=== PATIENT | male | born 1945 ===

== ENCOUNTER 2018-11-20 16:37 | Inpatient (IN) | payer MEDICAID ==
--- NOTE | 2018-11-20 17:58 | RAD ---
HISTORY: SOB COMPARISON: None available. TECHNIQUE: Chest, one view. FINDINGS: LUNGS: No focal consolidation. Please note that chest x-ray has limited sensitivity for the detection of pulmonary masses. PLEURA: No significant pleural effusion identified. No definite pneumothorax . CARDIOVASCULAR: Heart size appears within normal limits. Ectatic aorta. OSSEOUS STRUCTURES: No acute osseous abnormality identified. VISUALIZED UPPER ABDOMEN: Probable eventration of the left hemidiaphragm. OTHER FINDINGS: None. IMPRESSION: No focal consolidation.
--- NOTE | 2018-11-20 18:13 | C.PDOC ---
History Of Present Illness 72 y/o male comes in to ED complaining of a pill that got stuck in his throat yesterday. Patient states that he was drinking and taking a tablet when it suddenly got stuck in his throat. States that since then, hes been having hype rsalivation and throat pain. When asked to speak, patient is unable to speak clearly. As per family, patient has been having difficulty speaking and swallowing for the past 4 months. Otherwise patient denies chest pain, SOB, headache, or dizziness. Time Seen by Provider: 11/20/18 17:06 Chief Complaint (Nursing): ENT Problem History Per: Patient History/Exam Limitations: None Onset/Duration Of Symptoms: Days Current Symptoms Are (Timing): Still Present Past Medical History Reviewed: Historical Data, Nursing Documentation, Vital Signs Vital Signs: Last Vital Signs Temp 96.7 F L 11/20/18 16:40 Pulse 85 11/20/18 16:40 Resp 16 11/20/18 16:40 BP 136/71 11/20/18 16:40 Pulse Ox 100 11/20/18 16:40 - Medical History PMH: Hyperlipidemia (NOT ON MEDS X1 YEAR) Family History: States: No Known Family Hx - Social History Hx Alcohol Use: No Hx Substance Use: No - Immunization History Hx Tetanus Toxoid Vaccination: No Hx Influenza Vaccination: No Hx Pneumococcal Vaccination: No Review Of Systems ENT: Positive for: Throat Pain, Other (hypersalivation) Cardiovascular: Negative for: Chest Pain Respiratory: Negative for: Shortness of Breath Neurological: Positive for: Change in Speech. Negative for: Headache, Dizziness Physical Exam - Physical Exam Appears: Non-toxic, No Acute Distress Skin: Warm, Dry Head: Atraumatic, Normacephalic Eye(s): bilateral: Normal Inspection, PERRL, EOMI Oral Mucosa: Moist Tongue: Other (tongue deviates towards the right side when asked to stick tongue out) Neck: Supple Chest: Symmetrical Cardiovascular: Rhythm Regular, No Murmur Respiratory: Normal Breath Sounds, No Rales, No Rhonchi, No Wheezing Extremity: Other (Weak on right upper extremity; strong lower extremity 5/5, sensation intact) Extremity: Bilateral: Normal Color And Temperature, Normal ROM Neurological/Psych: Oriented x3, Normal Motor, Normal Sensation Gait: Steady ED Course And Treatment - Laboratory Results Result Diagrams: 11/20/18 18:08 11/20/18 18:08 O2 Sat by Pulse Oximetry: 100 (RA) Pulse Ox Interpretation: Normal - Other Rad CXR X-Ray: Read By Radiologist Interpretation: FINDINGS: LUNGS: No focal consolidation. Please note that chest x-ray has limited sensitivity for the detection of pulmonary masses. PLEURA: No significant pleural effusion identified. No definite pneumothorax . CARDIOVASCULAR: Heart size appears within normal limits. Ectatic aorta. OSSEOUS STRUCTURES: No acute osseous abnormality identified. VISUALIZED UPPER ABDOMEN: Probable eventration of the left hemidiaphragm. OTHER FINDINGS: None. IMPRESSION: No focal consolidation. - CT Scan/US CT Head Other Rad Studies (CT/US): Read By Radiologist, Radiology Report Reviewed CT/US Interpretation: FINDINGS: HEMORRHAGE: No intracranial hemorrhage. BRAIN: No mass effect or edema. The weaver-white matter differentiation appears intact. Please note that MRI with diffusion imaging is more sensitive in the detection of acute ischemic event. VENTRICLES: No hydrocephalus. CALVARIUM: Unremarkable. PARANASAL SINUSES: Mucosal polyp/retention cyst within the left maxillary sinus and right frontal ethmoid air cells. Paranasal sinuses appear otherwise grossly clear. MASTOID AIR CELLS: Unremarkable as visualized. No in flammatory changes. OTHER FINDINGS: None. IMPRESSION: No acute intracranial pathology identified. Findings as above. CT Neck Other Rad Studies (CT/US): Read By Radiologist, Radiology Report Reviewed CT/US Interpretation: FINDINGS: PHARYNX: Unremarkable appearance of the nasopharynx, oropharyx, and hypopharynx. No pharyngeal mucosal based mass lesions. LARYNX: Normal appearance of the larynx. Unremarkable epiglottis. RETROPHARYNGEAL SPACE: The retropharyngeal soft tissues appear within normal limits. SALIVARY GLANDS: Unremarkable appearance of the parotid, submandibular, and sublingual glands. LYMPH NODES: No significant ly mphadenopathy. THYROID: Unremarkable appearance of the thyroid. No thyroid nodule seen. BONES: No aggressive appearing osseous lesion. No acute osseous abnormality. There is an approximate 3.6 x 2.5 x 2.4 cm polypoid mass within the left maxillary sinus. There is no bone erosion or bone destruction. No air-fluid level identified. IMPRESSION: Trachea appears in the midline. Larynx and its contents appear within normal limits. There is no suspicious mass within the neck. There is a 3.6 x 2.5 x 2.4 cm polypoid mass within the left maxillary sinus for which close clinical correlation is advised. Medical Decision Making Medical Decision Making: Impression: Foreign body in throat, Dysphagia r/o CVA. Plan: --Bloodwork --EKG --CXR --CT Head --CT soft tissue neck [employer] was used at bedside (Sim, #[id number]). EKG: NSR Left axis st-t wave changes lead II, III, avF age unknown Disposition - Disposition Disposition: HOME/ ROUTINE Disposition Time: 19:35 Condition: FAIR Forms: [employer] (Tristanian) - Clinical Impression Clinical Impression: Dysphagia - Scribe Statement The provider has reviewed the documentation as recorded by the Kermitibjessika Li Provider Attestation: All medical record entries made by the Kermitibjessika were at my direction and personally dictated by me. I have reviewed the chart and agree that the record accurately reflects my personal performance of the history, physical exam, medical decision making, and the department course for this patient. I have also personally directed, reviewed, and agree with the discharge instructions and disposition.
[2018-11-20 18:14] LABS: HEMOGLOBIN 15.4 g/dL (12.0-18.0); LYMPH # 0.4 K/uL (1.0-4.3); LYMPH % 3.5 % (20.0-40.0); MEAN CELL VOLUME 94.3 fL (80.0-94.0); MEAN CORPUSCULAR HEMOGLOBIN 31.2 pg (27.0-31.0); MEAN CORPUSCULAR HGB CONC 33.1 g/dL (33.0-37.0); MEAN PLATELET VOLUME 9.4 fL (7.2-11.7); MONO # 0.3 K/uL (0.0-0.8); MONO % 2.3 % (0.0-10.0); NEUT # 11.1 K/uL (1.8-7.0); NEUT % 94.2 % (50.0-75.0); PLATELET COUNT 272 K/uL (130-400); RBC 4.93 Mil/uL (4.40-5.90); RED CELL DISTRIBUTION WIDTH 15.1 % (11.5-14.5); WHITE BLOOD COUNT 11.8 K/uL (4.8-10.8)
[2018-11-20 18:26] LABS: PROTHROMBIN TIME 10.6 SECONDS (9.7-12.2)
[2018-11-20 18:28] LABS: ALB/GLOB RATIO 1.4 (1.0-2.1); ALBUMIN 4.3 g/dL (3.5-5.0); ALT/SGPT 76 U/L (21-72); AST/SGOT 24 U/L (17-59); BLOOD UREA NITROGEN 38 mg/dL (9-20); CALCIUM 9.1 mg/dl (8.6-10.4); GFR NON-AFRICAN AMERICAN > 60
--- NOTE | 2018-11-20 18:34 | CT ---
Date of service: 11/20/2018 PROCEDURE: CT HEAD WITHOUT CONTRAST. HISTORY: R/O Bleed COMPARISON: None available TECHNIQUE: Axial computed tomography images were obtained through the head/brain without intravenous contrast. Radiation dose: Total exam DLP = 985.73 mGy-cm. This CT exam was performed using one or more of the following dose reduction techniques: Automated exposure control, adjustment of the mA and/or kV according to patient size, and/or use of iterative reconstruction technique. FINDINGS: HEMORRHAGE: No intracranial hemorrhage. BRAIN: No mass effect or edema. The weaver-white matter differentiation appears intact. Please note that MRI with diffusion imaging is more sensitive in the detection of acute ischemic event. VENTRICLES: No hydrocephalus. CALVARIUM: Unremarkable. PARANASAL SINUSES: Mucosal polyp/retention cyst within the left maxillary sinus and right frontal ethmoid air cells. Paranasal sinuses appear otherwise grossly clear. MASTOID AIR CELLS: Unremarkable as visualized. No inflammatory changes. OTHER FINDINGS: None. IMPRESSION: No acute intracranial pathology identified. Findings as above.
[2018-11-20 18:40] LABS: CK-MB 4.22 ng/mL (0.0-3.38)
[2018-11-20 20:11] LABS: LYMPHOCYTE 5 % (20-40); MONOCYTE 4 % (0-10); NEUTROPHIL 91 % (50-75); PLATELET ESTIMATE NORMAL (NORMAL); TOTAL CELLS COUNTED 100
[2018-11-20 21:25] LABS: URINE BACTERIA RARE (<OCC); URINE BILIRUBIN NEGATIVE (NEGATIVE); URINE BLOOD NEGATIVE (NEGATIVE); URINE CLARITY Clear (Clear); URINE COLOR Yellow (YELLOW); URINE GLUCOSE (UA) NORMAL (Normal); URINE LEUKOCYTE ESTERASE NEG Leu/uL (Negative); URINE PROTEIN NEGATIVE (NEGATIVE); URINE UROBILINOGEN NORMAL mg/dL (0.2-1.0)
[2018-11-20 22:35] VITALS: RESP 20
[2018-11-21] MEDS: Sodium Chloride 0.9% 1,000 ML IV SCH ×3 (00:15→22:25)
--- NOTE | 2018-11-21 00:46 | CP.PCM.HP ---
<Bee Tai - Last Filed: 11/21/18 07:18> History of Present Illness - History of Present Illness History of Present Illness: CC "slurred speech, difficulty swallowing" HPI: Patient is a 72 year old male with no past medical history who presents for 3 month history of progressively worsening difficulty swallowing and slurred speech. Family at bedside including his , sister and daughter state that it was not obvious at first, but later has become more obvious to them. Family states that he initially had difficulty swallowing solid foods, however has progressively worsened to the point where he has difficulty with both solids and liquids. typically feeds him spoonful of pureed food, she states that patient starts to choke with thin liquids. Patient has lost about 50 lbs in the past 3 months despite eating soft food three times daily. He denies pain in his throat, however admits to some discomfort in his throat. Family also states that his speech has become more and more slurred to the point that they have difficulty understanding him. They have also noticed that over the past 3 months, the strength in his arms has decreased, right is weaker than left. He continues to be able to walk without difficulty. He has not had any bowel or bladder incontinence, saddle anesthesia. states that he is continent and is able to use the bathroom on his own. Family denies any falls. Denies fevers, chills, chest pain, shortness of breath, cough, headache, dizziness, nausea, vomiting, diarrhea, dysuria, numbness, tingling, syncopal episodes. Patient has been able to follow commands, understands family without any issues. Patient was recently given a OTC pain pill on , however patient then began to choke. Family did the Heimlich manuever on him and the pill came out. They state that they didn't seek medical attention because they didn't have insurance. Patient and his family moved to the [facility] from [place] about 1 year ago. PMH: none PSH: none Social hx: denies alcohol, tobacco or drug use. Allergies: PCN - rash Family hx: non contributory HCP: Dolores Garcia , Present on Admission - Present on Admission Any Indicators Present on Admission: No Review of Systems - Constitutional Constitutional: Weakness. absent: Chills, Fever, Headache - EENT Eyes: absent: Change in Vision Nose/Mouth/Throat: absent: Nasal Congestion, Sore Throat - Cardiovascular Cardiovascular: absent: Chest Pain, Dyspnea - Respiratory Respiratory: absent: Cough, Dyspnea - Gastrointestinal Gastrointestinal: absent: Abdominal Pain, Nausea, Vomiting - Genitourinary Genitourinary: absent: Difficulty Urinating, Dysuria - Musculoskeletal Musculoskeletal: Muscle Weakness. absent: Back Pain, Stiffness, Tingling - Neurological Neurological: Abnormal Speech, Focal Weakness. absent: Confusion - Psychiatric Psychiatric: absent: Anxiety, Depression Past Patient History - Past Medical History & Family History Past Medical History?: Yes - Past Social History Smoking Status: Never Smoked - CARDIAC Hx Hypercholesterolemia: Yes - MUSCULOSKELETAL/RHEUMATOLOGICAL Hx Falls: No - PSYCHIATRIC Hx Substance Use: No Meds Allergies/Adverse Reactions: Allergies Allergy/AdvReac Type Severity Reaction Status Date / Time Penicillins Allergy Verified 11/20/18 16:45 Physical Exam - Constitutional Appears: Well, Non-toxic, No Acute Distress - Head Exam Head Exam: ATRAUMATIC, NORMOCEPHALIC - Eye Exam Eye Exam: EOMI, PERRL. absent: Conjunctival injection, Nystagmus, Periorbital swelling, Scleral icterus - ENT Exam ENT Exam: Mucous Membranes Dry, Normal Oropharynx (no uvular deviation noted) - Neck Exam Neck exam: Negative for: Full Rom, Tenderness - Respiratory Exam Respiratory Exam: Clear to Auscultation Bilateral, NORMAL BREATHING PATTERN. absent: Rales, Rhonchi, Wheezes, Respiratory Distress, Stridor - Cardiovascular Exam Cardiovascular Exam: REGULAR RHYTHM, +S1, +S2. absent: Gallop, Rubs, Systolic Murmur - GI/Abdominal Exam GI & Abdominal Exam: Normal Bowel Sounds, Soft. absent: Distended, Firm, Guarding, Hernia, Rigid, Tenderness - Extremities Exam Extremities exam: Positive for: normal capillary refill, pedal pulses present. Negative for: calf tenderness, pedal edema - Back Exam Back exam: absent: CVA tenderness (L), CVA tenderness (R), rash noted - Neurological Exam Neurological exam: Oriented x3 (Knows name, place, month and can tell you however difficulty undestanding pt d/t slurred speech) Additional comments: Can follow commands without confusion Slurred speech - dysarthria Able to follow H in space without difficulty Mild right facial droop noted with weakness of tongue muscles on right, patient cannot move tongue to left. Uvula appears midline Upper extremities: Can hold both arms up bilaterally, however decreased step finisher strength of right compared to left. Sensation intact and equal bilaterally of upper extremities. Able to complete finger to nose without difficulty, Lower extremities: Good strength of lower extremities. Sensation intact. Able to complete heel to feliciano test without difficulty. Able to stand without falling. normal gait. - Psychiatric Exam Psychiatric exam: Normal Affect, Normal Mood - Skin Skin Exam: Dry, Intact, Warm Additional comments: Poor skin turgor diffusely Results - Vital Signs Recent Vital Signs: Last Vital Signs Temp 97.7 F 11/20/18 23:30 Pulse 62 11/20/18 23:30 Resp 20 11/20/18 23:30 BP 119/70 11/20/18 23:30 Pulse Ox 99 11/20/18 23:30 - Labs Result Diagrams: 11/21/18 06:04 11/21/18 06:04 Labs: Laboratory Results - last 24 hr 11/20/18 11/20/18 11/20/18 18:08 18:08 18:15 WBC 11.8 H RBC 4.93 Hgb 15.4 Hct 46.4 MCV 94.3 H MCH 31.2 H MCHC 33.1 RDW 15.1 H Plt Count 272 MPV 9.4 Neut % (Auto) 94.2 H Lymph % (Auto) 3.5 L [place] % (Auto) 2.3 Eos % (Auto) 0.0 Baso % (Auto) 0.0 Neut # (Auto) 11.1 H Lymph # (Auto) 0.4 L [place] # (Auto) 0.3 Eos # (Auto) 0.0 Baso # (Auto) 0.0 Neutrophils % (Manual) 91 H Lymphocytes % (Manual) 5 L Monocytes % (Manual) 4 Platelet Estimate Normal PT 10.6 INR 1.0 APTT 28 Sodium 136 Potassium 5.7 H Chloride 94 L Carbon Dioxide 34 H Anion Gap 14 BUN 38 H Creatinine 0.9 Est GFR ( Amer) > 60 Est GFR (Non-Af Amer) > 60 Random Glucose 126 H Calcium 9.1 Total Bilirubin 0.6 AST 24 ALT 76 H Alkaline Phosphatase 44 CK-MB (Mass) 4.22 H Troponin I 0.0180 Total Protein 7.2 Albumin 4.3 Globulin 3.0 Albumin/Globulin Ratio 1.4 Urine Color Urine Clarity Urine pH Ur Specific [place] Urine Protein Urine Glucose (UA) Urine Ketones Urine Blood Urine Nitrate Urine Bilirubin Urine Urobilinogen Ur Leukocyte Esterase Urine WBC (Auto) Urine RBC (Auto) Urine Bacteria 11/20/18 21:13 WBC RBC Hgb Hct MCV MCH MCHC RDW Plt Count MPV Neut % (Auto) Lymph % (Auto) [place] % (Auto) Eos % (Auto) Baso % (Auto) Neut # (Auto) Lymph # (Auto) [place] # (Auto) Eos # (Auto) Baso # (Auto) Neutrophils % (Manual) Lymphocytes % (Manual) Monocytes % (Manual) Platelet Estimate PT INR APTT Sodium Potassium Chloride Carbon Dioxide Anion Gap BUN Creatinine Est GFR ( Amer) Est GFR (Non-Af Amer) Random Glucose Calcium Total Bilirubin AST ALT Alkaline Phosphatase CK-MB (Mass) Troponin I Total Protein Albumin Globulin Albumin/Globulin Ratio Urine Color Yellow Urine Clarity Clear Urine pH 5.0 Ur Specific [place] 1.026 Urine Protein Negative Urine Glucose (UA) Normal Urine Ketones Negative Urine Blood Negative Urine Nitrate Negative Urine Bilirubin Negative Urine Urobilinogen Normal Ur Leukocyte Esterase Neg Urine WBC (Auto) 1 Urine RBC (Auto) 1 Urine Bacteria Rare Assessment & Plan - Assessment and Plan (Free Text) Assessment: 72 year old male who presents for 3 month history of progressively worsening slurred speech, difficulty swallowing, upper extremity weakness. Plan: Slurred speech CT head negative f/u ECHO f/u carotid doppler ASA 300mg HI Crestor 20mg PO HS if pass swallow eval f/u MRI brain without contrast f/u MRA brain without contrast Difficulty swallowing NPO until swallow eval CXR negative Soft tissue neck CT: trachea appears midline. Larynx and its contents WNL. No suspicious neck mass. 3.6 by 2.5 by 2.4 cm polypoid mass in left sinus NS IV fluids at 100cc/hr IV Upper extremity weakness Neurology Dr. Villafuerte consulted, help appreciated CT head negative CT soft tissue neck: trachea appears midline. Larynx and its contents WNL. No suspicious neck mass. 3.6 by 2.5 by 2.4 cm polypoid mass in left sinus f/u ECHO f/u carotid doppler Weight loss, likely secondary to poor PO intake Dehydration 50 lbs weight loss over last 3 months Continue NS @ 100cc/hr IV Monitor electrolytes and replete as necessary. MCV 94, Hb 15 however possibly hemoconcentrated due to dehydration f/u folate, B12 K elevated at 5.7, received Kayexalate in ED Cl low, bicarb elevated, suggestive of dehydration. Continue to monitor electrolyte to see if improved with hydration. PPX: Heparin 5000 units SC Pepcid PT/OT/speech Case discussed with Dr. Max Tai, PGY1 <Rodolfo Santana P - Last Filed: 11/21/18 07:30> Results - Vital Signs Recent Vital Signs: Last Vital Signs Temp 97.2 F L 11/21/18 04:28 Pulse 62 11/21/18 04:28 Resp 20 11/21/18 04:28 BP 124/70 11/21/18 04:28 Pulse Ox 98 11/21/18 04:28 - Labs Result Diagrams: 11/21/18 06:04 11/21/18 06:04 Labs: Laboratory Results - last 24 hr 11/20/18 11/20/18 11/20/18 18:08 18:08 18:15 WBC 11.8 H RBC 4.93 Hgb 15.4 Hct 46.4 MCV 94.3 H MCH 31.2 H MCHC 33.1 RDW 15.1 H Plt Count 272 MPV 9.4 Neut % (Auto) 94.2 H Lymph % (Auto) 3.5 L [place] % (Auto) 2.3 Eos % (Auto) 0.0 Baso % (Auto) 0.0 Neut # (Auto) 11.1 H Lymph # (Auto) 0.4 L [place] # (Auto) 0.3 Eos # (Auto) 0.0 Baso # (Auto) 0.0 Neutrophils % (Manual) 91 H Lymphocytes % (Manual) 5 L Monocytes % (Manual) 4 Platelet Estimate Normal PT 10.6 INR 1.0 APTT 28 Sodium 136 Potassium 5.7 H Chloride 94 L Carbon Dioxide 34 H Anion Gap 14 BUN 38 H Creatinine 0.9 Est GFR ( Amer) > 60 Est GFR (Non-Af Amer) > 60 POC Glucose (mg/dL) Random Glucose 126 H Calcium 9.1 Phosphorus Magnesium Total Bilirubin 0.6 AST 24 ALT 76 H Alkaline Phosphatase 44 CK-MB (Mass) 4.22 H Troponin I 0.0180 Total Protein 7.2 Albumin 4.3 Globulin 3.0 Albumin/Globulin Ratio 1.4 Urine Color Urine Clarity Urine pH Ur Specific [place] Urine Protein Urine Glucose (UA) Urine Ketones Urine Blood Urine Nitrate Urine Bilirubin Urine Urobilinogen Ur Leukocyte Esterase Urine WBC (Auto) Urine RBC (Auto) Urine Bacteria 11/20/18 11/21/18 11/21/18 21:13 06:04 06:04 WBC 10.2 RBC 4.48 Hgb 14.1 Hct 41.9 MCV 93.7 MCH 31.6 H MCHC 33.7 RDW 14.9 H Plt Count 220 MPV 9.1 Neut % (Auto) 72.8 Lymph % (Auto) 20.8 [place] % (Auto) 5.9 Eos % (Auto) 0.4 Baso % (Auto) 0.1 Neut # (Auto) 7.4 H Lymph # (Auto) 2.1 [place] # (Auto) 0.6 Eos # (Auto) 0.0 Baso # (Auto) 0.0 Neutrophils % (Manual) Lymphocytes % (Manual) Monocytes % (Manual) Platelet Estimate PT INR APTT Sodium 135 Potassium 4.8 Chloride 97 L Carbon Dioxide 36 H Anion Gap 7 L BUN 28 H Creatinine 0.8 Est GFR ( Amer) > 60 Est GFR (Non-Af Amer) > 60 POC Glucose (mg/dL) Random Glucose 90 D Calcium 8.6 Phosphorus 2.9 Magnesium 2.3 Total Bilirubin 0.9 AST 31 ALT 63 Alkaline Phosphatase 37 L CK-MB (Mass) Troponin I Total Protein 5.8 L Albumin 3.2 L D Globulin 2.7 Albumin/Globulin Ratio 1.2 Urine Color Yellow Urine Clarity Clear Urine pH 5.0 Ur Specific [place] 1.026 Urine Protein Negative Urine Glucose (UA) Normal Urine Ketones Negative Urine Blood Negative Urine Nitrate Negative Urine Bilirubin Negative Urine Urobilinogen Normal Ur Leukocyte Esterase Neg Urine WBC (Auto) 1 Urine RBC (Auto) 1 Urine Bacteria Rare 11/21/18 06:28 WBC RBC Hgb Hct MCV MCH MCHC RDW Plt Count MPV Neut % (Auto) Lymph % (Auto) [place] % (Auto) Eos % (Auto) Baso % (Auto) Neut # (Auto) Lymph # (Auto) [place] # (Auto) Eos # (Auto) Baso # (Auto) Neutrophils % (Manual) Lymphocytes % (Manual) Monocytes % (Manual) Platelet Estimate PT INR APTT Sodium Potassium Chloride Carbon Dioxide Anion Gap BUN Creatinine Est GFR ( Amer) Est GFR (Non-Af Amer) POC Glucose (mg/dL) 93 Random Glucose Calcium Phosphorus Magnesium Total Bilirubin AST ALT Alkaline Phosphatase CK-MB (Mass) Troponin I Total Protein Albumin Globulin Albumin/Globulin Ratio Urine Color Urine Clarity Urine pH Ur Specific [place] Urine Protein Urine Glucose (UA) Urine Ketones Urine Blood Urine Nitrate Urine Bilirubin Urine Urobilinogen Ur Leukocyte Esterase Urine WBC (Auto) Urine RBC (Auto) Urine Bacteria Attending/Attestation - Attestation I have personally seen and examined this patient.: Yes I have fully participated in the care of the patient.: Yes I have reviewed all pertinent clinical information: Yes Notes (Text): 11/21/18 07:28 Slurred speech, swallowing difficulty, secondary weight loss and dehydration, negative CT, suspect brain stem lesion most likely from CVA, ordered MRI/MRA of brain. IVF, speech/swallow eval, gi/dvt prophylaxis, ASA, statin, neurology consult. See orders for detail.
[2018-11-21 06:12] LABS: BASO % 0.1 % (0.0-2.0); EOS % 0.4 % (0.0-4.0); HEMOGLOBIN 14.1 g/dL (12.0-18.0); LYMPH # 2.1 K/uL (1.0-4.3); LYMPH % 20.8 % (20.0-40.0); MEAN CELL VOLUME 93.7 fL (80.0-94.0); MEAN CORPUSCULAR HEMOGLOBIN 31.6 pg (27.0-31.0); MEAN CORPUSCULAR HGB CONC 33.7 g/dL (33.0-37.0); MEAN PLATELET VOLUME 9.1 fL (7.2-11.7); MONO # 0.6 K/uL (0.0-0.8); MONO % 5.9 % (0.0-10.0); NEUT # 7.4 K/uL (1.8-7.0); NEUT % 72.8 % (50.0-75.0); RBC 4.48 Mil/uL (4.40-5.90); RED CELL DISTRIBUTION WIDTH 14.9 % (11.5-14.5); WHITE BLOOD COUNT 10.2 K/uL (4.8-10.8)
[2018-11-21 06:45] LABS: ALB/GLOB RATIO 1.2 (1.0-2.1); ALBUMIN 3.2 g/dL (3.5-5.0); ALT/SGPT 63 U/L (21-72); AST/SGOT 31 U/L (17-59); BLOOD UREA NITROGEN 28 mg/dL (9-20); CALCIUM 8.6 mg/dl (8.6-10.4); GFR NON-AFRICAN AMERICAN > 60
[2018-11-21] MEDS ORDERED: Pneumococcal 23-Valent Vaccine IM ONE ×2 (10:00→11:30)
--- NOTE | 2018-11-21 10:56 | CP.PCM.PN ---
Subjective - Date & Time of Evaluation Date of Evaluation: 11/21/18 Time of Evaluation: 09:15 - Subjective Subjective: PGY-1 Medicine Progress Note for Dr. Paul Bridges Patient was seen and examined today at bedside in no acute distress. Nurse reports no overnight events. Patient is pleasant and is able to nod and shake his head without difficulty. His slurred speech makes it somewhat difficult to obtain full history. He has no new complaints, but would like to know what the results of the exams have been. Denies chest pain, headache, shortness of breath , n/v/c/d. He's still extremely hungry as still on NPO diet pending swallow eval. Objective - Vital Signs/Intake and Output Vital Signs (last 24 hours): Temp Pulse Resp BP Pulse Ox 97.7 F 62 20 113/69 100 11/21/18 07:00 11/21/18 07:00 11/21/18 07:00 11/21/18 07:00 11/21/18 07:00 Intake and Output: 11/21/18 11/21/18 06:59 18:59 Output Total 800 Balance -800 - Medications Medications: Current Medications Aspirin (Aspirin Supp) 300 mg MA DAILY [facility] Heparin Sodium (Porcine) (Heparin) 5,000 units SC Q8 [facility] Last Admin: 11/21/18 06:20 Dose: 5,000 units Sodium Chloride (Sodium Chloride 0.9%) 1,000 mls @ 100 mls/hr IV .Q10H [facility] Last Admin: 11/21/18 00:15 Dose: 100 mls/hr Rosuvastatin Calcium (Crestor) 20 mg PO HS [facility] - Labs Labs: 11/21/18 06:04 11/21/18 06:04 PT 10.6 SECONDS (9.7-12.2) 11/20/18 18:15 INR 1.0 11/20/18 18:15 APTT 28 SECONDS (21-34) 11/20/18 18:15 - Constitutional Appears: No Acute Distress, Cachectic - Head Exam Head Exam: ATRAUMATIC, NORMOCEPHALIC - Eye Exam Eye Exam: EOMI, Normal appearance, PERRL - ENT Exam ENT Exam: Mucous Membranes Dry Additional comments: slight R tongue deviation - Respiratory Exam Respiratory Exam: Clear to Ausculation Bilateral, NORMAL BREATHING PATTERN. absent: Rales, Rhonchi, Wheezes - Cardiovascular Exam Cardiovascular Exam: REGULAR RHYTHM, +S1, +S2. absent: Gallop, Rubs, Murmur - GI/Abdominal Exam GI & Abdominal Exam: Soft, Normal Bowel Sounds. absent: Distended, Firm, Guarding, Tenderness - Back Exam Back Exam: absent: CVA tenderness (L), CVA tenderness (R) - Neurological Exam Neurological Exam: Alert, Awake, Normal Gait, Oriented x3 Neuro motor strength exam: Left Upper Extremity: 4, Right Upper Extremity: 2/1 (decreased principal technologist strength), Left Lower Extremity: 5, Right Lower Extremity: 5 Additional comments: follows commands readily slurred speech no pronator drift finger to nose intact sensation intact - Psychiatric Exam Psychiatric exam: Normal Affect, Normal Mood - Skin Skin Exam: Dry, Normal Color, Warm Additional comments: poor skin turgor Assessment and Plan - Assessment and Plan (Free Text) Assessment: 72yo M who presents for 3 month history of progressively worsening slurred speech, difficulty swallowing, upper extremity weakness. Plan: Slurred speech - CT Head without contrast (11/20): neg - Carotid Doppler (11/21): neg - ECHO (11/21): pending read - MRI brain without contrast (11/21): pending read - MRA brain without contrast (11/21): pending read - f/u CTA Neck - ASA 300mg MA daily - Crestor 20mg po HS if pass swallow eval Dysphagia - CXR (11/20): neg - CT Neck Soft Tissue (11/20): no radio-opaque foreign body identified. L maxillary retention cyst/polyp. - IVF: NS@100 - f/u modified barium video swallow Upper extremity weakness - CT Head without contrast (11/20): neg - CT Neck Soft Tissue (11/20): neg - Carotid Doppler (11/21): neg - ECHO (11/21): pending read - Neuro consulted: Dr. Villafuerte - help appreciated Weight loss, likely secondary to poor PO intake Dehydration - 50lbs weight loss over last 3 months - albumin stable, Hgb hemoconcentrated from dehydration - folate 16.1, Vit B12 472 - trend electrolytes and replete prn - Hgb A1c 6.0 - K elevated at 5.7, received Kayexalate in ED - IVF: NS@100 - f/u modified barium video swallow PPx - DVT: Heparin 5000 units SC - GI: - Diet: Pureed dysphagia diet with thin liquids. Assist for muscle wasting and swallow observation. - PT/OT/speech d/w Dr. Paul Llanos PGY-1
[2018-11-21 11:18] LABS: FOLATE 16.1 ng/mL
[2018-11-21 12:02] LABS: HDL CHOLESTEROL 61 mg/dL (30-70)
[2018-11-21 12:12] LABS: LDL CHOLESTEROL 99 mg/dL (0-129)
--- NOTE | 2018-11-21 13:22 | CT ---
Date of service: 11/20/2018 PROCEDURE: CT NECK WITHOUT CONTRAST HISTORY: FB throat COMPARISON: None available. TECHNIQUE: CT of the neck without intravenous contrast. Coronal and sagittal reformats generated. Radiation dose: Total exam DLP = 295.67 mGy-cm. This CT exam was performed using one or more of the following dose reduction techniques: Automated exposure control, adjustment of the mA and/or kV according to patient size, and/or use of iterative reconstruction technique. FINDINGS: NASOPHARYNX: Unremarkable. SUPRAHYOID NECK: Unremarkable oropharynx, oral cavity, parapharyngeal space and retropharyngeal space. INFRAHYOID NECK: Unremarkable larynx, hypopharynx, and supraglottic space. Vocal cords intact. MASS: None. GLANDS: Parotid and submandibular glands unremarkable. Normal size thyroid gland, without nodule. LYMPH NODES: Normal. No lymphadenopathy. CERVICAL SPINE: No fracture or focal lesion. OTHER FINDINGS: Retention cyst/polyp in left maxillary antrum. IMPRESSION: No radiopaque foreign body identified. Unremarkable examination aside from left maxillary retention cyst/polyp. The preliminary findings for this examination were reported by [facility] at 6:11 p.m. on 11/20/2018. There is concurrence of this report with the preliminary findings.
--- NOTE | 2018-11-21 14:39 | VASCLAB ---
Date of service: 11/21/2018 PROCEDURE: Carotid Duplex Exam. HISTORY: slurred speech COMPARISON: None available. TECHNIQUE: Grayscale and duplex Doppler evaluation of the cervical carotid and vertebral arteries were performed. The common carotid, carotid bifurcations and cervical Internal Carotid Artery (ICA) and proximal External Carotid Artery (ECA) were evaluated. The vertebral arteries were evaluated for gross patency and flow direction. Report prepared by Mina Howard, BS, RVT FINDINGS: RIGHT CAROTID ARTERIES: 1. Common Carotid Artery: No significant focal plaque formation of the right common carotid artery. Maximum Peak Systolic velocity: 99 cm/sec: End-diastolic velocity 24 cm/sec. 2. Carotid Bifurcation: plaque formation. Maximum Peak Systolic velocity: 49 cm/sec: End-diastolic velocity 14 cm/sec. 3. Internal Carotid Artery: Plaque description: 3.1. Proximal Segment: Peak systolic velocity 82 cm/sec: End-diastolic velocity 20 cm/sec - % stenosis 0-15% 3.2. Middle Segment: Peak systolic velocity 57 cm/sec: End-diastolic velocity 26 cm/sec - % stenosis 0-15% 3.3. Distal Segment: Peak systolic velocity 57 cm/sec: End-diastolic velocity 20 cm/sec - % stenosis 0-15% 4. External Carotid Artery: No significant focal plaque formation. Peak systolic velocity 78 cm/sec 5. ICA/CCA Ratio: 0.8 LEFT CAROTID ARTERIES: 1. Common Carotid Artery: No significant focal plaque formation of the left common carotid artery. Maximum Peak Systolic velocity: 73 cm/sec: End-diastolic velocity 20 cm/sec. 2. Carotid Bifurcation: plaque formation. Maximum Peak Systolic velocity: 69 cm/sec: End-diastolic velocity 18 cm/sec. 3. Internal Carotid Artery: Plaque description: 3.1. Proximal Segment: Peak systolic velocity 78 cm/sec: End-diastolic velocity 28 cm/sec - % stenosis 0-15% 3.2. Middle Segment: Peak systolic velocity 91 cm/sec: End-diastolic velocity 36 cm/sec - % stenosis 0-15% 3.3. Distal Segment: Peak systolic velocity 100 cm/sec: End-diastolic velocity 37 cm/sec - % stenosis 0-15% 4. External Carotid Artery: No significant focal plaque formation. Peak systolic velocity 69 cm/sec 5. ICA/CCA Ratio: 1.4 VERTEBRAL ARTERIES: 1. Right Vertebral Artery: The right vertebral artery flow direction is antegrade. 2. Left Vertebral Artery: The left vertebral artery flow direction is antegrade. OTHER FINDINGS: 1. Right Brachial Blood pressure: 110 mmHg. 2. Left Brachial Blood pressure: 112 mmHg. 3. No atherosclerotic calcification present IMPRESSION: RIGHT: Duplex scan does not suggest hemodynamically significant stenosis of the right extracranial carotid arteries. LEFT: Duplex scan does not suggest hemodynamically significant stenosis of the left extracranial carotid arteries.
[2018-11-21] MEDS ORDERED: Iodixanol 320 MG/ML 100 ML BOTTLE IV ONE (18:08)
--- NOTE | 2018-11-21 22:23 | CARD ---
APPROVED REPORT Date of service: 11/20/2018 EKG Measurement Heart [id number] <Conclusion> Normal sinus rhythm Inferior infarct, age undetermined Abnormal ECG
--- NOTE | 2018-11-21 23:48 | CARD ---
APPROVED REPORT Date of service: 11/21/2018 EXAM: Two-dimensional and M-mode echocardiogram with Doppler and color Doppler. INDICATION CVA/TIA 2D DIMENSIONS IVSd1.2 (0.7-1.1cm)Aortic Root (2D)3.4 (2.0-3.7cm) LVDd4.1 (3.9-5.9cm)PWd0.9 (0.7-1.1cm) LA Etspho62 (18-58mL)LVDs2.1 (2.5-4.0cm) FS (%) 48.7 %LVEF (%)75.0 (>50%) LVEF ([facility])63.56 %IVC0.00 cm M-Mode DIMENSIONS RVDd1.18 (2.1-3.2cm)Left Atrium (MM)3.01 (2.5-4.0cm) IVSd0.97 (0.7-1.1cm)Aortic Root3.43 (2.2-3.7cm) LVDd4.98 (4.0-5.6cm)Aortic Cusp Exc.2.21 (1.5-2.0cm) PWd0.85 (0.7-1.1cm)FS (%) 48 % LVDs2.61 (2.0-3.8cm)LVEF (%)60 (>50%) Mitral Valve MV E Ywelqoha37.9cm/sMV A Wfspvnoq71.1cm/sE/A ratio1.1 TDI Lateral E' Peak V5.64cm/sMedial E' Peak V6.55cm/sE/Lateral E'10.8 E/Medial E'9.3 Tricuspid Valve TR Peak [id number]/sTR Peak [id number] LEFT VENTRICLE The left ventricle is normal size. There is normal left ventricular wall thickness. Left ventricle systolic function is normal. The Ejection Fraction is 60-65%. There is normal LV segmental wall motion. The left ventricular diastolic function is normal. No left ventricle thrombus noted on this study. RIGHT VENTRICLE The right ventricle is normal size. The right ventricular systolic function is normal. ATRIA The left atrium size is normal. The right atrium size is normal. AORTIC VALVE The aortic valve is mildly thickened. The aortic valve is trileaflet. No aortic regurgitation is present. There is no aortic valvular stenosis. There is no aortic valvular vegetation. MITRAL VALVE Mitral annular calcification is mild. There is no evidence of mitral valve prolapse. There is no mitral valve stenosis. Mitral regurgitation is mild. TRICUSPID VALVE The tricuspid valve is normal in structure. There is mild tricuspid regurgitation. Right ventricular systolic pressure is estimated at less than 30 mmHg. There is no pulmonary hypertension. There is no tricuspid valve prolapse or vegetation. There is no tricuspid valve stenosis. PULMONIC VALVE The pulmonic valve is not well visualized. There is mild pulmonic valvular regurgitation. There is no pulmonic valvular stenosis. GREAT VESSELS The aortic root is normal in size. The IVC is normal in size and collapses >50% with inspiration. PERICARDIAL EFFUSION There is no pericardial effusion. There is no pleural effusion. <Conclusion> The left ventricle is normal size. Left ventricle systolic function is normal. The Ejection Fraction is 60-65%. The right ventricle is normal size. The right ventricular systolic function is normal. The left atrium size is normal. The right atrium size is normal. The left atrium size is normal. Mitral regurgitation is mild. There is mild pulmonic valvular regurgitation. There is mild tricuspid regurgitation.
[2018-11-22] MEDS: Sodium Chloride 0.9% 1,000 ML IV SCH (06:14)
[2018-11-22 07:02] LABS: EOS # 0.1 K/uL (0.0-0.7); EOS % 1.2 % (0.0-4.0); HEMOGLOBIN 14.9 g/dL (12.0-18.0); LYMPH # 2.9 K/uL (1.0-4.3); LYMPH % 40.7 % (20.0-40.0); MEAN CELL VOLUME 93.9 fL (80.0-94.0); MEAN CORPUSCULAR HEMOGLOBIN 31.3 pg (27.0-31.0); MEAN CORPUSCULAR HGB CONC 33.3 g/dL (33.0-37.0); MEAN PLATELET VOLUME 9.1 fL (7.2-11.7); MONO # 0.4 K/uL (0.0-0.8); MONO % 5.2 % (0.0-10.0); NEUT # 3.8 K/uL (1.8-7.0); NEUT % 52.9 % (50.0-75.0); RBC 4.77 Mil/uL (4.40-5.90); RED CELL DISTRIBUTION WIDTH 14.9 % (11.5-14.5); WHITE BLOOD COUNT 7.2 K/uL (4.8-10.8)
[2018-11-22 07:35] LABS: ALB/GLOB RATIO 1.2 (1.0-2.1); ALBUMIN 3.3 g/dL (3.5-5.0); ALT/SGPT 61 U/L (21-72); AST/SGOT 33 U/L (17-59); BLOOD UREA NITROGEN 17 mg/dL (9-20); GFR NON-AFRICAN AMERICAN > 60
[2018-11-22 08:29] VITALS: BP 118/73; PULSE 67; TEMP 98; O2SAT 99
--- NOTE | 2018-11-22 08:55 | CP.PCM.CON ---
<Roxie Torres - Last Filed: 11/22/18 13:13> History of Present Illness - History of Present Illness History of Present Illness: Neurology consult note Patient is a 72 year old male with no PMHx who was brought in by family for 3 month history of progressively worsening dysphagia and slurred speech. Initially pt presents with dysphagia to solids, and most recently liquids as well; pt is fed pureed foods by family. Family reports pt has lost approx 50 lbs over this 3 month span. Family reports worsening slurred speech that is incomprehensible to them now, however patient is able to follow commands without difficulty. Family reports decreased upper extremity weakness, with right worse that left. No change to lower extremity weakness or balance, gait and ambulation unchanged from prior. Family denies incontinence. No reports of inciting trauma or event. Denies fevers, chills, chest pain, shortness of breath, cough, headache, dizziness, nausea, vomiting, diarrhea, dysuria, numbness, tingling, syncopal episodes. Review of Systems - Constitutional Constitutional: Weight Loss, Weakness - EENT Eyes: absent: Change in Vision Nose/Mouth/Throat: Dysphagia - Cardiovascular Cardiovascular: absent: Chest Pain, Pedal Edema - Respiratory Respiratory: absent: Dyspnea - Gastrointestinal Gastrointestinal: absent: Abdominal Pain, Vomiting - Musculoskeletal Musculoskeletal: Muscle Weakness - Neurological Neurological: Abnormal Speech, Focal Weakness Past Patient History - Past Medical History & Family History Past Medical History?: Yes - Past Social History Smoking Status: Never Smoked - CARDIAC Hx Hypercholesterolemia: Yes - MUSCULOSKELETAL/RHEUMATOLOGICAL Hx Falls: No - PSYCHIATRIC Hx Substance Use: No Meds Allergies/Adverse Reactions: Allergies Allergy/AdvReac Type Severity Reaction Status Date / Time Penicillins Allergy Verified 11/20/18 16:45 - Medications Medications: Current Medications Aspirin (Aspirin Supp) 300 mg [place] DAILY [facility] Last Admin: 11/21/18 11:09 Dose: 300 mg Heparin Sodium (Porcine) (Heparin) 5,000 units SC Q8 [facility] Last Admin: 11/22/18 06:15 Dose: 5,000 units Sodium Chloride (Sodium Chloride 0.9%) 1,000 mls @ 100 mls/hr IV .Q10H [facility] Last Admin: 11/22/18 06:14 Dose: 100 mls/hr Rosuvastatin Calcium (Crestor) 20 mg PO HS [facility] Last Admin: 11/21/18 22:20 Dose: 20 mg Physical Exam - Constitutional Appears: Cachectic - Head Exam Head Exam: ATRAUMATIC, NORMOCEPHALIC - Eye Exam Eye Exam: EOMI, Normal appearance Pupil Exam: PERRL - ENT Exam ENT Exam: Mucous Membranes Dry Additional comments: Right tongue deviation - Neck Exam Additional comments: wasting noted, prominent clavicles - Respiratory Exam Respiratory Exam: Clear to Auscultation Bilateral, NORMAL BREATHING PATTERN. absent: Respiratory Distress - Cardiovascular Exam Cardiovascular Exam: REGULAR RHYTHM. absent: Tachycardia - GI/Abdominal Exam GI & Abdominal Exam: Soft. absent: Distended - Extremities Exam Extremities exam: Positive for: normal inspection. Negative for: calf tenderness, pedal edema - Neurological Exam Neurological exam: Alert, Oriented x3 - Expanded Neurological Exam Expanded Speech: Slurred Speech Cranial nerves: EOM's Intact: Normal, Nystagmus: Normal, Tongue Deviation: Abnormal Right (deviates right) Cerebellar Function: Finger to Nose: Normal, Romberg: Normal Upper motor neuron: Pronator Drift: Normal Neuro motor strength exam: Left Upper Extremity: 5, Right Upper Extremity: 4, Left Lower Extremity: 5, Right Lower Extremity: 5 - Psychiatric Exam Psychiatric exam: Normal Affect, Normal Mood Results - Vital Signs Recent Vital Signs: Last Vital Signs Temp 98.0 F 11/22/18 08:27 Pulse 67 11/22/18 08:27 Resp 20 11/22/18 08:27 BP 118/73 11/22/18 08:27 Pulse Ox 99 11/22/18 08:27 - Labs Result Diagrams: 11/22/18 06:56 11/22/18 06:56 Labs: Laboratory Results - last 24 hr 11/21/18 11/21/18 11/21/18 06:04 09:28 11:22 WBC RBC Hgb Hct MCV MCH MCHC RDW Plt Count MPV Neut % (Auto) Lymph % (Auto) [place] % (Auto) Eos % (Auto) Baso % (Auto) Neut # (Auto) Lymph # (Auto) [place] # (Auto) Eos # (Auto) Baso # (Auto) Sodium 135 Potassium 4.8 Chloride 97 L Carbon Dioxide 36 H Anion Gap 7 L BUN 28 H Creatinine 0.8 Est GFR ( Amer) > 60 Est GFR (Non-Af Amer) > 60 POC Glucose (mg/dL) 110 Random Glucose 90 D Hemoglobin A1c 6.0 Calcium 8.6 Phosphorus 2.9 Magnesium 2.3 Total Bilirubin 0.9 AST 31 ALT 63 Alkaline Phosphatase 37 L Total Protein 5.8 L Albumin 3.2 L D Globulin 2.7 Albumin/Globulin Ratio 1.2 Triglycerides 106 Cholesterol 166 LDL Cholesterol Direct 99 HDL Cholesterol 61 Vitamin B12 472 Folate 16.1 11/21/18 11/21/18 11/21/18 16:55 20:54 20:56 WBC RBC Hgb Hct MCV MCH MCHC RDW Plt Count MPV Neut % (Auto) Lymph % (Auto) [place] % (Auto) Eos % (Auto) Baso % (Auto) Neut # (Auto) Lymph # (Auto) [place] # (Auto) Eos # (Auto) Baso # (Auto) Sodium Potassium Chloride Carbon Dioxide Anion Gap BUN Creatinine Est GFR ( Amer) Est GFR (Non-Af Amer) POC Glucose (mg/dL) 108 65 65 Random Glucose Hemoglobin A1c Calcium Phosphorus Magnesium Total Bilirubin AST ALT Alkaline Phosphatase Total Protein Albumin Globulin Albumin/Globulin Ratio Triglycerides Cholesterol LDL Cholesterol Direct HDL Cholesterol Vitamin B12 Folate 11/21/18 11/22/18 11/22/18 21:31 06:11 06:56 WBC 7.2 RBC 4.77 Hgb 14.9 Hct 44.8 MCV 93.9 MCH 31.3 H MCHC 33.3 RDW 14.9 H Plt Count 224 MPV 9.1 Neut % (Auto) 52.9 Lymph % (Auto) 40.7 H [place] % (Auto) 5.2 Eos % (Auto) 1.2 Baso % (Auto) 0.0 Neut # (Auto) 3.8 Lymph # (Auto) 2.9 [place] # (Auto) 0.4 Eos # (Auto) 0.1 Baso # (Auto) 0.0 Sodium Potassium Chloride Carbon Dioxide Anion Gap BUN Creatinine Est GFR ( Amer) Est GFR (Non-Af Amer) POC Glucose (mg/dL) 187 H 99 Random Glucose Hemoglobin A1c Calcium Phosphorus Magnesium Total Bilirubin AST ALT Alkaline Phosphatase Total Protein Albumin Globulin Albumin/Globulin Ratio Triglycerides Cholesterol LDL Cholesterol Direct HDL Cholesterol Vitamin B12 Folate 11/22/18 06:56 WBC RBC Hgb Hct MCV MCH MCHC RDW Plt Count MPV Neut % (Auto) Lymph % (Auto) [place] % (Auto) Eos % (Auto) Baso % (Auto) Neut # (Auto) Lymph # (Auto) [place] # (Auto) Eos # (Auto) Baso # (Auto) Sodium 133 Potassium 4.2 Chloride 96 L Carbon Dioxide 33 H Anion Gap 8 L BUN 17 Creatinine 0.7 L Est GFR ( Amer) > 60 Est GFR (Non-Af Amer) > 60 POC Glucose (mg/dL) Random Glucose 88 Hemoglobin A1c Calcium 8.0 L Phosphorus 3.2 Magnesium 2.0 Total Bilirubin 1.1 AST 33 ALT 61 Alkaline Phosphatase 41 Total Protein 6.0 L Albumin 3.3 L Globulin 2.7 Albumin/Globulin Ratio 1.2 Triglycerides Cholesterol LDL Cholesterol Direct HDL Cholesterol Vitamin B12 Folate Assessment & Plan - Assessment and Plan (Free Text) Assessment: 72 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 All imaging negative thus far for evidence of stroke. He may have underlying cancer. We will discharge him and recommend outpatient emg and pt, as well as heme onc followup. Discussed with Dr. Gaitan -Roxie Torres, PGY-1 I examined the patient independently and agree with the assessment and plan, and helped in the formulation. Dr gaitan Neurology <Dixie Gaitan - Last Filed: 11/22/18 20:50> Results - Vital Signs Recent Vital Signs: Last Vital Signs Temp 98.0 F 11/22/18 08:27 Pulse 67 11/22/18 08:27 Resp 20 11/22/18 08:27 BP 118/73 11/22/18 08:27 Pulse Ox 99 11/22/18 08:27 - Labs Result Diagrams: 11/22/18 06:56 11/22/18 06:56 Labs: Laboratory Results - last 24 hr 11/21/18 11/21/18 11/21/18 20:54 20:56 21:31 WBC RBC Hgb Hct MCV MCH MCHC RDW Plt Count MPV Neut % (Auto) Lymph % (Auto) [place] % (Auto) Eos % (Auto) Baso % (Auto) Neut # (Auto) Lymph # (Auto) [place] # (Auto) Eos # (Auto) Baso # (Auto) Sodium Potassium Chloride Carbon Dioxide Anion Gap BUN Creatinine Est GFR ( Amer) Est GFR (Non-Af Amer) POC Glucose (mg/dL) 65 65 187 H Random Glucose Calcium Phosphorus Magnesium Total Bilirubin AST ALT Alkaline Phosphatase Total Protein Albumin Globulin Albumin/Globulin Ratio 11/22/18 11/22/18 11/22/18 06:11 06:56 06:56 WBC 7.2 RBC 4.77 Hgb 14.9 Hct 44.8 MCV 93.9 MCH 31.3 H MCHC 33.3 RDW 14.9 H Plt Count 224 MPV 9.1 Neut % (Auto) 52.9 Lymph % (Auto) 40.7 H [place] % (Auto) 5.2 Eos % (Auto) 1.2 Baso % (Auto) 0.0 Neut # (Auto) 3.8 Lymph # (Auto) 2.9 [place] # (Auto) 0.4 Eos # (Auto) 0.1 Baso # (Auto) 0.0 Sodium 133 Potassium 4.2 Chloride 96 L Carbon Dioxide 33 H Anion Gap 8 L BUN 17 Creatinine 0.7 L Est GFR ( Amer) > 60 Est GFR (Non-Af Amer) > 60 POC Glucose (mg/dL) 99 Random Glucose 88 Calcium 8.0 L Phosphorus 3.2 Magnesium 2.0 Total Bilirubin 1.1 AST 33 ALT 61 Alkaline Phosphatase 41 Total Protein 6.0 L Albumin 3.3 L Globulin 2.7 Albumin/Globulin Ratio 1.2 11/22/18 11:48 WBC RBC Hgb Hct MCV MCH MCHC RDW Plt Count MPV Neut % (Auto) Lymph % (Auto) [place] % (Auto) Eos % (Auto) Baso % (Auto) Neut # (Auto) Lymph # (Auto) [place] # (Auto) Eos # (Auto) Baso # (Auto) Sodium Potassium Chloride Carbon Dioxide Anion Gap BUN Creatinine Est GFR ( Amer) Est GFR (Non-Af Amer) POC Glucose (mg/dL) 99 Random Glucose Calcium Phosphorus Magnesium Total Bilirubin AST ALT Alkaline Phosphatase Total Protein Albumin Globulin Albumin/Globulin Ratio
--- NOTE | 2018-11-22 11:23 | MRI ---
Date of service: 11/21/2018 PROCEDURE: MRI BRAIN WITHOUT CONTRAST HISTORY: difficulty speaking COMPARISON: Noncontrast head CT from 11/20/2018. TECHNIQUE: Multiplanar, multisequence MR images of the brain were obtained without intravenous contrast enhancement. FINDINGS: HEMORRHAGE: None DWI: No evidence of an acute or early subacute infarction. BRAIN PARENCHYMA: There are mild chronic microangiopathic changes. There is no mass, mass effect or abnormal extra-axial fluid collection. There is no territorial infarction. The midline sagittal structures are normal. VENTRICLES: There is mild age-related global parenchymal volume loss and proportionate enlargement of the ventricles and cortical sulci. Cranium Unremarkable. ORBITS: Grossly unremarkable. PARANASAL SINUSES/MASTOIDS: There is a large retention cyst/polyp with eccentric round inspissated secretions in the left maxillary sinus. There is a retention cyst/polyp in right inferior frontal sinus. There is mild mucosal thickening in the ethmoid air cells. VASCULAR SYSTEM: There are normal signal voids in the larger intracranial arteries. OTHER FINDINGS: None. IMPRESSION: No acute intracranial abnormality. Mild chronic microangiopathic changes and mild age-related global parenchymal volume loss.
--- NOTE | 2018-11-22 11:31 | MRI ---
Date of service: 11/21/2018 PROCEDURE: Magnetic Resonance Angiography Brain HISTORY: slurred speech COMPARISON: None. TECHNIQUE: 3D time of flight MR angiography of the intracranial arteries was performed. Rotating maximum intensity projection images were generated. FINDINGS: INTERNAL CAROTID ARTERIES: Normal flow related signal. The skull base, petrous, cavernous and supraclinoid segments are bilaterally widely patient. ANTERIOR CEREBRAL ARTERIES: Normal flow related signal. A1 and A2 segments are widely patent. Smaller distal branches unremarkable, as visualized. MIDDLE CEREBRAL ARTERIES: Normal flow related signal. M1 and M2 segments are widely patent. Perisylvian branches grossly symmetric. POSTERIOR CIRCULATION: Basilar Artery: Normal flow related signal. Normal in caliber and widely patent. Distal Vertebral Arteries: Normal flow related signal. Widely patent. The right vertebral artery is hypoplastic, an anatomic variant. Posterior Cerebral Arteries: Normal flow related signal. Widely patent. There is origin of the right posterior cerebral artery, an anatomic variant. Posterior Inferior Cerebellar Arteries: Normal flow related signal. Widely patent. ANEURYSM/ VASCULAR MALFORMATIONS: None. OTHER FINDINGS: None. IMPRESSION: No evidence of occlusion or definite significant stenosis.
--- NOTE | 2018-11-22 12:46 | CT ---
Date of service: 11/21/2018 PROCEDURE: CTA HEAD AND NECK WITH CONTRAST HISTORY: Dysphagia. R/O Aneurysm COMPARISON: None available. TECHNIQUE: Initial noncontrast head CT was performed. Subsequently, CT angiogram of the head and neck were performed after the intravenous administration of 80 mL of Omnipaque 350. Contiguous 1.5mm thick images were obtained in the axial plane of the neck. 2-D coronal and sagittal MPR images were obtained. Imaging postprocessing was performed with 3-D images also obtained. A delayed contrast head CT was also obtained. This CT exam was performed using one or more of the following dose reduction techniques: Automated exposure control, adjustment of the mA and/or kV according to patient size, and/or use of iterative reconstruction technique. Contrast dose: 100 mL Omnipaque 300 Radiation dose: Total exam DLP = 548.93 mGy-cm. FINDINGS: HEAD: Right: The intracranial internal carotid artery, and anterior and middle cerebral arteries are widely patent. Left: The intracranial internal carotid artery, and anterior and middle cerebral arteries are widely patent. Posterior circulation: The visualized intracranial vertebral arteries, basilar artery and posterior cerebral arteries are widely patent. There is no endoluminal filling defect to suggest thrombus. There is no intracranial saccular aneurysm. NECK: There is a three vessel aortic arch. There is no stenosis at the origins of the great vessels at the level of the aortic arch. There are eccentric atherosclerotic plaque calcifications and soft plaques in the proximal right internal carotid artery. There are mild atherosclerotic calcifications in the left carotid bulb. Right Carotid: On the right, the common carotid, internal carotid and external carotid arteries are widely patent. There is no hemodynamically significant stenosis in the internal carotid artery by NASCET criteria. Left Carotid: On the left, the common carotid, internal carotid and external carotid arteries are widely patent. There is no hemodynamically significant stenosis in the internal carotid artery by NASCET criteria. The vertebral arteries are widely patent. The right vertebral artery is hypoplastic, an anatomic variant. IMPRESSION: 1. No evidence of endoluminal thrombus,occlusion or definite significant stenosis in the intracranial arteries. 2. No evidence of hemodynamically significant stenosis in the internal carotid arteries. 3. Patent bilateral vertebral arteries. A preliminary report was provided by [facility].
--- NOTE | 2018-11-22 13:07 | CP.PCM.DIS ---
Provider - Provider Date of Admission: 11/20/18 19:20 Attending physician: Andrei Bridges MD Consults: 11/21/18 02:41 Physician Consult Routine Comment: Consulting Provider: Dixie Villafuerte Consulting Physician: Dixie Villafuerte Reason for Consult: slurred speech Time Spent in preparation of Discharge (in minutes): 45 Diagnosis - Discharge Diagnosis (1) Dysphagia Status: Acute Hospital Course - Lab Results Lab Results: Most Recent Lab Values WBC 7.2 K/uL (4.8-10.8) 11/22/18 06:56 RBC 4.77 Mil/uL (4.40-5.90) 11/22/18 06:56 Hgb 14.9 g/dL (12.0-18.0) 11/22/18 06:56 Hct 44.8 % (35.0-51.0) 11/22/18 06:56 MCV 93.9 fL (80.0-94.0) 11/22/18 06:56 MCH 31.3 pg (27.0-31.0) H 11/22/18 06:56 MCHC 33.3 g/dL (33.0-37.0) 11/22/18 06:56 RDW 14.9 % (11.5-14.5) H 11/22/18 06:56 Plt Count 224 K/uL (130-400) 11/22/18 06:56 MPV 9.1 fL (7.2-11.7) 11/22/18 06:56 Neut % (Auto) 52.9 % (50.0-75.0) 11/22/18 06:56 Lymph % (Auto) 40.7 % (20.0-40.0) H 11/22/18 06:56 [place] % (Auto) 5.2 % (0.0-10.0) 11/22/18 06:56 Eos % (Auto) 1.2 % (0.0-4.0) 11/22/18 06:56 Baso % (Auto) 0.0 % (0.0-2.0) 11/22/18 06:56 Neut # (Auto) 3.8 K/uL (1.8-7.0) 11/22/18 06:56 Lymph # (Auto) 2.9 K/uL (1.0-4.3) 11/22/18 06:56 [place] # (Auto) 0.4 K/uL (0.0-0.8) 11/22/18 06:56 Eos # (Auto) 0.1 K/uL (0.0-0.7) 11/22/18 06:56 Baso # (Auto) 0.0 K/uL (0.0-0.2) 11/22/18 06:56 Neutrophils % (Manual) 91 % (50-75) H 11/20/18 18:08 Lymphocytes % (Manual) 5 % (20-40) L 11/20/18 18:08 Monocytes % (Manual) 4 % (0-10) 11/20/18 18:08 Platelet Estimate Normal (NORMAL) 11/20/18 18:08 PT 10.6 SECONDS (9.7-12.2) 11/20/18 18:15 INR 1.0 11/20/18 18:15 APTT 28 SECONDS (21-34) 11/20/18 18:15 Sodium 133 mmol/L (132-148) 11/22/18 06:56 Potassium 4.2 mmol/L (3.6-5.2) 11/22/18 06:56 Chloride 96 mmol/L (98-107) L 11/22/18 06:56 Carbon Dioxide 33 mmol/L (22-30) H 11/22/18 06:56 Anion Gap 8 (10-20) L 11/22/18 06:56 BUN 17 mg/dL (9-20) 11/22/18 06:56 Creatinine 0.7 mg/dL (0.8-1.5) L 11/22/18 06:56 Est GFR ( Amer) > 60 11/22/18 06:56 Est GFR (Non-Af Amer) > 60 11/22/18 06:56 POC Glucose (mg/dL) 99 mg/dL (65-110) 11/22/18 11:48 Random Glucose 88 mg/dL (75-110) 11/22/18 06:56 Hemoglobin A1c 6.0 % (4.2-6.5) 11/21/18 09:28 Calcium 8.0 mg/dl (8.6-10.4) L 11/22/18 06:56 Phosphorus 3.2 mg/dL (2.5-4.5) 11/22/18 06:56 Magnesium 2.0 mg/dL (1.6-2.3) 11/22/18 06:56 Total Bilirubin 1.1 mg/dL (0.2-1.3) 11/22/18 06:56 AST 33 U/L (17-59) 11/22/18 06:56 ALT 61 U/L (21-72) 11/22/18 06:56 Alkaline Phosphatase 41 U/L (38-126) 11/22/18 06:56 CK-MB (Mass) 4.22 ng/mL (0.0-3.38) H 11/20/18 18:08 Troponin I 0.0180 ng/mL (0.00-0.120) 11/20/18 18:08 Total Protein 6.0 g/dL (6.3-8.3) L 11/22/18 06:56 Albumin 3.3 g/dL (3.5-5.0) L 11/22/18 06:56 Globulin 2.7 gm/dL (2.2-3.9) 11/22/18 06:56 Albumin/Globulin Ratio 1.2 (1.0-2.1) 11/22/18 06:56 Triglycerides 106 mg/dL (0-149) 11/21/18 06:04 Cholesterol 166 mg/dL (0-199) 11/21/18 06:04 LDL Cholesterol Direct 99 mg/dL (0-129) 11/21/18 06:04 HDL Cholesterol 61 mg/dL (30-70) 11/21/18 06:04 Vitamin B12 472 pg/mL (239-931) 11/21/18 06:04 Folate 16.1 ng/mL 11/21/18 06:04 Urine Color Yellow (YELLOW) 11/20/18 21:13 Urine Clarity Clear (Clear) 11/20/18 21:13 Urine pH 5.0 (5.0-8.0) 11/20/18 21:13 Ur Specific [place] 1.026 (1.003-1.030) 11/20/18 21:13 Urine Protein Negative mg/dL (NEGATIVE) 11/20/18 21:13 Urine Glucose (UA) Normal mg/dL (Normal) 11/20/18 21:13 Urine Ketones Negative mg/dL (NEGATIVE) 11/20/18 21:13 Urine Blood Negative (NEGATIVE) 11/20/18 21:13 Urine Nitrate Negative (NEGATIVE) 11/20/18 21:13 Urine Bilirubin Negative (NEGATIVE) 11/20/18 21:13 Urine Urobilinogen Normal mg/dL (0.2-1.0) 11/20/18 21:13 Ur Leukocyte Esterase Neg Kellie/uL (Negative) 11/20/18 21:13 Urine WBC (Auto) 1 /hpf (0-5) 11/20/18 21:13 Urine RBC (Auto) 1 /hpf (0-3) 11/20/18 21:13 Urine Bacteria Rare (<OCC) 11/20/18 21:13 - Hospital Course Hospital Course: Patient is a 72 year old male with no past medical history who presents for 3 month history of progressively worsening difficulty swallowing and slurred speech. Family at bedside including his , sister and daughter state that it was not obvious at first, but later has become more obvious to them. Family states that he initially had difficulty swallowing solid foods, however has progressively worsened to the point where he has difficulty with both solids and liquids. typically feeds him spoonful of pureed food, she states that patient starts to choke with thin liquids. Patient has lost about 50 lbs in the past 3 months despite eating soft food three times daily. He denies pain in his throat, however admits to some discomfort in his throat. Family also states that his speech has become more and more slurred to the point that they have difficulty understanding him. They have also noticed that over the past 3 months, the strength in his arms has decreased, right is weaker than left. He continues to be able to walk without difficulty. He has not had any bowel or bladder incontinence, saddle anesthesia. states that he is continent and is able to use the bathroom on his own. Family denies any falls. Denies fevers, chills, chest pain, shortness of breath, cough, headache, dizziness, nausea, vomiting, diarrhea, dysuria, numbness, tingling, syncopal episodes. Patient has been able to follow commands, understands family without any issues. Patient was recently given a OTC pain pill on , however patient then began to choke. Family did the Heimlich manuever on him and the pill came out. They state that they didn't seek medical attention because they didn't have insurance. Patient and his family moved to the [facility] from [place] about 1 year ago. CXR showed no focal consolidation. Head CT showed no acute intracranial pathology. Soft Tissue Neck CT showed L maxillary retention cyst/polyp but no radioopaque foreign body. Brain MRI showed no acute intracranial abnormality. Head MRA showed no evidence of occlusion or definite significant stenosis. Carotid Dopplers were negative. ECHO showed LVEF 60-65%. Head CTA showed no evidence of hemodynamically significant stenosis in the intracranial or internal carotid arteries with patent vertebral arteries bilaterally. There is no evidence of stroke or other stenotic etiology. Neuro agrees with the discharge and follow up with [facility]. Primary Diagnosis: Dysphagia Patient is clear for discharge per Dr. Paul Bridges. You are to apply for [facility] at [facility] at [address], [address], [place], [place]. Call for an appointment at [phone]. You can also go to the [facility] at [address], [address], [place], [place]. Call [phone] for an appointment there. You don't have any new medications. Keep being careful with your swallowing and continue to eat. You have been provided with a copy of your imaging reports and a CD with your images. Please follow up with your PMD through [facility] for a neurology referral to rule out ALS. If symptoms return or worsen, please come back to the ED. This was discussed with the patient and family with algaaciq Guinean speaker investment accounting clerk who understood and agreed with the plan. This is a summary of the hospital course. Please refer to the EMR for more detail. - Date & Time of H&P Date of H&P: 11/22/18 Time of H&P: 11:00 Discharge Exam - Head Exam Head Exam: ATRAUMATIC, NORMOCEPHALIC - Eye Exam Eye Exam: EOMI, Normal appearance - ENT Exam ENT Exam: Mucous Membranes Dry, Mucous Membranes Moist - Respiratory Exam Respiratory Exam: Clear to PA & Lateral, NORMAL BREATHING PATTERN. absent: Rales, Rhonchi, Wheezes - Cardiovascular Exam Cardiovascular Exam: REGULAR RHYTHM, +S1, +S2. absent: Gallop, Rubs, Systolic Murmur - GI/Abdominal Exam GI & Abdominal Exam: Normal Bowel Sounds, Soft. absent: Distended, Firm, Guarding, Tenderness - Back Exam Back exam: absent: CVA tenderness (L), CVA tenderness (R) - Neurological Exam Neurological exam: Alert, Normal Gait, Oriented x3, Reflexes Normal Additional comments: follows commands readily slurred speech no pronator drift finger to nose intact sensation intact - Psychiatric Exam Psychiatric exam: Normal Affect, Normal Mood - Skin Skin Exam: Dry, Normal Color, Warm Additional comments: poor skin turgor Discharge Plan - Follow Up Plan Condition: FAIR Disposition: HOME/ ROUTINE Additional Instructions: Patient is clear for discharge per Dr. Paul Bridges. You are to apply for [facility] at [facility] at [address], [address], [place], [place]. Call for an appointment at [phone]. You can also go to the [facility] at [address], [address], [place], [place]. Call [phone] for an appointment there. You don't have any new medications. Keep being careful with your swallowing and continue to eat. You have been provided with a copy of your imaging reports and a CD with your images. Please follow up with your PMD through [facility] for a neurology referral to rule out ALS. If symptoms return or worsen, please come back to the ED. This was discussed with the patient and family with algaaciq Guinean speaker investment accounting clerk who understood and agreed with the plan.
== END 2018-11-22 14:00 | disposition home or self-care (01) | DRG 254 ==
LOC: C.ER 16:37 → C.9E 19:20 → C.6T 21:27
PROVIDERS: ADMIT Family Medicine; ATTEND Family Medicine
DX: R13.10 Dysphagia, unspecified (principal); R09.89 Other specified symptoms and signs involving the circulatory and respiratory systems; R64 Cachexia; K11.7 Disturbances of salivary secretion; R07.0 Pain in throat; R47.1 Dysarthria and anarthria; E78.5 Hyperlipidemia, unspecified; E78.00 Pure hypercholesterolemia, unspecified

== ENCOUNTER 2019-02-08 09:24 | Inpatient (IN) | payer MEDICAID, OTHER ==
[2019-02-08] MEDS ORDERED: Sodium Chloride 0.9% 1,000 ML IV STA (10:03)
--- NOTE | 2019-02-08 10:49 | RAD ---
Chest x-ray single frontal view HISTORY: Shortness of breath. Comparison: 11/20/2018 FINDINGS: Hyperinflation suggestive for COPD and or emphysematous changes. Heart size within normal limits. Degenerative changes in the spine. Impression: Hyperinflation suggestive for COPD and or emphysematous changes. Heart size within normal limits.
[2019-02-08 11:25] LABS: BASO % 0.1 % (0.0-2.0); HEMOGLOBIN 13.6 g/dL (12.0-18.0); LYMPH # 0.6 K/uL (1.0-4.3); LYMPH % 4.3 % (20.0-40.0); MEAN CELL VOLUME 97.4 fL (80.0-94.0); MEAN CORPUSCULAR HEMOGLOBIN 32.1 pg (27.0-31.0); MEAN CORPUSCULAR HGB CONC 32.9 g/dL (33.0-37.0); MEAN PLATELET VOLUME 10.7 fL (7.2-11.7); MONO # 0.8 K/uL (0.0-0.8); MONO % 5.5 % (0.0-10.0); NEUT # 13.4 K/uL (1.8-7.0); NEUT % 90.1 % (50.0-75.0); PLATELET COUNT 209 K/uL (130-400); RBC 4.24 Mil/uL (4.40-5.90); RED CELL DISTRIBUTION WIDTH 14.6 % (11.5-14.5); WHITE BLOOD COUNT 14.9 K/uL (4.8-10.8)
[2019-02-08 11:35] LABS: INR 1.2; PROTHROMBIN TIME 13.2 SECONDS (9.7-12.2)
[2019-02-08 11:42] LABS: ALB/GLOB RATIO 1.2 (1.0-2.1); ALBUMIN 4.4 g/dL (3.5-5.0); AST/SGOT 37 U/L (17-59); BLOOD UREA NITROGEN 43 mg/dL (9-20); CALCIUM 10.7 mg/dl (8.6-10.4); GFR NON-AFRICAN AMERICAN > 60
[2019-02-08 11:49] LABS: ALT/SGPT < 6 U/L (21-72); CK-MB 6.08 ng/mL (0.0-3.38)
--- NOTE | 2019-02-08 12:32 | C.PDOC ---
History Of Present Illness 73 y/o male was seen in October with dysphasia and was admitted, and had multiple MRIs and scans done that were negative. As per family, he has multiple sclerosis and from the beginning of this week, it got worse and patient was re fusing to eat and couldnt talk. Patient was brought to a [facility] 4 days ago where he was given fluids and had tests done, and discharged home. Daughter states they have tickets to [place] in 2 days and wants to take him home. She brings him here today for evaluation. Time Seen by Provider: 02/08/19 09:46 Chief Complaint (Nursing): Cough, Cold, Congestion History Per: Family History/Exam Limitations: clinical condition Onset/Duration Of Symptoms: Days Current Symptoms Are (Timing): Still Present Past Medical History Reviewed: Historical Data, Nursing Documentation, Vital Signs Vital Signs: Last Vital Signs Temp 97.9 F 02/08/19 09:31 Pulse 92 H 02/08/19 11:11 Resp 22 02/08/19 11:11 BP 144/62 02/08/19 11:11 Pulse Ox 100 02/08/19 11:11 - Medical History PMH: Hypercholesterolemia, Hyperlipidemia (NOT ON MEDS X1 YEAR) Family History: States: No Known Family Hx - Social History Hx Alcohol Use: No Hx Substance Use: No - Immunization History Hx Tetanus Toxoid Vaccination: No Hx Influenza Vaccination: No Hx Pneumococcal Vaccination: Yes Review Of Systems Except As Marked, All Systems Reviewed And Found Negative. Constitutional: Positive for: Weakness, Other (No appetite). Negative for: Fever, Chills Cardiovascular: Negative for: Chest Pain Respiratory: Positive for: Cough. Negative for: Shortness of Breath Gastrointestinal: Negative for: Vomiting, Diarrhea Physical Exam - Physical Exam Appears: Other (Terminally ill, cachectic, not talking) Skin: Warm, Dry Head: Atraumatic, Normacephalic Eye(s): bilateral: Normal Inspection Oral Mucosa: Moist Neck: Supple Cardiovascular: Rhythm Regular, No Murmur Respiratory: No Rales, No Rhonchi, No Wheezing, Other (Tachypneic) Gastrointestinal/Abdominal: Soft, No Tenderness Extremity: Bilateral: Atraumatic ED Course And Treatment - Laboratory Results Result Diagrams: 02/08/19 11:03 02/08/19 11:03 Lab Results: PT 13.2 SECONDS (9.7-12.2) H 02/08/19 11:03 INR 1.2 02/08/19 11:03 APTT 36 SECONDS (21-34) H 02/08/19 11:03 Troponin I 0.0310 ng/mL (0.00-0.120) 02/08/19 11:03 Total Bilirubin 0.6 mg/dL (0.2-1.3) 02/08/19 11:03 AST 37 U/L (17-59) 02/08/19 11:03 ALT < 6 U/L (21-72) L D 02/08/19 11:03 Alkaline Phosphatase 91 U/L (38-126) 02/08/19 11:03 Total Protein 7.9 g/dL (6.3-8.3) 02/08/19 11:03 Albumin 4.4 g/dL (3.5-5.0) 02/08/19 11:03 Globulin 3.5 gm/dL (2.2-3.9) 02/08/19 11:03 Albumin/Globulin Ratio 1.2 (1.0-2.1) 02/08/19 11:03 O2 Sat by Pulse Oximetry: 100 (RA) Pulse Ox Interpretation: Normal - Other Rad CXR X-Ray: Read By Radiologist Interpretation: FINDINGS: Hyperinflation suggestive for COPD and or emphysematous changes. Heart size within normal limits. Degenerative changes in the spine. Impression: Hyperinflation suggestive for COPD and or emphysematous changes. Heart size within normal limits. Progress Note: Labs, UA, and chest x-ray ordered. Patient was given IV fluids. Case was d/w Hospitalist who accepted patient [place]. Disposition - Disposition Disposition Time: 14:46 Condition: SERIOUS - Clinical Impression Clinical Impression: Dysphagia, Failure to thrive - PA / REPTILE KEEPER / Resident Statement MD/DO has reviewed & agrees with the documentation as recorded. - Scribe Statement The provider has reviewed the documentation as recorded by the Scribe Arleen Li All medical record entries made by the Scribe were at my direction and personally dictated by me. I have reviewed the chart and agree that the record accurately reflects my personal performance of the history, physical exam, medical decision making, and the department course for this patient. I have also personally directed, reviewed, and agree with the discharge instructions and disposition. Decision To Admit - Pt Status Changed To: Hospital Disposition Of: Observation - . Bed Request Type: Regular Admitting Physician: Allegra Rivas Patient Diagnosis: Dysphagia, Failure to thrive
[2019-02-08 12:38] LABS: ANISOCYTOSIS SLIGHT; BANDS 5 % (0-2); LYMPHOCYTE 5 % (20-40); MONOCYTE 6 % (0-10); NEUTROPHIL 84 % (50-75); PLATELET ESTIMATE NORMAL (NORMAL); TOTAL CELLS COUNTED 100
[2019-02-08 12:39] LABS: LARGE PLATELETS PRESENT; POLYCHROMIC SLIGHT; TOXIC GRANULATION PRESENT
[2019-02-08 13:35] LABS: URINE BACTERIA RARE (<OCC); URINE BILIRUBIN NEGATIVE (NEGATIVE); URINE BLOOD 2+ (NEGATIVE); URINE CLARITY Hazy (Clear); URINE COLOR Yellow (YELLOW); URINE GLUCOSE (UA) NORMAL (Normal); URINE LEUKOCYTE ESTERASE NEG Leu/uL (Negative); URINE PROTEIN 2+ mg/dL (NEGATIVE); URINE UROBILINOGEN NORMAL mg/dL (0.2-1.0)
--- NOTE | 2019-02-08 14:54 | CP.PCM.HP ---
<Naheed Pike - Last Filed: 02/08/19 19:44> History of Present Illness - History of Present Illness History of Present Illness: Medicine Note for Hospitalist Service This is a 73 year old Male with recently diagnosed multiple sclerosis who presents to the ED with dysphagia for 6 days. Patient was admitted on our service for similar symptoms in October 2018. 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 He was discharged and instructed to follow up in [facility]. As per patient's daughter, he was worked up, seen by Neurology, Gastroenterology had an EGD performed which showed gastritis. Patient was instructed to stay on a puree diet with supplementation, no further medications were provided. For the past 6 months patient was somewhat verbal, able to perform all ADLs, and ambulated without assistance. All this changed about 1 week ago. Last Sunday he started to develop a nonproductive cough and chest congestion. Each time he ate he would vomit the food. Daughter noted that the patient felt weaker and weaker, and ultimately has not been able to swallow solids or liquids (thick or thin). Daughter denied any sick contacts, recent travel, any fever. He was brought in today due to continued inability to swallow, profound weakness, and now noticed respiratory distress. Originally patient was going to fly back to [place] this Sunday permanently and seek treatment out there, however due to his current state, it was advised that he stay admitted and made more stable. PMHx: As noted above PSHx: Denied Meds: Denied All: PCN - rash SHx: Denied tobacco, alcohol, or illicit drug use FHx: Unremarkable Present on Admission - Present on Admission Any Indicators Present on Admission: No Past Patient History - Past Medical History & Family History Past Medical History?: Yes - Past Social History Smoking Status: Never Smoked - CARDIAC Hx Hypercholesterolemia: Yes - ENDOCRINE/METABOLIC Hx Endocrine Disorders: Yes Other/Comment: low glucose - MUSCULOSKELETAL/RHEUMATOLOGICAL Hx Falls: No - GASTROINTESTINAL Hx Gastrointestinal Disorders: Yes Hx Fatty Liver Disease: Yes (live cirrhosis) - PSYCHIATRIC Hx Substance Use: No - SURGICAL HISTORY Hx Surgeries: No Meds Allergies/Adverse Reactions: Allergies Allergy/AdvReac Type Severity Reaction Status Date / Time Penicillins Allergy Verified 02/08/19 09:37 Physical Exam - Constitutional Appears: No Acute Distress, In Acute Distress, Cachectic, Chronically Ill - Head Exam Head Exam: ATRAUMATIC, NORMAL INSPECTION, NORMOCEPHALIC - Eye Exam Eye Exam: EOMI, Normal appearance, PERRL Pupil Exam: NORMAL ACCOMODATION, PERRL. absent: Miosis, Mydriatic - ENT Exam ENT Exam: Mucous Membranes Dry Additional comments: poor dentition - Respiratory Exam Respiratory Exam: Accessory Muscle Use, Rhonchi, Respiratory Distress (tachypneic ). absent: Rales, Wheezes, Stridor - Cardiovascular Exam Cardiovascular Exam: Tachycardia, +S1, +S2. absent: Diastolic murmur, Systolic Murmur - GI/Abdominal Exam GI & Abdominal Exam: Normal Bowel Sounds, Soft. absent: Distended, Tenderness - Extremities Exam Extremities exam: Positive for: normal inspection, pedal pulses present. Negat дмитрий for: pedal edema, tenderness - Neurological Exam Neurological exam: Alert, CN II-XII Intact, Oriented x3 - Psychiatric Exam Psychiatric exam: Anxious - Skin Skin Exam: Dry, Intact, Normal Color, Warm Results - Vital Signs Recent Vital Signs: Last Vital Signs Temp 97.9 F 02/08/19 09:31 Pulse 95 H 02/08/19 13:15 Resp 22 02/08/19 11:11 BP 141/63 02/08/19 13:15 Pulse Ox 100 02/08/19 14:46 - Labs Result Diagrams: 02/08/19 11:03 02/08/19 11:03 Labs: Laboratory Results - last 24 hr 02/08/19 02/08/19 02/08/19 11:03 11:03 11:03 WBC 14.9 H D RBC 4.24 L Hgb 13.6 Hct 41.3 MCV 97.4 H D MCH 32.1 H MCHC 32.9 L RDW 14.6 H Plt Count 209 MPV 10.7 Neut % (Auto) 90.1 H Lymph % (Auto) 4.3 L [place] % (Auto) 5.5 Eos % (Auto) 0.0 Baso % (Auto) 0.1 Neut # (Auto) 13.4 H Lymph # (Auto) 0.6 L [place] # (Auto) 0.8 Eos # (Auto) 0.0 Baso # (Auto) 0.0 Neutrophils % (Manual) 84 H Band Neutrophils % 5 H Lymphocytes % (Manual) 5 L Monocytes % (Manual) 6 Toxic Granulation Present Platelet Estimate Normal Large Platelets Present Polychromasia Slight Anisocytosis (manual) Slight Macrocytosis (manual) Slight PT 13.2 H INR 1.2 APTT 36 H Sodium 144 Potassium 3.8 Chloride 99 Carbon Dioxide 34 H Anion Gap 14 BUN 43 H Creatinine 0.8 Est GFR ( Amer) > 60 Est GFR (Non-Af Amer) > 60 Random Glucose 145 H D Calcium 10.7 H Total Bilirubin 0.6 AST 37 ALT < 6 L D Alkaline Phosphatase 91 Total Creatine Kinase 201 H CK-MB (Mass) 6.08 H Troponin I 0.0310 Total Protein 7.9 Albumin 4.4 Globulin 3.5 Albumin/Globulin Ratio 1.2 Urine Color Urine Clarity Urine pH Ur Specific [place] Urine Protein Urine Glucose (UA) Urine Ketones Urine Blood Urine Nitrate Urine Bilirubin Urine Urobilinogen Ur Leukocyte Esterase Urine WBC (Auto) Urine RBC (Auto) Urine Bacteria Hyaline Casts 02/08/19 13:26 WBC RBC Hgb Hct MCV MCH MCHC RDW Plt Count MPV Neut % (Auto) Lymph % (Auto) [place] % (Auto) Eos % (Auto) Baso % (Auto) Neut # (Auto) Lymph # (Auto) [place] # (Auto) Eos # (Auto) Baso # (Auto) Neutrophils % (Manual) Band Neutrophils % Lymphocytes % (Manual) Monocytes % (Manual) Toxic Granulation Platelet Estimate Large Platelets Polychromasia Anisocytosis (manual) Macrocytosis (manual) PT INR APTT Sodium Potassium Chloride Carbon Dioxide Anion Gap BUN Creatinine Est GFR ( Amer) Est GFR (Non-Af Amer) Random Glucose Calcium Total Bilirubin AST ALT Alkaline Phosphatase Total Creatine Kinase CK-MB (Mass) Troponin I Total Protein Albumin Globulin Albumin/Globulin Ratio Urine Color Yellow Urine Clarity Hazy Urine pH 6.0 Ur Specific [place] 1.028 Urine Protein 2+ H Urine Glucose (UA) Normal Urine Ketones 1+ H Urine Blood 2+ H Urine Nitrate Negative Urine Bilirubin Negative Urine Urobilinogen Normal Ur Leukocyte Esterase Neg Urine WBC (Auto) 4 Urine RBC (Auto) 7 H Urine Bacteria Rare Hyaline Casts 3-5 H Assessment & Plan - Assessment and Plan (Free Text) Plan: Dysphagia GI consulted - Dr. 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 Patient was recommended to follow up with [facility] in [place] where he was diagnosed with MS. - Daughter will bring medical records. Failure to Thrive - Since 10/2018, family notes patient has lost about 50lbs. Initially her was 160, he was started on a pureed diet with supplements and was able to maintain weight around 130s. - Patient developed cough x 1 week and has not been able to eat COPD - Duonebs PRN Prophylactic Measures - GI PPX: Protonix daily - DVT PPX: SCDs, Lovenox - Code Status: Spoke to , patient's daughter and patient - he is FULL CODE. Spoke with daughter and , they want to make the patient stable, so that he is able to fly to [place] and spend his remaining time there with family. DW Dr. Rivas, Naheed Pike DO, PGY2 <Allegra Rivas - Last Filed: 02/09/19 07:26> Results - Vital Signs Recent Vital Signs: Last Vital Signs Temp 93.2 F L 02/09/19 06:00 Pulse 74 02/09/19 06:40 Resp 20 02/09/19 06:40 BP 125/82 02/09/19 06:38 Pulse Ox 100 02/09/19 06:40 - Labs Result Diagrams: 02/09/19 05:45 02/09/19 05:45 Labs: Laboratory Results - last 24 hr 02/08/19 02/08/19 02/08/19 11:03 11:03 11:03 WBC 14.9 H D RBC 4.24 L Hgb 13.6 Hct 41.3 MCV 97.4 H D MCH 32.1 H MCHC 32.9 L RDW 14.6 H Plt Count 209 MPV 10.7 Neut % (Auto) 90.1 H Lymph % (Auto) 4.3 L [place] % (Auto) 5.5 Eos % (Auto) 0.0 Baso % (Auto) 0.1 Neut # (Auto) 13.4 H Lymph # (Auto) 0.6 L [place] # (Auto) 0.8 Eos # (Auto) 0.0 Baso # (Auto) 0.0 Neutrophils % (Manual) 84 H Band Neutrophils % 5 H Lymphocytes % (Manual) 5 L Monocytes % (Manual) 6 Toxic Granulation Present Platelet Estimate Normal Large Platelets Present Polychromasia Slight Anisocytosis (manual) Slight Macrocytosis (manual) Slight PT 13.2 H INR 1.2 APTT 36 H Puncture Site pCO2 pO2 HCO3 ABG pH ABG Total CO2 ABG O2 Saturation ABG Base Excess ABG Hemoglobin ABG Carboxyhemoglobin POC ABG HHb (Measured) ABG Methemoglobin Joseph Test ABG Potassium A-a O2 Difference Respiratory Index Hgb O2 Saturation Glucose Lactate Vent Mode Mechanical Rate FiO2 Tidal Volume PEEP Crit Value Called To Crit Value Called By Crit Value Read Back Blood Gas Notified Time Sodium 144 Potassium 3.8 Chloride 99 Carbon Dioxide 34 H Anion Gap 14 BUN 43 H Creatinine 0.8 Est GFR ( Amer) > 60 Est GFR (Non-Af Amer) > 60 POC Glucose (mg/dL) Random Glucose 145 H D Calcium 10.7 H Phosphorus Magnesium Total Bilirubin 0.6 AST 37 ALT < 6 L D Alkaline Phosphatase 91 Total Creatine Kinase 201 H CK-MB (Mass) 6.08 H Troponin I 0.0310 Total Protein 7.9 Albumin 4.4 Globulin 3.5 Albumin/Globulin Ratio 1.2 Arterial Blood Potassium Urine Color Urine Clarity Urine pH Ur Specific [place] Urine Protein Urine Glucose (UA) Urine Ketones Urine Blood Urine Nitrate Urine Bilirubin Urine Urobilinogen Ur Leukocyte Esterase Urine WBC (Auto) Urine RBC (Auto) Ur Squamous Epith Cells Urine Bacteria Hyaline Casts Urine Sperm (Auto) Influenza Typ A,B (EIA) 02/08/19 02/08/19 02/08/19 13:26 21:23 22:12 WBC RBC Hgb Hct MCV MCH MCHC RDW Plt Count MPV Neut % (Auto) Lymph % (Auto) [place] % (Auto) Eos % (Auto) Baso % (Auto) Neut # (Auto) Lymph # (Auto) [place] # (Auto) Eos # (Auto) Baso # (Auto) Neutrophils % (Manual) Band Neutrophils % Lymphocytes % (Manual) Monocytes % (Manual) Toxic Granulation Platelet Estimate Large Platelets Polychromasia Anisocytosis (manual) Macrocytosis (manual) PT INR APTT Puncture Site Rba pCO2 52 H pO2 410 H HCO3 21.2 ABG pH 7.25 L ABG Total CO2 24.4 ABG O2 Saturation 100.0 H ABG Base Excess -4.9 L ABG Hemoglobin ABG Carboxyhemoglobin POC ABG HHb (Measured) ABG Methemoglobin Joseph Test Na ABG Potassium 4.1 A-a O2 Difference 238.0 Respiratory Index 0.6 Hgb O2 Saturation Glucose 212 H Lactate 9.5 H* Vent Mode Prvc Mechanical Rate 12 FiO2 100.0 Tidal Volume 500 PEEP 5 Crit Value Called To Dr rodriguez Crit Value Called By Yana rt Crit Value Read Back Y Blood Gas Notified Time 2217 Sodium 148.0 Potassium Chloride 111.0 H Carbon Dioxide Anion Gap BUN Creatinine Est GFR ( Amer) Est GFR (Non-Af Amer) POC Glucose (mg/dL) 211 H Random Glucose Calcium Phosphorus Magnesium Total Bilirubin AST ALT Alkaline Phosphatase Total Creatine Kinase CK-MB (Mass) Troponin I Total Protein Albumin Globulin Albumin/Globulin Ratio Arterial Blood Potassium 4.1 Urine Color Yellow Urine Clarity Hazy Urine pH 6.0 Ur Specific [place] 1.028 Urine Protein 2+ H Urine Glucose (UA) Normal Urine Ketones 1+ H Urine Blood 2+ H Urine Nitrate Negative Urine Bilirubin Negative Urine Urobilinogen Normal Ur Leukocyte Esterase Neg Urine WBC (Auto) 4 Urine RBC (Auto) 7 H Ur Squamous Epith Cells Urine Bacteria Rare Hyaline Casts 3-5 H Urine Sperm (Auto) Influenza Typ A,B (EIA) 02/08/19 02/08/19 02/08/19 22:45 22:45 22:45 WBC 10.7 RBC 3.49 L Hgb 11.0 L D Hct 34.4 L MCV 98.6 H MCH 31.5 H MCHC 32.0 L RDW 14.7 H Plt Count 187 MPV 10.8 Neut % (Auto) 90.3 H Lymph % (Auto) 6.0 L [place] % (Auto) 3.2 Eos % (Auto) 0.1 Baso % (Auto) 0.4 Neut # (Auto) 9.7 H Lymph # (Auto) 0.6 L [place] # (Auto) 0.3 Eos # (Auto) 0.0 Baso # (Auto) 0.0 Neutrophils % (Manual) 78 H Band Neutrophils % 9 H Lymphocytes % (Manual) 8 L Monocytes % (Manual) 5 Toxic Granulation Platelet Estimate Normal Large Platelets Polychromasia Anisocytosis (manual) Macrocytosis (manual) PT INR APTT Puncture Site pCO2 pO2 HCO3 ABG pH ABG Total CO2 ABG O2 Saturation ABG Base Excess ABG Hemoglobin ABG Carboxyhemoglobin POC ABG HHb (Measured) ABG Methemoglobin Joseph Test ABG Potassium A-a O2 Difference Respiratory Index Hgb O2 Saturation Glucose Lactate Vent Mode Mechanical Rate FiO2 Tidal Volume PEEP Crit Value Called To Crit Value Called By Crit Value Read Back Blood Gas Notified Time Sodium 145 146 Potassium 4.5 4.5 Chloride 106 107 Carbon Dioxide 26 27 Anion Gap 17 17 BUN 36 H 36 H Creatinine 0.8 0.8 Est GFR ( Amer) > 60 > 60 Est GFR (Non-Af Amer) > 60 > 60 POC Glucose (mg/dL) Random Glucose 206 H D 205 H Calcium 8.9 9.0 Phosphorus 8.5 H Magnesium 2.4 H Total Bilirubin 0.4 0.4 AST 933 H D 941 H ALT 687 H D 691 H Alkaline Phosphatase 59 70 Total Creatine Kinase 158 CK-MB (Mass) 5.38 H Troponin I 0.0610 Total Protein 5.7 L 5.7 L Albumin 3.1 L D 3.1 L Globulin 2.6 2.6 Albumin/Globulin Ratio 1.2 1.2 Arterial Blood Potassium Urine Color Urine Clarity Urine pH Ur Specific [place] Urine Protein Urine Glucose (UA) Urine Ketones Urine Blood Urine Nitrate Urine Bilirubin Urine Urobilinogen Ur Leukocyte Esterase Urine WBC (Auto) Urine RBC (Auto) Ur Squamous Epith Cells Urine Bacteria Hyaline Casts Urine Sperm (Auto) Influenza Typ A,B (EIA) 02/08/19 02/09/19 02/09/19 22:45 00:51 04:51 WBC RBC Hgb Hct MCV MCH MCHC RDW Plt Count MPV Neut % (Auto) Lymph % (Auto) [place] % (Auto) Eos % (Auto) Baso % (Auto) Neut # (Auto) Lymph # (Auto) [place] # (Auto) Eos # (Auto) Baso # (Auto) Neutrophils % (Manual) Band Neutrophils % Lymphocytes % (Manual) Monocytes % (Manual) Toxic Granulation Platelet Estimate Large Platelets Polychromasia Anisocytosis (manual) Macrocytosis (manual) PT INR APTT 34 Puncture Site pCO2 pO2 HCO3 ABG pH ABG Total CO2 ABG O2 Saturation ABG Base Excess ABG Hemoglobin ABG Carboxyhemoglobin POC ABG HHb (Measured) ABG Methemoglobin Joseph Test ABG Potassium A-a O2 Difference Respiratory Index Hgb O2 Saturation Glucose Lactate Vent Mode Mechanical Rate FiO2 Tidal Volume PEEP Crit Value Called To Crit Value Called By Crit Value Read Back Blood Gas Notified Time Sodium Potassium Chloride Carbon Dioxide Anion Gap BUN Creatinine Est GFR ( Amer) Est GFR (Non-Af Amer) POC Glucose (mg/dL) 197 H Random Glucose Calcium Phosphorus Magnesium Total Bilirubin AST ALT Alkaline Phosphatase Total Creatine Kinase CK-MB (Mass) Troponin I Total Protein Albumin Globulin Albumin/Globulin Ratio Arterial Blood Potassium Urine Color Urine Clarity Urine pH Ur Specific [place] Urine Protein Urine Glucose (UA) Urine Ketones Urine Blood Urine Nitrate Urine Bilirubin Urine Urobilinogen Ur Leukocyte Esterase Urine WBC (Auto) Urine RBC (Auto) Ur Squamous Epith Cells Urine Bacteria Hyaline Casts Urine Sperm (Auto) Influenza Typ A,B (EIA) Negative for flu a/b 02/09/19 02/09/19 02/09/19 05:31 05:45 05:45 WBC 14.4 H RBC 4.16 L Hgb 12.9 Hct 40.2 MCV 96.7 H MCH 31.0 MCHC 32.1 L RDW 14.5 Plt Count 207 MPV 10.9 Neut % (Auto) 89.4 H Lymph % (Auto) 5.0 L [place] % (Auto) 5.5 Eos % (Auto) 0.0 Baso % (Auto) 0.1 Neut # (Auto) 12.8 H Lymph # (Auto) 0.7 L [place] # (Auto) 0.8 Eos # (Auto) 0.0 Baso # (Auto) 0.0 Neutrophils % (Manual) Band Neutrophils % Lymphocytes % (Manual) Monocytes % (Manual) Toxic Granulation Platelet Estimate Large Platelets Polychromasia Anisocytosis (manual) Macrocytosis (manual) PT INR APTT Puncture Site L rad pCO2 35 pO2 262 H HCO3 29.9 H ABG pH 7.53 H ABG Total CO2 30.3 H ABG O2 Saturation 99.8 H ABG Base Excess 6.4 H ABG Hemoglobin 13.0 ABG Carboxyhemoglobin 1.3 POC ABG HHb (Measured) 0.2 ABG Methemoglobin 0.8 Joseph Test Pos ABG Potassium A-a O2 Difference 51.0 Respiratory Index 0.2 Hgb O2 Saturation 97.7 Glucose Lactate Vent Mode Prvc Mechanical Rate 20 FiO2 50.0 Tidal Volume 500 PEEP 5 Crit Value Called To Crit Value Called By Crit Value Read Back Blood Gas Notified Time Sodium 149 H Potassium 3.1 L Chloride 108 H Carbon Dioxide 33 H Anion Gap 12 BUN 39 H Creatinine 0.9 Est GFR ( Amer) > 60 Est GFR (Non-Af Amer) > 60 POC Glucose (mg/dL) Random Glucose 229 H Calcium 9.6 Phosphorus 0.6 L* Magnesium 2.3 Total Bilirubin 0.6 AST 1458 H ALT 1205 H Alkaline Phosphatase 112 Total Creatine Kinase CK-MB (Mass) Troponin I Total Protein 6.8 Albumin 3.7 Globulin 3.1 Albumin/Globulin Ratio 1.2 Arterial Blood Potassium Urine Color Urine Clarity Urine pH Ur Specific [place] Urine Protein Urine Glucose (UA) Urine Ketones Urine Blood Urine Nitrate Urine Bilirubin Urine Urobilinogen Ur Leukocyte Esterase Urine WBC (Auto) Urine RBC (Auto) Ur Squamous Epith Cells Urine Bacteria Hyaline Casts Urine Sperm (Auto) Influenza Typ A,B (EIA) 02/09/19 02/09/19 02/09/19 05:45 05:47 06:19 WBC RBC Hgb Hct MCV MCH MCHC RDW Plt Count MPV Neut % (Auto) Lymph % (Auto) [place] % (Auto) Eos % (Auto) Baso % (Auto) Neut # (Auto) Lymph # (Auto) [place] # (Auto) Eos # (Auto) Baso # (Auto) Neutrophils % (Manual) Band Neutrophils % Lymphocytes % (Manual) Monocytes % (Manual) Toxic Granulation Platelet Estimate Large Platelets Polychromasia Anisocytosis (manual) Macrocytosis (manual) PT 13.2 H INR 1.2 APTT 30 Puncture Site pCO2 pO2 HCO3 ABG pH ABG Total CO2 ABG O2 Saturation ABG Base Excess ABG Hemoglobin ABG Carboxyhemoglobin POC ABG HHb (Measured) ABG Methemoglobin Joseph Test ABG Potassium A-a O2 Difference Respiratory Index Hgb O2 Saturation Glucose Lactate Vent Mode Mechanical Rate FiO2 Tidal Volume PEEP Crit Value Called To Crit Value Called By Crit Value Read Back Blood Gas Notified Time Sodium Potassium Chloride Carbon Dioxide Anion Gap BUN Creatinine Est GFR ( Amer) Est GFR (Non-Af Amer) POC Glucose (mg/dL) 209 H Random Glucose Calcium Phosphorus Magnesium Total Bilirubin AST ALT Alkaline Phosphatase Total Creatine Kinase CK-MB (Mass) Troponin I Total Protein Albumin Globulin Albumin/Globulin Ratio Arterial Blood Potassium Urine Color Straw Urine Clarity Hazy Urine pH 8.0 Ur Specific [place] 1.008 Urine Protein 1+ H Urine Glucose (UA) 1+ H Urine Ketones Trace Urine Blood 1+ H Urine Nitrate Negative Urine Bilirubin Negative Urine Urobilinogen Normal Ur Leukocyte Esterase Neg Urine WBC (Auto) Urine RBC (Auto) 17 H Ur Squamous Epith Cells < 1 Urine Bacteria Few H Hyaline Casts Urine Sperm (Auto) Few H Influenza Typ A,B (EIA) Attending/Attestation - Attestation I have personally seen and examined this patient.: Yes I have fully participated in the care of the patient.: Yes I have reviewed all pertinent clinical information: Yes Notes (Text): 1.Dysphagia 2.MS 3.Failure to thrive 4.Hypoxia and sob 5.COPD Advance directives discussed with family at bedside. Full code
[2019-02-08] MEDS ORDERED: Sodium Chloride 0.9% 1,000 ML IV SCH ×2 (15:00→22:45)
[2019-02-08] MEDS ORDERED: MULTIVITAMIN IV SCH (17:15)
[2019-02-08] MEDS ORDERED: DEXTROSE IV SCH (17:15)
[2019-02-08] MEDS ORDERED: NS IV SCH (17:15)
--- NOTE | 2019-02-08 21:58 | PCM.RRT ---
AMMONIUM NITRATE CRYSTALLIZER Nurses Assessment - Situation Date: 02/08/19 Time AMMONIUM NITRATE CRYSTALLIZER was called: 21:20 AMMONIUM NITRATE CRYSTALLIZER Responder Arrival Time:: 21:20 AMMONIUM NITRATE CRYSTALLIZER Location:: Med/Oncology Room Number: 351-B AMMONIUM NITRATE CRYSTALLIZER Reason for Call: Not Responding to Urgent Treatment (CODE BLUE) AMMONIUM NITRATE CRYSTALLIZER Called By: RN - IV IV Inserted during AMMONIUM NITRATE CRYSTALLIZER?: No - Respiratory AMMONIUM NITRATE CRYSTALLIZER Delivery Method: Intubated Was the Patient Intubated?: Yes - Medication Medications Administered During AMMONIUM NITRATE CRYSTALLIZER: epi x2 - Diagnostic Test Ordered EKG: Yes Chest X-Ray: Yes - Stat Labs Ordered AMMONIUM NITRATE CRYSTALLIZER Stat Labs Ordered: CBC, BMP, TROPONIN, ABG CPR started during AMMONIUM NITRATE CRYSTALLIZER?: Yes - Vital Signs Vital Signs: unobtainable - [place] Coma Scale Coma Scale Eye Opening: No response Coma Scale Motor: None Coma Scale Verbal: No response Coma Scale Total: 3 - Vital Signs at end of AMMONIUM NITRATE CRYSTALLIZER Vital Signs at end of AMMONIUM NITRATE CRYSTALLIZER: HR 130-140 BP 50s/20s other vitals unobtainable - Recommendations 5) AMMONIUM NITRATE CRYSTALLIZER Level of Care Recommendations: Transfer to ICU Notifications: Attending Physician, Family or Designated Caregiver I.Reason for AMMONIUM NITRATE CRYSTALLIZER - A) Acute Change in Patient: (Select all that apply): Acute change in mental status - Neurological Status Other (Please specify): non responsive - Respiratory Oxygen Delivery Method: Intubated - Extremities Exam Additional comments: Exam on arrival: In acute distress, unresponsive, cachectic, chronically ill Respiratory failure Cardiac sounds absent No palpable pulse Plan - Assessment of Findings&Treatment Plan Code blue called on 73 year old male w/ recently diagnosed MS CPR initiated Shock x1 2 epi intubated stat labs, cbc/cmp/joie/abg stat ekg/cxr ROSC transfer to ICU for further management, pt requiring pressors Daughter contacted and notified of course of events Discussed w/ Dr. Naranjo -Roxie Torres, PGY-1
[2019-02-08] MEDS ORDERED: Sodium Chloride 0.9% 1,000 ML IV ONE (22:08)
[2019-02-08 22:19] LABS: ARTERIAL BLOOD GAS HCO3 21.2 mmol/L (21-28); ARTERIAL BLOOD GAS PCO2 52 mm/Hg (35-45); ARTERIAL BLOOD GAS PH 7.25 (7.35-7.45); ARTERIAL BLOOD GAS PO2 410 mm/Hg (80-100); ARTERIAL BLOOD GAS TCO2 24.4 mmol/L (22-28)
--- NOTE | 2019-02-08 22:27 | CP.PCM.CON ---
History of Present Illness - History of Present Illness History of Present Illness: CCM 73 yo male with hx HLD /Gastritis /?COPD /MS and dysphagia admitted today with decreased PO intake and not talking for ~ 1 week. Pt d/c'd from ?hospital. + cough hx, no phlegm. No fever /n /v /d /sick contacts /recent travel. Pt found unresponsive and pulseless after being seen 5 min prior. Code blue called. Initial rhythm asystole. Pt received CPR /ACLS / Epi x 2 then shock x 1. Intubated. ROSC ~ 12 min. Pt receiving fluid for shock post arrest. Initially rapid A-fib then converted to sinus. Levo started in ICU. ROS- as noted All- PCN Social- no tob/ etoh/ drugs Meds- reviewed FH- Unknown PE T- P-107 R-20 BP-120/74 Pt intubated, unresponsive, cachectic Pupils mid and non-reactive Neck- no jvdlungs- bilat bs heart-rr aBd-bs+, soft, nontender Ext- no edema Neuro- no movement to pain Labs, EKG ,[id number] A&P s/p Cardiac Arrest Encephalopathy Shock-Improving + CPK MB Dehydration NO MS FTT Malnutrition HLD Dysphagia Hx Gastritis ?COPD Admit to ICU cont IV fluids titrate pressors OPtimize vent support check Influenza maintain optimal lytes f/u labs /CE/ABG /Lactate check cultures CT Brain Therapeutic Hypothermia DVT & GI prophylaxis Neuro checks Past Patient History - Past Medical History & Family History Past Medical History?: Yes - Past Social History Smoking Status: Never Smoked - CARDIAC Hx Hypercholesterolemia: Yes - ENDOCRINE/METABOLIC Hx Endocrine Disorders: Yes Other/Comment: low glucose - MUSCULOSKELETAL/RHEUMATOLOGICAL Hx Falls: No - GASTROINTESTINAL Hx Gastrointestinal Disorders: Yes Hx Fatty Liver Disease: Yes (live cirrhosis) - PSYCHIATRIC Hx Substance Use: No - SURGICAL HISTORY Hx Surgeries: No Meds Allergies/Adverse Reactions: Allergies Allergy/AdvReac Type Severity Reaction Status Date / Time Penicillins Allergy Verified 02/08/19 09:37 - Medications Medications: Current Medications Albuterol/Ipratropium (Duoneb 3 Mg/0.5 Mg (3 Ml) Ud) 3 ml INH RQ4 [facility] Enoxaparin Sodium (Lovenox) 40 mg SC DAILY [facility] Multivitamins/Vitamin C 10 ml/ (Dextrose/Sodium Chloride) 1,010 mls @ 100 mls/hr IV .Q10H6M COUNT INCLUDES THE [facility] Last Admin: 02/08/19 18:27 Dose: 100 mls/hr Norepinephrine Bitartrate 4 mg (/ Sodium Chloride) 254 mls @ 15.24 mls/hr IV .[id number] PRN; Protocol PRN Reason: TITRATE PER MD ORDER Sodium Chloride (Sodium Chloride 0.9%) 1,000 mls @ 1,000 mls/hr IV .Q1H ONE Stop: 02/08/19 23:07 Pantoprazole Sodium (Protonix Inj) 40 mg IVP DAILY COUNT INCLUDES THE [facility] Results - Vital Signs Recent Vital Signs: Last Vital Signs Temp 97.8 F 02/08/19 18:26 Pulse 99 H 02/08/19 18:26 Resp 20 02/08/19 18:26 BP 151/66 H 02/08/19 18:26 Pulse Ox 98 02/08/19 18:26 - Labs Result Diagrams: 02/09/19 05:45 02/09/19 05:45 Labs: Laboratory Results - last 24 hr 02/08/19 02/08/19 02/08/19 11:03 11:03 11:03 WBC 14.9 H D RBC 4.24 L Hgb 13.6 Hct 41.3 MCV 97.4 H D MCH 32.1 H MCHC 32.9 L RDW 14.6 H Plt Count 209 MPV 10.7 Neut % (Auto) 90.1 H Lymph % (Auto) 4.3 L [place] % (Auto) 5.5 Eos % (Auto) 0.0 Baso % (Auto) 0.1 Neut # (Auto) 13.4 H Lymph # (Auto) 0.6 L [place] # (Auto) 0.8 Eos # (Auto) 0.0 Baso # (Auto) 0.0 Neutrophils % (Manual) 84 H Band Neutrophils % 5 H Lymphocytes % (Manual) 5 L Monocytes % (Manual) 6 Toxic Granulation Present Platelet Estimate Normal Large Platelets Present Polychromasia Slight Anisocytosis (manual) Slight Macrocytosis (manual) Slight PT 13.2 H INR 1.2 APTT 36 H Sodium 144 Potassium 3.8 Chloride 99 Carbon Dioxide 34 H Anion Gap 14 BUN 43 H Creatinine 0.8 Est GFR ( Amer) > 60 Est GFR (Non-Af Amer) > 60 POC Glucose (mg/dL) Random Glucose 145 H D Calcium 10.7 H Total Bilirubin 0.6 AST 37 ALT < 6 L D Alkaline Phosphatase 91 Total Creatine Kinase 201 H CK-MB (Mass) 6.08 H Troponin I 0.0310 Total Protein 7.9 Albumin 4.4 Globulin 3.5 Albumin/Globulin Ratio 1.2 Urine Color Urine Clarity Urine pH Ur Specific [place] Urine Protein Urine Glucose (UA) Urine Ketones Urine Blood Urine Nitrate Urine Bilirubin Urine Urobilinogen Ur Leukocyte Esterase Urine WBC (Auto) Urine RBC (Auto) Urine Bacteria Hyaline Casts 02/08/19 02/08/19 13:26 21:23 WBC RBC Hgb Hct MCV MCH MCHC RDW Plt Count MPV Neut % (Auto) Lymph % (Auto) [place] % (Auto) Eos % (Auto) Baso % (Auto) Neut # (Auto) Lymph # (Auto) [place] # (Auto) Eos # (Auto) Baso # (Auto) Neutrophils % (Manual) Band Neutrophils % Lymphocytes % (Manual) Monocytes % (Manual) Toxic Granulation Platelet Estimate Large Platelets Polychromasia Anisocytosis (manual) Macrocytosis (manual) PT INR APTT Sodium Potassium Chloride Carbon Dioxide Anion Gap BUN Creatinine Est GFR ( Amer) Est GFR (Non-Af Amer) POC Glucose (mg/dL) 211 H Random Glucose Calcium Total Bilirubin AST ALT Alkaline Phosphatase Total Creatine Kinase CK-MB (Mass) Troponin I Total Protein Albumin Globulin Albumin/Globulin Ratio Urine Color Yellow Urine Clarity Hazy Urine pH 6.0 Ur Specific [place] 1.028 Urine Protein 2+ H Urine Glucose (UA) Normal Urine Ketones 1+ H Urine Blood 2+ H Urine Nitrate Negative Urine Bilirubin Negative Urine Urobilinogen Normal Ur Leukocyte Esterase Neg Urine WBC (Auto) 4 Urine RBC (Auto) 7 H Urine Bacteria Rare Hyaline Casts 3-5 H
[2019-02-08 22:50] LABS: BASO % 0.4 % (0.0-2.0); EOS % 0.1 % (0.0-4.0); LYMPH # 0.6 K/uL (1.0-4.3); MEAN CELL VOLUME 98.6 fL (80.0-94.0); MEAN CORPUSCULAR HEMOGLOBIN 31.5 pg (27.0-31.0); MEAN PLATELET VOLUME 10.8 fL (7.2-11.7); MONO # 0.3 K/uL (0.0-0.8); MONO % 3.2 % (0.0-10.0); NEUT # 9.7 K/uL (1.8-7.0); NEUT % 90.3 % (50.0-75.0); NRBC % 0.3 % (0.0-2.0); PLATELET COUNT 187 K/uL (130-400); RBC 3.49 Mil/uL (4.40-5.90); RED CELL DISTRIBUTION WIDTH 14.7 % (11.5-14.5); WHITE BLOOD COUNT 10.7 K/uL (4.8-10.8)
[2019-02-08 23:05] LABS: ALB/GLOB RATIO 1.2 (1.0-2.1); ALBUMIN 3.1 g/dL (3.5-5.0); ALT/SGPT 687 U/L (21-72); BLOOD UREA NITROGEN 36 mg/dL (9-20); CALCIUM 8.9 mg/dl (8.6-10.4); GFR NON-AFRICAN AMERICAN > 60
[2019-02-08 23:07] LABS: ALB/GLOB RATIO 1.2 (1.0-2.1); ALBUMIN 3.1 g/dL (3.5-5.0); ALT/SGPT 691 U/L (21-72); BLOOD UREA NITROGEN 36 mg/dL (9-20); GFR NON-AFRICAN AMERICAN > 60
[2019-02-08 23:15] LABS: AST/SGOT 933 U/L (17-59); AST/SGOT 941 U/L (17-59); CK-MB 5.38 ng/mL (0.0-3.38)
[2019-02-09] MEDS: Albuterol-Ipratrop 3 mg / 0.5 (3 ml) UD INH SCH ×5 (00:48→20:23)
[2019-02-09 01:41] LABS: BANDS 9 % (0-2); LYMPHOCYTE 8 % (20-40); MONOCYTE 5 % (0-10); NEUTROPHIL 78 % (50-75); TOTAL CELLS COUNTED 100
[2019-02-09 01:42] LABS: PLATELET ESTIMATE NORMAL (NORMAL)
[2019-02-09 05:35] LABS: ABG ALLEN TEST POS; ARTERIAL BLOOD GAS HCO3 29.9 mmol/L (21-28); ARTERIAL BLOOD GAS O2 SAT 99.8 % (95-98); ARTERIAL BLOOD GAS PCO2 35 mm/Hg (35-45); ARTERIAL BLOOD GAS PH 7.53 (7.35-7.45); ARTERIAL BLOOD GAS PO2 262 mm/Hg (80-100); ARTERIAL BLOOD GAS TCO2 30.3 mmol/L (22-28)
[2019-02-09 05:50] LABS: BASO % 0.1 % (0.0-2.0); HEMOGLOBIN 12.9 g/dL (12.0-18.0); LYMPH # 0.7 K/uL (1.0-4.3); MEAN CELL VOLUME 96.7 fL (80.0-94.0); MEAN CORPUSCULAR HGB CONC 32.1 g/dL (33.0-37.0); MEAN PLATELET VOLUME 10.9 fL (7.2-11.7); MONO # 0.8 K/uL (0.0-0.8); MONO % 5.5 % (0.0-10.0); NEUT # 12.8 K/uL (1.8-7.0); NEUT % 89.4 % (50.0-75.0); PLATELET COUNT 207 K/uL (130-400); RBC 4.16 Mil/uL (4.40-5.90); RED CELL DISTRIBUTION WIDTH 14.5 % (11.5-14.5); WHITE BLOOD COUNT 14.4 K/uL (4.8-10.8)
[2019-02-09 06:00] LABS: INR 1.2; PROTHROMBIN TIME 13.2 SECONDS (9.7-12.2)
[2019-02-09 06:04] LABS: SPERM URINE FEW /hpf; SQUAMOUS EPITHIAL < 1 /hpf (0-5); URINE BACTERIA FEW (<OCC); URINE BILIRUBIN NEGATIVE (NEGATIVE); URINE BLOOD 1+ (NEGATIVE); URINE CLARITY Hazy (Clear); URINE COLOR STRAW (YELLOW); URINE GLUCOSE (UA) 1+ mg/dL (Normal); URINE LEUKOCYTE ESTERASE NEG Leu/uL (Negative); URINE PROTEIN 1+ mg/dL (NEGATIVE); URINE UROBILINOGEN NORMAL mg/dL (0.2-1.0)
[2019-02-09 06:18] LABS: ALB/GLOB RATIO 1.2 (1.0-2.1); ALBUMIN 3.7 g/dL (3.5-5.0); BLOOD UREA NITROGEN 39 mg/dL (9-20); CALCIUM 9.6 mg/dl (8.6-10.4); GFR NON-AFRICAN AMERICAN > 60
[2019-02-09 06:27] LABS: ALT/SGPT 1205 U/L (21-72); AST/SGOT 1458 U/L (17-59)
--- NOTE | 2019-02-09 07:01 | RAD ---
Chest x-ray single frontal view History: Intubation. Comparison: None available. Findings: Endotracheal tube extending into the midthoracic trachea. Mild venous congestion. Bilateral hilar prominence. Upper lobe granulomatous changes. Tortuous aorta. Top normal heart size. Impression: Endotracheal tube extending into the midthoracic trachea. Mild venous congestion. Bilateral hilar prominence. Upper lobe granulomatous changes. Tortuous aorta. Top normal heart size.
--- NOTE | 2019-02-09 07:23 | PCM.ANES ---
Anesthesia Emergent Intubation - Diagnosis Working Diagnosis:: code blue, cardiac arrest (02/08/19) - Consult Reason for Consult:: intubation - Pre-Intubation Vital Signs Oxygen Delivery Method: Ambu-Bag Level Of Consciousness: Comatose/Unresponsive - Method of Intubation Intubation Method: Oral ETT ETT Size: 8 Lipline@: 22 Easy: Yes Atramatic: Yes - Intubation Devices Layla Blade Size Used: 3 - Placement Confirmation Breath Sounds Present & Equal Bilaterally: Yes Positive EtCO2: Yes Recommendations: Ventilator, Chest X Ray, ABG
--- NOTE | 2019-02-09 07:48 | RAD ---
Chest x-ray single frontal view History: Intubated. Comparison: 02/08/2019 Findings: NG tube extending into the stomach. Endotracheal tube extending into the midthoracic trachea. Biapical pleural thickening with upper lobe granulomatous changes. Diffuse increased interstitial lung markings. Patchy increased markings at the lung bases. Heart size within normal limits. Degenerative changes in the spine and shoulders. Impression: NG tube extending into the stomach. Endotracheal tube extending into the midthoracic trachea. Biapical pleural thickening with upper lobe granulomatous changes. Diffuse increased interstitial lung markings. Patchy increased markings at the lung bases. Heart size within normal limits.
--- NOTE | 2019-02-09 07:49 | CT ---
Date of service: 02/09/2019 PROCEDURE: CT HEAD WITHOUT CONTRAST. HISTORY: pre code freeze COMPARISON: None available. TECHNIQUE: Axial computed tomography images were obtained through the head/brain without intravenous contrast. Radiation dose: Total exam DLP = 1138.42 mGy-cm. This CT exam was performed using one or more of the following dose reduction techniques: Automated exposure control, adjustment of the mA and/or kV according to patient size, and/or use of iterative reconstruction technique. FINDINGS: HEMORRHAGE: No intracranial hemorrhage. BRAIN: No mass effect or edema. Scattered focal lucencies in the subcortical and periventricular white matter suggestive for chronic microvascular ischemic change. . VENTRICLES: Unremarkable. No hydrocephalus. CALVARIUM: Unremarkable. PARANASAL SINUSES: Unremarkable as visualized. No significant inflammatory changes. MASTOID AIR CELLS: Unremarkable as visualized. No inflammatory changes. OTHER FINDINGS: Mucosal retention cyst and or polyp in the left maxillary sinus. Mild mucosal thickening of the bilateral maxillary sinuses. IMPRESSION: No acute intracranial abnormality. Chronic microvascular ischemic changes. Sinus mucosal disease. A preliminary report was generated at 1:41 a.m. on 02/09/[address] Jose Guerra from [employer].
[2019-02-09 08:50] LABS: ANISOCYTOSIS SLIGHT; BANDS 8 % (0-2); LARGE PLATELETS PRESENT; LYMPHOCYTE 3 % (20-40); MONOCYTE 8 % (0-10); NEUTROPHIL 80 % (50-75); PLATELET ESTIMATE NORMAL (NORMAL); POLYCHROMIC SLIGHT; REACTIVE LYMPHOCYTES 1 % (0-0); TOTAL CELLS COUNTED 100
[2019-02-09 08:51] LABS: GIANT PLATELETS PRESENT
[2019-02-09] MEDS ORDERED: Enoxaparin 40 mg Syringe SC SCH (10:00)
[2019-02-09 10:17] LABS: ALB/GLOB RATIO 1.2 (1.0-2.1); ALBUMIN 3.9 g/dL (3.5-5.0); ALT/SGPT 1294 U/L (21-72); AST/SGOT 1490 U/L (17-59); BLOOD UREA NITROGEN 37 mg/dL (9-20); CALCIUM 9.6 mg/dl (8.6-10.4); GFR NON-AFRICAN AMERICAN > 60
[2019-02-09] MEDS ORDERED: Potassium Phosphate 15 MMOLE in Dextrose 5% In Water 250 ML IVPB ONE ×2 (10:18→18:00)
--- NOTE | 2019-02-09 10:59 | CP.PCM.PN ---
Subjective - Date & Time of Evaluation Date of Evaluation: 02/09/19 Time of Evaluation: 10:59 - Subjective Subjective: Patient was seen this morning in the ICU. s/p code blue,Initial rhythm asystole. Pt received CPR, Epi x 2 then shock x 1. Intubated. ROSC ~ 12 min. Initially rapid A-fib then converted to sinus. Levo started in ICU.Off pressors.On vent support,On therapeutic hypothermic protocol BP 146/71,sat 100%,RR 24 Objective - Vital Signs/Intake and Output Vital Signs (last 24 hours): Temp Pulse Resp BP Pulse Ox 88.5 F L 69 20 186/132 H 100 02/09/19 09:51 02/09/19 10:10 02/09/19 10:10 02/09/19 10:08 02/09/19 10:08 Intake and Output: 02/09/19 02/09/19 06:59 18:59 Intake Total 3198 400 Output Total 1150 600 Balance 2048 -200 - Medications Medications: Current Medications Albuterol/Ipratropium (Duoneb 3 Mg/0.5 Mg (3 Ml) Ud) 3 ml INH RQ4 [facility] Last Admin: 02/09/19 00:48 Dose: 3 ml Buspirone HCl (Buspar) 30 mg NG Q8 [facility]ILL Stop: 02/09/19 22:01 Last Admin: 02/09/19 07:00 Dose: 30 mg Enoxaparin Sodium (Lovenox) 40 mg SC DAILY [facility] Last Admin: 02/09/19 09:42 Dose: 40 mg Multivitamins/Vitamin C 10 ml/ (Dextrose/Sodium Chloride) 1,010 mls @ 100 mls/hr IV .Q10H6M [facility] Last Admin: 02/08/19 18:27 Dose: 100 mls/hr Potassium Phosphate 15 mmole/ (Dextrose) 255 mls @ 42.5 mls/hr IVPB ONCE ONE Stop: 02/09/19 16:17 Aztreonam 2 gm/ Sodium (Chloride) 100 mls @ 100 mls/hr IVPB Q8H JILL; Protocol Metronidazole (Flagyl) 500 mg in 100 mls @ 100 mls/hr IVPB Q8H [facility]; Protocol Vancomycin HCl 1,000 mg/ (Sodium Chloride) 250 mls @ 166.6 mls/hr IVPB Q12H [facility]; Protocol Pantoprazole Sodium (Protonix Inj) 40 mg IVP DAILY [facility] Last Admin: 02/09/19 09:43 Dose: 40 mg Potassium Chloride (Potassium Chloride Oral Soln) 40 meq PO Q6H [facility] Stop: 02/10/19 04:31 - Labs Labs: 02/09/19 05:45 02/09/19 08:50 PT 13.2 SECONDS (9.7-12.2) H 02/09/19 05:45 INR 1.2 02/09/19 05:45 APTT 30 SECONDS (21-34) 02/09/19 05:45 - Constitutional Appears: Cachectic, Chronically Ill - Head Exam Head Exam: absent: NORMAL INSPECTION (intubated) - Eye Exam Eye Exam: absent: PERRL (small and not react to light) - ENT Exam ENT Exam: absent: Mucous Membranes Moist - Neck Exam Neck Exam: absent: Full ROM (intubated) - Respiratory Exam Respiratory Exam: absent: Rales, Wheezes - Cardiovascular Exam Cardiovascular Exam: REGULAR RHYTHM - GI/Abdominal Exam GI & Abdominal Exam: Soft, Normal Bowel Sounds - Extremities Exam Extremities Exam: absent: Full ROM (intubated) - Neurological Exam Neurological Exam: absent: Awake (intubated on hypothermic protocol) - Psychiatric Exam Psychiatric exam: absent: Normal Mood - Skin Skin Exam: Dry, Intact, Normal Color, Warm Assessment and Plan - Assessment and Plan (Free Text) Assessment: This is a 73 year old Male with recently diagnosed multiple sclerosis who presents to the ED with dysphagia for 6 days. Patient was admitted on our service for similar symptoms in October 2018. 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 He was discharged and instructed to follow up in [facility]. As per patient's daughter, he was worked up, seen by Neuro logy, Gastro enterology had an EGD performed which showed gastritis.As per and his daughter he has difficulty in talking last 6 months.His dysphagia got worse since Sunday. Plan: 1. s/p Cardiopulmonary arrest,Intubated on vent support,On Therapeutic Hy pothermic Initial rhythm asystole. Pt received CPR, Epi x 2 then shock x 1. Intubated. ROSC ~ 12 min. Initially rapid A-fib then converted to sinus. 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 They are requesting to resuscitate if goes into arrest. Family was asked to bring records from [facility] which was give to them on discharge CT head done -no hemorrhage,chronic microvscular ischemic changes 2.Dysphagia and Failure to Thrive GI consulted - Dr. Knight Prior EGD 11/2018 - finding of gastritis as per daughter (records will be brought in) palliative care consulted 3. Multiple Sclerosis ? Seen by Neurology on previous admission, working diagnosis was ALS. Patient was recommended to follow up with [facility] in [place] where he was diagnosed with MS. - Daughter will bring medical records. 4. Possible aspiration,r/o infection/lacticacidosis started on AZtreonam,flagyl and vanco follow cultures 5.Electrolye imbalance supplement K and phos repaet levels 6.COPD - Duonebs PRN 7.Transaminitis due to shock liver follow labs 8.Prophylasis GI on protonix dvt on heparin Feeding not started due to hypothermic stage Prognosis-poor advance directives discussed with family -full code
--- NOTE | 2019-02-09 11:09 | PCM.PROC ---
Procedures Attestation:: I certify that I have explained the specified Operation(s) or Procedure(s), risks, benefits and reasonable alternatives to the Patient and/or other person responsible. The opportunity was given to ask questions and all questions answered - Arterial Line Right Radial Aseptic technique was employed throughout the procedure: Full sterile barriers (mask, hair cover, sterile gown, sterile gloves), Full body sterile drape, Chloraprep Antiseptic: 30 second prep for IJ or SC sites Time Out Performed: Yes Pt. placed on Pulse Ox Monitor: Yes Central Line Prep: Chlorhexidine-Alcohol Combination Local Anesthesia Used: Lidocaine 1% Amount of Anesthesia Used (mls): 5 Ultrasound Used for Placement: No Gauge (Size): 20 gauge Technique Used: Direct Puncture Technique Secured by: Suture Post procedure dressing: Gauze, Clear vapor permeable, Chlorhexidine disc (Biopatch) Patient Tolerated Procedure: well Immediate Complications: none
[2019-02-09] MEDS ORDERED: Dextrose 5%/Lactated Ringer's 1,000 ML IV SCH (11:15)
[2019-02-09] MEDS: Potassium Chloride 20 mEq/15 ml LIQ UD PO SCH ×3 (11:17→21:30)
[2019-02-09] MEDS: Propofol 10 mg/ml 1,000 MG/100 ML VIAL IV PRN (11:17)
[2019-02-09] MEDS: Aztreonam 2 GM in Sodium Chloride 0.9% 100 ML IVPB SCH ×2 (12:09→18:43)
[2019-02-09] MEDS: metroNIDAZOLE IV 500 mg/100 ml 500 MG/100 ML BAG IVPB SCH ×2 (13:03→21:00)
[2019-02-09 13:09] LABS: BARBITURATES, UR NEGATIVE (NEGATIVE); BENZODIAZEPINES, UR NEGATIVE (NEGATIVE); OPIATES, UR NEGATIVE (NEGATIVE); PHENCYCLIDINE, UR NEGATIVE (NEGATIVE)
--- NOTE | 2019-02-09 13:17 | CP.PCM.CON ---
<Rebel Leo - Last Filed: 02/09/19 13:30> History of Present Illness - History of Present Illness History of Present Illness: GI fellow PGY 4, consult note Patient is a 73-year-old male with complex medical history, likely chronic neurologic degeneration, who presented with dysphagia, generalized weakness. Patient has a long medical history and has been in different hospitals, recently [facility] He is reported to have an EGD at that time which was grossly negative. Per family, he has been having problems with dysphagia and difficulty talking that has been gradually worsening for several months. He was told recently he had multiple sclerosis but there is concern that maybe this is ALS. He is from the [place] and family was hoping he could go back this w [place]. After admission, unfortunately patient was found unresponsive and asystolic. CODE BLUE and ACLS was completed and ROSC appreciated. He is now intubated in the ICU. Off pressors. It was thought that maybe patient aspirated. Past medical historyas above Surgical historyas above Family historyunrelated Social historydependent on family, malnourished Unable to complete review of systems due to patient current status Past Patient History - Past Medical History & Family History Past Medical History?: Yes - Past Social History Smoking Status: Never Smoked - CARDIAC Hx Hypercholesterolemia: Yes - NEUROLOGICAL Hx Multiple Sclerosis: Yes - ENDOCRINE/METABOLIC Hx Endocrine Disorders: Yes Other/Comment: low glucose - MUSCULOSKELETAL/RHEUMATOLOGICAL Hx Falls: No - GASTROINTESTINAL Hx Gastrointestinal Disorders: Yes Hx Fatty Liver Disease: Yes (live cirrhosis) - PSYCHIATRIC Hx Substance Use: No - SURGICAL HISTORY Hx Surgeries: No Meds Allergies/Adverse Reactions: Allergies Allergy/AdvReac Type Severity Reaction Status Date / Time Penicillins Allergy Verified 02/08/19 09:37 - Medications Medications: Current Medications Albuterol/Ipratropium (Duoneb 3 Mg/0.5 Mg (3 Ml) Ud) 3 ml INH RQ4 [facility] Last Admin: 02/09/19 13:06 Dose: Not Given Buspirone HCl (Buspar) 30 mg NG Q8 [facility] Stop: 02/09/19 22:01 Last Admin: 02/09/19 07:00 Dose: 30 mg Heparin Sodium (Porcine) (Heparin) 5,000 units SC Q12 [facility] Potassium Phosphate 15 mmole/ (Dextrose) 255 mls @ 42.5 mls/hr IVPB ONCE ONE Stop: 02/09/19 16:17 Last Admin: 02/09/19 11:16 Dose: 42.5 mls/hr Aztreonam 2 gm/ Sodium (Chloride) 100 mls @ 100 mls/hr IVPB Q8H [facility]; Protocol Last Admin: 02/09/19 12:09 Dose: 100 mls/hr Metronidazole (Flagyl) 500 mg in 100 mls @ 100 mls/hr IVPB Q8H [facility]; Protocol Last Admin: 02/09/19 13:03 Dose: 100 mls/hr Vancomycin HCl 1,000 mg/ (Sodium Chloride) 250 mls @ 166.6 mls/hr IVPB Q12H [facility]; Protocol Last Admin: 02/09/19 13:03 Dose: 166.6 mls/hr Dextrose/Lactated Ringer's (Dextrose 5%/Lactated Ringer's) 1,000 mls @ 75 mls/hr IV .[id number] [facility] Potassium Phosphate 15 mmole/ (Dextrose) 255 mls @ 42.5 mls/hr IVPB ONCE ONE Stop: 02/09/19 23:59 Propofol (Diprivan) 1,000 mg in 100 mls @ 1.606 mls/hr IV .Q24H PRN; Protocol PRN Reason: TITRATE PER MD ORDER Last Admin: 02/09/19 11:17 Dose: 5 mcg/kg/min, 1.606 mls/hr Pantoprazole Sodium (Protonix Inj) 40 mg IVP DAILY [facility] Last Admin: 02/09/19 09:43 Dose: 40 mg Potassium Chloride (Potassium Chloride Oral Soln) 40 meq PO Q6H [facility] Stop: 02/10/19 04:31 Last Admin: 02/09/19 11:17 Dose: 40 meq Physical Exam - Constitutional Appears: Non-toxic, No Acute Distress Additional comments: Loss of muscle, loss of subcutaneous fat - Head Exam Head Exam: ATRAUMATIC, NORMAL INSPECTION - Eye Exam Eye Exam: EOMI, Normal appearance - ENT Exam ENT Exam: Mucous Membranes Moist, Normal Exam - Respiratory Exam Respiratory Exam: Clear to Auscultation Bilateral, NORMAL BREATHING PATTERN - Cardiovascular Exam Cardiovascular Exam: REGULAR RHYTHM, +S1, +S2 - GI/Abdominal Exam GI & Abdominal Exam: Normal Bowel Sounds, Soft. absent: Organomegaly, Tenderness - Extremities Exam Extremities exam: Positive for: normal inspection. Negative for: pedal edema - Neurological Exam Neurological exam: Altered Results - Vital Signs Recent Vital Signs: Last Vital Signs Temp 94.1 F L 02/09/19 12:00 Pulse 71 02/09/19 12:10 Resp 20 02/09/19 12:10 BP 138/72 02/09/19 12:09 Pulse Ox 100 02/09/19 12:10 - Labs Result Diagrams: 02/09/19 05:45 02/09/19 08:50 Labs: Laboratory Results - last 24 hr 02/08/19 02/08/19 02/08/19 13:26 21:23 22:12 WBC RBC Hgb Hct MCV MCH MCHC RDW Plt Count MPV Neut % (Auto) Lymph % (Auto) [place] % (Auto) Eos % (Auto) Baso % (Auto) Neut # (Auto) Lymph # (Auto) [place] # (Auto) Eos # (Auto) Baso # (Auto) Neutrophils % (Manual) Band Neutrophils % Lymphocytes % (Manual) Reactive Lymphs % Monocytes % (Manual) Platelet Estimate Large Platelets Giant Platelets Polychromasia Anisocytosis (manual) PT INR APTT Puncture Site Rba pCO2 52 H pO2 410 H HCO3 21.2 ABG pH 7.25 L ABG Total CO2 24.4 ABG O2 Saturation 100.0 H ABG Base Excess -4.9 L ABG Hemoglobin ABG Carboxyhemoglobin POC ABG HHb (Measured) ABG Methemoglobin Joseph Test Na ABG Potassium 4.1 A-a O2 Difference 238.0 Respiratory Index 0.6 Hgb O2 Saturation Sodium 148.0 Chloride 111.0 H Glucose 212 H Lactate 9.5 H* Vent Mode Prvc Mechanical Rate 12 FiO2 100.0 Tidal Volume 500 PEEP 5 Crit Value Called To Dr rodriguez Crit Value Called By Yana rt Crit Value Read Back Y Blood Gas Notified Time 2217 Potassium Carbon Dioxide Anion Gap BUN Creatinine Est GFR ( Amer) Est GFR (Non-Af Amer) POC Glucose (mg/dL) 211 H Random Glucose Lactic Acid Calcium Phosphorus Magnesium Total Bilirubin AST ALT Alkaline Phosphatase Total Creatine Kinase CK-MB (Mass) Troponin I Total Protein Albumin Globulin Albumin/Globulin Ratio Arterial Blood Potassium 4.1 Urine Color Yellow Urine Clarity Hazy Urine pH 6.0 Ur Specific [place] 1.028 Urine Protein 2+ H Urine Glucose (UA) Normal Urine Ketones 1+ H Urine Blood 2+ H Urine Nitrate Negative Urine Bilirubin Negative Urine Urobilinogen Normal Ur Leukocyte Esterase Neg Urine WBC (Auto) 4 Urine RBC (Auto) 7 H Ur Squamous Epith Cells Urine Bacteria Rare Hyaline Casts 3-5 H Urine Sperm (Auto) Urine Opiates Screen Urine Methadone Screen Ur Barbiturates Screen Ur Phencyclidine Scrn Ur Amphetamines Screen U Benzodiazepines Scrn U Oth Cocaine Metabols U Cannabinoids Screen Influenza Typ A,B (EIA) 02/08/19 02/08/19 02/08/19 22:45 22:45 22:45 WBC 10.7 RBC 3.49 L Hgb 11.0 L D Hct 34.4 L MCV 98.6 H MCH 31.5 H MCHC 32.0 L RDW 14.7 H Plt Count 187 MPV 10.8 Neut % (Auto) 90.3 H Lymph % (Auto) 6.0 L [place] % (Auto) 3.2 Eos % (Auto) 0.1 Baso % (Auto) 0.4 Neut # (Auto) 9.7 H Lymph # (Auto) 0.6 L [place] # (Auto) 0.3 Eos # (Auto) 0.0 Baso # (Auto) 0.0 Neutrophils % (Manual) 78 H Band Neutrophils % 9 H Lymphocytes % (Manual) 8 L Reactive Lymphs % Monocytes % (Manual) 5 Platelet Estimate Normal Large Platelets Giant Platelets Polychromasia Anisocytosis (manual) PT INR APTT Puncture Site pCO2 pO2 HCO3 ABG pH ABG Total CO2 ABG O2 Saturation ABG Base Excess ABG Hemoglobin ABG Carboxyhemoglobin POC ABG HHb (Measured) ABG Methemoglobin Joseph Test ABG Potassium A-a O2 Difference Respiratory Index Hgb O2 Saturation Sodium 145 146 Chloride 106 107 Glucose Lactate Vent Mode Mechanical Rate FiO2 Tidal Volume PEEP Crit Value Called To Crit Value Called By Crit Value Read Back Blood Gas Notified Time Potassium 4.5 4.5 Carbon Dioxide 26 27 Anion Gap 17 17 BUN 36 H 36 H Creatinine 0.8 0.8 Est GFR ( Amer) > 60 > 60 Est GFR (Non-Af Amer) > 60 > 60 POC Glucose (mg/dL) Random Glucose 206 H D 205 H Lactic Acid Calcium 8.9 9.0 Phosphorus 8.5 H Magnesium 2.4 H Total Bilirubin 0.4 0.4 AST 933 H D 941 H ALT 687 H D 691 H Alkaline Phosphatase 59 70 Total Creatine Kinase 158 CK-MB (Mass) 5.38 H Troponin I 0.0610 Total Protein 5.7 L 5.7 L Albumin 3.1 L D 3.1 L Globulin 2.6 2.6 Albumin/Globulin Ratio 1.2 1.2 Arterial Blood Potassium Urine Color Urine Clarity Urine pH Ur Specific [place] Urine Protein Urine Glucose (UA) Urine Ketones Urine Blood Urine Nitrate Urine Bilirubin Urine Urobilinogen Ur Leukocyte Esterase Urine WBC (Auto) Urine RBC (Auto) Ur Squamous Epith Cells Urine Bacteria Hyaline Casts Urine Sperm (Auto) Urine Opiates Screen Urine Methadone Screen Ur Barbiturates Screen Ur Phencyclidine Scrn Ur Amphetamines Screen U Benzodiazepines Scrn U Oth Cocaine Metabols U Cannabinoids Screen Influenza Typ A,B (EIA) 02/08/19 02/09/19 02/09/19 22:45 00:51 04:51 WBC RBC Hgb Hct MCV MCH MCHC RDW Plt Count MPV Neut % (Auto) Lymph % (Auto) [place] % (Auto) Eos % (Auto) Baso % (Auto) Neut # (Auto) Lymph # (Auto) [place] # (Auto) Eos # (Auto) Baso # (Auto) Neutrophils % (Manual) Band Neutrophils % Lymphocytes % (Manual) Reactive Lymphs % Monocytes % (Manual) Platelet Estimate Large Platelets Giant Platelets Polychromasia Anisocytosis (manual) PT INR APTT 34 Puncture Site pCO2 pO2 HCO3 ABG pH ABG Total CO2 ABG O2 Saturation ABG Base Excess ABG Hemoglobin ABG Carboxyhemoglobin POC ABG HHb (Measured) ABG Methemoglobin Joseph Test ABG Potassium A-a O2 Difference Respiratory Index Hgb O2 Saturation Sodium Chloride Glucose Lactate Vent Mode Mechanical Rate FiO2 Tidal Volume PEEP Crit Value Called To Crit Value Called By Crit Value Read Back Blood Gas Notified Time Potassium Carbon Dioxide Anion Gap BUN Creatinine Est GFR ( Amer) Est GFR (Non-Af Amer) POC Glucose (mg/dL) 197 H Random Glucose Lactic Acid Calcium Phosphorus Magnesium Total Bilirubin AST ALT Alkaline Phosphatase Total Creatine Kinase CK-MB (Mass) Troponin I Total Protein Albumin Globulin Albumin/Globulin Ratio Arterial Blood Potassium Urine Color Urine Clarity Urine pH Ur Specific [place] Urine Protein Urine Glucose (UA) Urine Ketones Urine Blood Urine Nitrate Urine Bilirubin Urine Urobilinogen Ur Leukocyte Esterase Urine WBC (Auto) Urine RBC (Auto) Ur Squamous Epith Cells Urine Bacteria Hyaline Casts Urine Sperm (Auto) Urine Opiates Screen Urine Methadone Screen Ur Barbiturates Screen Ur Phencyclidine Scrn Ur Amphetamines Screen U Benzodiazepines Scrn U Oth Cocaine Metabols U Cannabinoids Screen Influenza Typ A,B (EIA) Negative for flu a/b 02/09/19 02/09/19 02/09/19 05:31 05:45 05:45 WBC 14.4 H RBC 4.16 L Hgb 12.9 Hct 40.2 MCV 96.7 H MCH 31.0 MCHC 32.1 L RDW 14.5 Plt Count 207 MPV 10.9 Neut % (Auto) 89.4 H Lymph % (Auto) 5.0 L [place] % (Auto) 5.5 Eos % (Auto) 0.0 Baso % (Auto) 0.1 Neut # (Auto) 12.8 H Lymph # (Auto) 0.7 L [place] # (Auto) 0.8 Eos # (Auto) 0.0 Baso # (Auto) 0.0 Neutrophils % (Manual) 80 H Band Neutrophils % 8 H Lymphocytes % (Manual) 3 L Reactive Lymphs % 1 H Monocytes % (Manual) 8 Platelet Estimate Normal Large Platelets Present Giant Platelets Present Polychromasia Slight Anisocytosis (manual) Slight PT INR APTT Puncture Site L rad pCO2 35 pO2 262 H HCO3 29.9 H ABG pH 7.53 H ABG Total CO2 30.3 H ABG O2 Saturation 99.8 H ABG Base Excess 6.4 H ABG Hemoglobin 13.0 ABG Carboxyhemoglobin 1.3 POC ABG HHb (Measured) 0.2 ABG Methemoglobin 0.8 Joseph Test Pos ABG Potassium A-a O2 Difference 51.0 Respiratory Index 0.2 Hgb O2 Saturation 97.7 Sodium 149 H Chloride 108 H Glucose Lactate Vent Mode Prvc Mechanical Rate 20 FiO2 50.0 Tidal Volume 500 PEEP 5 Crit Value Called To Crit Value Called By Crit Value Read Back Blood Gas Notified Time Potassium 3.1 L Carbon Dioxide 33 H Anion Gap 12 BUN 39 H Creatinine 0.9 Est GFR ( Amer) > 60 Est GFR (Non-Af Amer) > 60 POC Glucose (mg/dL) Random Glucose 229 H Lactic Acid Calcium 9.6 Phosphorus 0.6 L* Magnesium 2.3 Total Bilirubin 0.6 AST 1458 H ALT 1205 H Alkaline Phosphatase 112 Total Creatine Kinase CK-MB (Mass) Troponin I Total Protein 6.8 Albumin 3.7 Globulin 3.1 Albumin/Globulin Ratio 1.2 Arterial Blood Potassium Urine Color Urine Clarity Urine pH Ur Specific [place] Urine Protein Urine Glucose (UA) Urine Ketones Urine Blood Urine Nitrate Urine Bilirubin Urine Urobilinogen Ur Leukocyte Esterase Urine WBC (Auto) Urine RBC (Auto) Ur Squamous Epith Cells Urine Bacteria Hyaline Casts Urine Sperm (Auto) Urine Opiates Screen Urine Methadone Screen Ur Barbiturates Screen Ur Phencyclidine Scrn Ur Amphetamines Screen U Benzodiazepines Scrn U Oth Cocaine Metabols U Cannabinoids Screen Influenza Typ A,B (EIA) 02/09/19 02/09/19 02/09/19 05:45 05:47 06:19 WBC RBC Hgb Hct MCV MCH MCHC RDW Plt Count MPV Neut % (Auto) Lymph % (Auto) [place] % (Auto) Eos % (Auto) Baso % (Auto) Neut # (Auto) Lymph # (Auto) [place] # (Auto) Eos # (Auto) Baso # (Auto) Neutrophils % (Manual) Band Neutrophils % Lymphocytes % (Manual) Reactive Lymphs % Monocytes % (Manual) Platelet Estimate Large Platelets Giant Platelets Polychromasia Anisocytosis (manual) PT 13.2 H INR 1.2 APTT 30 Puncture Site pCO2 pO2 HCO3 ABG pH ABG Total CO2 ABG O2 Saturation ABG Base Excess ABG Hemoglobin ABG Carboxyhemoglobin POC ABG HHb (Measured) ABG Methemoglobin Joseph Test ABG Potassium A-a O2 Difference Respiratory Index Hgb O2 Saturation Sodium Chloride Glucose Lactate Vent Mode Mechanical Rate FiO2 Tidal Volume PEEP Crit Value Called To Crit Value Called By Crit Value Read Back Blood Gas Notified Time Potassium Carbon Dioxide Anion Gap BUN Creatinine Est GFR ( Amer) Est GFR (Non-Af Amer) POC Glucose (mg/dL) 209 H Random Glucose Lactic Acid Calcium Phosphorus Magnesium Total Bilirubin AST ALT Alkaline Phosphatase Total Creatine Kinase CK-MB (Mass) Troponin I Total Protein Albumin Globulin Albumin/Globulin Ratio Arterial Blood Potassium Urine Color Straw Urine Clarity Hazy Urine pH 8.0 Ur Specific [place] 1.008 Urine Protein 1+ H Urine Glucose (UA) 1+ H Urine Ketones Trace Urine Blood 1+ H Urine Nitrate Negative Urine Bilirubin Negative Urine Urobilinogen Normal Ur Leukocyte Esterase Neg Urine WBC (Auto) Urine RBC (Auto) 17 H Ur Squamous Epith Cells < 1 Urine Bacteria Few H Hyaline Casts Urine Sperm (Auto) Few H Urine Opiates Screen Urine Methadone Screen Ur Barbiturates Screen Ur Phencyclidine Scrn Ur Amphetamines Screen U Benzodiazepines Scrn U Oth Cocaine Metabols U Cannabinoids Screen Influenza Typ A,B (EIA) 02/09/19 02/09/19 02/09/19 06:59 08:28 08:50 WBC RBC Hgb Hct MCV MCH MCHC RDW Plt Count MPV Neut % (Auto) Lymph % (Auto) [place] % (Auto) Eos % (Auto) Baso % (Auto) Neut # (Auto) Lymph # (Auto) [place] # (Auto) Eos # (Auto) Baso # (Auto) Neutrophils % (Manual) Band Neutrophils % Lymphocytes % (Manual) Reactive Lymphs % Monocytes % (Manual) Platelet Estimate Large Platelets Giant Platelets Polychromasia Anisocytosis (manual) PT INR APTT Puncture Site pCO2 pO2 HCO3 ABG pH ABG Total CO2 ABG O2 Saturation ABG Base Excess ABG Hemoglobin ABG Carboxyhemoglobin POC ABG HHb (Measured) ABG Methemoglobin Joseph Test ABG Potassium A-a O2 Difference Respiratory Index Hgb O2 Saturation Sodium 146 Chloride 103 Glucose Lactate Vent Mode Mechanical Rate FiO2 Tidal Volume PEEP Crit Value Called To Crit Value Called By Crit Value Read Back Blood Gas Notified Time Potassium 2.8 L Carbon Dioxide 35 H Anion Gap 10 BUN 37 H Creatinine 0.8 Est GFR ( Amer) > 60 Est GFR (Non-Af Amer) > 60 POC Glucose (mg/dL) 241 H 160 H Random Glucose 182 H D Lactic Acid Calcium 9.6 Phosphorus 0.9 L* Magnesium 2.2 Total Bilirubin 0.6 AST 1490 H ALT 1294 H Alkaline Phosphatase 115 Total Creatine Kinase CK-MB (Mass) Troponin I Total Protein 7.1 Albumin 3.9 Globulin 3.2 Albumin/Globulin Ratio 1.2 Arterial Blood Potassium Urine Color Urine Clarity Urine pH Ur Specific [place] Urine Protein Urine Glucose (UA) Urine Ketones Urine Blood Urine Nitrate Urine Bilirubin Urine Urobilinogen Ur Leukocyte Esterase Urine WBC (Auto) Urine RBC (Auto) Ur Squamous Epith Cells Urine Bacteria Hyaline Casts Urine Sperm (Auto) Urine Opiates Screen Urine Methadone Screen Ur Barbiturates Screen Ur Phencyclidine Scrn Ur Amphetamines Screen U Benzodiazepines Scrn U Oth Cocaine Metabols U Cannabinoids Screen Influenza Typ A,B (EIA) 02/09/19 02/09/19 02/09/19 10:31 12:09 12:09 WBC RBC Hgb Hct MCV MCH MCHC RDW Plt Count MPV Neut % (Auto) Lymph % (Auto) [place] % (Auto) Eos % (Auto) Baso % (Auto) Neut # (Auto) Lymph # (Auto) [place] # (Auto) Eos # (Auto) Baso # (Auto) Neutrophils % (Manual) Band Neutrophils % Lymphocytes % (Manual) Reactive Lymphs % Monocytes % (Manual) Platelet Estimate Large Platelets Giant Platelets Polychromasia Anisocytosis (manual) PT INR APTT Puncture Site pCO2 pO2 HCO3 ABG pH ABG Total CO2 ABG O2 Saturation ABG Base Excess ABG Hemoglobin ABG Carboxyhemoglobin POC ABG HHb (Measured) ABG Methemoglobin Joseph Test ABG Potassium A-a O2 Difference Respiratory Index Hgb O2 Saturation Sodium Chloride Glucose Lactate Vent Mode Mechanical Rate FiO2 Tidal Volume PEEP Crit Value Called To Crit Value Called By Crit Value Read Back Blood Gas Notified Time Potassium Carbon Dioxide Anion Gap BUN Creatinine Est GFR ( Amer) Est GFR (Non-Af Amer) POC Glucose (mg/dL) Random Glucose Lactic Acid 2.8 H Calcium Phosphorus Magnesium Total Bilirubin AST ALT Alkaline Phosphatase Total Creatine Kinase CK-MB (Mass) Troponin I 0.0410 Total Protein Albumin Globulin Albumin/Globulin Ratio Arterial Blood Potassium Urine Color Urine Clarity Urine pH Ur Specific [place] Urine Protein Urine Glucose (UA) Urine Ketones Urine Blood Urine Nitrate Urine Bilirubin Urine Urobilinogen Ur Leukocyte Esterase Urine WBC (Auto) Urine RBC (Auto) Ur Squamous Epith Cells Urine Bacteria Hyaline Casts Urine Sperm (Auto) Urine Opiates Screen Negative Urine Methadone Screen Negative Ur Barbiturates Screen Negative Ur Phencyclidine Scrn Negative Ur Amphetamines Screen Negative U Benzodiazepines Scrn Negative U Oth Cocaine Metabols Negative U Cannabinoids Screen Negative Influenza Typ A,B (EIA) Assessment & Plan - Assessment and Plan (Free Text) Assessment: #dysphagia, progressive likely neurogenic #ischemic hepatitis # hypophosphatemia #Severely malnourished # progressive neurologic condition, unspecified #acute hypoxic respiratory failure plan: Recommend supportive care Patient and family will need help with plan of care Continue to monitor liver tests Replace phosphorus Recommend PPI no obvious contraindications to tube feeding at this time (hypotension, GI bleed, bowel obstruction), ok to start NG tube feeds from GI perspective, but defer to ICU team. no plans for endoscopic evaluation at this time Case discussed with Dr. Sanders, see attestation. - Date & Time Date: 02/09/19 Time: 13:20 <Navjot Sanders - Last Filed: 02/10/19 19:15> Meds - Medications Medications: Current Medications Acetaminophen (Tylenol 650mg/20.3ml Solution Ud) 975 mg PO Q4H PRN PRN Reason: Give for temp > 98.6 Last Admin: 02/10/19 14:28 Dose: 975 mg Albuterol/Ipratropium (Duoneb 3 Mg/0.5 Mg (3 Ml) Ud) 3 ml INH RQ4 [facility] Last Admin: 02/10/19 13:40 Dose: Not Given Heparin Sodium (Porcine) (Heparin) 5,000 units SC Q12 [facility] Last Admin: 02/10/19 09:55 Dose: 5,000 units Aztreonam 2 gm/ Sodium (Chloride) 100 mls @ 100 mls/hr IVPB Q8H [facility]; Protocol Last Admin: 02/10/19 18:11 Dose: 100 mls/hr Metronidazole (Flagyl) 500 mg in 100 mls @ 100 mls/hr IVPB Q8H [facility]; Protocol Last Admin: 02/10/19 11:38 Dose: 100 mls/hr Vancomycin HCl 1,000 mg/ (Sodium Chloride) 250 mls @ 166.6 mls/hr IVPB Q12H [facility]; Protocol Last Admin: 02/10/19 10:01 Dose: 166.6 mls/hr Propofol (Diprivan) 1,000 mg in 100 mls @ 1.606 mls/hr IV .Q24H PRN; Protocol PRN Reason: TITRATE PER MD ORDER Last Titration: 02/10/19 09:45 Dose: 0 mcg/kg/min, 0 mls/hr Lactated Ringer's (Lactated Ringer's) 1,000 mls @ 50 mls/hr IV .Q20H [facility] Last Admin: 02/10/19 18:12 Dose: Not Given Dextrose (Dextrose 5% In Water 1000 Ml) 1,000 mls @ 25 mls/hr IV .Q24H [facility] Last Admin: 02/09/19 14:35 Dose: 25 mls/hr Pantoprazole Sodium (Protonix Inj) 40 mg IVP DAILY [facility] Last Admin: 02/10/19 09:54 Dose: 40 mg Results - Vital Signs Recent Vital Signs: Last Vital Signs Temp 100 F H 02/10/19 18:00 Pulse 120 H 02/10/19 19:00 Resp 18 02/10/19 19:00 BP 145/73 02/10/19 18:51 Pulse Ox 100 02/10/19 19:00 - Labs Result Diagrams: 02/10/19 04:43 02/10/19 04:43 Labs: Laboratory Results - last 24 hr 02/09/19 02/09/19 02/09/19 12:23 19:06 20:27 WBC RBC Hgb Hct MCV MCH MCHC RDW Plt Count MPV Neut % (Auto) Lymph % (Auto) [place] % (Auto) Eos % (Auto) Baso % (Auto) Neut # (Auto) Lymph # (Auto) [place] # (Auto) Eos # (Auto) Baso # (Auto) Neutrophils % (Manual) Band Neutrophils % Lymphocytes % (Manual) Monocytes % (Manual) Myelocytes % Nucleated RBC % Platelet Estimate Puncture Site pCO2 pO2 HCO3 ABG pH ABG Total CO2 ABG O2 Saturation ABG Base Excess Joseph Test ABG Potassium A-a O2 Difference Respiratory Index Glucose Lactate Vent Mode Mechanical Rate FiO2 Tidal Volume PEEP Sodium Potassium Chloride Carbon Dioxide Anion Gap BUN Creatinine Est GFR ( Amer) Est GFR (Non-Af Amer) POC Glucose (mg/dL) 173 H Random Glucose Lactic Acid 1.6 Calcium Phosphorus Magnesium Total Bilirubin AST ALT Alkaline Phosphatase Total Creatine Kinase Troponin I Total Protein Albumin Globulin Albumin/Globulin Ratio TSH 3rd Generation Arterial Blood Potassium Ur Opiates (GC/MS) Negative Ur Methadone, Qual Negative Urine Propoxyphene Negative Methaqualone Negative Ur Barbiturates, Qual Negative Ur Phencyclidine (PCP) Negative Ur Amphetamines Screen Negative U Benzodiazepines Qual Negative Urine Cocaine Negative U Marijuana (THC) Screen Negative Drugs of Abuse Note See note 02/10/19 02/10/19 02/10/19 00:08 04:16 04:43 WBC 14.7 H RBC 3.71 L Hgb 11.5 L Hct 35.2 MCV 94.9 H MCH 30.9 MCHC 32.5 L RDW 14.2 Plt Count 191 MPV 10.2 Neut % (Auto) 90.6 H Lymph % (Auto) 3.7 L [place] % (Auto) 5.3 Eos % (Auto) 0.1 Baso % (Auto) 0.3 Neut # (Auto) 13.3 H Lymph # (Auto) 0.5 L [place] # (Auto) 0.8 Eos # (Auto) 0.0 Baso # (Auto) 0.0 Neutrophils % (Manual) 81 H Band Neutrophils % 5 H Lymphocytes % (Manual) 3 L Monocytes % (Manual) 10 Myelocytes % 1 H Nucleated RBC % 1 H Platelet Estimate Normal Puncture Site pCO2 pO2 HCO3 ABG pH ABG Total CO2 ABG O2 Saturation ABG Base Excess Joseph Test ABG Potassium A-a O2 Difference Respiratory Index Glucose Lactate Vent Mode Mechanical Rate FiO2 Tidal Volume PEEP Sodium Potassium Chloride Carbon Dioxide Anion Gap BUN Creatinine Est GFR ( Amer) Est GFR (Non-Af Amer) POC Glucose (mg/dL) 126 H 90 Random Glucose Lactic Acid Calcium Phosphorus Magnesium Total Bilirubin AST ALT Alkaline Phosphatase Total Creatine Kinase Troponin I Total Protein Albumin Globulin Albumin/Globulin Ratio TSH 3rd Generation Arterial Blood Potassium Ur Opiates (GC/MS) Ur Methadone, Qual Urine Propoxyphene Methaqualone Ur Barbiturates, Qual Ur Phencyclidine (PCP) Ur Amphetamines Screen U Benzodiazepines Qual Urine Cocaine U Marijuana (THC) Screen Drugs of Abuse Note 02/10/19 02/10/19 02/10/19 04:43 04:43 04:43 WBC RBC Hgb Hct MCV MCH MCHC RDW Plt Count MPV Neut % (Auto) Lymph % (Auto) [place] % (Auto) Eos % (Auto) Baso % (Auto) Neut # (Auto) Lymph # (Auto) [place] # (Auto) Eos # (Auto) Baso # (Auto) Neutrophils % (Manual) Band Neutrophils % Lymphocytes % (Manual) Monocytes % (Manual) Myelocytes % Nucleated RBC % Platelet Estimate Puncture Site pCO2 pO2 HCO3 ABG pH ABG Total CO2 ABG O2 Saturation ABG Base Excess Joseph Test ABG Potassium A-a O2 Difference Respiratory Index Glucose Lactate Vent Mode Mechanical Rate FiO2 Tidal Volume PEEP Sodium 145 Potassium 3.9 Chloride 113 H Carbon Dioxide 27 Anion Gap 9 L BUN 37 H Creatinine 0.9 Est GFR ( Amer) > 60 Est GFR (Non-Af Amer) > 60 POC Glucose (mg/dL) Random Glucose 110 D Lactic Acid Calcium 8.9 Phosphorus 3.1 Magnesium 1.9 Total Bilirubin 0.4 AST 660 H D ALT 781 H D Alkaline Phosphatase 82 Total Creatine Kinase 878 H Troponin I 0.0310 Total Protein 5.6 L Albumin 2.8 L D Globulin 2.7 Albumin/Globulin Ratio 1.0 TSH 3rd Generation 3.46 Arterial Blood Potassium Ur Opiates (GC/MS) Ur Methadone, Qual Urine Propoxyphene Methaqualone Ur Barbiturates, Qual Ur Phencyclidine (PCP) Ur Amphetamines Screen U Benzodiazepines Qual Urine Cocaine U Marijuana (THC) Screen Drugs of Abuse Note 02/10/19 02/10/19 02/10/19 05:24 07:32 11:28 WBC RBC Hgb Hct MCV MCH MCHC RDW Plt Count MPV Neut % (Auto) Lymph % (Auto) [place] % (Auto) Eos % (Auto) Baso % (Auto) Neut # (Auto) Lymph # (Auto) [place] # (Auto) Eos # (Auto) Baso # (Auto) Neutrophils % (Manual) Band Neutrophils % Lymphocytes % (Manual) Monocytes % (Manual) Myelocytes % Nucleated RBC % Platelet Estimate Puncture Site [place] pCO2 32 L pO2 281 H HCO3 27.3 ABG pH 7.51 H ABG Total CO2 26.5 ABG O2 Saturation 99.7 H ABG Base Excess 3.0 Joseph Test Na ABG Potassium 3.7 A-a O2 Difference -71.0 Respiratory Index -0.3 Glucose 106 Lactate 1.7 Vent Mode Prvc Mechanical Rate 18 FiO2 35.0 Tidal Volume 500 PEEP 5 Sodium 146.0 Potassium Chloride 117.0 H Carbon Dioxide Anion Gap BUN Creatinine Est GFR ( Amer) Est GFR (Non-Af Amer) POC Glucose (mg/dL) 117 H 138 H Random Glucose Lactic Acid Calcium Phosphorus Magnesium Total Bilirubin AST ALT Alkaline Phosphatase Total Creatine Kinase Troponin I Total Protein Albumin Globulin Albumin/Globulin Ratio TSH 3rd Generation Arterial Blood Potassium 3.7 Ur Opiates (GC/MS) Ur Methadone, Qual Urine Propoxyphene Methaqualone Ur Barbiturates, Qual Ur Phencyclidine (PCP) Ur Amphetamines Screen U Benzodiazepines Qual Urine Cocaine U Marijuana (THC) Screen Drugs of Abuse Note 02/10/19 16:35 WBC RBC Hgb Hct MCV MCH MCHC RDW Plt Count MPV Neut % (Auto) Lymph % (Auto) [place] % (Auto) Eos % (Auto) Baso % (Auto) Neut # (Auto) Lymph # (Auto) [place] # (Auto) Eos # (Auto) Baso # (Auto) Neutrophils % (Manual) Band Neutrophils % Lymphocytes % (Manual) Monocytes % (Manual) Myelocytes % Nucleated RBC % Platelet Estimate Puncture Site pCO2 pO2 HCO3 ABG pH ABG Total CO2 ABG O2 Saturation ABG Base Excess Joseph Test ABG Potassium A-a O2 Difference Respiratory Index Glucose Lactate Vent Mode Mechanical Rate FiO2 Tidal Volume PEEP Sodium Potassium Chloride Carbon Dioxide Anion Gap BUN Creatinine Est GFR ( Amer) Est GFR (Non-Af Amer) POC Glucose (mg/dL) 180 H Random Glucose Lactic Acid Calcium Phosphorus Magnesium Total Bilirubin AST ALT Alkaline Phosphatase Total Creatine Kinase Troponin I Total Protein Albumin Globulin Albumin/Globulin Ratio TSH 3rd Generation Arterial Blood Potassium Ur Opiates (GC/MS) Ur Methadone, Qual Urine Propoxyphene Methaqualone Ur Barbiturates, Qual Ur Phencyclidine (PCP) Ur Amphetamines Screen U Benzodiazepines Qual Urine Cocaine U Marijuana (THC) Screen Drugs of Abuse Note Attending/Attestation - Attestation I have personally seen and examined this patient.: Yes I have fully participated in the care of the patient.: Yes I have reviewed all pertinent clinical information: Yes Notes (Text): 02/10/19 19:15 Late entry The pt was seen and examined on Sunday. Chart was reviewed. Findings assessment and recommendations were discussed with Dr. Leo and documented above.
--- NOTE | 2019-02-09 14:27 | CP.CCUPN ---
CCU Subjective - Physician Review Subjective (Free Text): Patient admitted to ICU s/p cardiac arrest. Decision made to hypothermia protocol. Events overnight reviewed 02/09/19 14:20 Critical Care Time Spent (in minutes): 45 CCU Objective - Vital Signs / Intake & Output Vital Signs (Last 4 hours): Vital Signs Temp Pulse Resp BP Pulse Ox 02/09/19 14:10 91 H 18 78/40 L 100 02/09/19 14:00 88.9 F L 71 18 105/56 L 97 02/09/19 13:50 77 19 98 02/09/19 13:40 70 18 02/09/19 13:30 69 18 02/09/19 13:20 86 18 02/09/19 13:10 99 H 18 02/09/19 13:08 106 H 18 111/63 02/09/19 13:00 90.0 F L 110 H 18 112/71 82 L 02/09/19 12:50 70 19 86 L 02/09/19 12:40 70 16 02/09/19 12:39 61 14 134/94 H 02/09/19 12:30 67 18 02/09/19 12:20 67 20 97 02/09/19 12:10 71 20 100 02/09/19 12:09 84 15 138/72 02/09/19 12:00 94.1 F L 70 28 H 146/83 100 02/09/19 11:50 72 31 H 100 02/09/19 11:40 73 21 100 02/09/19 11:38 75 22 102/62 100 02/09/19 11:30 72 27 H 100 02/09/19 11:20 74 24 100 02/09/19 11:10 74 25 H 100 02/09/19 11:08 73 26 H 144/69 100 02/09/19 11:00 93.2 F L 71 24 166/81 H 100 02/09/19 10:53 71 26 H 127/99 H 100 02/09/19 10:50 78 24 100 02/09/19 10:40 71 26 H 100 02/09/19 10:38 73 24 146/71 100 02/09/19 10:33 71 21 121/82 100 02/09/19 10:30 69 20 100 02/09/19 10:27 68 21 140/77 100 02/09/19 10:23 74 22 79/59 L Intake and Output (Last 8hrs): Intake & Output 02/08/19 02/09/19 02/09/19 22:59 06:59 14:59 Intake Total 1099 2099 766.4 Output Total 0 1150 730 Balance 1099 949 36.4 Weight 118 lb Intake: Intake, IV Amount 1099 2099 766.4 LFA 2 85.0 Left Antecubital 100 800 506.4 Left Forearm 999 1299 175 Oral 0 0 0 Output: Urine 0 1150 730 Urethral (Riley) 1150 730 Urine, Voided 0 0 Stool 0 0 0 - Physical Exam Head: Positive for: Atraumatic, Normocephalic Respiratory/Chest: Positive for: Clear to Auscultation, Good Air Exchange. Negative for: Respiratory Distress, Accessory Muscle Use, Wheezes, Retracting, Rhonchi, Tachypneic Cardiovascular: Positive for: Normal S1, S2, Rub Abdomen: Positive for: Normal Bowel Sounds. Negative for: Tenderness, Distention, Peritoneal Signs Upper Extremity: Positive for: Normal Inspection Lower Extremity: Positive for: Normal Inspection Skin: Positive for: Warm Psychiatric: Negative for: Alert, Oriented x 3, Normal Insight - Medications Active Medications: Active Medications Generic Name Dose Route Start Last Admin Trade Name Freq PRN Reason Stop Dose Admin Albuterol/Ipratropium 3 ml 02/08/19 18:00 02/09/19 13:06 Duoneb 3 Mg/0.5 Mg (3 Ml) Ud INH Not Given RQ4 JILL Buspirone HCl 30 mg 02/09/19 06:30 02/09/19 07:00 Buspar NG 02/09/19 22:01 30 mg Q8 JILL Administration Heparin Sodium (Porcine) 5,000 units 02/09/19 22:00 Heparin SC Q12 JILL Potassium Phosphate 15 mmole/ 255 mls @ 42.5 mls/hr 02/09/19 10:18 02/09/19 11:16 Dextrose IVPB 02/09/19 16:17 42.5 mls/hr ONCE ONE Administration Aztreonam 2 gm/ Sodium 100 mls @ 100 mls/hr 02/09/19 11:00 02/09/19 12:09 Chloride IVPB 100 mls/hr Q8H JILL Administration Protocol Metronidazole 500 mg in 100 mls @ 100 mls/hr 02/09/19 12:00 02/09/19 13:03 Flagyl IVPB 100 mls/hr Q8H JILL Administration Protocol Vancomycin HCl 1,000 mg/ 250 mls @ 166.6 mls/hr 02/09/19 11:00 02/09/19 13:03 Sodium Chloride IVPB 166.6 mls/hr Q12H JILL Administration Protocol Potassium Phosphate 15 mmole/ 255 mls @ 42.5 mls/hr 02/09/19 18:00 Dextrose IVPB 02/09/19 23:59 ONCE ONE Propofol 1,000 mg in 100 mls @ 1.606 mls/hr 02/09/19 11:06 02/09/19 11:17 Diprivan IV 5 mcg/kg/min .Q24H PRN 1.606 mls/hr TITRATE PER MD ORDER Administration Protocol 5 MCG/KG/MIN Lactated Ringer's 1,000 mls @ 50 mls/hr 02/09/19 14:15 Lactated Ringer's IV .Q20H JILL Dextrose 1,000 mls @ 25 mls/hr 02/09/19 14:15 Dextrose 5% In Water 1000 Ml IV .Q24H JILL Pantoprazole Sodium 40 mg 02/09/19 10:00 02/09/19 09:43 Protonix Inj IVP 40 mg DAILY JILL Administration Potassium Chloride 40 meq 02/09/19 10:30 02/09/19 11:17 Potassium Chloride Oral Soln PO 02/10/19 04:31 40 meq Q6H JILL Administration - Patient Studies Lab Studies: Lab Studies 02/09/19 02/09/19 02/09/19 Range/Units 12:09 12:09 10:31 WBC (4.8-10.8) K/uL RBC (4.40-5.90) Mil/uL Hgb (12.0-18.0) g/dL Hct (35.0-51.0) % MCV (80.0-94.0) fL MCH (27.0-31.0) pg MCHC (33.0-37.0) g/dL RDW (11.5-14.5) % Plt Count (130-400) K/uL MPV (7.2-11.7) fL Neut % (Auto) (50.0-75.0) % Lymph % (Auto) (20.0-40.0) % [place] % (Auto) (0.0-10.0) % Eos % (Auto) (0.0-4.0) % Baso % (Auto) (0.0-2.0) % Neut # (Auto) (1.8-7.0) K/uL Lymph # (Auto) (1.0-4.3) K/uL [place] # (Auto) (0.0-0.8) K/uL Eos # (Auto) (0.0-0.7) K/uL Baso # (Auto) (0.0-0.2) K/uL Neutrophils % (Manual) (50-75) % Band Neutrophils % (0-2) % Lymphocytes % (Manual) (20-40) % Reactive Lymphs % (0-0) % Monocytes % (Manual) (0-10) % Platelet Estimate (NORMAL) Large Platelets Giant Platelets Polychromasia Anisocytosis (manual) PT (9.7-12.2) SECONDS INR APTT (21-34) SECONDS Puncture Site pCO2 (35-45) mm/Hg pO2 (80-100) mm/Hg HCO3 (21-28) mmol/L ABG pH (7.35-7.45) ABG Total CO2 (22-28) mmol/L ABG O2 Saturation (95-98) % ABG Base Excess (-2.0-3.0) mmol/L ABG Hemoglobin (11.7-17.4) g/dL ABG Carboxyhemoglobin (0.5-1.5) % POC ABG HHb (Measured) (0.0-5.0) % ABG Methemoglobin (0.0-3.0) % Joseph Test ABG Potassium (3.6-5.2) mmol/L A-a O2 Difference mm/Hg Respiratory Index Hgb O2 Saturation (95.0-98.0) % Sodium (132-148) mmol/l Chloride (98-107) mmol/L Glucose (75-110) mg/dl Lactate (0.7-2.1) mmol/L Vent Mode Mechanical Rate FiO2 % Tidal Volume PEEP Crit Value Called To Crit Value Called By Crit Value Read Back Blood Gas Notified Time Potassium (3.6-5.2) mmol/L Carbon Dioxide (22-30) mmol/L Anion Gap (10-20) BUN (9-20) mg/dL Creatinine (0.8-1.5) mg/dL Est GFR ( Amer) Est GFR (Non-Af Amer) POC Glucose (mg/dL) (65-110) mg/dL Random Glucose (75-110) mg/dL Lactic Acid 2.8 H (0.7-2.1) mmol/L Calcium (8.6-10.4) mg/dl Phosphorus (2.5-4.5) mg/dL Magnesium (1.6-2.3) mg/dL Total Bilirubin (0.2-1.3) mg/dL AST (17-59) U/L ALT (21-72) U/L Alkaline Phosphatase (38-126) U/L Total Creatine Kinase (55-170) U/L CK-MB (Mass) (0.0-3.38) ng/mL Troponin I 0.0410 (0.00-0.120) ng/mL Total Protein (6.3-8.3) g/dL Albumin (3.5-5.0) g/dL Globulin (2.2-3.9) gm/dL Albumin/Globulin Ratio (1.0-2.1) Arterial Blood Potassium (3.6-5.2) mmol/L Urine Color (YELLOW) Urine Clarity (Clear) Urine pH (5.0-8.0) Ur Specific [place] (1.003-1.030) Urine Protein (NEGATIVE) mg/dL Urine Glucose (UA) (Normal) mg/dL Urine Ketones (NEGATIVE) mg/dL Urine Blood (NEGATIVE) Urine Nitrate (NEGATIVE) Urine Bilirubin (NEGATIVE) Urine Urobilinogen (0.2-1.0) mg/dL Ur Leukocyte Esterase (Negative) Kellie/uL Urine RBC (Auto) (0-3) /hpf Ur Squamous Epith Cells (0-5) /hpf Urine Bacteria (<OCC) Urine Sperm (Auto) (NONE) /hpf Urine Opiates Screen Negative (NEGATIVE) Urine Methadone Screen Negative (NEGATIVE) Ur Barbiturates Screen Negative (NEGATIVE) Ur Phencyclidine Scrn Negative (NEGATIVE) Ur Amphetamines Screen Negative (NEGATIVE) U Benzodiazepines Scrn Negative (NEGATIVE) U Oth Cocaine Metabols Negative (NEGATIVE) U Cannabinoids Screen Negative (NEGATIVE) Influenza Typ A,B (EIA) (NEGATIVE) 02/09/19 02/09/19 02/09/19 Range/Units 08:50 08:28 06:59 WBC (4.8-10.8) K/uL RBC (4.40-5.90) Mil/uL Hgb (12.0-18.0) g/dL Hct (35.0-51.0) % MCV (80.0-94.0) fL MCH (27.0-31.0) pg MCHC (33.0-37.0) g/dL RDW (11.5-14.5) % Plt Count (130-400) K/uL MPV (7.2-11.7) fL Neut % (Auto) (50.0-75.0) % Lymph % (Auto) (20.0-40.0) % [place] % (Auto) (0.0-10.0) % Eos % (Auto) (0.0-4.0) % Baso % (Auto) (0.0-2.0) % Neut # (Auto) (1.8-7.0) K/uL Lymph # (Auto) (1.0-4.3) K/uL [place] # (Auto) (0.0-0.8) K/uL Eos # (Auto) (0.0-0.7) K/uL Baso # (Auto) (0.0-0.2) K/uL Neutrophils % (Manual) (50-75) % Band Neutrophils % (0-2) % Lymphocytes % (Manual) (20-40) % Reactive Lymphs % (0-0) % Monocytes % (Manual) (0-10) % Platelet Estimate (NORMAL) Large Platelets Giant Platelets Polychromasia Anisocytosis (manual) PT (9.7-12.2) SECONDS INR APTT (21-34) SECONDS Puncture Site pCO2 (35-45) mm/Hg pO2 (80-100) mm/Hg HCO3 (21-28) mmol/L ABG pH (7.35-7.45) ABG Total CO2 (22-28) mmol/L ABG O2 Saturation (95-98) % ABG Base Excess (-2.0-3.0) mmol/L ABG Hemoglobin (11.7-17.4) g/dL ABG Carboxyhemoglobin (0.5-1.5) % POC ABG HHb (Measured) (0.0-5.0) % ABG Methemoglobin (0.0-3.0) % Joseph Test ABG Potassium (3.6-5.2) mmol/L A-a O2 Difference mm/Hg Respiratory Index Hgb O2 Saturation (95.0-98.0) % Sodium 146 (132-148) mmol/l Chloride 103 (98-107) mmol/L Glucose (75-110) mg/dl Lactate (0.7-2.1) mmol/L Vent Mode Mechanical Rate FiO2 % Tidal Volume PEEP Crit Value Called To Crit Value Called By Crit Value Read Back Blood Gas Notified Time Potassium 2.8 L (3.6-5.2) mmol/L Carbon Dioxide 35 H (22-30) mmol/L Anion Gap 10 (10-20) BUN 37 H (9-20) mg/dL Creatinine 0.8 (0.8-1.5) mg/dL Est GFR ( Amer) > 60 Est GFR (Non-Af Amer) > 60 POC Glucose (mg/dL) 160 H 241 H (65-110) mg/dL Random Glucose 182 H D (75-110) mg/dL Lactic Acid (0.7-2.1) mmol/L Calcium 9.6 (8.6-10.4) mg/dl Phosphorus 0.9 L* (2.5-4.5) mg/dL Magnesium 2.2 (1.6-2.3) mg/dL Total Bilirubin 0.6 (0.2-1.3) mg/dL AST 1490 H (17-59) U/L ALT 1294 H (21-72) U/L Alkaline Phosphatase 115 (38-126) U/L Total Creatine Kinase (55-170) U/L CK-MB (Mass) (0.0-3.38) ng/mL Troponin I (0.00-0.120) ng/mL Total Protein 7.1 (6.3-8.3) g/dL Albumin 3.9 (3.5-5.0) g/dL Globulin 3.2 (2.2-3.9) gm/dL Albumin/Globulin Ratio 1.2 (1.0-2.1) Arterial Blood Potassium (3.6-5.2) mmol/L Urine Color (YELLOW) Urine Clarity (Clear) Urine pH (5.0-8.0) Ur Specific [place] (1.003-1.030) Urine Protein (NEGATIVE) mg/dL Urine Glucose (UA) (Normal) mg/dL Urine Ketones (NEGATIVE) mg/dL Urine Blood (NEGATIVE) Urine Nitrate (NEGATIVE) Urine Bilirubin (NEGATIVE) Urine Urobilinogen (0.2-1.0) mg/dL Ur Leukocyte Esterase (Negative) Kellie/uL Urine RBC (Auto) (0-3) /hpf Ur Squamous Epith Cells (0-5) /hpf Urine Bacteria (<OCC) Urine Sperm (Auto) (NONE) /hpf Urine Opiates Screen (NEGATIVE) Urine Methadone Screen (NEGATIVE) Ur Barbiturates Screen (NEGATIVE) Ur Phencyclidine Scrn (NEGATIVE) Ur Amphetamines Screen (NEGATIVE) U Benzodiazepines Scrn (NEGATIVE) U Oth Cocaine Metabols (NEGATIVE) U Cannabinoids Screen (NEGATIVE) Influenza Typ A,B (EIA) (NEGATIVE) 02/09/19 02/09/19 02/09/19 Range/Units 06:19 05:47 05:45 WBC (4.8-10.8) K/uL RBC (4.40-5.90) Mil/uL Hgb (12.0-18.0) g/dL Hct (35.0-51.0) % MCV (80.0-94.0) fL MCH (27.0-31.0) pg MCHC (33.0-37.0) g/dL RDW (11.5-14.5) % Plt Count (130-400) K/uL MPV (7.2-11.7) fL Neut % (Auto) (50.0-75.0) % Lymph % (Auto) (20.0-40.0) % [place] % (Auto) (0.0-10.0) % Eos % (Auto) (0.0-4.0) % Baso % (Auto) (0.0-2.0) % Neut # (Auto) (1.8-7.0) K/uL Lymph # (Auto) (1.0-4.3) K/uL [place] # (Auto) (0.0-0.8) K/uL Eos # (Auto) (0.0-0.7) K/uL Baso # (Auto) (0.0-0.2) K/uL Neutrophils % (Manual) (50-75) % Band Neutrophils % (0-2) % Lymphocytes % (Manual) (20-40) % Reactive Lymphs % (0-0) % Monocytes % (Manual) (0-10) % Platelet Estimate (NORMAL) Large Platelets Giant Platelets Polychromasia Anisocytosis (manual) PT 13.2 H (9.7-12.2) SECONDS INR 1.2 APTT 30 (21-34) SECONDS Puncture Site pCO2 (35-45) mm/Hg pO2 (80-100) mm/Hg HCO3 (21-28) mmol/L ABG pH (7.35-7.45) ABG Total CO2 (22-28) mmol/L ABG O2 Saturation (95-98) % ABG Base Excess (-2.0-3.0) mmol/L ABG Hemoglobin (11.7-17.4) g/dL ABG Carboxyhemoglobin (0.5-1.5) % POC ABG HHb (Measured) (0.0-5.0) % ABG Methemoglobin (0.0-3.0) % Joseph Test ABG Potassium (3.6-5.2) mmol/L A-a O2 Difference mm/Hg Respiratory Index Hgb O2 Saturation (95.0-98.0) % Sodium (132-148) mmol/l Chloride (98-107) mmol/L Glucose (75-110) mg/dl Lactate (0.7-2.1) mmol/L Vent Mode Mechanical Rate FiO2 % Tidal Volume PEEP Crit Value Called To Crit Value Called By Crit Value Read Back Blood Gas Notified Time Potassium (3.6-5.2) mmol/L Carbon Dioxide (22-30) mmol/L Anion Gap (10-20) BUN (9-20) mg/dL Creatinine (0.8-1.5) mg/dL Est GFR ( Amer) Est GFR (Non-Af Amer) POC Glucose (mg/dL) 209 H (65-110) mg/dL Random Glucose (75-110) mg/dL Lactic Acid (0.7-2.1) mmol/L Calcium (8.6-10.4) mg/dl Phosphorus (2.5-4.5) mg/dL Magnesium (1.6-2.3) mg/dL Total Bilirubin (0.2-1.3) mg/dL AST (17-59) U/L ALT (21-72) U/L Alkaline Phosphatase (38-126) U/L Total Creatine Kinase (55-170) U/L CK-MB (Mass) (0.0-3.38) ng/mL Troponin I (0.00-0.120) ng/mL Total Protein (6.3-8.3) g/dL Albumin (3.5-5.0) g/dL Globulin (2.2-3.9) gm/dL Albumin/Globulin Ratio (1.0-2.1) Arterial Blood Potassium (3.6-5.2) mmol/L Urine Color Straw (YELLOW) Urine Clarity Hazy (Clear) Urine pH 8.0 (5.0-8.0) Ur Specific [place] 1.008 (1.003-1.030) Urine Protein 1+ H (NEGATIVE) mg/dL Urine Glucose (UA) 1+ H (Normal) mg/dL Urine Ketones Trace (NEGATIVE) mg/dL Urine Blood 1+ H (NEGATIVE) Urine Nitrate Negative (NEGATIVE) Urine Bilirubin Negative (NEGATIVE) Urine Urobilinogen Normal (0.2-1.0) mg/dL Ur Leukocyte Esterase Neg (Negative) Kellie/uL Urine RBC (Auto) 17 H (0-3) /hpf Ur Squamous Epith Cells < 1 (0-5) /hpf Urine Bacteria Few H (<OCC) Urine Sperm (Auto) Few H (NONE) /hpf Urine Opiates Screen (NEGATIVE) Urine Methadone Screen (NEGATIVE) Ur Barbiturates Screen (NEGATIVE) Ur Phencyclidine Scrn (NEGATIVE) Ur Amphetamines Screen (NEGATIVE) U Benzodiazepines Scrn (NEGATIVE) U Oth Cocaine Metabols (NEGATIVE) U Cannabinoids Screen (NEGATIVE) Influenza Typ A,B (EIA) (NEGATIVE) 02/09/19 02/09/19 02/09/19 Range/Units 05:45 05:45 05:31 WBC 14.4 H (4.8-10.8) K/uL RBC 4.16 L (4.40-5.90) Mil/uL Hgb 12.9 (12.0-18.0) g/dL Hct 40.2 (35.0-51.0) % MCV 96.7 H (80.0-94.0) fL MCH 31.0 (27.0-31.0) pg MCHC 32.1 L (33.0-37.0) g/dL RDW 14.5 (11.5-14.5) % Plt Count 207 (130-400) K/uL MPV 10.9 (7.2-11.7) fL Neut % (Auto) 89.4 H (50.0-75.0) % Lymph % (Auto) 5.0 L (20.0-40.0) % [place] % (Auto) 5.5 (0.0-10.0) % Eos % (Auto) 0.0 (0.0-4.0) % Baso % (Auto) 0.1 (0.0-2.0) % Neut # (Auto) 12.8 H (1.8-7.0) K/uL Lymph # (Auto) 0.7 L (1.0-4.3) K/uL [place] # (Auto) 0.8 (0.0-0.8) K/uL Eos # (Auto) 0.0 (0.0-0.7) K/uL Baso # (Auto) 0.0 (0.0-0.2) K/uL Neutrophils % (Manual) 80 H (50-75) % Band Neutrophils % 8 H (0-2) % Lymphocytes % (Manual) 3 L (20-40) % Reactive Lymphs % 1 H (0-0) % Monocytes % (Manual) 8 (0-10) % Platelet Estimate Normal (NORMAL) Large Platelets Present Giant Platelets Present Polychromasia Slight Anisocytosis (manual) Slight PT (9.7-12.2) SECONDS INR APTT (21-34) SECONDS Puncture Site L rad pCO2 35 (35-45) mm/Hg pO2 262 H (80-100) mm/Hg HCO3 29.9 H (21-28) mmol/L ABG pH 7.53 H (7.35-7.45) ABG Total CO2 30.3 H (22-28) mmol/L ABG O2 Saturation 99.8 H (95-98) % ABG Base Excess 6.4 H (-2.0-3.0) mmol/L ABG Hemoglobin 13.0 (11.7-17.4) g/dL ABG Carboxyhemoglobin 1.3 (0.5-1.5) % POC ABG HHb (Measured) 0.2 (0.0-5.0) % ABG Methemoglobin 0.8 (0.0-3.0) % Joseph Test Pos ABG Potassium (3.6-5.2) mmol/L A-a O2 Difference 51.0 mm/Hg Respiratory Index 0.2 Hgb O2 Saturation 97.7 (95.0-98.0) % Sodium 149 H (132-148) mmol/l Chloride 108 H (98-107) mmol/L Glucose (75-110) mg/dl Lactate (0.7-2.1) mmol/L Vent Mode Prvc Mechanical Rate 20 FiO2 50.0 % Tidal Volume 500 PEEP 5 Crit Value Called To Crit Value Called By Crit Value Read Back Blood Gas Notified Time Potassium 3.1 L (3.6-5.2) mmol/L Carbon Dioxide 33 H (22-30) mmol/L Anion Gap 12 (10-20) BUN 39 H (9-20) mg/dL Creatinine 0.9 (0.8-1.5) mg/dL Est GFR ( Amer) > 60 Est GFR (Non-Af Amer) > 60 POC Glucose (mg/dL) (65-110) mg/dL Random Glucose 229 H (75-110) mg/dL Lactic Acid (0.7-2.1) mmol/L Calcium 9.6 (8.6-10.4) mg/dl Phosphorus 0.6 L* (2.5-4.5) mg/dL Magnesium 2.3 (1.6-2.3) mg/dL Total Bilirubin 0.6 (0.2-1.3) mg/dL AST 1458 H (17-59) U/L ALT 1205 H (21-72) U/L Alkaline Phosphatase 112 (38-126) U/L Total Creatine Kinase (55-170) U/L CK-MB (Mass) (0.0-3.38) ng/mL Troponin I (0.00-0.120) ng/mL Total Protein 6.8 (6.3-8.3) g/dL Albumin 3.7 (3.5-5.0) g/dL Globulin 3.1 (2.2-3.9) gm/dL Albumin/Globulin Ratio 1.2 (1.0-2.1) Arterial Blood Potassium (3.6-5.2) mmol/L Urine Color (YELLOW) Urine Clarity (Clear) Urine pH (5.0-8.0) Ur Specific [place] (1.003-1.030) Urine Protein (NEGATIVE) mg/dL Urine Glucose (UA) (Normal) mg/dL Urine Ketones (NEGATIVE) mg/dL Urine Blood (NEGATIVE) Urine Nitrate (NEGATIVE) Urine Bilirubin (NEGATIVE) Urine Urobilinogen (0.2-1.0) mg/dL Ur Leukocyte Esterase (Negative) Kellie/uL Urine RBC (Auto) (0-3) /hpf Ur Squamous Epith Cells (0-5) /hpf Urine Bacteria (<OCC) Urine Sperm (Auto) (NONE) /hpf Urine Opiates Screen (NEGATIVE) Urine Methadone Screen (NEGATIVE) Ur Barbiturates Screen (NEGATIVE) Ur Phencyclidine Scrn (NEGATIVE) Ur Amphetamines Screen (NEGATIVE) U Benzodiazepines Scrn (NEGATIVE) U Oth Cocaine Metabols (NEGATIVE) U Cannabinoids Screen (NEGATIVE) Influenza Typ A,B (EIA) (NEGATIVE) 02/09/19 02/09/19 02/08/19 Range/Units 04:51 00:51 22:45 WBC (4.8-10.8) K/uL RBC (4.40-5.90) Mil/uL Hgb (12.0-18.0) g/dL Hct (35.0-51.0) % MCV (80.0-94.0) fL MCH (27.0-31.0) pg MCHC (33.0-37.0) g/dL RDW (11.5-14.5) % Plt Count (130-400) K/uL MPV (7.2-11.7) fL Neut % (Auto) (50.0-75.0) % Lymph % (Auto) (20.0-40.0) % [place] % (Auto) (0.0-10.0) % Eos % (Auto) (0.0-4.0) % Baso % (Auto) (0.0-2.0) % Neut # (Auto) (1.8-7.0) K/uL Lymph # (Auto) (1.0-4.3) K/uL [place] # (Auto) (0.0-0.8) K/uL Eos # (Auto) (0.0-0.7) K/uL Baso # (Auto) (0.0-0.2) K/uL Neutrophils % (Manual) (50-75) % Band Neutrophils % (0-2) % Lymphocytes % (Manual) (20-40) % Reactive Lymphs % (0-0) % Monocytes % (Manual) (0-10) % Platelet Estimate (NORMAL) Large Platelets Giant Platelets Polychromasia Anisocytosis (manual) PT (9.7-12.2) SECONDS INR APTT 34 (21-34) SECONDS Puncture Site pCO2 (35-45) mm/Hg pO2 (80-100) mm/Hg HCO3 (21-28) mmol/L ABG pH (7.35-7.45) ABG Total CO2 (22-28) mmol/L ABG O2 Saturation (95-98) % ABG Base Excess (-2.0-3.0) mmol/L ABG Hemoglobin (11.7-17.4) g/dL ABG Carboxyhemoglobin (0.5-1.5) % POC ABG HHb (Measured) (0.0-5.0) % ABG Methemoglobin (0.0-3.0) % Joseph Test ABG Potassium (3.6-5.2) mmol/L A-a O2 Difference mm/Hg Respiratory Index Hgb O2 Saturation (95.0-98.0) % Sodium (132-148) mmol/l Chloride (98-107) mmol/L Glucose (75-110) mg/dl Lactate (0.7-2.1) mmol/L Vent Mode Mechanical Rate FiO2 % Tidal Volume PEEP Crit Value Called To Crit Value Called By Crit Value Read Back Blood Gas Notified Time Potassium (3.6-5.2) mmol/L Carbon Dioxide (22-30) mmol/L Anion Gap (10-20) BUN (9-20) mg/dL Creatinine (0.8-1.5) mg/dL Est GFR ( Amer) Est GFR (Non-Af Amer) POC Glucose (mg/dL) 197 H (65-110) mg/dL Random Glucose (75-110) mg/dL Lactic Acid (0.7-2.1) mmol/L Calcium (8.6-10.4) mg/dl Phosphorus (2.5-4.5) mg/dL Magnesium (1.6-2.3) mg/dL Total Bilirubin (0.2-1.3) mg/dL AST (17-59) U/L ALT (21-72) U/L Alkaline Phosphatase (38-126) U/L Total Creatine Kinase (55-170) U/L CK-MB (Mass) (0.0-3.38) ng/mL Troponin I (0.00-0.120) ng/mL Total Protein (6.3-8.3) g/dL Albumin (3.5-5.0) g/dL Globulin (2.2-3.9) gm/dL Albumin/Globulin Ratio (1.0-2.1) Arterial Blood Potassium (3.6-5.2) mmol/L Urine Color (YELLOW) Urine Clarity (Clear) Urine pH (5.0-8.0) Ur Specific [place] (1.003-1.030) Urine Protein (NEGATIVE) mg/dL Urine Glucose (UA) (Normal) mg/dL Urine Ketones (NEGATIVE) mg/dL Urine Blood (NEGATIVE) Urine Nitrate (NEGATIVE) Urine Bilirubin (NEGATIVE) Urine Urobilinogen (0.2-1.0) mg/dL Ur Leukocyte Esterase (Negative) Kellie/uL Urine RBC (Auto) (0-3) /hpf Ur Squamous Epith Cells (0-5) /hpf Urine Bacteria (<OCC) Urine Sperm (Auto) (NONE) /hpf Urine Opiates Screen (NEGATIVE) Urine Methadone Screen (NEGATIVE) Ur Barbiturates Screen (NEGATIVE) Ur Phencyclidine Scrn (NEGATIVE) Ur Amphetamines Screen (NEGATIVE) U Benzodiazepines Scrn (NEGATIVE) U Oth Cocaine Metabols (NEGATIVE) U Cannabinoids Screen (NEGATIVE) Influenza Typ A,B (EIA) Negative for flu a/b (NEGATIVE) 03/16/19 03/16/19 03/16/19 Range/Units 22:45 22:45 22:45 WBC 10.7 (4.8-10.8) K/uL RBC 3.49 L (4.40-5.90) Mil/uL Hgb 11.0 L D (12.0-18.0) g/dL Hct 34.4 L (35.0-51.0) % MCV 98.6 H (80.0-94.0) fL MCH 31.5 H (27.0-31.0) pg MCHC 32.0 L (33.0-37.0) g/dL RDW 14.7 H (11.5-14.5) % Plt Count 187 (130-400) K/uL MPV 10.8 (7.2-11.7) fL Neut % (Auto) 90.3 H (50.0-75.0) % Lymph % (Auto) 6.0 L (20.0-40.0) % [place] % (Auto) 3.2 (0.0-10.0) % Eos % (Auto) 0.1 (0.0-4.0) % Baso % (Auto) 0.4 (0.0-2.0) % Neut # (Auto) 9.7 H (1.8-7.0) K/uL Lymph # (Auto) 0.6 L (1.0-4.3) K/uL [place] # (Auto) 0.3 (0.0-0.8) K/uL Eos # (Auto) 0.0 (0.0-0.7) K/uL Baso # (Auto) 0.0 (0.0-0.2) K/uL Neutrophils % (Manual) 78 H (50-75) % Band Neutrophils % 9 H (0-2) % Lymphocytes % (Manual) 8 L (20-40) % Reactive Lymphs % (0-0) % Monocytes % (Manual) 5 (0-10) % Platelet Estimate Normal (NORMAL) Large Platelets Giant Platelets Polychromasia Anisocytosis (manual) PT (9.7-12.2) SECONDS INR APTT (21-34) SECONDS Puncture Site pCO2 (35-45) mm/Hg pO2 (80-100) mm/Hg HCO3 (21-28) mmol/L ABG pH (7.35-7.45) ABG Total CO2 (22-28) mmol/L ABG O2 Saturation (95-98) % ABG Base Excess (-2.0-3.0) mmol/L ABG Hemoglobin (11.7-17.4) g/dL ABG Carboxyhemoglobin (0.5-1.5) % POC ABG HHb (Measured) (0.0-5.0) % ABG Methemoglobin (0.0-3.0) % Joseph Test ABG Potassium (3.6-5.2) mmol/L A-a O2 Difference mm/Hg Respiratory Index Hgb O2 Saturation (95.0-98.0) % Sodium 146 145 (132-148) mmol/l Chloride 107 106 (98-107) mmol/L Glucose (75-110) mg/dl Lactate (0.7-2.1) mmol/L Vent Mode Mechanical Rate FiO2 % Tidal Volume PEEP Crit Value Called To Crit Value Called By Crit Value Read Back Blood Gas Notified Time Potassium 4.5 4.5 (3.6-5.2) mmol/L Carbon Dioxide 27 26 (22-30) mmol/L Anion Gap 17 17 (10-20) BUN 36 H 36 H (9-20) mg/dL Creatinine 0.8 0.8 (0.8-1.5) mg/dL Est GFR ( Amer) > 60 > 60 Est GFR (Non-Af Amer) > 60 > 60 POC Glucose (mg/dL) (65-110) mg/dL Random Glucose 205 H 206 H D (75-110) mg/dL Lactic Acid (0.7-2.1) mmol/L Calcium 9.0 8.9 (8.6-10.4) mg/dl Phosphorus 8.5 H (2.5-4.5) mg/dL Magnesium 2.4 H (1.6-2.3) mg/dL Total Bilirubin 0.4 0.4 (0.2-1.3) mg/dL AST 941 H 933 H D (17-59) U/L ALT 691 H 687 H D (21-72) U/L Alkaline Phosphatase 70 59 (38-126) U/L Total Creatine Kinase 158 (55-170) U/L CK-MB (Mass) 5.38 H (0.0-3.38) ng/mL Troponin I 0.0610 (0.00-0.120) ng/mL Total Protein 5.7 L 5.7 L (6.3-8.3) g/dL Albumin 3.1 L 3.1 L D (3.5-5.0) g/dL Globulin 2.6 2.6 (2.2-3.9) gm/dL Albumin/Globulin Ratio 1.2 1.2 (1.0-2.1) Arterial Blood Potassium (3.6-5.2) mmol/L Urine Color (YELLOW) Urine Clarity (Clear) Urine pH (5.0-8.0) Ur Specific [place] (1.003-1.030) Urine Protein (NEGATIVE) mg/dL Urine Glucose (UA) (Normal) mg/dL Urine Ketones (NEGATIVE) mg/dL Urine Blood (NEGATIVE) Urine Nitrate (NEGATIVE) Urine Bilirubin (NEGATIVE) Urine Urobilinogen (0.2-1.0) mg/dL Ur Leukocyte Esterase (Negative) Kellie/uL Urine RBC (Auto) (0-3) /hpf Ur Squamous Epith Cells (0-5) /hpf Urine Bacteria (<OCC) Urine Sperm (Auto) (NONE) /hpf Urine Opiates Screen (NEGATIVE) Urine Methadone Screen (NEGATIVE) Ur Barbiturates Screen (NEGATIVE) Ur Phencyclidine Scrn (NEGATIVE) Ur Amphetamines Screen (NEGATIVE) U Benzodiazepines Scrn (NEGATIVE) U Oth Cocaine Metabols (NEGATIVE) U Cannabinoids Screen (NEGATIVE) Influenza Typ A,B (EIA) (NEGATIVE) 02/08/19 02/08/19 Range/Units 22:12 21:23 WBC (4.8-10.8) K/uL RBC (4.40-5.90) Mil/uL Hgb (12.0-18.0) g/dL Hct (35.0-51.0) % MCV (80.0-94.0) fL MCH (27.0-31.0) pg MCHC (33.0-37.0) g/dL RDW (11.5-14.5) % Plt Count (130-400) K/uL MPV (7.2-11.7) fL Neut % (Auto) (50.0-75.0) % Lymph % (Auto) (20.0-40.0) % [place] % (Auto) (0.0-10.0) % Eos % (Auto) (0.0-4.0) % Baso % (Auto) (0.0-2.0) % Neut # (Auto) (1.8-7.0) K/uL Lymph # (Auto) (1.0-4.3) K/uL [place] # (Auto) (0.0-0.8) K/uL Eos # (Auto) (0.0-0.7) K/uL Baso # (Auto) (0.0-0.2) K/uL Neutrophils % (Manual) (50-75) % Band Neutrophils % (0-2) % Lymphocytes % (Manual) (20-40) % Reactive Lymphs % (0-0) % Monocytes % (Manual) (0-10) % Platelet Estimate (NORMAL) Large Platelets Giant Platelets Polychromasia Anisocytosis (manual) PT (9.7-12.2) SECONDS INR APTT (21-34) SECONDS Puncture Site Rba pCO2 52 H (35-45) mm/Hg pO2 410 H (80-100) mm/Hg HCO3 21.2 (21-28) mmol/L ABG pH 7.25 L (7.35-7.45) ABG Total CO2 24.4 (22-28) mmol/L ABG O2 Saturation 100.0 H (95-98) % ABG Base Excess -4.9 L (-2.0-3.0) mmol/L ABG Hemoglobin (11.7-17.4) g/dL ABG Carboxyhemoglobin (0.5-1.5) % POC ABG HHb (Measured) (0.0-5.0) % ABG Methemoglobin (0.0-3.0) % Joseph Test Na ABG Potassium 4.1 (3.6-5.2) mmol/L A-a O2 Difference 238.0 mm/Hg Respiratory Index 0.6 Hgb O2 Saturation (95.0-98.0) % Sodium 148.0 (132-148) mmol/l Chloride 111.0 H (98-107) mmol/L Glucose 212 H (75-110) mg/dl Lactate 9.5 H* (0.7-2.1) mmol/L Vent Mode Prvc Mechanical Rate 12 FiO2 100.0 % Tidal Volume 500 PEEP 5 Crit Value Called To Dr rodriguez Crit Value Called By Yana rt Crit Value Read Back Y Blood Gas Notified Time 2217 Potassium (3.6-5.2) mmol/L Carbon Dioxide (22-30) mmol/L Anion Gap (10-20) BUN (9-20) mg/dL Creatinine (0.8-1.5) mg/dL Est GFR ( Amer) Est GFR (Non-Af Amer) POC Glucose (mg/dL) 211 H (65-110) mg/dL Random Glucose (75-110) mg/dL Lactic Acid (0.7-2.1) mmol/L Calcium (8.6-10.4) mg/dl Phosphorus (2.5-4.5) mg/dL Magnesium (1.6-2.3) mg/dL Total Bilirubin (0.2-1.3) mg/dL AST (17-59) U/L ALT (21-72) U/L Alkaline Phosphatase (38-126) U/L Total Creatine Kinase (55-170) U/L CK-MB (Mass) (0.0-3.38) ng/mL Troponin I (0.00-0.120) ng/mL Total Protein (6.3-8.3) g/dL Albumin (3.5-5.0) g/dL Globulin (2.2-3.9) gm/dL Albumin/Globulin Ratio (1.0-2.1) Arterial Blood Potassium 4.1 (3.6-5.2) mmol/L Urine Color (YELLOW) Urine Clarity (Clear) Urine pH (5.0-8.0) Ur Specific [place] (1.003-1.030) Urine Protein (NEGATIVE) mg/dL Urine Glucose (UA) (Normal) mg/dL Urine Ketones (NEGATIVE) mg/dL Urine Blood (NEGATIVE) Urine Nitrate (NEGATIVE) Urine Bilirubin (NEGATIVE) Urine Urobilinogen (0.2-1.0) mg/dL Ur Leukocyte Esterase (Negative) Kellie/uL Urine RBC (Auto) (0-3) /hpf Ur Squamous Epith Cells (0-5) /hpf Urine Bacteria (<OCC) Urine Sperm (Auto) (NONE) /hpf Urine Opiates Screen (NEGATIVE) Urine Methadone Screen (NEGATIVE) Ur Barbiturates Screen (NEGATIVE) Ur Phencyclidine Scrn (NEGATIVE) Ur Amphetamines Screen (NEGATIVE) U Benzodiazepines Scrn (NEGATIVE) U Oth Cocaine Metabols (NEGATIVE) U Cannabinoids Screen (NEGATIVE) Influenza Typ A,B (EIA) (NEGATIVE) Laboratory Results - last 24 hr 02/08/19 02/08/19 02/08/19 21:23 22:12 22:45 WBC RBC Hgb Hct MCV MCH MCHC RDW Plt Count MPV Neut % (Auto) Lymph % (Auto) [place] % (Auto) Eos % (Auto) Baso % (Auto) Neut # (Auto) Lymph # (Auto) [place] # (Auto) Eos # (Auto) Baso # (Auto) Neutrophils % (Manual) Band Neutrophils % Lymphocytes % (Manual) Reactive Lymphs % Monocytes % (Manual) Platelet Estimate Large Platelets Giant Platelets Polychromasia Anisocytosis (manual) PT INR APTT Puncture Site Rba pCO2 52 H pO2 410 H HCO3 21.2 ABG pH 7.25 L ABG Total CO2 24.4 ABG O2 Saturation 100.0 H ABG Base Excess -4.9 L ABG Hemoglobin ABG Carboxyhemoglobin POC ABG HHb (Measured) ABG Methemoglobin Joseph Test Na ABG Potassium 4.1 A-a O2 Difference 238.0 Respiratory Index 0.6 Hgb O2 Saturation Sodium 148.0 145 Chloride 111.0 H 106 Glucose 212 H Lactate 9.5 H* Vent Mode Prvc Mechanical Rate 12 FiO2 100.0 Tidal Volume 500 PEEP 5 Crit Value Called To Dr rodriguez Crit Value Called By Yana rt Crit Value Read Back Y Blood Gas Notified Time 221 Potassium 4.5 Carbon Dioxide 26 Anion Gap 17 BUN 36 H Creatinine 0.8 Est GFR ( Amer) > 60 Est GFR (Non-Af Amer) > 60 POC Glucose (mg/dL) 211 H Random Glucose 206 H D Lactic Acid Calcium 8.9 Phosphorus Magnesium Total Bilirubin 0.4 AST 933 H D ALT 687 H D Alkaline Phosphatase 59 Total Creatine Kinase 158 CK-MB (Mass) 5.38 H Troponin I 0.0610 Total Protein 5.7 L Albumin 3.1 L D Globulin 2.6 Albumin/Globulin Ratio 1.2 Arterial Blood Potassium 4.1 Urine Color Urine Clarity Urine pH Ur Specific [place] Urine Protein Urine Glucose (UA) Urine Ketones Urine Blood Urine Nitrate Urine Bilirubin Urine Urobilinogen Ur Leukocyte Esterase Urine RBC (Auto) Ur Squamous Epith Cells Urine Bacteria Urine Sperm (Auto) Urine Opiates Screen Urine Methadone Screen Ur Barbiturates Screen Ur Phencyclidine Scrn Ur Amphetamines Screen U Benzodiazepines Scrn U Oth Cocaine Metabols U Cannabinoids Screen Influenza Typ A,B (EIA) 02/08/19 02/08/19 02/08/19 22:45 22:45 22:45 WBC 10.7 RBC 3.49 L Hgb 11.0 L D Hct 34.4 L MCV 98.6 H MCH 31.5 H MCHC 32.0 L RDW 14.7 H Plt Count 187 MPV 10.8 Neut % (Auto) 90.3 H Lymph % (Auto) 6.0 L [place] % (Auto) 3.2 Eos % (Auto) 0.1 Baso % (Auto) 0.4 Neut # (Auto) 9.7 H Lymph # (Auto) 0.6 L [place] # (Auto) 0.3 Eos # (Auto) 0.0 Baso # (Auto) 0.0 Neutrophils % (Manual) 78 H Band Neutrophils % 9 H Lymphocytes % (Manual) 8 L Reactive Lymphs % Monocytes % (Manual) 5 Platelet Estimate Normal Large Platelets Giant Platelets Polychromasia Anisocytosis (manual) PT INR APTT 34 Puncture Site pCO2 pO2 HCO3 ABG pH ABG Total CO2 ABG O2 Saturation ABG Base Excess ABG Hemoglobin ABG Carboxyhemoglobin POC ABG HHb (Measured) ABG Methemoglobin Joseph Test ABG Potassium A-a O2 Difference Respiratory Index Hgb O2 Saturation Sodium 146 Chloride 107 Glucose Lactate Vent Mode Mechanical Rate FiO2 Tidal Volume PEEP Crit Value Called To Crit Value Called By Crit Value Read Back Blood Gas Notified Time Potassium 4.5 Carbon Dioxide 27 Anion Gap 17 BUN 36 H Creatinine 0.8 Est GFR ( Amer) > 60 Est GFR (Non-Af Amer) > 60 POC Glucose (mg/dL) Random Glucose 205 H Lactic Acid Calcium 9.0 Phosphorus 8.5 H Magnesium 2.4 H Total Bilirubin 0.4 AST 941 H ALT 691 H Alkaline Phosphatase 70 Total Creatine Kinase CK-MB (Mass) Troponin I Total Protein 5.7 L Albumin 3.1 L Globulin 2.6 Albumin/Globulin Ratio 1.2 Arterial Blood Potassium Urine Color Urine Clarity Urine pH Ur Specific [place] Urine Protein Urine Glucose (UA) Urine Ketones Urine Blood Urine Nitrate Urine Bilirubin Urine Urobilinogen Ur Leukocyte Esterase Urine RBC (Auto) Ur Squamous Epith Cells Urine Bacteria Urine Sperm (Auto) Urine Opiates Screen Urine Methadone Screen Ur Barbiturates Screen Ur Phencyclidine Scrn Ur Amphetamines Screen U Benzodiazepines Scrn U Oth Cocaine Metabols U Cannabinoids Screen Influenza Typ A,B (EIA) 02/09/19 02/09/19 02/09/19 00:51 04:51 05:31 WBC RBC Hgb Hct MCV MCH MCHC RDW Plt Count MPV Neut % (Auto) Lymph % (Auto) [place] % (Auto) Eos % (Auto) Baso % (Auto) Neut # (Auto) Lymph # (Auto) [place] # (Auto) Eos # (Auto) Baso # (Auto) Neutrophils % (Manual) Band Neutrophils % Lymphocytes % (Manual) Reactive Lymphs % Monocytes % (Manual) Platelet Estimate Large Platelets Giant Platelets Polychromasia Anisocytosis (manual) PT INR APTT Puncture Site L rad pCO2 35 pO2 262 H HCO3 29.9 H ABG pH 7.53 H ABG Total CO2 30.3 H ABG O2 Saturation 99.8 H ABG Base Excess 6.4 H ABG Hemoglobin 13.0 ABG Carboxyhemoglobin 1.3 POC ABG HHb (Measured) 0.2 ABG Methemoglobin 0.8 Joseph Test Pos ABG Potassium A-a O2 Difference 51.0 Respiratory Index 0.2 Hgb O2 Saturation 97.7 Sodium Chloride Glucose Lactate Vent Mode Prvc Mechanical Rate 20 FiO2 50.0 Tidal Volume 500 PEEP 5 Crit Value Called To Crit Value Called By Crit Value Read Back Blood Gas Notified Time Potassium Carbon Dioxide Anion Gap BUN Creatinine Est GFR ( Amer) Est GFR (Non-Af Amer) POC Glucose (mg/dL) 197 H Random Glucose Lactic Acid Calcium Phosphorus Magnesium Total Bilirubin AST ALT Alkaline Phosphatase Total Creatine Kinase CK-MB (Mass) Troponin I Total Protein Albumin Globulin Albumin/Globulin Ratio Arterial Blood Potassium Urine Color Urine Clarity Urine pH Ur Specific [place] Urine Protein Urine Glucose (UA) Urine Ketones Urine Blood Urine Nitrate Urine Bilirubin Urine Urobilinogen Ur Leukocyte Esterase Urine RBC (Auto) Ur Squamous Epith Cells Urine Bacteria Urine Sperm (Auto) Urine Opiates Screen Urine Methadone Screen Ur Barbiturates Screen Ur Phencyclidine Scrn Ur Amphetamines Screen U Benzodiazepines Scrn U Oth Cocaine Metabols U Cannabinoids Screen Influenza Typ A,B (EIA) Negative for flu a/b 02/09/19 02/09/19 02/09/19 05:45 05:45 05:45 WBC 14.4 H RBC 4.16 L Hgb 12.9 Hct 40.2 MCV 96.7 H MCH 31.0 MCHC 32.1 L RDW 14.5 Plt Count 207 MPV 10.9 Neut % (Auto) 89.4 H Lymph % (Auto) 5.0 L [place] % (Auto) 5.5 Eos % (Auto) 0.0 Baso % (Auto) 0.1 Neut # (Auto) 12.8 H Lymph # (Auto) 0.7 L [place] # (Auto) 0.8 Eos # (Auto) 0.0 Baso # (Auto) 0.0 Neutrophils % (Manual) 80 H Band Neutrophils % 8 H Lymphocytes % (Manual) 3 L Reactive Lymphs % 1 H Monocytes % (Manual) 8 Platelet Estimate Normal Large Platelets Present Giant Platelets Present Polychromasia Slight Anisocytosis (manual) Slight PT 13.2 H INR 1.2 APTT 30 Puncture Site pCO2 pO2 HCO3 ABG pH ABG Total CO2 ABG O2 Saturation ABG Base Excess ABG Hemoglobin ABG Carboxyhemoglobin POC ABG HHb (Measured) ABG Methemoglobin Joseph Test ABG Potassium A-a O2 Difference Respiratory Index Hgb O2 Saturation Sodium 149 H Chloride 108 H Glucose Lactate Vent Mode Mechanical Rate FiO2 Tidal Volume PEEP Crit Value Called To Crit Value Called By Crit Value Read Back Blood Gas Notified Time Potassium 3.1 L Carbon Dioxide 33 H Anion Gap 12 BUN 39 H Creatinine 0.9 Est GFR ( Amer) > 60 Est GFR (Non-Af Amer) > 60 POC Glucose (mg/dL) Random Glucose 229 H Lactic Acid Calcium 9.6 Phosphorus 0.6 L* Magnesium 2.3 Total Bilirubin 0.6 AST 1458 H ALT 1205 H Alkaline Phosphatase 112 Total Creatine Kinase CK-MB (Mass) Troponin I Total Protein 6.8 Albumin 3.7 Globulin 3.1 Albumin/Globulin Ratio 1.2 Arterial Blood Potassium Urine Color Urine Clarity Urine pH Ur Specific [place] Urine Protein Urine Glucose (UA) Urine Ketones Urine Blood Urine Nitrate Urine Bilirubin Urine Urobilinogen Ur Leukocyte Esterase Urine RBC (Auto) Ur Squamous Epith Cells Urine Bacteria Urine Sperm (Auto) Urine Opiates Screen Urine Methadone Screen Ur Barbiturates Screen Ur Phencyclidine Scrn Ur Amphetamines Screen U Benzodiazepines Scrn U Oth Cocaine Metabols U Cannabinoids Screen Influenza Typ A,B (EIA) 02/09/19 02/09/19 02/09/19 05:47 06:19 06:59 WBC RBC Hgb Hct MCV MCH MCHC RDW Plt Count MPV Neut % (Auto) Lymph % (Auto) [place] % (Auto) Eos % (Auto) Baso % (Auto) Neut # (Auto) Lymph # (Auto) [place] # (Auto) Eos # (Auto) Baso # (Auto) Neutrophils % (Manual) Band Neutrophils % Lymphocytes % (Manual) Reactive Lymphs % Monocytes % (Manual) Platelet Estimate Large Platelets Giant Platelets Polychromasia Anisocytosis (manual) PT INR APTT Puncture Site pCO2 pO2 HCO3 ABG pH ABG Total CO2 ABG O2 Saturation ABG Base Excess ABG Hemoglobin ABG Carboxyhemoglobin POC ABG HHb (Measured) ABG Methemoglobin Joseph Test ABG Potassium A-a O2 Difference Respiratory Index Hgb O2 Saturation Sodium Chloride Glucose Lactate Vent Mode Mechanical Rate FiO2 Tidal Volume PEEP Crit Value Called To Crit Value Called By Crit Value Read Back Blood Gas Notified Time Potassium Carbon Dioxide Anion Gap BUN Creatinine Est GFR ( Amer) Est GFR (Non-Af Amer) POC Glucose (mg/dL) 209 H 241 H Random Glucose Lactic Acid Calcium Phosphorus Magnesium Total Bilirubin AST ALT Alkaline Phosphatase Total Creatine Kinase CK-MB (Mass) Troponin I Total Protein Albumin Globulin Albumin/Globulin Ratio Arterial Blood Potassium Urine Color Straw Urine Clarity Hazy Urine pH 8.0 Ur Specific [place] 1.008 Urine Protein 1+ H Urine Glucose (UA) 1+ H Urine Ketones Trace Urine Blood 1+ H Urine Nitrate Negative Urine Bilirubin Negative Urine Urobilinogen Normal Ur Leukocyte Esterase Neg Urine RBC (Auto) 17 H Ur Squamous Epith Cells < 1 Urine Bacteria Few H Urine Sperm (Auto) Few H Urine Opiates Screen Urine Methadone Screen Ur Barbiturates Screen Ur Phencyclidine Scrn Ur Amphetamines Screen U Benzodiazepines Scrn U Oth Cocaine Metabols U Cannabinoids Screen Influenza Typ A,B (EIA) 02/09/19 02/09/19 02/09/19 08:28 08:50 10:31 WBC RBC Hgb Hct MCV MCH MCHC RDW Plt Count MPV Neut % (Auto) Lymph % (Auto) [place] % (Auto) Eos % (Auto) Baso % (Auto) Neut # (Auto) Lymph # (Auto) [place] # (Auto) Eos # (Auto) Baso # (Auto) Neutrophils % (Manual) Band Neutrophils % Lymphocytes % (Manual) Reactive Lymphs % Monocytes % (Manual) Platelet Estimate Large Platelets Giant Platelets Polychromasia Anisocytosis (manual) PT INR APTT Puncture Site pCO2 pO2 HCO3 ABG pH ABG Total CO2 ABG O2 Saturation ABG Base Excess ABG Hemoglobin ABG Carboxyhemoglobin POC ABG HHb (Measured) ABG Methemoglobin Joseph Test ABG Potassium A-a O2 Difference Respiratory Index Hgb O2 Saturation Sodium 146 Chloride 103 Glucose Lactate Vent Mode Mechanical Rate FiO2 Tidal Volume PEEP Crit Value Called To Crit Value Called By Crit Value Read Back Blood Gas Notified Time Potassium 2.8 L Carbon Dioxide 35 H Anion Gap 10 BUN 37 H Creatinine 0.8 Est GFR ( Amer) > 60 Est GFR (Non-Af Amer) > 60 POC Glucose (mg/dL) 160 H Random Glucose 182 H D Lactic Acid Calcium 9.6 Phosphorus 0.9 L* Magnesium 2.2 Total Bilirubin 0.6 AST 1490 H ALT 1294 H Alkaline Phosphatase 115 Total Creatine Kinase CK-MB (Mass) Troponin I 0.0410 Total Protein 7.1 Albumin 3.9 Globulin 3.2 Albumin/Globulin Ratio 1.2 Arterial Blood Potassium Urine Color Urine Clarity Urine pH Ur Specific [place] Urine Protein Urine Glucose (UA) Urine Ketones Urine Blood Urine Nitrate Urine Bilirubin Urine Urobilinogen Ur Leukocyte Esterase Urine RBC (Auto) Ur Squamous Epith Cells Urine Bacteria Urine Sperm (Auto) Urine Opiates Screen Urine Methadone Screen Ur Barbiturates Screen Ur Phencyclidine Scrn Ur Amphetamines Screen U Benzodiazepines Scrn U Oth Cocaine Metabols U Cannabinoids Screen Influenza Typ A,B (EIA) 02/09/19 02/09/19 12:09 12:09 WBC RBC Hgb Hct MCV MCH MCHC RDW Plt Count MPV Neut % (Auto) Lymph % (Auto) [place] % (Auto) Eos % (Auto) Baso % (Auto) Neut # (Auto) Lymph # (Auto) [place] # (Auto) Eos # (Auto) Baso # (Auto) Neutrophils % (Manual) Band Neutrophils % Lymphocytes % (Manual) Reactive Lymphs % Monocytes % (Manual) Platelet Estimate Large Platelets Giant Platelets Polychromasia Anisocytosis (manual) PT INR APTT Puncture Site pCO2 pO2 HCO3 ABG pH ABG Total CO2 ABG O2 Saturation ABG Base Excess ABG Hemoglobin ABG Carboxyhemoglobin POC ABG HHb (Measured) ABG Methemoglobin Joseph Test ABG Potassium A-a O2 Difference Respiratory Index Hgb O2 Saturation Sodium Chloride Glucose Lactate Vent Mode Mechanical Rate FiO2 Tidal Volume PEEP Crit Value Called To Crit Value Called By Crit Value Read Back Blood Gas Notified Time Potassium Carbon Dioxide Anion Gap BUN Creatinine Est GFR ( Amer) Est GFR (Non-Af Amer) POC Glucose (mg/dL) Random Glucose Lactic Acid 2.8 H Calcium Phosphorus Magnesium Total Bilirubin AST ALT Alkaline Phosphatase Total Creatine Kinase CK-MB (Mass) Troponin I Total Protein Albumin Globulin Albumin/Globulin Ratio Arterial Blood Potassium Urine Color Urine Clarity Urine pH Ur Specific [place] Urine Protein Urine Glucose (UA) Urine Ketones Urine Blood Urine Nitrate Urine Bilirubin Urine Urobilinogen Ur Leukocyte Esterase Urine RBC (Auto) Ur Squamous Epith Cells Urine Bacteria Urine Sperm (Auto) Urine Opiates Screen Negative Urine Methadone Screen Negative Ur Barbiturates Screen Negative Ur Phencyclidine Scrn Negative Ur Amphetamines Screen Negative U Benzodiazepines Scrn Negative U Oth Cocaine Metabols Negative U Cannabinoids Screen Negative Influenza Typ A,B (EIA) Radiology Impressions: Radiology Impressions Chest X-Ray 02/08/19 22:05 Impression: Endotracheal tube extending into the midthoracic trachea. Mild venous congestion. Bilateral hilar prominence. Upper lobe granulomatous changes. Tortuous aorta. Top normal heart size. Head CT 02/08/19 22:55 IMPRESSION: No acute intracranial abnormality. Chronic microvascular ischemic changes. Sinus mucosal disease. A preliminary report was generated at 1:41 a.m. on 02/09/[address] Jose Guerra from [facility]. Chest X-Ray 02/09/19 04:44 Impression: NG tube extending into the stomach. Endotracheal tube extending into the midthoracic trachea. Biapical pleural thickening with upper lobe granulomatous changes. Diffuse increased interstitial lung markings. Patchy increased markings at the lung bases. Heart size within normal limits. EKG/Cardiology Studies: Cardiology / EKG Studies 02/08/19 14:55 ELECTROCARDIOGRAM Routine Comment: Mode Of Transportation: Reason For Exam: dysphagia 02/08/19 21:32 ELECTROCARDIOGRAM Stat Comment: Mode Of Transportation: Reason For Exam: code blue 02/08/19 22:03 EKG [ELECTROCARDIOGRAM] Stat Comment: Mode Of Transportation: PORTABLE Reason For Exam: s/p arrest 02/09/19 10:46 EKG [ELECTROCARDIOGRAM] Stat Comment: Mode Of Transportation: Reason For Exam: eval post code 02/10/19 22:45 ELECTROCARDIOGRAM DAILY Comment: Mode Of Transportation: PORTABLE Reason For Exam: s/p arrest 02/11/19 22:45 ELECTROCARDIOGRAM DAILY Comment: Mode Of Transportation: PORTABLE Reason For Exam: s/p arrest Fingerstick Blood Sugar Results: 180 Review of Systems - Review of Systems Systems not reviewed;Unavailable: Intubated Critical Care Progress Note - Nutrition Nutrition: Nutrition Category Date Time Status NPO Diet [DIET] Diets 02/09/19 Breakfast Active Assessment/Plan - Assessment and Plan (Free Text) Assessment: ?Cardiac arrest: first trop neg, EKG coarse at basline, continue hypothermia protocol -Hypophosphatemia: contineu IV kphos replacement -contineu hypothermia protocol -dvt ppx heparin -PUD ppx -hold tube feeds during hypothermia protocol (poor absorption) -?aspiration: [place] culture, serial lactic and continue empirical abx (PCN allergy) -BGM q4hrs, ISS lispro -prognosis guarded as baseline 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 Family requested to bring in copies of previous medical ihstory (rencet admission to [facility] with ?multiple sclerosis cc tie 40 minutes all questions answeres continue to resusitate -start tube feeds tomorrow d/w family and nursing GOC: full code - Date & Time Date: 02/09/19 Time: 10:00
[2019-02-09] MEDS: Lactated Ringer's 1,000 ML IV SCH (14:34)
[2019-02-09] MEDS ORDERED: Magnesium Sulfate 1 gm in D5W 1 GM/100 ML BAG IVPB ONE (18:15)
[2019-02-10] MEDS: Albuterol-Ipratrop 3 mg / 0.5 (3 ml) UD INH SCH ×7 (00:10→19:38)
[2019-02-10] MEDS: Aztreonam 2 GM in Sodium Chloride 0.9% 100 ML IVPB SCH ×3 (02:00→18:11)
[2019-02-10] MEDS: metroNIDAZOLE IV 500 mg/100 ml 500 MG/100 ML BAG IVPB SCH ×3 (04:15→20:00)
[2019-02-10 04:46] LABS: BASO % 0.3 % (0.0-2.0); EOS % 0.1 % (0.0-4.0); HEMOGLOBIN 11.5 g/dL (12.0-18.0); LYMPH # 0.5 K/uL (1.0-4.3); LYMPH % 3.7 % (20.0-40.0); MEAN CELL VOLUME 94.9 fL (80.0-94.0); MEAN CORPUSCULAR HEMOGLOBIN 30.9 pg (27.0-31.0); MEAN CORPUSCULAR HGB CONC 32.5 g/dL (33.0-37.0); MEAN PLATELET VOLUME 10.2 fL (7.2-11.7); MONO # 0.8 K/uL (0.0-0.8); MONO % 5.3 % (0.0-10.0); NEUT # 13.3 K/uL (1.8-7.0); NEUT % 90.6 % (50.0-75.0); NRBC % 0.1 % (0.0-2.0); PLATELET COUNT 191 K/uL (130-400); RBC 3.71 Mil/uL (4.40-5.90); RED CELL DISTRIBUTION WIDTH 14.2 % (11.5-14.5); WHITE BLOOD COUNT 14.7 K/uL (4.8-10.8)
[2019-02-10 05:04] LABS: ALBUMIN 2.8 g/dL (3.5-5.0); ALT/SGPT 781 U/L (21-72); AST/SGOT 660 U/L (17-59); BLOOD UREA NITROGEN 37 mg/dL (9-20); CALCIUM 8.9 mg/dl (8.6-10.4); GFR NON-AFRICAN AMERICAN > 60
[2019-02-10 05:13] LABS: TROPONIN I 0.031 ng/mL (0.00-0.120)
[2019-02-10] MEDS: Potassium Chloride 20 mEq/15 ml LIQ UD PO SCH (05:30)
[2019-02-10 05:52] LABS: ARTERIAL BLOOD GAS HCO3 27.3 mmol/L (21-28); ARTERIAL BLOOD GAS O2 SAT 99.7 % (95-98); ARTERIAL BLOOD GAS PCO2 32 mm/Hg (35-45); ARTERIAL BLOOD GAS PH 7.51 (7.35-7.45); ARTERIAL BLOOD GAS PO2 281 mm/Hg (80-100); ARTERIAL BLOOD GAS TCO2 26.5 mmol/L (22-28)
[2019-02-10] MEDS: Propofol 10 mg/ml 1,000 MG/100 ML VIAL IV PRN (06:00)
[2019-02-10 06:07] LABS: BANDS 5 % (0-2); LYMPHOCYTE 3 % (20-40); MONOCYTE 10 % (0-10); MYELOCYTE 1 % (0-0); NEUTROPHIL 81 % (50-75); NUCLEATED RED BLOOD CELL 1 % (0-0); PLATELET ESTIMATE NORMAL (NORMAL); TOTAL CELLS COUNTED 100
--- NOTE | 2019-02-10 07:44 | CP.CCUPN ---
CCU Subjective - Physician Review Subjective (Free Text): 02/10/19 08:41 ICU Progress Note for Dr. Laguerre Pt seen and examined at bedside this am. Currently on PRVC intubated, sedated on Propofol, and hypothermic protocol. Unable to obtain ROS or HPI due to pt's current mental status. Otherwise no acute events reported overnight by staff. CCU Objective - Vital Signs / Intake & Output Vital Signs (Last 4 hours): Vital Signs Temp Temp Pulse Pulse Resp Resp BP 02/10/19 07:00 95.2 F L 81 19 109/70 02/10/19 06:59 81 19 02/10/19 06:30 95.4 F L 87 87 18 18 117/65 02/10/19 06:00 95.2 F L 89 89 18 18 02/10/19 05:59 107/63 02/10/19 05:31 86 17 100/53 L 02/10/19 05:30 95 F L 86 18 02/10/19 05:05 81 18 91/61 L 02/10/19 05:00 95 F L 81 18 02/10/19 04:30 95.5 F L 92 H 92 H 18 18 93/46 L 02/10/19 04:01 86 18 115/73 02/10/19 04:00 95.5 F L 95.5 F L 86 18 BP BP Pulse Ox 02/10/19 07:00 109/70 128/69 02/10/19 06:59 100 02/10/19 06:30 117/65 100 02/10/19 06:00 107/63 114/62 100 02/10/19 05:59 02/10/19 05:31 100 02/10/19 05:30 100/53 L 02/10/19 05:05 100 02/10/19 05:00 91/61 L 112/56 L 02/10/19 04:30 93/46 L 100 02/10/19 04:01 100 02/10/19 04:00 115/73 170/80 H Intake and Output (Last 8hrs): Intake & Output 02/09/19 02/10/19 02/10/19 22:59 06:59 14:59 Intake Total 1265.6 957.5 79.8 Output Total 245 320 30 Balance 1020.6 637.5 49.8 Weight 121 lb 8 oz Intake: IV 100.0 Intake, IV Amount 1165.6 857.5 79.8 LAC 2 200 LFA 2 212.5 Left Antecubital 25.6 40.0 4.8 Left Antecubital Y-site 127.5 42.5 Left Forearm 250 Right Forearm 275 575 50 Right Forearm Y-site 75 200 25 Other 100 Output: Urine 245 320 30 Urethral (Riley) 245 320 30 - Physical Exam Head: Positive for: Atraumatic, Normocephalic Mouth: Positive for: Moist Mucous Membranes Respiratory/Chest: Positive for: Clear to Auscultation, Good Air Exchange. Negative for: Respiratory Distress, Accessory Muscle Use, Wheezes, Retracting, Rhonchi, Tachypneic Cardiovascular: Positive for: Normal S1, S2, Rub Abdomen: Positive for: Normal Bowel Sounds. Negative for: Tenderness, Distention, Peritoneal Signs Upper Extremity: Positive for: Normal Inspection Lower Extremity: Positive for: Normal Inspection Neurological: Positive for: Other (Pt intubated and sedated) Skin: Positive for: Warm Psychiatric: Negative for: Alert, Oriented x 3, Normal Insight - Medications Active Medications: Active Medications Generic Name Dose Route Start Last Admin Trade Name Freq PRN Reason Stop Dose Admin Albuterol/Ipratropium 3 ml 02/08/19 18:00 02/10/19 03:23 Duoneb 3 Mg/0.5 Mg (3 Ml) Ud INH 3 ml RQ4 JILL Administration Heparin Sodium (Porcine) 5,000 units 02/09/19 22:00 02/09/19 21:15 Heparin SC 5,000 units Q12 JILL Administration Aztreonam 2 gm/ Sodium 100 mls @ 100 mls/hr 02/09/19 11:00 02/10/19 02:00 Chloride IVPB 100 mls/hr Q8H JILL Administration Protocol Metronidazole 500 mg in 100 mls @ 100 mls/hr 02/09/19 12:00 02/10/19 04:15 Flagyl IVPB 100 mls/hr Q8H JILL Administration Protocol Vancomycin HCl 1,000 mg/ 250 mls @ 166.6 mls/hr 02/09/19 11:00 02/09/19 22:15 Sodium Chloride IVPB 166.6 mls/hr Q12H JILL Administration Protocol Propofol 1,000 mg in 100 mls @ 1.606 mls/hr 02/09/19 11:06 02/10/19 06:00 Diprivan IV 15 mcg/kg/min .Q24H PRN 4.817 mls/hr TITRATE PER MD ORDER Administration Protocol 5 MCG/KG/MIN Lactated Ringer's 1,000 mls @ 50 mls/hr 02/09/19 14:15 02/09/19 14:34 Lactated Ringer's IV 50 mls/hr .Q20H JILL Administration Dextrose 1,000 mls @ 25 mls/hr 02/09/19 14:15 02/09/19 14:35 Dextrose 5% In Water 1000 Ml IV 25 mls/hr .Q24H JILL Administration Pantoprazole Sodium 40 mg 02/09/19 10:00 02/09/19 09:43 Protonix Inj IVP 40 mg DAILY JILL Administration - Patient Studies Lab Studies: Microbiology Studies 02/08/19 00:56 Blood Culture - Preliminary Blood-Venous NO GROWTH AFTER 24 HOURS 02/08/19 22:36 Blood Culture - Preliminary Blood-Venous NO GROWTH AFTER 24 HOURS 02/08/19 17:29 Blood Culture - Preliminary Blood NO GROWTH AFTER 24 HOURS 02/08/19 17:29 Blood Culture - Preliminary Blood NO GROWTH AFTER 24 HOURS 02/09/19 13:48 Gram Stain - Final Sputum Lab Studies 02/10/19 02/10/19 02/10/19 Range/Units 05:24 04:43 04:43 WBC (4.8-10.8) K/uL RBC (4.40-5.90) Mil/uL Hgb (12.0-18.0) g/dL Hct (35.0-51.0) % MCV (80.0-94.0) fL MCH (27.0-31.0) pg MCHC (33.0-37.0) g/dL RDW (11.5-14.5) % Plt Count (130-400) K/uL MPV (7.2-11.7) fL Neut % (Auto) (50.0-75.0) % Lymph % (Auto) (20.0-40.0) % [place] % (Auto) (0.0-10.0) % Eos % (Auto) (0.0-4.0) % Baso % (Auto) (0.0-2.0) % Neut # (Auto) (1.8-7.0) K/uL Lymph # (Auto) (1.0-4.3) K/uL [place] # (Auto) (0.0-0.8) K/uL Eos # (Auto) (0.0-0.7) K/uL Baso # (Auto) (0.0-0.2) K/uL Neutrophils % (Manual) (50-75) % Band Neutrophils % (0-2) % Lymphocytes % (Manual) (20-40) % Reactive Lymphs % (0-0) % Monocytes % (Manual) (0-10) % Myelocytes % (0-0) % Nucleated RBC % (0-0) % Platelet Estimate (NORMAL) Large Platelets Giant Platelets Polychromasia Anisocytosis (manual) Puncture Site [place] pCO2 32 L (35-45) mm/Hg pO2 281 H (80-100) mm/Hg HCO3 27.3 (21-28) mmol/L ABG pH 7.51 H (7.35-7.45) ABG Total CO2 26.5 (22-28) mmol/L ABG O2 Saturation 99.7 H (95-98) % ABG Base Excess 3.0 (-2.0-3.0) mmol/L Joseph Test Na ABG Potassium 3.7 (3.6-5.2) mmol/L A-a O2 Difference -71.0 mm/Hg Respiratory Index -0.3 Glucose 106 (75-110) mg/dl Lactate 1.7 (0.7-2.1) mmol/L Vent Mode Prvc Mechanical Rate 18 FiO2 35.0 % Tidal Volume 500 PEEP 5 Sodium 146.0 (132-148) mmol/L Potassium (3.6-5.2) mmol/L Chloride 117.0 H (98-107) mmol/L Carbon Dioxide (22-30) mmol/L Anion Gap (10-20) BUN (9-20) mg/dL Creatinine (0.8-1.5) mg/dL Est GFR ( Amer) Est GFR (Non-Af Amer) POC Glucose (mg/dL) (65-110) mg/dL Random Glucose (75-110) mg/dL Lactic Acid (0.7-2.1) mmol/L Calcium (8.6-10.4) mg/dl Phosphorus (2.5-4.5) mg/dL Magnesium (1.6-2.3) mg/dL Total Bilirubin (0.2-1.3) mg/dL AST (17-59) U/L ALT (21-72) U/L Alkaline Phosphatase (38-126) U/L Total Creatine Kinase 878 H (55-170) U/L Troponin I 0.0310 (0.00-0.120) ng/mL Total Protein (6.3-8.3) g/dL Albumin (3.5-5.0) g/dL Globulin (2.2-3.9) gm/dL Albumin/Globulin Ratio (1.0-2.1) TSH 3rd Generation 3.46 (0.46-4.68) mIU/L Arterial Blood Potassium 3.7 (3.6-5.2) mmol/L Urine Opiates Screen (NEGATIVE) Urine Methadone Screen (NEGATIVE) Ur Barbiturates Screen (NEGATIVE) Ur Phencyclidine Scrn (NEGATIVE) Ur Amphetamines Screen (NEGATIVE) U Benzodiazepines Scrn (NEGATIVE) U Oth Cocaine Metabols (NEGATIVE) U Cannabinoids Screen (NEGATIVE) 02/10/19 02/10/19 02/10/19 Range/Units 04:43 04:43 04:16 WBC 14.7 H (4.8-10.8) K/uL RBC 3.71 L (4.40-5.90) Mil/uL Hgb 11.5 L (12.0-18.0) g/dL Hct 35.2 (35.0-51.0) % MCV 94.9 H (80.0-94.0) fL MCH 30.9 (27.0-31.0) pg MCHC 32.5 L (33.0-37.0) g/dL RDW 14.2 (11.5-14.5) % Plt Count 191 (130-400) K/uL MPV 10.2 (7.2-11.7) fL Neut % (Auto) 90.6 H (50.0-75.0) % Lymph % (Auto) 3.7 L (20.0-40.0) % [place] % (Auto) 5.3 (0.0-10.0) % Eos % (Auto) 0.1 (0.0-4.0) % Baso % (Auto) 0.3 (0.0-2.0) % Neut # (Auto) 13.3 H (1.8-7.0) K/uL Lymph # (Auto) 0.5 L (1.0-4.3) K/uL [place] # (Auto) 0.8 (0.0-0.8) K/uL Eos # (Auto) 0.0 (0.0-0.7) K/uL Baso # (Auto) 0.0 (0.0-0.2) K/uL Neutrophils % (Manual) 81 H (50-75) % Band Neutrophils % 5 H (0-2) % Lymphocytes % (Manual) 3 L (20-40) % Reactive Lymphs % (0-0) % Monocytes % (Manual) 10 (0-10) % Myelocytes % 1 H (0-0) % Nucleated RBC % 1 H (0-0) % Platelet Estimate Normal (NORMAL) Large Platelets Giant Platelets Polychromasia Anisocytosis (manual) Puncture Site pCO2 (35-45) mm/Hg pO2 (80-100) mm/Hg HCO3 (21-28) mmol/L ABG pH (7.35-7.45) ABG Total CO2 (22-28) mmol/L ABG O2 Saturation (95-98) % ABG Base Excess (-2.0-3.0) mmol/L Joseph Test ABG Potassium (3.6-5.2) mmol/L A-a O2 Difference mm/Hg Respiratory Index Glucose (75-110) mg/dl Lactate (0.7-2.1) mmol/L Vent Mode Mechanical Rate FiO2 % Tidal Volume PEEP Sodium 145 (132-148) mmol/L Potassium 3.9 (3.6-5.2) mmol/L Chloride 113 H (98-107) mmol/L Carbon Dioxide 27 (22-30) mmol/L Anion Gap 9 L (10-20) BUN 37 H (9-20) mg/dL Creatinine 0.9 (0.8-1.5) mg/dL Est GFR ( Amer) > 60 Est GFR (Non-Af Amer) > 60 POC Glucose (mg/dL) 90 (65-110) mg/dL Random Glucose 110 D (75-110) mg/dL Lactic Acid (0.7-2.1) mmol/L Calcium 8.9 (8.6-10.4) mg/dl Phosphorus 3.1 (2.5-4.5) mg/dL Magnesium 1.9 (1.6-2.3) mg/dL Total Bilirubin 0.4 (0.2-1.3) mg/dL AST 660 H D (17-59) U/L ALT 781 H D (21-72) U/L Alkaline Phosphatase 82 (38-126) U/L Total Creatine Kinase (55-170) U/L Troponin I (0.00-0.120) ng/mL Total Protein 5.6 L (6.3-8.3) g/dL Albumin 2.8 L D (3.5-5.0) g/dL Globulin 2.7 (2.2-3.9) gm/dL Albumin/Globulin Ratio 1.0 (1.0-2.1) TSH 3rd Generation (0.46-4.68) mIU/L Arterial Blood Potassium (3.6-5.2) mmol/L Urine Opiates Screen (NEGATIVE) Urine Methadone Screen (NEGATIVE) Ur Barbiturates Screen (NEGATIVE) Ur Phencyclidine Scrn (NEGATIVE) Ur Amphetamines Screen (NEGATIVE) U Benzodiazepines Scrn (NEGATIVE) U Oth Cocaine Metabols (NEGATIVE) U Cannabinoids Screen (NEGATIVE) 02/10/19 02/09/19 02/09/19 Range/Units 00:08 20:27 19:06 WBC (4.8-10.8) K/uL RBC (4.40-5.90) Mil/uL Hgb (12.0-18.0) g/dL Hct (35.0-51.0) % MCV (80.0-94.0) fL MCH (27.0-31.0) pg MCHC (33.0-37.0) g/dL RDW (11.5-14.5) % Plt Count (130-400) K/uL MPV (7.2-11.7) fL Neut % (Auto) (50.0-75.0) % Lymph % (Auto) (20.0-40.0) % [place] % (Auto) (0.0-10.0) % Eos % (Auto) (0.0-4.0) % Baso % (Auto) (0.0-2.0) % Neut # (Auto) (1.8-7.0) K/uL Lymph # (Auto) (1.0-4.3) K/uL [place] # (Auto) (0.0-0.8) K/uL Eos # (Auto) (0.0-0.7) K/uL Baso # (Auto) (0.0-0.2) K/uL Neutrophils % (Manual) (50-75) % Band Neutrophils % (0-2) % Lymphocytes % (Manual) (20-40) % Reactive Lymphs % (0-0) % Monocytes % (Manual) (0-10) % Myelocytes % (0-0) % Nucleated RBC % (0-0) % Platelet Estimate (NORMAL) Large Platelets Giant Platelets Polychromasia Anisocytosis (manual) Puncture Site pCO2 (35-45) mm/Hg pO2 (80-100) mm/Hg HCO3 (21-28) mmol/L ABG pH (7.35-7.45) ABG Total CO2 (22-28) mmol/L ABG O2 Saturation (95-98) % ABG Base Excess (-2.0-3.0) mmol/L Joseph Test ABG Potassium (3.6-5.2) mmol/L A-a O2 Difference mm/Hg Respiratory Index Glucose (75-110) mg/dl Lactate (0.7-2.1) mmol/L Vent Mode Mechanical Rate FiO2 % Tidal Volume PEEP Sodium (132-148) mmol/L Potassium (3.6-5.2) mmol/L Chloride (98-107) mmol/L Carbon Dioxide (22-30) mmol/L Anion Gap (10-20) BUN (9-20) mg/dL Creatinine (0.8-1.5) mg/dL Est GFR ( Amer) Est GFR (Non-Af Amer) POC Glucose (mg/dL) 126 H 173 H (65-110) mg/dL Random Glucose (75-110) mg/dL Lactic Acid 1.6 (0.7-2.1) mmol/L Calcium (8.6-10.4) mg/dl Phosphorus (2.5-4.5) mg/dL Magnesium (1.6-2.3) mg/dL Total Bilirubin (0.2-1.3) mg/dL AST (17-59) U/L ALT (21-72) U/L Alkaline Phosphatase (38-126) U/L Total Creatine Kinase (55-170) U/L Troponin I (0.00-0.120) ng/mL Total Protein (6.3-8.3) g/dL Albumin (3.5-5.0) g/dL Globulin (2.2-3.9) gm/dL Albumin/Globulin Ratio (1.0-2.1) TSH 3rd Generation (0.46-4.68) mIU/L Arterial Blood Potassium (3.6-5.2) mmol/L Urine Opiates Screen (NEGATIVE) Urine Methadone Screen (NEGATIVE) Ur Barbiturates Screen (NEGATIVE) Ur Phencyclidine Scrn (NEGATIVE) Ur Amphetamines Screen (NEGATIVE) U Benzodiazepines Scrn (NEGATIVE) U Oth Cocaine Metabols (NEGATIVE) U Cannabinoids Screen (NEGATIVE) 02/09/19 02/09/19 02/09/19 Range/Units 17:35 15:51 12:53 WBC (4.8-10.8) K/uL RBC (4.40-5.90) Mil/uL Hgb (12.0-18.0) g/dL Hct (35.0-51.0) % MCV (80.0-94.0) fL MCH (27.0-31.0) pg MCHC (33.0-37.0) g/dL RDW (11.5-14.5) % Plt Count (130-400) K/uL MPV (7.2-11.7) fL Neut % (Auto) (50.0-75.0) % Lymph % (Auto) (20.0-40.0) % [place] % (Auto) (0.0-10.0) % Eos % (Auto) (0.0-4.0) % Baso % (Auto) (0.0-2.0) % Neut # (Auto) (1.8-7.0) K/uL Lymph # (Auto) (1.0-4.3) K/uL [place] # (Auto) (0.0-0.8) K/uL Eos # (Auto) (0.0-0.7) K/uL Baso # (Auto) (0.0-0.2) K/uL Neutrophils % (Manual) (50-75) % Band Neutrophils % (0-2) % Lymphocytes % (Manual) (20-40) % Reactive Lymphs % (0-0) % Monocytes % (Manual) (0-10) % Myelocytes % (0-0) % Nucleated RBC % (0-0) % Platelet Estimate (NORMAL) Large Platelets Giant Platelets Polychromasia Anisocytosis (manual) Puncture Site pCO2 (35-45) mm/Hg pO2 (80-100) mm/Hg HCO3 (21-28) mmol/L ABG pH (7.35-7.45) ABG Total CO2 (22-28) mmol/L ABG O2 Saturation (95-98) % ABG Base Excess (-2.0-3.0) mmol/L Joseph Test ABG Potassium (3.6-5.2) mmol/L A-a O2 Difference mm/Hg Respiratory Index Glucose (75-110) mg/dl Lactate (0.7-2.1) mmol/L Vent Mode Mechanical Rate FiO2 % Tidal Volume PEEP Sodium (132-148) mmol/L Potassium (3.6-5.2) mmol/L Chloride (98-107) mmol/L Carbon Dioxide (22-30) mmol/L Anion Gap (10-20) BUN (9-20) mg/dL Creatinine (0.8-1.5) mg/dL Est GFR ( Amer) Est GFR (Non-Af Amer) POC Glucose (mg/dL) 140 H 180 H (65-110) mg/dL Random Glucose (75-110) mg/dL Lactic Acid (0.7-2.1) mmol/L Calcium (8.6-10.4) mg/dl Phosphorus (2.5-4.5) mg/dL Magnesium (1.6-2.3) mg/dL Total Bilirubin (0.2-1.3) mg/dL AST (17-59) U/L ALT (21-72) U/L Alkaline Phosphatase (38-126) U/L Total Creatine Kinase (55-170) U/L Troponin I 0.0130 (0.00-0.120) ng/mL Total Protein (6.3-8.3) g/dL Albumin (3.5-5.0) g/dL Globulin (2.2-3.9) gm/dL Albumin/Globulin Ratio (1.0-2.1) TSH 3rd Generation (0.46-4.68) mIU/L Arterial Blood Potassium (3.6-5.2) mmol/L Urine Opiates Screen (NEGATIVE) Urine Methadone Screen (NEGATIVE) Ur Barbiturates Screen (NEGATIVE) Ur Phencyclidine Scrn (NEGATIVE) Ur Amphetamines Screen (NEGATIVE) U Benzodiazepines Scrn (NEGATIVE) U Oth Cocaine Metabols (NEGATIVE) U Cannabinoids Screen (NEGATIVE) 02/09/19 02/09/19 02/09/19 Range/Units 12:09 12:09 10:31 WBC (4.8-10.8) K/uL RBC (4.40-5.90) Mil/uL Hgb (12.0-18.0) g/dL Hct (35.0-51.0) % MCV (80.0-94.0) fL MCH (27.0-31.0) pg MCHC (33.0-37.0) g/dL RDW (11.5-14.5) % Plt Count (130-400) K/uL MPV (7.2-11.7) fL Neut % (Auto) (50.0-75.0) % Lymph % (Auto) (20.0-40.0) % [place] % (Auto) (0.0-10.0) % Eos % (Auto) (0.0-4.0) % Baso % (Auto) (0.0-2.0) % Neut # (Auto) (1.8-7.0) K/uL Lymph # (Auto) (1.0-4.3) K/uL [place] # (Auto) (0.0-0.8) K/uL Eos # (Auto) (0.0-0.7) K/uL Baso # (Auto) (0.0-0.2) K/uL Neutrophils % (Manual) (50-75) % Band Neutrophils % (0-2) % Lymphocytes % (Manual) (20-40) % Reactive Lymphs % (0-0) % Monocytes % (Manual) (0-10) % Myelocytes % (0-0) % Nucleated RBC % (0-0) % Platelet Estimate (NORMAL) Large Platelets Giant Platelets Polychromasia Anisocytosis (manual) Puncture Site pCO2 (35-45) mm/Hg pO2 (80-100) mm/Hg HCO3 (21-28) mmol/L ABG pH (7.35-7.45) ABG Total CO2 (22-28) mmol/L ABG O2 Saturation (95-98) % ABG Base Excess (-2.0-3.0) mmol/L Joseph Test ABG Potassium (3.6-5.2) mmol/L A-a O2 Difference mm/Hg Respiratory Index Glucose (75-110) mg/dl Lactate (0.7-2.1) mmol/L Vent Mode Mechanical Rate FiO2 % Tidal Volume PEEP Sodium (132-148) mmol/L Potassium (3.6-5.2) mmol/L Chloride (98-107) mmol/L Carbon Dioxide (22-30) mmol/L Anion Gap (10-20) BUN (9-20) mg/dL Creatinine (0.8-1.5) mg/dL Est GFR ( Amer) Est GFR (Non-Af Amer) POC Glucose (mg/dL) (65-110) mg/dL Random Glucose (75-110) mg/dL Lactic Acid 2.8 H (0.7-2.1) mmol/L Calcium (8.6-10.4) mg/dl Phosphorus (2.5-4.5) mg/dL Magnesium (1.6-2.3) mg/dL Total Bilirubin (0.2-1.3) mg/dL AST (17-59) U/L ALT (21-72) U/L Alkaline Phosphatase (38-126) U/L Total Creatine Kinase (55-170) U/L Troponin I 0.0410 (0.00-0.120) ng/mL Total Protein (6.3-8.3) g/dL Albumin (3.5-5.0) g/dL Globulin (2.2-3.9) gm/dL Albumin/Globulin Ratio (1.0-2.1) TSH 3rd Generation (0.46-4.68) mIU/L Arterial Blood Potassium (3.6-5.2) mmol/L Urine Opiates Screen Negative (NEGATIVE) Urine Methadone Screen Negative (NEGATIVE) Ur Barbiturates Screen Negative (NEGATIVE) Ur Phencyclidine Scrn Negative (NEGATIVE) Ur Amphetamines Screen Negative (NEGATIVE) U Benzodiazepines Scrn Negative (NEGATIVE) U Oth Cocaine Metabols Negative (NEGATIVE) U Cannabinoids Screen Negative (NEGATIVE) 02/09/19 02/09/19 02/09/19 Range/Units 09:54 08:50 08:28 WBC (4.8-10.8) K/uL RBC (4.40-5.90) Mil/uL Hgb (12.0-18.0) g/dL Hct (35.0-51.0) % MCV (80.0-94.0) fL MCH (27.0-31.0) pg MCHC (33.0-37.0) g/dL RDW (11.5-14.5) % Plt Count (130-400) K/uL MPV (7.2-11.7) fL Neut % (Auto) (50.0-75.0) % Lymph % (Auto) (20.0-40.0) % [place] % (Auto) (0.0-10.0) % Eos % (Auto) (0.0-4.0) % Baso % (Auto) (0.0-2.0) % Neut # (Auto) (1.8-7.0) K/uL Lymph # (Auto) (1.0-4.3) K/uL [place] # (Auto) (0.0-0.8) K/uL Eos # (Auto) (0.0-0.7) K/uL Baso # (Auto) (0.0-0.2) K/uL Neutrophils % (Manual) (50-75) % Band Neutrophils % (0-2) % Lymphocytes % (Manual) (20-40) % Reactive Lymphs % (0-0) % Monocytes % (Manual) (0-10) % Myelocytes % (0-0) % Nucleated RBC % (0-0) % Platelet Estimate (NORMAL) Large Platelets Giant Platelets Polychromasia Anisocytosis (manual) Puncture Site pCO2 (35-45) mm/Hg pO2 (80-100) mm/Hg HCO3 (21-28) mmol/L ABG pH (7.35-7.45) ABG Total CO2 (22-28) mmol/L ABG O2 Saturation (95-98) % ABG Base Excess (-2.0-3.0) mmol/L Joseph Test ABG Potassium (3.6-5.2) mmol/L A-a O2 Difference mm/Hg Respiratory Index Glucose (75-110) mg/dl Lactate (0.7-2.1) mmol/L Vent Mode Mechanical Rate FiO2 % Tidal Volume PEEP Sodium 146 (132-148) mmol/L Potassium 2.8 L (3.6-5.2) mmol/L Chloride 103 (98-107) mmol/L Carbon Dioxide 35 H (22-30) mmol/L Anion Gap 10 (10-20) BUN 37 H (9-20) mg/dL Creatinine 0.8 (0.8-1.5) mg/dL Est GFR ( Amer) > 60 Est GFR (Non-Af Amer) > 60 POC Glucose (mg/dL) 209 H 160 H (65-110) mg/dL Random Glucose 182 H D (75-110) mg/dL Lactic Acid (0.7-2.1) mmol/L Calcium 9.6 (8.6-10.4) mg/dl Phosphorus 0.9 L* (2.5-4.5) mg/dL Magnesium 2.2 (1.6-2.3) mg/dL Total Bilirubin 0.6 (0.2-1.3) mg/dL AST 1490 H (17-59) U/L ALT 1294 H (21-72) U/L Alkaline Phosphatase 115 (38-126) U/L Total Creatine Kinase (55-170) U/L Troponin I (0.00-0.120) ng/mL Total Protein 7.1 (6.3-8.3) g/dL Albumin 3.9 (3.5-5.0) g/dL Globulin 3.2 (2.2-3.9) gm/dL Albumin/Globulin Ratio 1.2 (1.0-2.1) TSH 3rd Generation (0.46-4.68) mIU/L Arterial Blood Potassium (3.6-5.2) mmol/L Urine Opiates Screen (NEGATIVE) Urine Methadone Screen (NEGATIVE) Ur Barbiturates Screen (NEGATIVE) Ur Phencyclidine Scrn (NEGATIVE) Ur Amphetamines Screen (NEGATIVE) U Benzodiazepines Scrn (NEGATIVE) U Oth Cocaine Metabols (NEGATIVE) U Cannabinoids Screen (NEGATIVE) 02/09/19 02/09/19 Range/Units 06:59 05:45 WBC (4.8-10.8) K/uL RBC (4.40-5.90) Mil/uL Hgb (12.0-18.0) g/dL Hct (35.0-51.0) % MCV (80.0-94.0) fL MCH (27.0-31.0) pg MCHC (33.0-37.0) g/dL RDW (11.5-14.5) % Plt Count (130-400) K/uL MPV (7.2-11.7) fL Neut % (Auto) (50.0-75.0) % Lymph % (Auto) (20.0-40.0) % [place] % (Auto) (0.0-10.0) % Eos % (Auto) (0.0-4.0) % Baso % (Auto) (0.0-2.0) % Neut # (Auto) (1.8-7.0) K/uL Lymph # (Auto) (1.0-4.3) K/uL [place] # (Auto) (0.0-0.8) K/uL Eos # (Auto) (0.0-0.7) K/uL Baso # (Auto) (0.0-0.2) K/uL Neutrophils % (Manual) 80 H (50-75) % Band Neutrophils % 8 H (0-2) % Lymphocytes % (Manual) 3 L (20-40) % Reactive Lymphs % 1 H (0-0) % Monocytes % (Manual) 8 (0-10) % Myelocytes % (0-0) % Nucleated RBC % (0-0) % Platelet Estimate Normal (NORMAL) Large Platelets Present Giant Platelets Present Polychromasia Slight Anisocytosis (manual) Slight Puncture Site pCO2 (35-45) mm/Hg pO2 (80-100) mm/Hg HCO3 (21-28) mmol/L ABG pH (7.35-7.45) ABG Total CO2 (22-28) mmol/L ABG O2 Saturation (95-98) % ABG Base Excess (-2.0-3.0) mmol/L Joseph Test ABG Potassium (3.6-5.2) mmol/L A-a O2 Difference mm/Hg Respiratory Index Glucose (75-110) mg/dl Lactate (0.7-2.1) mmol/L Vent Mode Mechanical Rate FiO2 % Tidal Volume PEEP Sodium (132-148) mmol/L Potassium (3.6-5.2) mmol/L Chloride (98-107) mmol/L Carbon Dioxide (22-30) mmol/L Anion Gap (10-20) BUN (9-20) mg/dL Creatinine (0.8-1.5) mg/dL Est GFR ( Amer) Est GFR (Non-Af Amer) POC Glucose (mg/dL) 241 H (65-110) mg/dL Random Glucose (75-110) mg/dL Lactic Acid (0.7-2.1) mmol/L Calcium (8.6-10.4) mg/dl Phosphorus (2.5-4.5) mg/dL Magnesium (1.6-2.3) mg/dL Total Bilirubin (0.2-1.3) mg/dL AST (17-59) U/L ALT (21-72) U/L Alkaline Phosphatase (38-126) U/L Total Creatine Kinase (55-170) U/L Troponin I (0.00-0.120) ng/mL Total Protein (6.3-8.3) g/dL Albumin (3.5-5.0) g/dL Globulin (2.2-3.9) gm/dL Albumin/Globulin Ratio (1.0-2.1) TSH 3rd Generation (0.46-4.68) mIU/L Arterial Blood Potassium (3.6-5.2) mmol/L Urine Opiates Screen (NEGATIVE) Urine Methadone Screen (NEGATIVE) Ur Barbiturates Screen (NEGATIVE) Ur Phencyclidine Scrn (NEGATIVE) Ur Amphetamines Screen (NEGATIVE) U Benzodiazepines Scrn (NEGATIVE) U Oth Cocaine Metabols (NEGATIVE) U Cannabinoids Screen (NEGATIVE) Laboratory Results - last 24 hr 02/09/19 02/09/19 02/09/19 05:45 06:59 08:28 WBC RBC Hgb Hct MCV MCH MCHC RDW Plt Count MPV Neut % (Auto) Lymph % (Auto) [place] % (Auto) Eos % (Auto) Baso % (Auto) Neut # (Auto) Lymph # (Auto) [place] # (Auto) Eos # (Auto) Baso # (Auto) Neutrophils % (Manual) 80 H Band Neutrophils % 8 H Lymphocytes % (Manual) 3 L Reactive Lymphs % 1 H Monocytes % (Manual) 8 Myelocytes % Nucleated RBC % Platelet Estimate Normal Large Platelets Present Giant Platelets Present Polychromasia Slight Anisocytosis (manual) Slight Puncture Site pCO2 pO2 HCO3 ABG pH ABG Total CO2 ABG O2 Saturation ABG Base Excess Joseph Test ABG Potassium A-a O2 Difference Respiratory Index Glucose Lactate Vent Mode Mechanical Rate FiO2 Tidal Volume PEEP Sodium Potassium Chloride Carbon Dioxide Anion Gap BUN Creatinine Est GFR ( Amer) Est GFR (Non-Af Amer) POC Glucose (mg/dL) 241 H 160 H Random Glucose Lactic Acid Calcium Phosphorus Magnesium Total Bilirubin AST ALT Alkaline Phosphatase Total Creatine Kinase Troponin I Total Protein Albumin Globulin Albumin/Globulin Ratio TSH 3rd Generation Arterial Blood Potassium Urine Opiates Screen Urine Methadone Screen Ur Barbiturates Screen Ur Phencyclidine Scrn Ur Amphetamines Screen U Benzodiazepines Scrn U Oth Cocaine Metabols U Cannabinoids Screen 02/09/19 02/09/19 02/09/19 08:50 09:54 10:31 WBC RBC Hgb Hct MCV MCH MCHC RDW Plt Count MPV Neut % (Auto) Lymph % (Auto) [place] % (Auto) Eos % (Auto) Baso % (Auto) Neut # (Auto) Lymph # (Auto) [place] # (Auto) Eos # (Auto) Baso # (Auto) Neutrophils % (Manual) Band Neutrophils % Lymphocytes % (Manual) Reactive Lymphs % Monocytes % (Manual) Myelocytes % Nucleated RBC % Platelet Estimate Large Platelets Giant Platelets Polychromasia Anisocytosis (manual) Puncture Site pCO2 pO2 HCO3 ABG pH ABG Total CO2 ABG O2 Saturation ABG Base Excess Joseph Test ABG Potassium A-a O2 Difference Respiratory Index Glucose Lactate Vent Mode Mechanical Rate FiO2 Tidal Volume PEEP Sodium 146 Potassium 2.8 L Chloride 103 Carbon Dioxide 35 H Anion Gap 10 BUN 37 H Creatinine 0.8 Est GFR ( Amer) > 60 Est GFR (Non-Af Amer) > 60 POC Glucose (mg/dL) 209 H Random Glucose 182 H D Lactic Acid Calcium 9.6 Phosphorus 0.9 L* Magnesium 2.2 Total Bilirubin 0.6 AST 1490 H ALT 1294 H Alkaline Phosphatase 115 Total Creatine Kinase Troponin I 0.0410 Total Protein 7.1 Albumin 3.9 Globulin 3.2 Albumin/Globulin Ratio 1.2 TSH 3rd Generation Arterial Blood Potassium Urine Opiates Screen Urine Methadone Screen Ur Barbiturates Screen Ur Phencyclidine Scrn Ur Amphetamines Screen U Benzodiazepines Scrn U Oth Cocaine Metabols U Cannabinoids Screen 02/09/19 02/09/19 02/09/19 12:09 12:09 12:53 WBC RBC Hgb Hct MCV MCH MCHC RDW Plt Count MPV Neut % (Auto) Lymph % (Auto) [place] % (Auto) Eos % (Auto) Baso % (Auto) Neut # (Auto) Lymph # (Auto) [place] # (Auto) Eos # (Auto) Baso # (Auto) Neutrophils % (Manual) Band Neutrophils % Lymphocytes % (Manual) Reactive Lymphs % Monocytes % (Manual) Myelocytes % Nucleated RBC % Platelet Estimate Large Platelets Giant Platelets Polychromasia Anisocytosis (manual) Puncture Site pCO2 pO2 HCO3 ABG pH ABG Total CO2 ABG O2 Saturation ABG Base Excess Joseph Test ABG Potassium A-a O2 Difference Respiratory Index Glucose Lactate Vent Mode Mechanical Rate FiO2 Tidal Volume PEEP Sodium Potassium Chloride Carbon Dioxide Anion Gap BUN Creatinine Est GFR ( Amer) Est GFR (Non-Af Amer) POC Glucose (mg/dL) 180 H Random Glucose Lactic Acid 2.8 H Calcium Phosphorus Magnesium Total Bilirubin AST ALT Alkaline Phosphatase Total Creatine Kinase Troponin I Total Protein Albumin Globulin Albumin/Globulin Ratio TSH 3rd Generation Arterial Blood Potassium Urine Opiates Screen Negative Urine Methadone Screen Negative Ur Barbiturates Screen Negative Ur Phencyclidine Scrn Negative Ur Amphetamines Screen Negative U Benzodiazepines Scrn Negative U Oth Cocaine Metabols Negative U Cannabinoids Screen Negative 02/09/19 02/09/19 02/09/19 15:51 17:35 19:06 WBC RBC Hgb Hct MCV MCH MCHC RDW Plt Count MPV Neut % (Auto) Lymph % (Auto) [place] % (Auto) Eos % (Auto) Baso % (Auto) Neut # (Auto) Lymph # (Auto) [place] # (Auto) Eos # (Auto) Baso # (Auto) Neutrophils % (Manual) Band Neutrophils % Lymphocytes % (Manual) Reactive Lymphs % Monocytes % (Manual) Myelocytes % Nucleated RBC % Platelet Estimate Large Platelets Giant Platelets Polychromasia Anisocytosis (manual) Puncture Site pCO2 pO2 HCO3 ABG pH ABG Total CO2 ABG O2 Saturation ABG Base Excess Joseph Test ABG Potassium A-a O2 Difference Respiratory Index Glucose Lactate Vent Mode Mechanical Rate FiO2 Tidal Volume PEEP Sodium Potassium Chloride Carbon Dioxide Anion Gap BUN Creatinine Est GFR ( Amer) Est GFR (Non-Af Amer) POC Glucose (mg/dL) 140 H Random Glucose Lactic Acid 1.6 Calcium Phosphorus Magnesium Total Bilirubin AST ALT Alkaline Phosphatase Total Creatine Kinase Troponin I 0.0130 Total Protein Albumin Globulin Albumin/Globulin Ratio TSH 3rd Generation Arterial Blood Potassium Urine Opiates Screen Urine Methadone Screen Ur Barbiturates Screen Ur Phencyclidine Scrn Ur Amphetamines Screen U Benzodiazepines Scrn U Oth Cocaine Metabols U Cannabinoids Screen 02/09/19 02/10/19 02/10/19 20:27 00:08 04:16 WBC RBC Hgb Hct MCV MCH MCHC RDW Plt Count MPV Neut % (Auto) Lymph % (Auto) [place] % (Auto) Eos % (Auto) Baso % (Auto) Neut # (Auto) Lymph # (Auto) [place] # (Auto) Eos # (Auto) Baso # (Auto) Neutrophils % (Manual) Band Neutrophils % Lymphocytes % (Manual) Reactive Lymphs % Monocytes % (Manual) Myelocytes % Nucleated RBC % Platelet Estimate Large Platelets Giant Platelets Polychromasia Anisocytosis (manual) Puncture Site pCO2 pO2 HCO3 ABG pH ABG Total CO2 ABG O2 Saturation ABG Base Excess Joseph Test ABG Potassium A-a O2 Difference Respiratory Index Glucose Lactate Vent Mode Mechanical Rate FiO2 Tidal Volume PEEP Sodium Potassium Chloride Carbon Dioxide Anion Gap BUN Creatinine Est GFR ( Amer) Est GFR (Non-Af Amer) POC Glucose (mg/dL) 173 H 126 H 90 Random Glucose Lactic Acid Calcium Phosphorus Magnesium Total Bilirubin AST ALT Alkaline Phosphatase Total Creatine Kinase Troponin I Total Protein Albumin Globulin Albumin/Globulin Ratio TSH 3rd Generation Arterial Blood Potassium Urine Opiates Screen Urine Methadone Screen Ur Barbiturates Screen Ur Phencyclidine Scrn Ur Amphetamines Screen U Benzodiazepines Scrn U Oth Cocaine Metabols U Cannabinoids Screen 02/10/19 02/10/19 02/10/19 04:43 04:43 04:43 WBC 14.7 H RBC 3.71 L Hgb 11.5 L Hct 35.2 MCV 94.9 H MCH 30.9 MCHC 32.5 L RDW 14.2 Plt Count 191 MPV 10.2 Neut % (Auto) 90.6 H Lymph % (Auto) 3.7 L [place] % (Auto) 5.3 Eos % (Auto) 0.1 Baso % (Auto) 0.3 Neut # (Auto) 13.3 H Lymph # (Auto) 0.5 L [place] # (Auto) 0.8 Eos # (Auto) 0.0 Baso # (Auto) 0.0 Neutrophils % (Manual) 81 H Band Neutrophils % 5 H Lymphocytes % (Manual) 3 L Reactive Lymphs % Monocytes % (Manual) 10 Myelocytes % 1 H Nucleated RBC % 1 H Platelet Estimate Normal Large Platelets Giant Platelets Polychromasia Anisocytosis (manual) Puncture Site pCO2 pO2 HCO3 ABG pH ABG Total CO2 ABG O2 Saturation ABG Base Excess Joseph Test ABG Potassium A-a O2 Difference Respiratory Index Glucose Lactate Vent Mode Mechanical Rate FiO2 Tidal Volume PEEP Sodium 145 Potassium 3.9 Chloride 113 H Carbon Dioxide 27 Anion Gap 9 L BUN 37 H Creatinine 0.9 Est GFR ( Amer) > 60 Est GFR (Non-Af Amer) > 60 POC Glucose (mg/dL) Random Glucose 110 D Lactic Acid Calcium 8.9 Phosphorus 3.1 Magnesium 1.9 Total Bilirubin 0.4 AST 660 H D ALT 781 H D Alkaline Phosphatase 82 Total Creatine Kinase 878 H Troponin I Total Protein 5.6 L Albumin 2.8 L D Globulin 2.7 Albumin/Globulin Ratio 1.0 TSH 3rd Generation Arterial Blood Potassium Urine Opiates Screen Urine Methadone Screen Ur Barbiturates Screen Ur Phencyclidine Scrn Ur Amphetamines Screen U Benzodiazepines Scrn U Oth Cocaine Metabols U Cannabinoids Screen 02/10/19 02/10/19 04:43 05:24 WBC RBC Hgb Hct MCV MCH MCHC RDW Plt Count MPV Neut % (Auto) Lymph % (Auto) [place] % (Auto) Eos % (Auto) Baso % (Auto) Neut # (Auto) Lymph # (Auto) [place] # (Auto) Eos # (Auto) Baso # (Auto) Neutrophils % (Manual) Band Neutrophils % Lymphocytes % (Manual) Reactive Lymphs % Monocytes % (Manual) Myelocytes % Nucleated RBC % Platelet Estimate Large Platelets Giant Platelets Polychromasia Anisocytosis (manual) Puncture Site Cely pCO2 32 L pO2 281 H HCO3 27.3 ABG pH 7.51 H ABG Total CO2 26.5 ABG O2 Saturation 99.7 H ABG Base Excess 3.0 Joseph Test Na ABG Potassium 3.7 A-a O2 Difference -71.0 Respiratory Index -0.3 Glucose 106 Lactate 1.7 Vent Mode Prvc Mechanical Rate 18 FiO2 35.0 Tidal Volume 500 PEEP 5 Sodium 146.0 Potassium Chloride 117.0 H Carbon Dioxide Anion Gap BUN Creatinine Est GFR ( Amer) Est GFR (Non-Af Amer) POC Glucose (mg/dL) Random Glucose Lactic Acid Calcium Phosphorus Magnesium Total Bilirubin AST ALT Alkaline Phosphatase Total Creatine Kinase Troponin I 0.0310 Total Protein Albumin Globulin Albumin/Globulin Ratio TSH 3rd Generation 3.46 Arterial Blood Potassium 3.7 Urine Opiates Screen Urine Methadone Screen Ur Barbiturates Screen Ur Phencyclidine Scrn Ur Amphetamines Screen U Benzodiazepines Scrn U Oth Cocaine Metabols U Cannabinoids Screen Radiology Impressions: Radiology Impressions Head CT 02/08/19 22:55 IMPRESSION: No acute intracranial abnormality. Chronic microvascular ischemic changes. Sinus mucosal disease. A preliminary report was generated at 1:41 a.m. on 02/09/[address] Jose Guerra from [facility]. Chest X-Ray 02/09/19 04:44 Impression: NG tube extending into the stomach. Endotracheal tube extending into the midthoracic trachea. Biapical pleural thickening with upper lobe granulomatous changes. Diffuse increased interstitial lung markings. Patchy increased markings at the lung bases. Heart size within normal limits. EKG/Cardiology Studies: Cardiology / EKG Studies 02/09/19 10:46 EKG [ELECTROCARDIOGRAM] Stat Comment: Mode Of Transportation: Reason For Exam: eval post code 02/10/19 22:45 ELECTROCARDIOGRAM DAILY Comment: Mode Of Transportation: PORTABLE Reason For Exam: s/p arrest 02/11/19 22:45 ELECTROCARDIOGRAM DAILY Comment: Mode Of Transportation: PORTABLE Reason For Exam: s/p arrest Fingerstick Blood Sugar Results: 90 Review of Systems - Review of Systems Systems not reviewed;Unavailable: Intubated Critical Care Progress Note - Nutrition Nutrition: Nutrition Category Date Time Status NPO Diet [DIET] Diets 02/09/19 Breakfast Active Assessment/Plan - Assessment and Plan (Free Text) Assessment: 73 y o male with PMhx HLD, gastritis, ?COPD, MS, and dysphagia who presented to the ED with c/o dysphagia x6 days. Code Blue was called on 02/08/19 for pt unresponsive on floor, initial rhythm asystole, CPR initiated, shock x1 give, epi x2 was given, pt was intubated. ROSC achieved 12 mins later, pt required pressor therapy and was transferred to ICU. Rhythm after ROSC was achieved was rapid A-fib which later converted to NSR. Pt currently on Levophed drip, currently on therapeutic hypothermic protocol s/p cardiac arrest. Tube feeds currently being held / hypothermic protocol. Pt currently Full Code status. Plan: Neuro: -Intubated on PRVC, Propofol sedation held, will reassess neuro status later today Pt currently nonverbal and nonresponsive on exam, pupils pinpoint on exam -CT head on admission: no acute intracranial abnormality, chronic microvascular ischemic changes, sinus mucosal disease -Repeat head CT ordered for this am, f/u results -Neurology consulted for anoxia (Dr. 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 ROSC achieved 12 mins later, pt required pressor therapy and was transferred to ICU. Rhythm after ROSC was achieved was rapid A-fib which later converted to NSR -C/w Levophed drip, currently on therapeutic hypothermic protocol s/p cardiac arrest -A-line d/c'd -Most recent EKG demonstrates NSR -Troponin trend: 0.03 => 0.06 => 0.04 => 0.01 => 0.03 -CK 878 -TSH wnl -Pending palliative care consult re. goals of care, family not present at bedside during exam Pulm: -Currently on PRVC -Most recent ABG this am 7.51/32/281/27.3 -Lactate trend 9.5 (02/08) => 1.7 (02/10) -C/w pulm toilet -Rapid flu neg -Utox neg -Sputum cx 02/09 positive for gram-neg lul, yeast species; currently on anbx therapy -Hx COPD Duonebs q4h GI: -Dysphagia, may be neurogenic in etiology 2/2 chronic dx of MS vs. ALS?, unable to assess currently 2/2 intubation status -Failure to thrive Per family pt has lost about 50 lbs since Oct 2018, was on pureed diet at home -Tube feeds to be restarted after hypothermic protocol is completed -NPO currently, IVF -Protonix IVP daily -Transaminitis likely 2/2 shock liver 2/2 cardiac arrest, cont to trend -GI (Dr. Knight) consulted, recs appreciated -Prior EGD 11/2018 as per pt's daughter demonstrated findings of gastritis Heme: -H/H 11.5/38.2 -Leukocytosis stable, cont to monitor ID: -Possible aspiration -Recent CXR this am however demonstrates no active disease -Vanco/Aztreonam/Flagyl -Leukocytosis stable -Tachycardic -Hypothermic protocol -Sputum, blood, urine cxs ordered -Sputum cx 02/09 positive for gram-neg lul, yeast species Renal: -Currently has Riley in place -Trend I's/O's -BUN/Cr 37/0.9, cont to monitor PPX: -SCD, Heparin q12h -Protonix Pt seen, examined with, and plan discussed with Dr. Laguerre, attending physician. Jonn Palma DO PGY-1, Robotics Specialist Pager #[phone]
--- NOTE | 2019-02-10 07:47 | CP.PCM.PN ---
Subjective - Date & Time of Evaluation Date of Evaluation: 02/10/19 Time of Evaluation: 07:30 - Subjective Subjective: Patient is currently intubated at this time on PRVC settings Not responsive, currently on Propofol Not responsive to stimuli, pupils are not reactive to light they are pinpoint bilaterally This morning was on pressor mediations but it was later turned off this morning. 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 He required epnephrine x 2 and IVF and required at least one shock. He had atrial fibrillation that later became sinus and was brought to the ICU on pressor medications. This is a 73 year old male who came with severe dysphagia that had been going on for 6 days. There is concern he has multiple sclerosis and he was observed by family to have a slowly have more trouble eating and required a pureed diet. This recent week he was noticed by family to have inability to swallow, coughing, and respiratory distress. Per notes, the patient was [place] go [place] but due to weakness came here. Objective - Vital Signs/Intake and Output Vital Signs (last 24 hours): Temp Pulse Resp BP Pulse Ox 95.2 F L 81 19 128/69 100 02/10/19 07:00 02/10/19 07:00 02/10/19 07:00 02/10/19 07:00 02/10/19 06:59 Intake and Output: 02/10/19 02/10/19 06:59 18:59 Intake Total 1544.6 79.8 Output Total 450 30 Balance 1094.6 49.8 - Medications Medications: Current Medications Albuterol/Ipratropium (Duoneb 3 Mg/0.5 Mg (3 Ml) Ud) 3 ml INH RQ4 JILL Last Admin: 02/10/19 03:23 Dose: 3 ml Heparin Sodium (Porcine) (Heparin) 5,000 units SC Q12 JILL Last Admin: 02/09/19 21:15 Dose: 5,000 units Aztreonam 2 gm/ Sodium (Chloride) 100 mls @ 100 mls/hr IVPB Q8H JILL; Protocol Last Admin: 02/10/19 02:00 Dose: 100 mls/hr Metronidazole (Flagyl) 500 mg in 100 mls @ 100 mls/hr IVPB Q8H J[facility]; Protocol Last Admin: 02/10/19 04:15 Dose: 100 mls/hr Vancomycin HCl 1,000 mg/ (Sodium Chloride) 250 mls @ 166.6 mls/hr IVPB Q12H JILL; Protocol Last Admin: 02/09/19 22:15 Dose: 166.6 mls/hr Propofol (Diprivan) 1,000 mg in 100 mls @ 1.606 mls/hr IV .Q24H PRN; Protocol PRN Reason: TITRATE PER MD ORDER Last Admin: 02/10/19 06:00 Dose: 15 mcg/kg/min, 4.817 mls/hr Lactated Ringer's (Lactated Ringer's) 1,000 mls @ 50 mls/hr IV .Q20H [facility]ILL Last Admin: 02/09/19 14:34 Dose: 50 mls/hr Dextrose (Dextrose 5% In Water 1000 Ml) 1,000 mls @ 25 mls/hr IV .Q24H [facility] Last Admin: 02/09/19 14:35 Dose: 25 mls/hr Pantoprazole Sodium (Protonix Inj) 40 mg IVP DAILY JILL Last Admin: 02/09/19 09:43 Dose: 40 mg - Labs Labs: 02/10/19 04:43 02/10/19 04:43 PT 13.2 SECONDS (9.7-12.2) H 02/09/19 05:45 INR 1.2 02/09/19 05:45 APTT 30 SECONDS (21-34) 02/09/19 05:45 - Constitutional Appears: Cachectic, Chronically Ill - Head Exam Head Exam: NORMAL INSPECTION - ENT Exam ENT Exam: Mucous Membranes Moist - Respiratory Exam Respiratory Exam: Decreased Breath Sounds, Clear to Ausculation Bilateral - Cardiovascular Exam Cardiovascular Exam: REGULAR RHYTHM - Neurological Exam Neurological Exam: Altered. absent: Oriented x3 Neuro motor strength exam: Left Upper Extremity: 0, Right Upper Extremity: 0, Left Lower Extremity: 0, Right Lower Extremity: 0 Additional comments: Non responsive, pinpoint pulpils. - Skin Skin Exam: Normal Color, Warm Assessment and Plan - Assessment and Plan (Free Text) Assessment: from before: This is a 73 year old Male with recently diagnosed multiple sclerosis who presents to the ED with dysphagia for 6 days. Patient was admitted on our service for similar symptoms in October 2018. 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 He was discharged and instructed to follow up in [facility]. As per patient's daughter, he was worked up, seen by Neurology, Gastro enterology had an EGD performed which showed gastritis.As per and his daughter he has difficulty in talking last 6 months.His dysphagia got worse since Sunday. Plan: 1. Cardiopulmonary arrest and Intubated on vent support 02/10: Pending palliative care consult. The patient remains non verbal and non responsive. No pupillary response to light 02/09: Initial rhythm asystole. Pt received CPR, Epi x 2 then shock x 1. Intubated. ROSC ~ 12 min. Initially rapid A-fib then converted to sinus. Levo started in ICU.Off pressors.On vent support,On therapeutic hypothermic protocol Dr Bridges manager surgical spoke to his family ,daughters and son in law with salesperson driver service. They are requesting to resuscitate if goes into arrest. Family was asked to bring records from [facility] which was give to them on discharge CT head done -no hemorrhage,chronic microvscular ischemic changes 2.Dysphagia and Failure to Thrive 02/10: Per reports there is concern for multiple scleroris. Family is brining in records from [facility] GI consulted - Dr. Knight Prior EGD 11/2018 - finding of gastritis as per daughter (records will be brought in) 3. Multiple Sclerosis 02/09: Seen by Neurology on previous admission, working diagnosis was ALS. Patient was recommended to follow up with [facility] in [place] where he was diagnosed with MS. Daughter will bring medical records. 4. Possible aspiration, r/o infection/lacticacidosis 02/10: At this time cultures are negative He remains on the Atreonam, Flagyl, and Vancomycin IV 5. Electrolye imbalance 02/10: Replace as needed 6. COPD - Duonebs PRN 7. Transaminitis 02/10: Elevated from the CODE BLUE/shock liver
--- NOTE | 2019-02-10 09:42 | CP.PCM.PN ---
<JurgenAnastasiya - Last Filed: 02/10/19 10:01> Subjective - Date & Time of Evaluation Date of Evaluation: 02/10/19 Time of Evaluation: 09:58 - Subjective Subjective: Gastroenterology Fellow/PGY6 Progress Note Patient on ventilator support with sedation. Nursing notes continues to be unresponsive and without gag reflex. Continues on hypothermic protocol. A 12- point review of systems negative except for as above. Objective - Vital Signs/Intake and Output Vital Signs (last 24 hours): Temp Pulse Resp BP Pulse Ox 96.6 F L 100 H 18 144/77 100 02/10/19 09:00 02/10/19 09:00 02/10/19 09:00 02/10/19 09:00 02/10/19 09:00 Intake and Output: 02/10/19 02/10/19 06:59 18:59 Intake Total 1544.6 159.6 Output Total 450 60 Balance 1094.6 99.6 - Medications Medications: Current Medications Albuterol/Ipratropium (Duoneb 3 Mg/0.5 Mg (3 Ml) Ud) 3 ml INH RQ4 JILL Last Admin: 02/10/19 03:23 Dose: 3 ml Heparin Sodium (Porcine) (Heparin) 5,000 units SC Q12 JILL Last Admin: 02/09/19 21:15 Dose: 5,000 units Aztreonam 2 gm/ Sodium (Chloride) 100 mls @ 100 mls/hr IVPB Q8H JILL; Protocol Last Admin: 02/10/19 02:00 Dose: 100 mls/hr Metronidazole (Flagyl) 500 mg in 100 mls @ 100 mls/hr IVPB Q8H JILL; Protocol Last Admin: 02/10/19 04:15 Dose: 100 mls/hr Vancomycin HCl 1,000 mg/ (Sodium Chloride) 250 mls @ 166.6 mls/hr IVPB Q12H JILL; Protocol Last Admin: 02/09/19 22:15 Dose: 166.6 mls/hr Propofol (Diprivan) 1,000 mg in 100 mls @ 1.606 mls/hr IV .Q24H PRN; Protocol PRN Reason: TITRATE PER MD ORDER Last Admin: 02/10/19 06:00 Dose: 15 mcg/kg/min, 4.817 mls/hr Lactated Ringer's (Lactated Ringer's) 1,000 mls @ 50 mls/hr IV .Q20H [facility] Last Admin: 02/09/19 14:34 Dose: 50 mls/hr Dextrose (Dextrose 5% In Water 1000 Ml) 1,000 mls @ 25 mls/hr IV .Q24H [facility] Last Admin: 02/09/19 14:35 Dose: 25 mls/hr Pantoprazole Sodium (Protonix Inj) 40 mg IVP DAILY [facility] Last Admin: 02/09/19 09:43 Dose: 40 mg - Labs Labs: 02/10/19 04:43 02/10/19 04:43 PT 13.2 SECONDS (9.7-12.2) H 02/09/19 05:45 INR 1.2 02/09/19 05:45 APTT 30 SECONDS (21-34) 02/09/19 05:45 - Constitutional Appears: Toxic, Other - Head Exam Head Exam: ATRAUMATIC, NORMOCEPHALIC - Eye Exam Eye Exam: absent: EOMI, PERRL Pupil Exam: absent: Miosis, Mydriatic, PERRL Additional comments: pinpoint pupils - Respiratory Exam Respiratory Exam: Clear to Ausculation Bilateral. absent: Rales, Rhonchi, Wheezes - Cardiovascular Exam Cardiovascular Exam: Tachycardia, +S1, +S2. absent: Gallop, Rubs - GI/Abdominal Exam GI & Abdominal Exam: Soft, Hypoactive Bowel Sounds. absent: Distended, Firm, Guarding, Rigid, Organomegaly, Rebound - Extremities Exam Extremities Exam: Normal Inspection. 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 Active treatment of ventilator dependent respiratory failure 2/2 asystole cardiopulmonary arrest with ACLS on hypothermic protocol. GI consultation for dysphagia. Prior EGD 11/2018 at [facility] showed H pylori negative gastritis and superficial duodenal bulb ulcer. [facility] 11[facility]- gastric antral erosions, H. pylori negative gastritis superficial duodenal bulb ulcer -planned for esophageal manometry -saw neurology on 02/05 with likely diagnosis of bulbar ALS- generalized atrophy, absence gag reflex, split hand phenomenon, and hyperreflexia at patellars -recommendation for G-tube at that time for which family deferred and planned to discuss; planned for follow up on 02/17 -recommend nutritional support via NGT feeds -based on clinical course, further discussion may be held with family after re- evaluation of clinical status for consideration of risk versus benefit for G tube placement -family contacted with voicemail left -shock liver- LFTs improving, continue to trend -please contact with any questions or concerns <Vik Knight - Last Filed: 02/10/19 10:55> Objective - Vital Signs/Intake and Output Vital Signs (last 24 hours): Temp Pulse Resp BP Pulse Ox 96.6 F L 100 H 18 156/81 H 100 02/10/19 09:00 02/10/19 10:00 02/10/19 10:00 02/10/19 10:00 02/10/19 10:00 Intake and Output: 02/10/19 02/10/19 06:59 18:59 Intake Total 1544.6 314.4 Output Total 450 100 Balance 1094.6 214.4 - Medications Medications: Current Medications Albuterol/Ipratropium (Duoneb 3 Mg/0.5 Mg (3 Ml) Ud) 3 ml INH RQ4 JILL Last Admin: 02/10/19 03:23 Dose: 3 ml Heparin Sodium (Porcine) (Heparin) 5,000 units SC Q12 [facility] Last Admin: 02/10/19 09:55 Dose: 5,000 units Aztreonam 2 gm/ Sodium (Chloride) 100 mls @ 100 mls/hr IVPB Q8H [facility]; Protocol Last Admin: 02/10/19 10:00 Dose: 100 mls/hr Metronidazole (Flagyl) 500 mg in 100 mls @ 100 mls/hr IVPB Q8H [facility]; Protocol Last Admin: 02/10/19 04:15 Dose: 100 mls/hr Vancomycin HCl 1,000 mg/ (Sodium Chloride) 250 mls @ 166.6 mls/hr IVPB Q12H [facility]; Protocol Last Admin: 02/10/19 10:01 Dose: 166.6 mls/hr Propofol (Diprivan) 1,000 mg in 100 mls @ 1.606 mls/hr IV .Q24H PRN; Protocol PRN Reason: TITRATE PER MD ORDER Last Admin: 02/10/19 06:00 Dose: 15 mcg/kg/min, 4.817 mls/hr Lactated Ringer's (Lactated Ringer's) 1,000 mls @ 50 mls/hr IV .Q20H [facility] Last Admin: 02/09/19 14:34 Dose: 50 mls/hr Dextrose (Dextrose 5% In Water 1000 Ml) 1,000 mls @ 25 mls/hr IV .Q24H [facility] Last Admin: 02/09/19 14:35 Dose: 25 mls/hr Sodium Chloride (Sodium Chloride 0.45%) 500 mls @ 999 mls/hr IV .Q31M [facility] Stop: 02/10/19 11:30 Last Admin: 02/10/19 10:48 Dose: 999 mls/hr Pantoprazole Sodium (Protonix Inj) 40 mg IVP DAILY [facility] Last Admin: 02/10/19 09:54 Dose: 40 mg - Labs Labs: 02/10/19 04:43 02/10/19 04:43 PT 13.2 SECONDS (9.7-12.2) H 02/09/19 05:45 INR 1.2 02/09/19 05:45 APTT 30 SECONDS (21-34) 02/09/19 05:45 Attending/Attestation - Attestation I have personally seen and examined this patient.: Yes I have fully participated in the care of the patient.: Yes I have reviewed all pertinent clinical information, including history, physical exam and plan: Yes Notes (Text): 02/10/19 10:51 I have seen and examined patient with GI fellow. No acute events overnight, he remains intubated and sedated in intensive care unit. As per nursing staff, no reported abdominal pain, nausea, vomiting, fever/chills. Non-responsive to painful stimuli, no gag reflux present. ALS Respiratory failure Pneumonia Cardiac arrest Transaminitis - May initiate NGT feeds as tolerated, monitor for residuals - LFTs trending down, likely elevated secondary to ischemia following cardiac arrest. Continue to monitor and avoid hepatotoxic therapies. - Overall patient prognosis is poor given clinical scenario - Currently no planned GI intervention, will sign off case. Patient may require gastrostomy tube placement if clinically indicated in future after careful discussion with patient family members and establishing goals of care. Please reconsult as necessary, thank you.
--- NOTE | 2019-02-10 10:35 | RAD ---
Date of service: 02/10/2019 HISTORY: et tube eval COMPARISON: 02/09/2019 FINDINGS: LUNGS: No infiltrate. Lungs are partially obscured by artifact from overlying blanket. PLEURA: No significant pleural effusion identified, no pneumothorax apparent. CARDIOVASCULAR: No aortic atherosclerotic calcification present. Normal cardiac size. No pulmonary vascular congestion. ET tube tip approximately 7.0 cm above the tracheal mara. Nasogastric tube extends to the upper abdomen. These positioning are unchanged compared to the prior examination. OSSEOUS STRUCTURES: No significant abnormalities. VISUALIZED UPPER ABDOMEN: Normal. OTHER FINDINGS: None. IMPRESSION: No active disease.
[2019-02-10] MEDS ORDERED: Sodium Chloride 0.45% 500 ML IV SCH (11:00)
--- NOTE | 2019-02-10 11:38 | CP.PCM.CON ---
<Jyoti Lucio P - Last Filed: 02/10/19 18:09> History of Present Illness - History of Present Illness History of Present Illness: Consult note for Dr. Villafuerte. 73 year old male with PMHx of a progressive neurological disease (undiagnosed) who presented to the ED for 1 week of worsening dysphagia and generalized weakness. Patient was admitted for similar symptoms in 10/2018. During this admission on 02/08/19, patient was found unresponsive, in asystole and a CODE BLUE was called. ALCS protocol was initiated, patient received epi x 2, one shock, and was intubated. ROSC was achieved after 12 minutes. Patient was initially on propofol and code freeze, however both were discontinued this mor urszula. CT head on 02/08 showed no acute intracranial abnormality, chronic microvascular changes. Patient remains intubated. Unable to obtain ROS. Review of Systems - Review of Systems Systems not reviewed;Unavailable: Intubated Past Patient History - Past Medical History & Family History Past Medical History?: Yes - Past Social History Smoking Status: Never Smoked - CARDIAC Hx Hypercholesterolemia: Yes - NEUROLOGICAL Hx Multiple Sclerosis: Yes - ENDOCRINE/METABOLIC Hx Endocrine Disorders: Yes Other/Comment: low glucose - MUSCULOSKELETAL/RHEUMATOLOGICAL Hx Falls: No - GASTROINTESTINAL Hx Gastrointestinal Disorders: Yes Hx Fatty Liver Disease: Yes (live cirrhosis) - PSYCHIATRIC Hx Substance Use: No - SURGICAL HISTORY Hx Surgeries: No Meds Allergies/Adverse Reactions: Allergies Allergy/AdvReac Type Severity Reaction Status Date / Time Penicillins Allergy Verified 02/08/19 09:37 - Medications Medications: Current Medications Albuterol/Ipratropium (Duoneb 3 Mg/0.5 Mg (3 Ml) Ud) 3 ml INH RQ4 JILL Last Admin: 02/10/19 03:23 Dose: 3 ml Heparin Sodium (Porcine) (Heparin) 5,000 units SC Q12 JILL Last Admin: 02/10/19 09:55 Dose: 5,000 units Aztreonam 2 gm/ Sodium (Chloride) 100 mls @ 100 mls/hr IVPB Q8H JILL; Protocol Last Admin: 02/10/19 10:00 Dose: 100 mls/hr Metronidazole (Flagyl) 500 mg in 100 mls @ 100 mls/hr IVPB Q8H JILL; Protocol Last Admin: 02/10/19 04:15 Dose: 100 mls/hr Vancomycin HCl 1,000 mg/ (Sodium Chloride) 250 mls @ 166.6 mls/hr IVPB Q12H JILL; Protocol Last Admin: 02/10/19 10:01 Dose: 166.6 mls/hr Propofol (Diprivan) 1,000 mg in 100 mls @ 1.606 mls/hr IV .Q24H PRN; Protocol PRN Reason: TITRATE PER MD ORDER Last Titration: 02/10/19 09:45 Dose: 0 mcg/kg/min, 0 mls/hr Lactated Ringer's (Lactated Ringer's) 1,000 mls @ 50 mls/hr IV .Q20H JILL Last Admin: 02/09/19 14:34 Dose: 50 mls/hr Dextrose (Dextrose 5% In Water 1000 Ml) 1,000 mls @ 25 mls/hr IV .Q24H JILL Last Admin: 02/09/19 14:35 Dose: 25 mls/hr Pantoprazole Sodium (Protonix Inj) 40 mg IVP DAILY [facility] Last Admin: 02/10/19 09:54 Dose: 40 mg Physical Exam - Constitutional Appears: No Acute Distress - Head Exam Head Exam: ATRAUMATIC, NORMOCEPHALIC - Eye Exam Additional comments: Pupils fixed, non reactive to light - ENT Exam ENT Exam: Mucous Membranes Moist Additional comments: intubated - Neck Exam Neck exam: Positive for: Normal Inspection - Respiratory Exam Additional comments: Intubated - Neurological Exam Additional comments: Patient is unresponsive, pupils unreactive, doll's eys negative. Minimal gag reflex. No spontaneous movement of limbs. - Skin Skin Exam: Dry, Normal Color, Warm Results - Vital Signs Recent Vital Signs: Last Vital Signs Temp 96.6 F L 02/10/19 09:00 Pulse 100 H 02/10/19 10:00 Resp 18 02/10/19 10:00 BP 156/81 H 02/10/19 10:00 Pulse Ox 100 02/10/19 10:00 - Labs Result Diagrams: 02/10/19 04:43 02/10/19 04:43 Labs: Laboratory Results - last 24 hr 02/09/19 02/09/19 02/09/19 09:54 12:09 12:09 WBC RBC Hgb Hct MCV MCH MCHC RDW Plt Count MPV Neut % (Auto) Lymph % (Auto) Floyd % (Auto) Eos % (Auto) Baso % (Auto) Neut # (Auto) Lymph # (Auto) Floyd # (Auto) Eos # (Auto) Baso # (Auto) Neutrophils % (Manual) Band Neutrophils % Lymphocytes % (Manual) Monocytes % (Manual) Myelocytes % Nucleated RBC % Platelet Estimate Puncture Site pCO2 pO2 HCO3 ABG pH ABG Total CO2 ABG O2 Saturation ABG Base Excess Joseph Test ABG Potassium A-a O2 Difference Respiratory Index Glucose Lactate Vent Mode Mechanical Rate FiO2 Tidal Volume PEEP Sodium Potassium Chloride Carbon Dioxide Anion Gap BUN Creatinine Est GFR ( Amer) Est GFR (Non-Af Amer) POC Glucose (mg/dL) 209 H Random Glucose Lactic Acid 2.8 H Calcium Phosphorus Magnesium Total Bilirubin AST ALT Alkaline Phosphatase Total Creatine Kinase Troponin I Total Protein Albumin Globulin Albumin/Globulin Ratio TSH 3rd Generation Arterial Blood Potassium Urine Opiates Screen Negative Urine Methadone Screen Negative Ur Barbiturates Screen Negative Ur Phencyclidine Scrn Negative Ur Amphetamines Screen Negative U Benzodiazepines Scrn Negative U Oth Cocaine Metabols Negative U Cannabinoids Screen Negative 02/09/19 02/09/19 02/09/19 12:53 15:51 17:35 WBC RBC Hgb Hct MCV MCH MCHC RDW Plt Count MPV Neut % (Auto) Lymph % (Auto) Floyd % (Auto) Eos % (Auto) Baso % (Auto) Neut # (Auto) Lymph # (Auto) Floyd # (Auto) Eos # (Auto) Baso # (Auto) Neutrophils % (Manual) Band Neutrophils % Lymphocytes % (Manual) Monocytes % (Manual) Myelocytes % Nucleated RBC % Platelet Estimate Puncture Site pCO2 pO2 HCO3 ABG pH ABG Total CO2 ABG O2 Saturation ABG Base Excess Joseph Test ABG Potassium A-a O2 Difference Respiratory Index Glucose Lactate Vent Mode Mechanical Rate FiO2 Tidal Volume PEEP Sodium Potassium Chloride Carbon Dioxide Anion Gap BUN Creatinine Est GFR ( Amer) Est GFR (Non-Af Amer) POC Glucose (mg/dL) 180 H 140 H Random Glucose Lactic Acid Calcium Phosphorus Magnesium Total Bilirubin AST ALT Alkaline Phosphatase Total Creatine Kinase Troponin I 0.0130 Total Protein Albumin Globulin Albumin/Globulin Ratio TSH 3rd Generation Arterial Blood Potassium Urine Opiates Screen Urine Methadone Screen Ur Barbiturates Screen Ur Phencyclidine Scrn Ur Amphetamines Screen U Benzodiazepines Scrn U Oth Cocaine Metabols U Cannabinoids Screen 02/09/19 02/09/19 02/10/19 19:06 20:27 00:08 WBC RBC Hgb Hct MCV MCH MCHC RDW Plt Count MPV Neut % (Auto) Lymph % (Auto) Floyd % (Auto) Eos % (Auto) Baso % (Auto) Neut # (Auto) Lymph # (Auto) Floyd # (Auto) Eos # (Auto) Baso # (Auto) Neutrophils % (Manual) Band Neutrophils % Lymphocytes % (Manual) Monocytes % (Manual) Myelocytes % Nucleated RBC % Platelet Estimate Puncture Site pCO2 pO2 HCO3 ABG pH ABG Total CO2 ABG O2 Saturation ABG Base Excess Joseph Test ABG Potassium A-a O2 Difference Respiratory Index Glucose Lactate Vent Mode Mechanical Rate FiO2 Tidal Volume PEEP Sodium Potassium Chloride Carbon Dioxide Anion Gap BUN Creatinine Est GFR ( Amer) Est GFR (Non-Af Amer) POC Glucose (mg/dL) 173 H 126 H Random Glucose Lactic Acid 1.6 Calcium Phosphorus Magnesium Total Bilirubin AST ALT Alkaline Phosphatase Total Creatine Kinase Troponin I Total Protein Albumin Globulin Albumin/Globulin Ratio TSH 3rd Generation Arterial Blood Potassium Urine Opiates Screen Urine Methadone Screen Ur Barbiturates Screen Ur Phencyclidine Scrn Ur Amphetamines Screen U Benzodiazepines Scrn U Oth Cocaine Metabols U Cannabinoids Screen 02/10/19 02/10/19 02/10/19 04:16 04:43 04:43 WBC 14.7 H RBC 3.71 L Hgb 11.5 L Hct 35.2 MCV 94.9 H MCH 30.9 MCHC 32.5 L RDW 14.2 Plt Count 191 MPV 10.2 Neut % (Auto) 90.6 H Lymph % (Auto) 3.7 L Floyd % (Auto) 5.3 Eos % (Auto) 0.1 Baso % (Auto) 0.3 Neut # (Auto) 13.3 H Lymph # (Auto) 0.5 L Floyd # (Auto) 0.8 Eos # (Auto) 0.0 Baso # (Auto) 0.0 Neutrophils % (Manual) 81 H Band Neutrophils % 5 H Lymphocytes % (Manual) 3 L Monocytes % (Manual) 10 Myelocytes % 1 H Nucleated RBC % 1 H Platelet Estimate Normal Puncture Site pCO2 pO2 HCO3 ABG pH ABG Total CO2 ABG O2 Saturation ABG Base Excess Joseph Test ABG Potassium A-a O2 Difference Respiratory Index Glucose Lactate Vent Mode Mechanical Rate FiO2 Tidal Volume PEEP Sodium 145 Potassium 3.9 Chloride 113 H Carbon Dioxide 27 Anion Gap 9 L BUN 37 H Creatinine 0.9 Est GFR ( Amer) > 60 Est GFR (Non-Af Amer) > 60 POC Glucose (mg/dL) 90 Random Glucose 110 D Lactic Acid Calcium 8.9 Phosphorus 3.1 Magnesium 1.9 Total Bilirubin 0.4 AST 660 H D ALT 781 H D Alkaline Phosphatase 82 Total Creatine Kinase Troponin I Total Protein 5.6 L Albumin 2.8 L D Globulin 2.7 Albumin/Globulin Ratio 1.0 TSH 3rd Generation Arterial Blood Potassium Urine Opiates Screen Urine Methadone Screen Ur Barbiturates Screen Ur Phencyclidine Scrn Ur Amphetamines Screen U Benzodiazepines Scrn U Oth Cocaine Metabols U Cannabinoids Screen 02/10/19 02/10/19 02/10/19 04:43 04:43 05:24 WBC RBC Hgb Hct MCV MCH MCHC RDW Plt Count MPV Neut % (Auto) Lymph % (Auto) Floyd % (Auto) Eos % (Auto) Baso % (Auto) Neut # (Auto) Lymph # (Auto) Floyd # (Auto) Eos # (Auto) Baso # (Auto) Neutrophils % (Manual) Band Neutrophils % Lymphocytes % (Manual) Monocytes % (Manual) Myelocytes % Nucleated RBC % Platelet Estimate Puncture Site Cely pCO2 32 L pO2 281 H HCO3 27.3 ABG pH 7.51 H ABG Total CO2 26.5 ABG O2 Saturation 99.7 H ABG Base Excess 3.0 Joseph Test Na ABG Potassium 3.7 A-a O2 Difference -71.0 Respiratory Index -0.3 Glucose 106 Lactate 1.7 Vent Mode Prvc Mechanical Rate 18 FiO2 35.0 Tidal Volume 500 PEEP 5 Sodium 146.0 Potassium Chloride 117.0 H Carbon Dioxide Anion Gap BUN Creatinine Est GFR ( Amer) Est GFR (Non-Af Amer) POC Glucose (mg/dL) Random Glucose Lactic Acid Calcium Phosphorus Magnesium Total Bilirubin AST ALT Alkaline Phosphatase Total Creatine Kinase 878 H Troponin I 0.0310 Total Protein Albumin Globulin Albumin/Globulin Ratio TSH 3rd Generation 3.46 Arterial Blood Potassium 3.7 Urine Opiates Screen Urine Methadone Screen Ur Barbiturates Screen Ur Phencyclidine Scrn Ur Amphetamines Screen U Benzodiazepines Scrn U Oth Cocaine Metabols U Cannabinoids Screen 02/10/19 07:32 WBC RBC Hgb Hct MCV MCH MCHC RDW Plt Count MPV Neut % (Auto) Lymph % (Auto) Floyd % (Auto) Eos % (Auto) Baso % (Auto) Neut # (Auto) Lymph # (Auto) Floyd # (Auto) Eos # (Auto) Baso # (Auto) Neutrophils % (Manual) Band Neutrophils % Lymphocytes % (Manual) Monocytes % (Manual) Myelocytes % Nucleated RBC % Platelet Estimate Puncture Site pCO2 pO2 HCO3 ABG pH ABG Total CO2 ABG O2 Saturation ABG Base Excess Joseph Test ABG Potassium A-a O2 Difference Respiratory Index Glucose Lactate Vent Mode Mechanical Rate FiO2 Tidal Volume PEEP Sodium Potassium Chloride Carbon Dioxide Anion Gap BUN Creatinine Est GFR ( Amer) Est GFR (Non-Af Amer) POC Glucose (mg/dL) 117 H Random Glucose Lactic Acid Calcium Phosphorus Magnesium Total Bilirubin AST ALT Alkaline Phosphatase Total Creatine Kinase Troponin I Total Protein Albumin Globulin Albumin/Globulin Ratio TSH 3rd Generation Arterial Blood Potassium Urine Opiates Screen Urine Methadone Screen Ur Barbiturates Screen Ur Phencyclidine Scrn Ur Amphetamines Screen U Benzodiazepines Scrn U Oth Cocaine Metabols U Cannabinoids Screen Assessment & Plan - Assessment and Plan (Free Text) Plan: -follow up MRI brain -follow up MRA head/neck -follow up EEG Case discussed with Dr. Villafuerte. Jyoti Lucio, PGY-1 <Dixie Villafuerte - Last Filed: 02/12/19 09:38> Meds - Medications Medications: Current Medications Acetaminophen (Tylenol 650mg/20.3ml Solution Ud) 650 mg PO Q6H PRN PRN Reason: Temperature Albuterol/Ipratropium (Duoneb 3 Mg/0.5 Mg (3 Ml) Ud) 3 ml INH RQ4 JILL Last Admin: 02/12/19 07:35 Dose: Not Given Heparin Sodium (Porcine) (Heparin) 5,000 units SC Q12 JILL Last Admin: 02/11/19 22:00 Dose: 5,000 units Aztreonam 2 gm/ Sodium (Chloride) 100 mls @ 100 mls/hr IVPB Q8H JILL; Protocol Last Admin: 02/12/19 03:00 Dose: 100 mls/hr Metronidazole (Flagyl) 500 mg in 100 mls @ 100 mls/hr IVPB Q8H JILL; Protocol Last Admin: 02/12/19 03:31 Dose: 100 mls/hr Propofol (Diprivan) 1,000 mg in 100 mls @ 1.606 mls/hr IV .Q24H PRN; Protocol PRN Reason: TITRATE PER MD ORDER Last Titration: 02/10/19 09:45 Dose: 0 mcg/kg/min, 0 mls/hr Lactated Ringer's (Lactated Ringer's) 1,000 mls @ 50 mls/hr IV .Q20H JILL Last Admin: 02/12/19 02:15 Dose: Not Given Dextrose (Dextrose 5% In Water 1000 Ml) 1,000 mls @ 25 mls/hr IV .Q24H JILL Last Admin: 02/11/19 14:27 Dose: Not Given Pantoprazole Sodium (Protonix Inj) 40 mg IVP DAILY JILL Last Admin: 02/11/19 09:32 Dose: 40 mg Results - Vital Signs Recent Vital Signs: Last Vital Signs Temp 98 F 02/12/19 04:00 Pulse 91 H 02/12/19 07:51 Resp 12 02/12/19 07:51 BP 139/85 02/12/19 07:51 Pulse Ox 100 02/12/19 07:51 - Labs Result Diagrams: 02/12/19 06:42 02/12/19 06:42 Labs: Laboratory Results - last 24 hr 02/09/19 02/11/19 02/12/19 12:23 04:35 00:01 WBC RBC Hgb Hct MCV MCH MCHC RDW Plt Count MPV Neut % (Auto) Lymph % (Auto) Floyd % (Auto) Eos % (Auto) Baso % (Auto) Neut # (Auto) Lymph # (Auto) Floyd # (Auto) Eos # (Auto) Baso # (Auto) Sodium Potassium Chloride Carbon Dioxide Anion Gap BUN Creatinine Est GFR ( Amer) Est GFR (Non-Af Amer) POC Glucose (mg/dL) 144 H 184 H Random Glucose Calcium Phosphorus Magnesium Total Bilirubin AST ALT Alkaline Phosphatase Total Protein Albumin Globulin Albumin/Globulin Ratio Opiates (GC/MS) negative Methadone (GC/MS) negative Propoxyphenes negative Barbiturates negative Phencyclidine (PCP) negative Amphetamines negative Benzodiazepines negative Cocaine & Metabolite negative Marijuana negative Drugs of Abuse Comment See note 02/12/19 02/12/19 02/12/19 06:38 06:42 06:42 WBC 14.0 H RBC 3.77 L Hgb 12.0 Hct 36.4 MCV 96.5 H MCH 31.7 H MCHC 32.9 L RDW 14.8 H Plt Count 190 MPV 10.4 Neut % (Auto) 78.5 H Lymph % (Auto) 12.4 L Floyd % (Auto) 8.5 Eos % (Auto) 0.4 Baso % (Auto) 0.2 Neut # (Auto) 11.0 H Lymph # (Auto) 1.7 Floyd # (Auto) 1.2 H Eos # (Auto) 0.0 Baso # (Auto) 0.0 Sodium 142 Potassium 4.2 Chloride 112 H Carbon Dioxide 29 Anion Gap 6 L BUN 33 H Creatinine 1.0 Est GFR ( Amer) > 60 Est GFR (Non-Af Amer) > 60 POC Glucose (mg/dL) 98 Random Glucose 116 H Calcium 8.5 L Phosphorus 2.7 Magnesium 2.0 Total Bilirubin 0.3 AST 146 H D ALT 327 H D Alkaline Phosphatase 82 Total Protein 5.3 L Albumin 2.7 L Globulin 2.6 Albumin/Globulin Ratio 1.0 Opiates (GC/MS) Methadone (GC/MS) Propoxyphenes Barbiturates Phencyclidine (PCP) Amphetamines Benzodiazepines Cocaine & Metabolite Marijuana Drugs of Abuse Comment
[2019-02-10] MEDS ORDERED: Metoprolol 1 mg/ml Inj IVP ONE (13:55)
[2019-02-10] MEDS ORDERED: Acetaminophen 650mg/20.3ml solution UD PO PRN (14:30)
--- NOTE | 2019-02-10 17:15 | CARD ---
APPROVED REPORT Date of service: 02/08/2019 EKG Measurement Heart [id number] <Conclusion> Sinus tachycardia with occasional premature ventricular complexes Left axis deviation Low voltage QRS Inferior infarct, age undetermined Abnormal ECG
--- NOTE | 2019-02-10 17:20 | CARD ---
APPROVED REPORT Date of service: 02/08/2019 EKG Measurement Heart [id number] <Conclusion> Normal sinus rhythm Nonspecific ST abnormality Abnormal ECG
[2019-02-10] MEDS: Lactated Ringer's 1,000 ML IV SCH (18:12)
--- NOTE | 2019-02-10 18:27 | CT ---
Date of service: 02/10/2019 PROCEDURE: CT HEAD WITHOUT CONTRAST. HISTORY: eval for interval change COMPARISON: February 09, 2019. CT head. 11/21/2018 MRI brain TECHNIQUE: Axial computed tomography images were obtained through the head/brain without intravenous contrast. Supplemental Coronal and Sagittal projections created and reviewed. Radiation dose: Total exam DLP = 1058.81 mGy-cm. This CT exam was performed using one or more of the following dose reduction techniques: Automated exposure control, adjustment of the mA and/or kV according to patient size, and/or use of iterative reconstruction technique. FINDINGS: HEMORRHAGE: No intracranial hemorrhage. BRAIN: No mass effect or edema. No atrophy or chronic microvascular ischemic changes. VENTRICLES: Unremarkable. No hydrocephalus. CALVARIUM: Unremarkable. PARANASAL SINUSES: Unremarkable as visualized. No significant inflammatory changes. MASTOID AIR CELLS: Unremarkable as visualized. No inflammatory changes. OTHER FINDINGS: None. IMPRESSION: No acute intracranial abnormalities. No significant findings to account for the clinical presentation. No significant interval change compared to the prior examination(s).
[2019-02-11] MEDS: Albuterol-Ipratrop 3 mg / 0.5 (3 ml) UD INH SCH ×6 (00:03→20:07)
[2019-02-11] MEDS: Aztreonam 2 GM in Sodium Chloride 0.9% 100 ML IVPB SCH ×3 (03:00→18:23)
[2019-02-11] MEDS ORDERED: Sodium Chloride 0.9% 500 ML IV ONE (04:00)
[2019-02-11] MEDS: metroNIDAZOLE IV 500 mg/100 ml 500 MG/100 ML BAG IVPB SCH ×3 (04:00→20:00)
[2019-02-11 05:42] LABS: ABG ALLEN TEST POS; ARTERIAL BLOOD GAS HEMOGLOBIN 10.7 g/dL (11.7-17.4); ARTERIAL BLOOD GAS O2 SAT 99.3 % (95-98); ARTERIAL BLOOD GAS PCO2 27 mm/Hg (35-45); ARTERIAL BLOOD GAS PH 7.54 (7.35-7.45); ARTERIAL BLOOD GAS PO2 122 mm/Hg (80-100); ARTERIAL BLOOD GAS TCO2 23.9 mmol/L (22-28)
[2019-02-11 06:26] LABS: BASO % 0.1 % (0.0-2.0); HEMOGLOBIN 10.6 g/dL (12.0-18.0); LYMPH # 0.9 K/uL (1.0-4.3); LYMPH % 7.9 % (20.0-40.0); MEAN CELL VOLUME 94.9 fL (80.0-94.0); MEAN CORPUSCULAR HEMOGLOBIN 31.5 pg (27.0-31.0); MEAN CORPUSCULAR HGB CONC 33.1 g/dL (33.0-37.0); MEAN PLATELET VOLUME 10.5 fL (7.2-11.7); MONO # 0.9 K/uL (0.0-0.8); NEUT # 9.2 K/uL (1.8-7.0); NRBC % 0.5 % (0.0-2.0); PLATELET COUNT 189 K/uL (130-400); RBC 3.36 Mil/uL (4.40-5.90); RED CELL DISTRIBUTION WIDTH 14.7 % (11.5-14.5)
[2019-02-11 06:45] LABS: ALBUMIN 2.3 g/dL (3.5-5.0); ALT/SGPT 438 U/L (21-72); AST/SGOT 192 U/L (17-59); BLOOD UREA NITROGEN 40 mg/dL (9-20); CALCIUM 7.9 mg/dl (8.6-10.4); GFR NON-AFRICAN AMERICAN > 60
[2019-02-11] MEDS: Lactated Ringer's 1,000 ML IV SCH (07:01)
[2019-02-11] MEDS ORDERED: Potassium & Sodium Phosphate PO ONE (07:30)
[2019-02-11] MEDS ORDERED: Magnesium Sulfate 1 gm in D5W 1 GM/100 ML BAG IVPB ONE (08:00)
--- NOTE | 2019-02-11 08:04 | CP.CCUPN ---
<Jonn Palma - Last Filed: 02/11/19 10:26> CCU Subjective - Physician Review Subjective (Free Text): ICU Progress Note for Dr. Christensen Pt seen and examined at bedside this am. Currently on PRVC intubated, s/p hypothermic protocol finished yesterday. Unable to obtain ROS or HPI due to pt's current mental status. Otherwise no acute events reported overnight by staff. Febrile yesterday. CCU Objective - Vital Signs / Intake & Output Vital Signs (Last 4 hours): Vital Signs Pulse Resp BP Pulse Ox 02/11/19 07:20 100 H 18 94/49 L 100 02/11/19 07:00 99 H 18 99 02/11/19 06:50 99 H 18 94/50 L 99 02/11/19 06:21 98 H 18 100 02/11/19 06:00 96 H 18 100 02/11/19 05:51 93 H 18 95/51 L 100 02/11/19 05:47 93 H 18 100 02/11/19 05:21 99 H 18 88/44 L 100 02/11/19 05:12 102 H 18 99 02/11/19 05:00 104 H 18 98 02/11/19 04:51 108 H 18 99 02/11/19 04:28 110 H 18 86/44 L 96 02/11/19 04:21 108 H 18 85/43 L 97 Intake and Output (Last 8hrs): Intake & Output 02/10/19 02/11/19 02/11/19 22:59 06:59 14:59 Intake Total 710 1080.0 115 Output Total 320 380 30 Balance 390 700.0 85 Weight 119 lb 0.18 oz Intake: Intake, IV Amount 650 850.0 75 Right Forearm 450 650.0 50 Right Forearm Y-site 200 200 25 Tube Feeding 60 230 40 Output: Urine 320 380 30 Urethral (Riley) 320 380 30 - Physical Exam Head: Positive for: Atraumatic, Normocephalic Pupils: Positive for: Pinpoint Mouth: Positive for: Moist Mucous Membranes Respiratory/Chest: Positive for: Clear to Auscultation, Good Air Exchange. Negative for: Respiratory Distress, Accessory Muscle Use, Wheezes, Retracting, Rhonchi, Tachypneic Cardiovascular: Positive for: Normal S1, S2, Rub Abdomen: Positive for: Normal Bowel Sounds. Negative for: Tenderness, Distention, Peritoneal Signs Upper Extremity: Positive for: Normal Inspection Lower Extremity: Positive for: Normal Inspection Neurological: Positive for: Other (Pt intubated and sedated) Skin: Positive for: Warm Psychiatric: Negative for: Alert, Oriented x 3, Normal Insight - Medications Active Medications: Active Medications Generic Name Dose Route Start Last Admin Trade Name Freq PRN Reason Stop Dose Admin Acetaminophen 975 mg 02/10/19 14:30 02/10/19 14:28 Tylenol 650mg/20.3ml Solution Ud PO 975 mg Q4H PRN Administration Give for temp > 98.6 Albuterol/Ipratropium 3 ml 02/08/19 18:00 02/11/19 03:20 Duoneb 3 Mg/0.5 Mg (3 Ml) Ud INH 3 ml RQ4 JILL Administration Heparin Sodium (Porcine) 5,000 units 02/09/19 22:00 02/10/19 22:00 Heparin SC 5,000 units Q12 JILL Administration Aztreonam 2 gm/ Sodium 100 mls @ 100 mls/hr 02/09/19 11:00 02/11/19 03:00 Chloride IVPB 100 mls/hr Q8H JILL Administration Protocol Metronidazole 500 mg in 100 mls @ 100 mls/hr 02/09/19 12:00 02/11/19 04:00 Flagyl IVPB 100 mls/hr Q8H JILL Administration Protocol Vancomycin HCl 1,000 mg/ 250 mls @ 166.6 mls/hr 02/09/19 11:00 02/10/19 22:39 Sodium Chloride IVPB 166.6 mls/hr Q12H JILL Administration Protocol Propofol 1,000 mg in 100 mls @ 1.606 mls/hr 02/09/19 11:06 02/10/19 09:45 Diprivan IV 0 mcg/kg/min .Q24H PRN 0 mls/hr TITRATE PER MD ORDER Titration Protocol 5 MCG/KG/MIN Lactated Ringer's 1,000 mls @ 50 mls/hr 02/09/19 14:15 02/11/19 07:01 Lactated Ringer's IV 50 mls/hr .Q20H JILL Administration Dextrose 1,000 mls @ 25 mls/hr 02/09/19 14:15 02/11/19 07:02 Dextrose 5% In Water 1000 Ml IV 25 mls/hr .Q24H JILL Administration Magnesium Sulfate/Dextrose 1 gm in 100 mls @ 200 mls/hr 02/11/19 08:00 02/11/19 08:00 Magnesium Sulfate 1 Gm/100 Ml D5w IVPB 02/11/19 08:29 200 mls/hr ONCE ONE Administration Potassium Chloride 10 meq in 100 mls @ 100 mls/hr 02/11/19 08:00 02/11/19 08:00 Potassium Chloride 10 Meq/100 Ml IVPB 02/11/19 11:59 100 mls/hr Q1H JILL Administration Pantoprazole Sodium 40 mg 02/09/19 10:00 02/10/19 09:54 Protonix Inj IVP 40 mg DAILY JILL Administration - Patient Studies Lab Studies: Microbiology Studies 02/08/19 00:56 Blood Culture - Preliminary Blood-Venous NO GROWTH AFTER 48 HOURS 02/08/19 22:36 Blood Culture - Preliminary Blood-Venous NO GROWTH AFTER 48 HOURS 02/08/19 17:29 Blood Culture - Preliminary Blood NO GROWTH AFTER 48 HOURS 02/08/19 17:29 Blood Culture - Preliminary Blood NO GROWTH AFTER 48 HOURS 02/08/19 16:12 Urine Culture - Final Urine,Clean Catch Gram Negative Дмитрий 02/09/19 13:48 Gram Stain - Final Sputum Sputum Culture - Preliminary Gram Negative Дмитрий Yeast Species 02/09/19 05:47 Urine Culture - Final Urine,Riley No Growth (<1,000 CFU/ML) Lab Studies 02/11/19 02/11/19 02/11/19 Range/Units 06:15 06:15 05:24 WBC 11.0 H (4.8-10.8) K/uL RBC 3.36 L (4.40-5.90) Mil/uL Hgb 10.6 L (12.0-18.0) g/dL Hct 31.9 L (35.0-51.0) % MCV 94.9 H (80.0-94.0) fL MCH 31.5 H (27.0-31.0) pg MCHC 33.1 (33.0-37.0) g/dL RDW 14.7 H (11.5-14.5) % Plt Count 189 (130-400) K/uL MPV 10.5 (7.2-11.7) fL Neut % (Auto) 84.0 H (50.0-75.0) % Lymph % (Auto) 7.9 L (20.0-40.0) % [place] % (Auto) 8.0 (0.0-10.0) % Eos % (Auto) 0.0 (0.0-4.0) % Baso % (Auto) 0.1 (0.0-2.0) % Neut # (Auto) 9.2 H (1.8-7.0) K/uL Lymph # (Auto) 0.9 L (1.0-4.3) K/uL [place] # (Auto) 0.9 H (0.0-0.8) K/uL Eos # (Auto) 0.0 (0.0-0.7) K/uL Baso # (Auto) 0.0 (0.0-0.2) K/uL Puncture Site Rr pCO2 27 L (35-45) mm/Hg pO2 122 H (80-100) mm/Hg HCO3 26.0 (21-28) mmol/L ABG pH 7.54 H (7.35-7.45) ABG Total CO2 23.9 (22-28) mmol/L ABG O2 Saturation 99.3 H (95-98) % ABG Base Excess 1.3 (-2.0-3.0) mmol/L ABG Hemoglobin 10.7 L (11.7-17.4) g/dL ABG Carboxyhemoglobin 1.3 (0.5-1.5) % POC ABG HHb (Measured) 0.7 (0.0-5.0) % ABG Methemoglobin 0.8 (0.0-3.0) % Joseph Test Pos A-a O2 Difference 94.0 mm/Hg Respiratory Index 0.8 Hgb O2 Saturation 97.2 (95.0-98.0) % Vent Mode Prvc Mechanical Rate 18 FiO2 35.0 % Tidal Volume 500 PEEP 5 Sodium 142 (132-148) mmol/L Potassium 3.3 L (3.6-5.2) mmol/L Chloride 114 H (98-107) mmol/L Carbon Dioxide 23 (22-30) mmol/L Anion Gap 8 L (10-20) BUN 40 H (9-20) mg/dL Creatinine 1.0 (0.8-1.5) mg/dL Est GFR ( Amer) > 60 Est GFR (Non-Af Amer) > 60 POC Glucose (mg/dL) (65-110) mg/dL Random Glucose 127 H (75-110) mg/dL Calcium 7.9 L (8.6-10.4) mg/dl Phosphorus 2.2 L (2.5-4.5) mg/dL Magnesium 1.7 (1.6-2.3) mg/dL Total Bilirubin 0.3 (0.2-1.3) mg/dL AST 192 H D (17-59) U/L ALT 438 H D (21-72) U/L Alkaline Phosphatase 64 (38-126) U/L Total Protein 4.6 L (6.3-8.3) g/dL Albumin 2.3 L (3.5-5.0) g/dL Globulin 2.3 (2.2-3.9) gm/dL Albumin/Globulin Ratio 1.0 (1.0-2.1) Ur Opiates (GC/MS) (Negative) 300 Ur Methadone, Qual (Negative) 300 Urine Propoxyphene (Negative) 300 Methaqualone (Negative) 300 Ur Barbiturates, Qual (Negative) 300 Ur Phencyclidine (PCP) (Negative) 25 Ur Amphetamines Screen (Negative) 1000 U Benzodiazepines Qual (Negative) 300 Urine Cocaine (Negative) 300 U Marijuana (THC) Screen (Negative) 50 Drugs of Abuse Note 02/11/19 02/10/19 02/10/19 Range/Units 00:03 20:53 16:35 WBC (4.8-10.8) K/uL RBC (4.40-5.90) Mil/uL Hgb (12.0-18.0) g/dL Hct (35.0-51.0) % MCV (80.0-94.0) fL MCH (27.0-31.0) pg MCHC (33.0-37.0) g/dL RDW (11.5-14.5) % Plt Count (130-400) K/uL MPV (7.2-11.7) fL Neut % (Auto) (50.0-75.0) % Lymph % (Auto) (20.0-40.0) % [place] % (Auto) (0.0-10.0) % Eos % (Auto) (0.0-4.0) % Baso % (Auto) (0.0-2.0) % Neut # (Auto) (1.8-7.0) K/uL Lymph # (Auto) (1.0-4.3) K/uL [place] # (Auto) (0.0-0.8) K/uL Eos # (Auto) (0.0-0.7) K/uL Baso # (Auto) (0.0-0.2) K/uL Puncture Site pCO2 (35-45) mm/Hg pO2 (80-100) mm/Hg HCO3 (21-28) mmol/L ABG pH (7.35-7.45) ABG Total CO2 (22-28) mmol/L ABG O2 Saturation (95-98) % ABG Base Excess (-2.0-3.0) mmol/L ABG Hemoglobin (11.7-17.4) g/dL ABG Carboxyhemoglobin (0.5-1.5) % POC ABG HHb (Measured) (0.0-5.0) % ABG Methemoglobin (0.0-3.0) % Joseph Test A-a O2 Difference mm/Hg Respiratory Index Hgb O2 Saturation (95.0-98.0) % Vent Mode Mechanical Rate FiO2 % Tidal Volume PEEP Sodium (132-148) mmol/L Potassium (3.6-5.2) mmol/L Chloride (98-107) mmol/L Carbon Dioxide (22-30) mmol/L Anion Gap (10-20) BUN (9-20) mg/dL Creatinine (0.8-1.5) mg/dL Est GFR ( Amer) Est GFR (Non-Af Amer) POC Glucose (mg/dL) 154 H 158 H 180 H (65-110) mg/dL Random Glucose (75-110) mg/dL Calcium (8.6-10.4) mg/dl Phosphorus (2.5-4.5) mg/dL Magnesium (1.6-2.3) mg/dL Total Bilirubin (0.2-1.3) mg/dL AST (17-59) U/L ALT (21-72) U/L Alkaline Phosphatase (38-126) U/L Total Protein (6.3-8.3) g/dL Albumin (3.5-5.0) g/dL Globulin (2.2-3.9) gm/dL Albumin/Globulin Ratio (1.0-2.1) Ur Opiates (GC/MS) (Negative) 300 Ur Methadone, Qual (Negative) 300 Urine Propoxyphene (Negative) 300 Methaqualone (Negative) 300 Ur Barbiturates, Qual (Negative) 300 Ur Phencyclidine (PCP) (Negative) 25 Ur Amphetamines Screen (Negative) 1000 U Benzodiazepines Qual (Negative) 300 Urine Cocaine (Negative) 300 U Marijuana (THC) Screen (Negative) 50 Drugs of Abuse Note 02/10/19 02/10/19 02/09/19 Range/Units 11:28 07:32 12:23 WBC (4.8-10.8) K/uL RBC (4.40-5.90) Mil/uL Hgb (12.0-18.0) g/dL Hct (35.0-51.0) % MCV (80.0-94.0) fL MCH (27.0-31.0) pg MCHC (33.0-37.0) g/dL RDW (11.5-14.5) % Plt Count (130-400) K/uL MPV (7.2-11.7) fL Neut % (Auto) (50.0-75.0) % Lymph % (Auto) (20.0-40.0) % [place] % (Auto) (0.0-10.0) % Eos % (Auto) (0.0-4.0) % Baso % (Auto) (0.0-2.0) % Neut # (Auto) (1.8-7.0) K/uL Lymph # (Auto) (1.0-4.3) K/uL [place] # (Auto) (0.0-0.8) K/uL Eos # (Auto) (0.0-0.7) K/uL Baso # (Auto) (0.0-0.2) K/uL Puncture Site pCO2 (35-45) mm/Hg pO2 (80-100) mm/Hg HCO3 (21-28) mmol/L ABG pH (7.35-7.45) ABG Total CO2 (22-28) mmol/L ABG O2 Saturation (95-98) % ABG Base Excess (-2.0-3.0) mmol/L ABG Hemoglobin (11.7-17.4) g/dL ABG Carboxyhemoglobin (0.5-1.5) % POC ABG HHb (Measured) (0.0-5.0) % ABG Methemoglobin (0.0-3.0) % Joseph Test A-a O2 Difference mm/Hg Respiratory Index Hgb O2 Saturation (95.0-98.0) % Vent Mode Mechanical Rate FiO2 % Tidal Volume PEEP Sodium (132-148) mmol/L Potassium (3.6-5.2) mmol/L Chloride (98-107) mmol/L Carbon Dioxide (22-30) mmol/L Anion Gap (10-20) BUN (9-20) mg/dL Creatinine (0.8-1.5) mg/dL Est GFR ( Amer) Est GFR (Non-Af Amer) POC Glucose (mg/dL) 138 H 117 H (65-110) mg/dL Random Glucose (75-110) mg/dL Calcium (8.6-10.4) mg/dl Phosphorus (2.5-4.5) mg/dL Magnesium (1.6-2.3) mg/dL Total Bilirubin (0.2-1.3) mg/dL AST (17-59) U/L ALT (21-72) U/L Alkaline Phosphatase (38-126) U/L Total Protein (6.3-8.3) g/dL Albumin (3.5-5.0) g/dL Globulin (2.2-3.9) gm/dL Albumin/Globulin Ratio (1.0-2.1) Ur Opiates (GC/MS) Negative (Negative) 300 Ur Methadone, Qual Negative (Negative) 300 Urine Propoxyphene Negative (Negative) 300 Methaqualone Negative (Negative) 300 Ur Barbiturates, Qual Negative (Negative) 300 Ur Phencyclidine (PCP) Negative (Negative) 25 Ur Amphetamines Screen Negative (Negative) 1000 U Benzodiazepines Qual Negative (Negative) 300 Urine Cocaine Negative (Negative) 300 U Marijuana (THC) Screen Negative (Negative) 50 Drugs of Abuse Note See note Laboratory Results - last 24 hr 02/09/19 02/10/19 02/10/19 12:23 07:32 11:28 WBC RBC Hgb Hct MCV MCH MCHC RDW Plt Count MPV Neut % (Auto) Lymph % (Auto) [place] % (Auto) Eos % (Auto) Baso % (Auto) Neut # (Auto) Lymph # (Auto) [place] # (Auto) Eos # (Auto) Baso # (Auto) Puncture Site pCO2 pO2 HCO3 ABG pH ABG Total CO2 ABG O2 Saturation ABG Base Excess ABG Hemoglobin ABG Carboxyhemoglobin POC ABG HHb (Measured) ABG Methemoglobin Joseph Test A-a O2 Difference Respiratory Index Hgb O2 Saturation Vent Mode Mechanical Rate FiO2 Tidal Volume PEEP Sodium Potassium Chloride Carbon Dioxide Anion Gap BUN Creatinine Est GFR ( Amer) Est GFR (Non-Af Amer) POC Glucose (mg/dL) 117 H 138 H Random Glucose Calcium Phosphorus Magnesium Total Bilirubin AST ALT Alkaline Phosphatase Total Protein Albumin Globulin Albumin/Globulin Ratio Ur Opiates (GC/MS) Negative Ur Methadone, Qual Negative Urine Propoxyphene Negative Methaqualone Negative Ur Barbiturates, Qual Negative Ur Phencyclidine (PCP) Negative Ur Amphetamines Screen Negative U Benzodiazepines Qual Negative Urine Cocaine Negative U Marijuana (THC) Screen Negative Drugs of Abuse Note See note 02/10/19 02/10/19 02/11/19 16:35 20:53 00:03 WBC RBC Hgb Hct MCV MCH MCHC RDW Plt Count MPV Neut % (Auto) Lymph % (Auto) [place] % (Auto) Eos % (Auto) Baso % (Auto) Neut # (Auto) Lymph # (Auto) [place] # (Auto) Eos # (Auto) Baso # (Auto) Puncture Site pCO2 pO2 HCO3 ABG pH ABG Total CO2 ABG O2 Saturation ABG Base Excess ABG Hemoglobin ABG Carboxyhemoglobin POC ABG HHb (Measured) ABG Methemoglobin Joseph Test A-a O2 Difference Respiratory Index Hgb O2 Saturation Vent Mode Mechanical Rate FiO2 Tidal Volume PEEP Sodium Potassium Chloride Carbon Dioxide Anion Gap BUN Creatinine Est GFR ( Amer) Est GFR (Non-Af Amer) POC Glucose (mg/dL) 180 H 158 H 154 H Random Glucose Calcium Phosphorus Magnesium Total Bilirubin AST ALT Alkaline Phosphatase Total Protein Albumin Globulin Albumin/Globulin Ratio Ur Opiates (GC/MS) Ur Methadone, Qual Urine Propoxyphene Methaqualone Ur Barbiturates, Qual Ur Phencyclidine (PCP) Ur Amphetamines Screen U Benzodiazepines Qual Urine Cocaine U Marijuana (THC) Screen Drugs of Abuse Note 02/11/19 02/11/19 02/11/19 05:24 06:15 06:15 WBC 11.0 H RBC 3.36 L Hgb 10.6 L Hct 31.9 L MCV 94.9 H MCH 31.5 H MCHC 33.1 RDW 14.7 H Plt Count 189 MPV 10.5 Neut % (Auto) 84.0 H Lymph % (Auto) 7.9 L [place] % (Auto) 8.0 Eos % (Auto) 0.0 Baso % (Auto) 0.1 Neut # (Auto) 9.2 H Lymph # (Auto) 0.9 L [place] # (Auto) 0.9 H Eos # (Auto) 0.0 Baso # (Auto) 0.0 Puncture Site Rr pCO2 27 L pO2 122 H HCO3 26.0 ABG pH 7.54 H ABG Total CO2 23.9 ABG O2 Saturation 99.3 H ABG Base Excess 1.3 ABG Hemoglobin 10.7 L ABG Carboxyhemoglobin 1.3 POC ABG HHb (Measured) 0.7 ABG Methemoglobin 0.8 Joseph Test Pos A-a O2 Difference 94.0 Respiratory Index 0.8 Hgb O2 Saturation 97.2 Vent Mode Prvc Mechanical Rate 18 FiO2 35.0 Tidal Volume 500 PEEP 5 Sodium 142 Potassium 3.3 L Chloride 114 H Carbon Dioxide 23 Anion Gap 8 L BUN 40 H Creatinine 1.0 Est GFR ( Amer) > 60 Est GFR (Non-Af Amer) > 60 POC Glucose (mg/dL) Random Glucose 127 H Calcium 7.9 L Phosphorus 2.2 L Magnesium 1.7 Total Bilirubin 0.3 AST 192 H D ALT 438 H D Alkaline Phosphatase 64 Total Protein 4.6 L Albumin 2.3 L Globulin 2.3 Albumin/Globulin Ratio 1.0 Ur Opiates (GC/MS) Ur Methadone, Qual Urine Propoxyphene Methaqualone Ur Barbiturates, Qual Ur Phencyclidine (PCP) Ur Amphetamines Screen U Benzodiazepines Qual Urine Cocaine U Marijuana (THC) Screen Drugs of Abuse Note Radiology Impressions: Radiology Impressions Chest X-Ray 02/10/19 07:00 IMPRESSION: No active disease. Head CT 02/10/19 09:42 IMPRESSION: No acute intracranial abnormalities. No significant findings to account for the clinical presentation. No significant interval change compared to the prior examination(s). EKG/Cardiology Studies: Cardiology / EKG Studies 02/10/19 22:45 ELECTROCARDIOGRAM DAILY Comment: Mode Of Transportation: PORTABLE Reason For Exam: s/p arrest 02/11/19 22:45 ELECTROCARDIOGRAM DAILY Comment: Mode Of Transportation: PORTABLE Reason For Exam: s/p arrest Fingerstick Blood Sugar Results: 144 Review of Systems - Review of Systems Systems not reviewed;Unavailable: Intubated Critical Care Progress Note - Nutrition Nutrition: Nutrition Category Date Time Status NPO Diet [DIET] Diets 02/09/19 Breakfast Active Assessment/Plan - Assessment and Plan (Free Text) Assessment: 73 y o male with PMhx HLD, gastritis, ?COPD, MS, and dysphagia who presented to the ED with c/o dysphagia x6 days. Code Blue was called on 02/08/19 for pt unresponsive on floor, initial rhythm asystole, CPR initiated, shock x1 give, epi x2 was given, pt was intubated. ROSC achieved 12 mins later, pt required pressor therapy and was transferred to ICU. Rhythm after ROSC was achieved was rapid A-fib which later converted to NSR. Pt currently on Levophed drip, s/p therapeutic hypothermic protocol s/p cardiac arrest. Tube feeds resumed yesterday. Pt currently Full Code status. Plan: Neuro: -Intubated on PRVC, Propofol sedation held Pt currently nonverbal and nonresponsive on exam, pupils pinpoint on exam -CT head on admission: no acute intracranial abnormality, chronic microvascular ischemic changes, sinus mucosal disease -Repeat head CT ordered for this am, f/u results -Neurology consulted for anoxia (Dr. 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 ROSC achieved 12 mins later, pt required pressor therapy and was transferred to ICU. Rhythm after ROSC was achieved was rapid A-fib which later converted to NSR -Levophed drip d/c'd, s/p therapeutic hypothermic protocol s/p cardiac arrest -A-line d/c'd -Most recent EKG demonstrates NSR -Troponin trend: 0.03 => 0.06 => 0.04 => 0.01 => 0.03 -CK 878 -TSH wnl -Pending palliative care consult re. goals of care Pulm: -Currently on PRVC, 12/04, FiO2 35 -Most recent ABG this am 7.54/27/122/26 -Lactate trend 9.5 (02/08) => 1.7 (02/10) -C/w pulm toilet -Rapid flu neg -Utox neg -Sputum cx 02/09 positive for gram-neg дмитрий, yeast species; currently on anbx therapy -Hx COPD Duonebs q4h GI: -Dysphagia, may be neurogenic in etiology 2/2 chronic dx of MS vs. ALS?, unable to assess currently 2/2 intubation status -Failure to thrive Per family pt has lost about 50 lbs since Oct 2018, was on pureed diet at home -Tube feeds restarted after hypothermic protocol is completed, Jevity 1.5 initiate rate at 20 mls/hr titrate to goal rate of 45 mls/hr -IVF, NPO -Protonix IVP daily -Transaminitis likely 2/2 shock liver 2/2 cardiac arrest, cont to trend, trending down currently -GI (Dr. Knight) consulted, recs appreciated -Prior EGD 11/2018 as per pt's daughter demonstrated findings of gastritis Heme: -H/H 11.5/38.2 -Leukocytosis stable, cont to monitor ID: -Possible aspiration -Recent CXR demonstrates no active disease -Vanco/Aztreonam/Flagyl -Leukocytosis stable -Tachycardic -S/p Hypothermic protocol -Sputum, blood, urine cxs ordered -Sputum cx 02/09 positive for gram-neg дмитрий, yeast species -Febrile to Tmax 100.8, may be 2/2 rewarming 2/2 hypothermic protocol, cont to trend -Tylenol prn for fevers Renal: -Currently has Riley in place -Trend I's/O's -BUN/Cr 40/1.0, cont to monitor -Urine cx 02/08 pos for gram neg дмитрий PPX: -SCD, Heparin q12h -Protonix Pt seen, examined with, and plan discussed with Dr. Christensen, attending physician. Jonn Palma DO PGY-1, Social Work Professor Pager #[phone] <Spencer Christensen - Last Filed: 02/11/19 17:14> CCU Subjective - Physician Review Critical Care Time Spent (in minutes): 35 CCU Objective - Vital Signs / Intake & Output Vital Signs (Last 4 hours): Vital Signs Temp Pulse Resp BP Pulse Ox 02/11/19 16:00 99.6 F 103 H 12 99 02/11/19 15:51 105 H 13 141/74 99 02/11/19 15:21 103 H 12 137/72 99 02/11/19 15:00 103 H 12 99 02/11/19 14:51 103 H 13 139/72 99 02/11/19 14:21 104 H 12 140/72 99 02/11/19 14:00 105 H 12 100 02/11/19 13:51 105 H 12 140/65 100 02/11/19 13:21 106 H 13 133/68 100 Intake and Output (Last 8hrs): Intake & Output 02/11/19 02/11/19 02/11/19 06:59 14:59 22:59 Intake Total 1080.0 2661.3 230 Output Total 380 145 265 Balance 700.0 2516.3 -35 Weight 119 lb 0.18 oz Intake: Intake, IV Amount 850.0 2291.3 150 Right Forearm 650.0 650 100 Right Forearm Y-site 200 1641.3 50 Tube Feeding 230 320 80 Other 50 Output: Urine 380 145 265 Urethral (Riley) 380 145 265 Other: # Bowel Movements 0 0 - Medications Active Medications: Active Medications Generic Name Dose Route Start Last Admin Trade Name Freq PRN Reason Stop Dose Admin Acetaminophen 650 mg 02/11/19 12:32 Tylenol 650mg/20.3ml Solution Ud PO Q6H PRN Temperature Albuterol/Ipratropium 3 ml 02/08/19 18:00 02/11/19 16:03 Duoneb 3 Mg/0.5 Mg (3 Ml) Ud INH 3 ml RQ4 JILL Administration Heparin Sodium (Porcine) 5,000 units 02/09/19 22:00 02/11/19 09:32 Heparin SC 5,000 units Q12 JILL Administration Aztreonam 2 gm/ Sodium 100 mls @ 100 mls/hr 02/09/19 11:00 02/11/19 10:31 Chloride IVPB 100 mls/hr Q8H JILL Administration Protocol Metronidazole 500 mg in 100 mls @ 100 mls/hr 02/09/19 12:00 02/11/19 12:18 Flagyl IVPB 100 mls/hr Q8H JILL Administration Protocol Vancomycin HCl 1,000 mg/ 250 mls @ 166.6 mls/hr 02/09/19 11:00 02/11/19 10:38 Sodium Chloride IVPB 166.6 mls/hr Q12H JILL Administration Protocol Propofol 1,000 mg in 100 mls @ 1.606 mls/hr 02/09/19 11:06 02/10/19 09:45 Diprivan IV 0 mcg/kg/min .Q24H PRN 0 mls/hr TITRATE PER MD ORDER Titration Protocol 5 MCG/KG/MIN Lactated Ringer's 1,000 mls @ 50 mls/hr 02/09/19 14:15 02/11/19 07:01 Lactated Ringer's IV 50 mls/hr .Q20H JILL Administration Dextrose 1,000 mls @ 25 mls/hr 02/09/19 14:15 02/11/19 14:27 Dextrose 5% In Water 1000 Ml IV Not Given .Q24H JILL Pantoprazole Sodium 40 mg 02/09/19 10:00 02/11/19 09:32 Protonix Inj IVP 40 mg DAILY JILL Administration - Patient Studies Lab Studies: Microbiology Studies 02/09/19 13:48 Gram Stain - Final Sputum Sputum Culture - Final Enterobacter Cloacae Ssp Cloac Yeast Species 02/08/19 00:56 Blood Culture - Preliminary Blood-Venous NO GROWTH AFTER 48 HOURS 02/08/19 22:36 Blood Culture - Preliminary Blood-Venous NO GROWTH AFTER 48 HOURS 02/08/19 17:29 Blood Culture - Preliminary Blood NO GROWTH AFTER 48 HOURS 02/08/19 17:29 Blood Culture - Preliminary Blood NO GROWTH AFTER 48 HOURS Lab Studies 02/11/19 02/11/19 02/11/19 Range/Units 06:15 06:15 05:24 WBC 11.0 H (4.8-10.8) K/uL RBC 3.36 L (4.40-5.90) Mil/uL Hgb 10.6 L (12.0-18.0) g/dL Hct 31.9 L (35.0-51.0) % MCV 94.9 H (80.0-94.0) fL MCH 31.5 H (27.0-31.0) pg MCHC 33.1 (33.0-37.0) g/dL RDW 14.7 H (11.5-14.5) % Plt Count 189 (130-400) K/uL MPV 10.5 (7.2-11.7) fL Neut % (Auto) 84.0 H (50.0-75.0) % Lymph % (Auto) 7.9 L (20.0-40.0) % [place] % (Auto) 8.0 (0.0-10.0) % Eos % (Auto) 0.0 (0.0-4.0) % Baso % (Auto) 0.1 (0.0-2.0) % Neut # (Auto) 9.2 H (1.8-7.0) K/uL Lymph # (Auto) 0.9 L (1.0-4.3) K/uL [place] # (Auto) 0.9 H (0.0-0.8) K/uL Eos # (Auto) 0.0 (0.0-0.7) K/uL Baso # (Auto) 0.0 (0.0-0.2) K/uL Neutrophils % (Manual) 83 H (50-75) % Band Neutrophils % 5 H (0-2) % Lymphocytes % (Manual) 7 L (20-40) % Monocytes % (Manual) 5 (0-10) % Toxic Granulation Present Platelet Estimate Normal (NORMAL) Large Platelets Present Poikilocytosis (manual Slight Puncture Site Rr pCO2 27 L (35-45) mm/Hg pO2 122 H (80-100) mm/Hg HCO3 26.0 (21-28) mmol/L ABG pH 7.54 H (7.35-7.45) ABG Total CO2 23.9 (22-28) mmol/L ABG O2 Saturation 99.3 H (95-98) % ABG Base Excess 1.3 (-2.0-3.0) mmol/L ABG Hemoglobin 10.7 L (11.7-17.4) g/dL ABG Carboxyhemoglobin 1.3 (0.5-1.5) % POC ABG HHb (Measured) 0.7 (0.0-5.0) % ABG Methemoglobin 0.8 (0.0-3.0) % Joseph Test Pos A-a O2 Difference 94.0 mm/Hg Respiratory Index 0.8 Hgb O2 Saturation 97.2 (95.0-98.0) % Vent Mode Prvc Mechanical Rate 18 FiO2 35.0 % Tidal Volume 500 PEEP 5 Sodium 142 (132-148) mmol/L Potassium 3.3 L (3.6-5.2) mmol/L Chloride 114 H (98-107) mmol/L Carbon Dioxide 23 (22-30) mmol/L Anion Gap 8 L (10-20) BUN 40 H (9-20) mg/dL Creatinine 1.0 (0.8-1.5) mg/dL Est GFR ( Amer) > 60 Est GFR (Non-Af Amer) > 60 POC Glucose (mg/dL) (65-110) mg/dL Random Glucose 127 H (75-110) mg/dL Calcium 7.9 L (8.6-10.4) mg/dl Phosphorus 2.2 L (2.5-4.5) mg/dL Magnesium 1.7 (1.6-2.3) mg/dL Total Bilirubin 0.3 (0.2-1.3) mg/dL AST 192 H D (17-59) U/L ALT 438 H D (21-72) U/L Alkaline Phosphatase 64 (38-126) U/L Total Protein 4.6 L (6.3-8.3) g/dL Albumin 2.3 L (3.5-5.0) g/dL Globulin 2.3 (2.2-3.9) gm/dL Albumin/Globulin Ratio 1.0 (1.0-2.1) Ur Opiates (GC/MS) (Negative) 300 Ur Methadone, Qual (Negative) 300 Urine Propoxyphene (Negative) 300 Methaqualone (Negative) 300 Ur Barbiturates, Qual (Negative) 300 Ur Phencyclidine (PCP) (Negative) 25 Ur Amphetamines Screen (Negative) 1000 U Benzodiazepines Qual (Negative) 300 Urine Cocaine (Negative) 300 U Marijuana (THC) Screen (Negative) 50 Drugs of Abuse Note 02/11/19 02/11/19 02/10/19 Range/Units 04:35 00:03 20:53 WBC (4.8-10.8) K/uL RBC (4.40-5.90) Mil/uL Hgb (12.0-18.0) g/dL Hct (35.0-51.0) % MCV (80.0-94.0) fL MCH (27.0-31.0) pg MCHC (33.0-37.0) g/dL RDW (11.5-14.5) % Plt Count (130-400) K/uL MPV (7.2-11.7) fL Neut % (Auto) (50.0-75.0) % Lymph % (Auto) (20.0-40.0) % [place] % (Auto) (0.0-10.0) % Eos % (Auto) (0.0-4.0) % Baso % (Auto) (0.0-2.0) % Neut # (Auto) (1.8-7.0) K/uL Lymph # (Auto) (1.0-4.3) K/uL [place] # (Auto) (0.0-0.8) K/uL Eos # (Auto) (0.0-0.7) K/uL Baso # (Auto) (0.0-0.2) K/uL Neutrophils % (Manual) (50-75) % Band Neutrophils % (0-2) % Lymphocytes % (Manual) (20-40) % Monocytes % (Manual) (0-10) % Toxic Granulation Platelet Estimate (NORMAL) Large Platelets Poikilocytosis (manual Puncture Site pCO2 (35-45) mm/Hg pO2 (80-100) mm/Hg HCO3 (21-28) mmol/L ABG pH (7.35-7.45) ABG Total CO2 (22-28) mmol/L ABG O2 Saturation (95-98) % ABG Base Excess (-2.0-3.0) mmol/L ABG Hemoglobin (11.7-17.4) g/dL ABG Carboxyhemoglobin (0.5-1.5) % POC ABG HHb (Measured) (0.0-5.0) % ABG Methemoglobin (0.0-3.0) % Joseph Test A-a O2 Difference mm/Hg Respiratory Index Hgb O2 Saturation (95.0-98.0) % Vent Mode Mechanical Rate FiO2 % Tidal Volume PEEP Sodium (132-148) mmol/L Potassium (3.6-5.2) mmol/L Chloride (98-107) mmol/L Carbon Dioxide (22-30) mmol/L Anion Gap (10-20) BUN (9-20) mg/dL Creatinine (0.8-1.5) mg/dL Est GFR ( Amer) Est GFR (Non-Af Amer) POC Glucose (mg/dL) 144 H 154 H 158 H (65-110) mg/dL Random Glucose (75-110) mg/dL Calcium (8.6-10.4) mg/dl Phosphorus (2.5-4.5) mg/dL Magnesium (1.6-2.3) mg/dL Total Bilirubin (0.2-1.3) mg/dL AST (17-59) U/L ALT (21-72) U/L Alkaline Phosphatase (38-126) U/L Total Protein (6.3-8.3) g/dL Albumin (3.5-5.0) g/dL Globulin (2.2-3.9) gm/dL Albumin/Globulin Ratio (1.0-2.1) Ur Opiates (GC/MS) (Negative) 300 Ur Methadone, Qual (Negative) 300 Urine Propoxyphene (Negative) 300 Methaqualone (Negative) 300 Ur Barbiturates, Qual (Negative) 300 Ur Phencyclidine (PCP) (Negative) 25 Ur Amphetamines Screen (Negative) 1000 U Benzodiazepines Qual (Negative) 300 Urine Cocaine (Negative) 300 U Marijuana (THC) Screen (Negative) 50 Drugs of Abuse Note 02/09/19 Range/Units 12:23 WBC (4.8-10.8) K/uL RBC (4.40-5.90) Mil/uL Hgb (12.0-18.0) g/dL Hct (35.0-51.0) % MCV (80.0-94.0) fL MCH (27.0-31.0) pg MCHC (33.0-37.0) g/dL RDW (11.5-14.5) % Plt Count (130-400) K/uL MPV (7.2-11.7) fL Neut % (Auto) (50.0-75.0) % Lymph % (Auto) (20.0-40.0) % [place] % (Auto) (0.0-10.0) % Eos % (Auto) (0.0-4.0) % Baso % (Auto) (0.0-2.0) % Neut # (Auto) (1.8-7.0) K/uL Lymph # (Auto) (1.0-4.3) K/uL [place] # (Auto) (0.0-0.8) K/uL Eos # (Auto) (0.0-0.7) K/uL Baso # (Auto) (0.0-0.2) K/uL Neutrophils % (Manual) (50-75) % Band Neutrophils % (0-2) % Lymphocytes % (Manual) (20-40) % Monocytes % (Manual) (0-10) % Toxic Granulation Platelet Estimate (NORMAL) Large Platelets Poikilocytosis (manual Puncture Site pCO2 (35-45) mm/Hg pO2 (80-100) mm/Hg HCO3 (21-28) mmol/L ABG pH (7.35-7.45) ABG Total CO2 (22-28) mmol/L ABG O2 Saturation (95-98) % ABG Base Excess (-2.0-3.0) mmol/L ABG Hemoglobin (11.7-17.4) g/dL ABG Carboxyhemoglobin (0.5-1.5) % POC ABG HHb (Measured) (0.0-5.0) % ABG Methemoglobin (0.0-3.0) % Joseph Test A-a O2 Difference mm/Hg Respiratory Index Hgb O2 Saturation (95.0-98.0) % Vent Mode Mechanical Rate FiO2 % Tidal Volume PEEP Sodium (132-148) mmol/L Potassium (3.6-5.2) mmol/L Chloride (98-107) mmol/L Carbon Dioxide (22-30) mmol/L Anion Gap (10-20) BUN (9-20) mg/dL Creatinine (0.8-1.5) mg/dL Est GFR ( Amer) Est GFR (Non-Af Amer) POC Glucose (mg/dL) (65-110) mg/dL Random Glucose (75-110) mg/dL Calcium (8.6-10.4) mg/dl Phosphorus (2.5-4.5) mg/dL Magnesium (1.6-2.3) mg/dL Total Bilirubin (0.2-1.3) mg/dL AST (17-59) U/L ALT (21-72) U/L Alkaline Phosphatase (38-126) U/L Total Protein (6.3-8.3) g/dL Albumin (3.5-5.0) g/dL Globulin (2.2-3.9) gm/dL Albumin/Globulin Ratio (1.0-2.1) Ur Opiates (GC/MS) Negative (Negative) 300 Ur Methadone, Qual Negative (Negative) 300 Urine Propoxyphene Negative (Negative) 300 Methaqualone Negative (Negative) 300 Ur Barbiturates, Qual Negative (Negative) 300 Ur Phencyclidine (PCP) Negative (Negative) 25 Ur Amphetamines Screen Negative (Negative) 1000 U Benzodiazepines Qual Negative (Negative) 300 Urine Cocaine Negative (Negative) 300 U Marijuana (THC) Screen Negative (Negative) 50 Drugs of Abuse Note See note Laboratory Results - last 24 hr 02/09/19 02/10/19 02/11/19 12:23 20:53 00:03 WBC RBC Hgb Hct MCV MCH MCHC RDW Plt Count MPV Neut % (Auto) Lymph % (Auto) [place] % (Auto) Eos % (Auto) Baso % (Auto) Neut # (Auto) Lymph # (Auto) [place] # (Auto) Eos # (Auto) Baso # (Auto) Neutrophils % (Manual) Band Neutrophils % Lymphocytes % (Manual) Monocytes % (Manual) Toxic Granulation Platelet Estimate Large Platelets Poikilocytosis (manual Puncture Site pCO2 pO2 HCO3 ABG pH ABG Total CO2 ABG O2 Saturation ABG Base Excess ABG Hemoglobin ABG Carboxyhemoglobin POC ABG HHb (Measured) ABG Methemoglobin Joseph Test A-a O2 Difference Respiratory Index Hgb O2 Saturation Vent Mode Mechanical Rate FiO2 Tidal Volume PEEP Sodium Potassium Chloride Carbon Dioxide Anion Gap BUN Creatinine Est GFR ( Amer) Est GFR (Non-Af Amer) POC Glucose (mg/dL) 158 H 154 H Random Glucose Calcium Phosphorus Magnesium Total Bilirubin AST ALT Alkaline Phosphatase Total Protein Albumin Globulin Albumin/Globulin Ratio Ur Opiates (GC/MS) Negative Ur Methadone, Qual Negative Urine Propoxyphene Negative Methaqualone Negative Ur Barbiturates, Qual Negative Ur Phencyclidine (PCP) Negative Ur Amphetamines Screen Negative U Benzodiazepines Qual Negative Urine Cocaine Negative U Marijuana (THC) Screen Negative Drugs of Abuse Note See note 02/11/19 02/11/19 02/11/19 04:35 05:24 06:15 WBC 11.0 H RBC 3.36 L Hgb 10.6 L Hct 31.9 L MCV 94.9 H MCH 31.5 H MCHC 33.1 RDW 14.7 H Plt Count 189 MPV 10.5 Neut % (Auto) 84.0 H Lymph % (Auto) 7.9 L [place] % (Auto) 8.0 Eos % (Auto) 0.0 Baso % (Auto) 0.1 Neut # (Auto) 9.2 H Lymph # (Auto) 0.9 L [place] # (Auto) 0.9 H Eos # (Auto) 0.0 Baso # (Auto) 0.0 Neutrophils % (Manual) 83 H Band Neutrophils % 5 H Lymphocytes % (Manual) 7 L Monocytes % (Manual) 5 Toxic Granulation Present Platelet Estimate Normal Large Platelets Present Poikilocytosis (manual Slight Puncture Site Rr pCO2 27 L pO2 122 H HCO3 26.0 ABG pH 7.54 H ABG Total CO2 23.9 ABG O2 Saturation 99.3 H ABG Base Excess 1.3 ABG Hemoglobin 10.7 L ABG Carboxyhemoglobin 1.3 POC ABG HHb (Measured) 0.7 ABG Methemoglobin 0.8 Joseph Test Pos A-a O2 Difference 94.0 Respiratory Index 0.8 Hgb O2 Saturation 97.2 Vent Mode Prvc Mechanical Rate 18 FiO2 35.0 Tidal Volume 500 PEEP 5 Sodium Potassium Chloride Carbon Dioxide Anion Gap BUN Creatinine Est GFR ( Amer) Est GFR (Non-Af Amer) POC Glucose (mg/dL) 144 H Random Glucose Calcium Phosphorus Magnesium Total Bilirubin AST ALT Alkaline Phosphatase Total Protein Albumin Globulin Albumin/Globulin Ratio Ur Opiates (GC/MS) Ur Methadone, Qual Urine Propoxyphene Methaqualone Ur Barbiturates, Qual Ur Phencyclidine (PCP) Ur Amphetamines Screen U Benzodiazepines Qual Urine Cocaine U Marijuana (THC) Screen Drugs of Abuse Note 02/11/19 06:15 WBC RBC Hgb Hct MCV MCH MCHC RDW Plt Count MPV Neut % (Auto) Lymph % (Auto) [place] % (Auto) Eos % (Auto) Baso % (Auto) Neut # (Auto) Lymph # (Auto) [place] # (Auto) Eos # (Auto) Baso # (Auto) Neutrophils % (Manual) Band Neutrophils % Lymphocytes % (Manual) Monocytes % (Manual) Toxic Granulation Platelet Estimate Large Platelets Poikilocytosis (manual Puncture Site pCO2 pO2 HCO3 ABG pH ABG Total CO2 ABG O2 Saturation ABG Base Excess ABG Hemoglobin ABG Carboxyhemoglobin POC ABG HHb (Measured) ABG Methemoglobin Joseph Test A-a O2 Difference Respiratory Index Hgb O2 Saturation Vent Mode Mechanical Rate FiO2 Tidal Volume PEEP Sodium 142 Potassium 3.3 L Chloride 114 H Carbon Dioxide 23 Anion Gap 8 L BUN 40 H Creatinine 1.0 Est GFR ( Amer) > 60 Est GFR (Non-Af Amer) > 60 POC Glucose (mg/dL) Random Glucose 127 H Calcium 7.9 L Phosphorus 2.2 L Magnesium 1.7 Total Bilirubin 0.3 AST 192 H D ALT 438 H D Alkaline Phosphatase 64 Total Protein 4.6 L Albumin 2.3 L Globulin 2.3 Albumin/Globulin Ratio 1.0 Ur Opiates (GC/MS) Ur Methadone, Qual Urine Propoxyphene Methaqualone Ur Barbiturates, Qual Ur Phencyclidine (PCP) Ur Amphetamines Screen U Benzodiazepines Qual Urine Cocaine U Marijuana (THC) Screen Drugs of Abuse Note Radiology Impressions: Radiology Impressions Head CT 02/10/19 09:42 IMPRESSION: No acute intracranial abnormalities. No significant findings to account for the clinical presentation. No significant interval change compared to the prior examination(s). EKG/Cardiology Studies: Cardiology / EKG Studies 02/10/19 22:45 ELECTROCARDIOGRAM DAILY Comment: Mode Of Transportation: PORTABLE Reason For Exam: s/p arrest 02/11/19 22:45 ELECTROCARDIOGRAM DAILY Comment: Mode Of Transportation: PORTABLE Reason For Exam: s/p arrest Critical Care Progress Note - Nutrition Nutrition: Nutrition Category Date Time Status NPO Diet [DIET] Diets 02/09/19 Breakfast Active Attending/Attestation - Attestation I have personally seen and examined this patient.: Yes I have fully participated in the care of the patient.: Yes I have reviewed all pertinent clinical information: Yes Notes (Text): 02/11/19 17:14 Patient seen and examined in the intensive care unit. Patient remained intubated on ventilatory support with no response to painful stimuli Triggering of ventilator noted Follow-up EEG For MRI of head tomorrow Continue present treatment for now
[2019-02-11 08:50] LABS: BANDS 5 % (0-2); LYMPHOCYTE 7 % (20-40); MONOCYTE 5 % (0-10); NEUTROPHIL 83 % (50-75); PLATELET ESTIMATE NORMAL (NORMAL); TOTAL CELLS COUNTED 100
[2019-02-11 08:52] LABS: LARGE PLATELETS PRESENT; POIKILOCYTOSIS SLIGHT; TOXIC GRANULATION PRESENT
--- NOTE | 2019-02-11 09:46 | CP.PCM.PN ---
Subjective - Date & Time of Evaluation Date of Evaluation: 02/11/19 Time of Evaluation: 09:30 - Subjective Subjective: Patient was non responsive stimuli and non verbal to voice On exam he has bilateral pinpoint pupils, No respond to light He has been off of the propofol for almost 24 hrs now. He remains intubated on PRVC settings Pending MRI, MRA at this time however would have to go to [place] for this since currently ventilated Pending EEG this morning As mentioned previously he had an [employer] on 02/08 that immediately became a CODE BLUE due to developing asystole. He required epnephrine x 2 and IVF and required at least one shock. He had atrial fibrillation that later became sinus and was brought to the ICU on pressor medications. He came with severe dysphagia that had been going on for 6 days. There is concern he has multiple sclerosis and he was observed by family to have a slowly have more trouble eating and required a pureed diet. This recent week he was noticed by family to have inability to swallow, coughing, and respiratory distress. Per notes, the patient was [place] go [place] but due to weakness came here. Objective - Vital Signs/Intake and Output Vital Signs (last 24 hours): Temp Pulse Resp BP Pulse Ox 97.6 F 102 H 18 108/55 L 100 02/11/19 08:00 02/11/19 09:21 02/11/19 09:21 02/11/19 09:21 02/11/19 09:21 Intake and Output: 02/11/19 02/11/19 06:59 18:59 Intake Total 1490.0 570 Output Total 550 115 Balance 940.0 455 - Medications Medications: Current Medications Acetaminophen (Tylenol 650mg/20.3ml Solution Ud) 975 mg PO Q4H PRN PRN Reason: Give for temp > 98.6 Last Admin: 02/10/19 14:28 Dose: 975 mg Albuterol/Ipratropium (Duoneb 3 Mg/0.5 Mg (3 Ml) Ud) 3 ml INH RQ4 JILL Last Admin: 02/11/19 08:10 Dose: Not Given Heparin Sodium (Porcine) (Heparin) 5,000 units SC Q12 JILL Last Admin: 02/11/19 09:32 Dose: 5,000 units Aztreonam 2 gm/ Sodium (Chloride) 100 mls @ 100 mls/hr IVPB Q8H JILL; Protocol Last Admin: 02/11/19 03:00 Dose: 100 mls/hr Metronidazole (Flagyl) 500 mg in 100 mls @ 100 mls/hr IVPB Q8H JILL; Protocol Last Admin: 02/11/19 04:00 Dose: 100 mls/hr Vancomycin HCl 1,000 mg/ (Sodium Chloride) 250 mls @ 166.6 mls/hr IVPB Q12H JILL; Protocol Last Admin: 02/10/19 22:39 Dose: 166.6 mls/hr Propofol (Diprivan) 1,000 mg in 100 mls @ 1.606 mls/hr IV .Q24H PRN; Protocol PRN Reason: TITRATE PER MD ORDER Last Titration: 02/10/19 09:45 Dose: 0 mcg/kg/min, 0 mls/hr Lactated Ringer's (Lactated Ringer's) 1,000 mls @ 50 mls/hr IV .Q20H JILL Last Admin: 02/11/19 07:01 Dose: 50 mls/hr Dextrose (Dextrose 5% In Water 1000 Ml) 1,000 mls @ 25 mls/hr IV .Q24H JILL Last Admin: 02/11/19 07:02 Dose: 25 mls/hr Potassium Chloride (Potassium Chloride 10 Meq/100 Ml) 10 meq in 100 mls @ 100 mls/hr IVPB Q1H JILL Stop: 02/11/19 11:59 Last Admin: 02/11/19 08:54 Dose: 100 mls/hr Pantoprazole Sodium (Protonix Inj) 40 mg IVP DAILY JILL Last Admin: 02/11/19 09:32 Dose: 40 mg - Labs Labs: 02/11/19 06:15 02/11/19 06:15 PT 13.2 SECONDS (9.7-12.2) H 02/09/19 05:45 INR 1.2 02/09/19 05:45 APTT 30 SECONDS (21-34) 02/09/19 05:45 - Constitutional Appears: Chronically Ill - Head Exam Head Exam: NORMAL INSPECTION, NORMOCEPHALIC - Eye Exam Additional comments: Non responsive to light The pupils are pinpoint - Respiratory Exam Additional comments: Currently intubated - GI/Abdominal Exam GI & Abdominal Exam: Soft. absent: Guarding, Rigid, Tenderness - Neurological Exam Neurological Exam: Altered Neuro motor strength exam: Left Upper Extremity: 0, Right Upper Extremity: 0, Left Lower Extremity: 0, Right Lower Extremity: 0 - Skin Skin Exam: Normal Color, Warm Assessment and Plan - Assessment and Plan (Free Text) Assessment: from before: This is a 73 year old Male with recently diagnosed multiple sclerosis who presents to the ED with dysphagia for 6 days. Patient was admitted on our service for similar symptoms in October 2018. 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 He was discharged and instructed to follow up in [facility]. As per patient's daughter, he was worked up, seen by Neurology, Gastro enterology had an EGD performed which showed gastritis.As per and his daughter he has difficulty in talking last 6 months.His dysphagia got worse since Sunday. Plan: 1. Cardiopulmonary arrest and Intubated on vent support 02/11: Has been off of propofol for 24 hrs now. Still no response. Probable anoxic brain injury. There is a brain flow study pending 02/10: Pending palliative care consult. The patient remains non verbal and non responsive. No pupillary response to light 02/09: Initial rhythm asystole. Pt received CPR, Epi x 2 then shock x 1. Intubated. ROSC ~ 12 min. Initially rapid A-fib then converted to sinus. Levo started in ICU.Off pressors.On vent support,On therapeutic hypothermic protocol Dr Bridges associate professor of biblical studies spoke to his family ,daughters and son in law with [employer] service. They are requesting to resuscitate if goes into arrest. Family was asked to bring records from [facility] which was give to them on discharge CT head done -no hemorrhage,chronic microvscular ischemic changes 2.Dysphagia and Failure to Thrive 02/11: There is some paper work [facility] however it does not say if possible ALS or MS 02/10: Per reports there is concern for multiple scleroris. Family is brining in records from [facility] GI consulted - Dr. Knight Prior EGD 11/2018 - finding of gastritis as per daughter (records will be brought in) 3. Multiple Sclerosis vs ALS ? 02/11: There is some paper work [facility] however it does not say if possible ALS or MS 02/09: Seen by Neurology on previous admission, working diagnosis was ALS. Patient was recommended to follow up with [facility] where he was diagnosed with MS. Daughter will bring medical records. 4. UTI - pending gram negative lul growth 02/11 On Aztreonam IV at this time 5. Possible aspiration, r/o infection/lacticacidosis 02/10: At this time cultures are negative He remains on the Atreonam, Flagyl, and Vancomycin IV 6. COPD - Duonebs PRN 7. Transaminitis 02/10: Elevated from the CODE BLUE/shock liver
--- NOTE | 2019-02-11 11:15 | CP.PCM.PN ---
<Jyoti Lucio P - Last Filed: 02/11/19 12:46> Subjective - Date & Time of Evaluation Date of Evaluation: 02/11/19 Time of Evaluation: 10:00 - Subjective Subjective: Progress note for Dr. Gaitan. Patient seen and examined at bedside. Patient with low bp of 88/44 overnight and was treated with fluid bolus. Patient remains intubated, off sedation. Unable to obtain ROS. Objective - Vital Signs/Intake and Output Vital Signs (last 24 hours): Temp Pulse Resp BP Pulse Ox 97.6 F 107 H 13 131/60 100 02/11/19 08:00 02/11/19 11:00 02/11/19 11:00 02/11/19 10:51 02/11/19 11:00 Intake and Output: 02/11/19 02/11/19 06:59 18:59 Intake Total 1490.0 570 Output Total 550 115 Balance 940.0 455 - Medications Medications: Current Medications Acetaminophen (Tylenol 650mg/20.3ml Solution Ud) 975 mg PO Q4H PRN PRN Reason: Give for temp > 98.6 Last Admin: 02/10/19 14:28 Dose: 975 mg Albuterol/Ipratropium (Duoneb 3 Mg/0.5 Mg (3 Ml) Ud) 3 ml INH RQ4 JILL Last Admin: 02/11/19 08:10 Dose: Not Given Heparin Sodium (Porcine) (Heparin) 5,000 units SC Q12 JILL Last Admin: 02/11/19 09:32 Dose: 5,000 units Aztreonam 2 gm/ Sodium (Chloride) 100 mls @ 100 mls/hr IVPB Q8H JILL; Protocol Last Admin: 02/11/19 10:31 Dose: 100 mls/hr Metronidazole (Flagyl) 500 mg in 100 mls @ 100 mls/hr IVPB Q8H JILL; Protocol Last Admin: 02/11/19 04:00 Dose: 100 mls/hr Vancomycin HCl 1,000 mg/ (Sodium Chloride) 250 mls @ 166.6 mls/hr IVPB Q12H JILL; Protocol Last Admin: 02/11/19 10:38 Dose: 166.6 mls/hr Propofol (Diprivan) 1,000 mg in 100 mls @ 1.606 mls/hr IV .Q24H PRN; Protocol PRN Reason: TITRATE PER MD ORDER Last Titration: 02/10/19 09:45 Dose: 0 mcg/kg/min, 0 mls/hr Lactated Ringer's (Lactated Ringer's) 1,000 mls @ 50 mls/hr IV .Q20H JILL Last Admin: 02/11/19 07:01 Dose: 50 mls/hr Dextrose (Dextrose 5% In Water 1000 Ml) 1,000 mls @ 25 mls/hr IV .Q24H JILL Last Admin: 02/11/19 07:02 Dose: 25 mls/hr Potassium Chloride (Potassium Chloride 10 Meq/100 Ml) 10 meq in 100 mls @ 100 mls/hr IVPB Q1H JILL Stop: 02/11/19 11:59 Last Admin: 02/11/19 10:23 Dose: 100 mls/hr Pantoprazole Sodium (Protonix Inj) 40 mg IVP DAILY [facility] Last Admin: 02/11/19 09:32 Dose: 40 mg - Labs Labs: 02/11/19 06:15 02/11/19 06:15 PT 13.2 SECONDS (9.7-12.2) H 02/09/19 05:45 INR 1.2 02/09/19 05:45 APTT 30 SECONDS (21-34) 02/09/19 05:45 - Additional Findings Additional findings: - Constitutional Appears: No Acute Distress - Head Exam Head Exam: ATRAUMATIC, NORMOCEPHALIC - Eye Exam Additional comments: Pupils fixed, non reactive to light - ENT Exam ENT Exam: Mucous Membranes Moist Additional comments: intubated - Neck Exam Neck exam: Positive for: Normal Inspection - Respiratory Exam Additional comments: Intubated - Neurological Exam Additional comments: Patient is unresponsive, pupils unreactive, doll's eys negative. Minimal gag reflex. No spontaneous movement of limbs. Does not withdrawal to pain. - Skin Skin Exam: Dry, Normal Color, Warm Assessment and Plan - Assessment and Plan (Free Text) Assessment: 73 year old male with progressive neurological disease who presented to the ED for 1 week of worsening dysphagia and generalized weakness. Patient later found unresponsive, in asystole and a CODE BLUE was called. Patient was intubated. ROSC was achieved after 12 min of ACLS. Plan: -MRI of brain and C-spine unable to be done due to unstable vitals. MRI strongly recommended once patient is stable for transport. -Repeat head CT 02/10/19: No acute abnormalities. No interval change. -EEG: diffusely slow, however normal posterior dominant rhythm -likely anoxic injury to brainstem -prognosis is poor Discussed with Dr. Christo Lucio, PGY-1 <Dixie Gaitan - Last Filed: 02/12/19 09:14> Objective - Vital Signs/Intake and Output Vital Signs (last 24 hours): Temp Pulse Resp BP Pulse Ox 98 F 91 H 12 139/85 100 02/12/19 04:00 02/12/19 07:51 02/12/19 07:51 02/12/19 07:51 02/12/19 07:51 Intake and Output: 02/12/19 02/12/19 06:59 18:59 Intake Total 1400 75 Output Total 400 100 Balance 1000 -25 - Medications Medications: Current Medications Acetaminophen (Tylenol 650mg/20.3ml Solution Ud) 650 mg PO Q6H PRN PRN Reason: Temperature Albuterol/Ipratropium (Duoneb 3 Mg/0.5 Mg (3 Ml) Ud) 3 ml INH RQ4 JILL Last Admin: 02/12/19 07:35 Dose: Not Given Heparin Sodium (Porcine) (Heparin) 5,000 units SC Q12 JILL Last Admin: 02/11/19 22:00 Dose: 5,000 units Aztreonam 2 gm/ Sodium (Chloride) 100 mls @ 100 mls/hr IVPB Q8H JILL; Protocol Last Admin: 02/12/19 03:00 Dose: 100 mls/hr Metronidazole (Flagyl) 500 mg in 100 mls @ 100 mls/hr IVPB Q8H JILL; Protocol Last Admin: 02/12/19 03:31 Dose: 100 mls/hr Propofol (Diprivan) 1,000 mg in 100 mls @ 1.606 mls/hr IV .Q24H PRN; Protocol PRN Reason: TITRATE PER MD ORDER Last Titration: 02/10/19 09:45 Dose: 0 mcg/kg/min, 0 mls/hr Lactated Ringer's (Lactated Ringer's) 1,000 mls @ 50 mls/hr IV .Q20H JILL Last Admin: 02/12/19 02:15 Dose: Not Given Dextrose (Dextrose 5% In Water 1000 Ml) 1,000 mls @ 25 mls/hr IV .Q24H JILL Last Admin: 02/11/19 14:27 Dose: Not Given Pantoprazole Sodium (Protonix Inj) 40 mg IVP DAILY [facility] Last Admin: 02/11/19 09:32 Dose: 40 mg - Labs Labs: 02/12/19 06:42 02/12/19 06:42 PT 13.2 SECONDS (9.7-12.2) H 02/09/19 05:45 INR 1.2 02/09/19 05:45 APTT 30 SECONDS (21-34) 02/09/19 05:45 Assessment and Plan - Assessment and Plan (Free Text) Plan: All medical record entries made by the Resident were at my direction and personally dictated by me. I have reviewed the chart and agree that the record accurately reflects my personal performance of the history, physical exam, medical decision making, and the department course for this patient. I have also personally directed, reviewed, and agree with the discharge instructions and disposition. 73 yr old male who is well known to our service, and we are following initially for dysphagia, now with anoxia. His neurological exam was conducted on sedation and shows that he has a weak gag but little to no brainstem reflexes. We will reexamine him off sedation. At present his EEG shows slow albeit present posterior dominant rhythm that is 4hz, and reactive. It is not clear why his brainstem is compromised but we will need to obtain MRI Brain to further clarify. PRognosis is poor. Reinaldo gaitan Neurology
[2019-02-11] MEDS ORDERED: Acetaminophen 650mg/20.3ml solution UD PO PRN (12:32)
--- NOTE | 2019-02-11 14:37 | CP.PCM.CON ---
History of Present Illness - History of Present Illness History of Present Illness: Palliative consult requested by Doctor Naheed for goals of care discussion Patient is a 73 yo male, admitted from home after refusing food and water X 1 week. Patient could not tolerate food and would vomit undigested food. Patient become unable to ambulate and could not talk. Family planed to take him to [place] . These changes began in October 2018 and become more pronounced until now. Per family, patient fallowed up as an outpatient with neurologist and was told he had MS. patient was due for fallow up when his symptoms worsened and he was admitted to hospital instead. On this admission CXR was significant for COPD and Emphysema and WBC of 14.7. Patient was treated symptomatically as further diagnostic studies were performed. On the days of admission patient was found unresponsive and in Asystole. ACLS performed, with 2 rounds of epi. Pulse was regained after 12 min, patient intubated on the field and transfered to ICU. Ever since patient's condition showed no improvement. Neuro status is of con cern. EEG done this morning. Anoxic brain injury suspected. Brain flow test ordered. PMH: Diagnosed with MS in October 2018 Soc. Hx: , lives at home with and daughter, unemployed Fam. Hx: unknown Review of Systems - Review of Systems Systems not reviewed;Unavailable: Intubated All systems: reviewed and no additional remarkable complaints except Review of Systems: ROS unobtainable from patient due to intubation and AMS. ROS obtained from nursing. Per nursing patient had uneventful night, unresponsive to stimuli. Past Patient History - Past Medical History & Family History Past Medical History?: Yes - Past Social History Smoking Status: Never Smoked - CARDIAC Hx Hypercholesterolemia: Yes - NEUROLOGICAL Hx Multiple Sclerosis: Yes - ENDOCRINE/METABOLIC Hx Endocrine Disorders: Yes Other/Comment: low glucose - MUSCULOSKELETAL/RHEUMATOLOGICAL Hx Falls: No - GASTROINTESTINAL Hx Gastrointestinal Disorders: Yes Hx Fatty Liver Disease: Yes (live cirrhosis) - PSYCHIATRIC Hx Substance Use: No - SURGICAL HISTORY Hx Surgeries: No Meds Allergies/Adverse Reactions: Allergies Allergy/AdvReac Type Severity Reaction Status Date / Time Penicillins Allergy Verified 02/08/19 09:37 - Medications Medications: Current Medications Acetaminophen (Tylenol 650mg/20.3ml Solution Ud) 650 mg PO Q6H PRN PRN Reason: Temperature Albuterol/Ipratropium (Duoneb 3 Mg/0.5 Mg (3 Ml) Ud) 3 ml INH RQ4 [facility] Last Admin: 02/11/19 13:52 Dose: Not Given Heparin Sodium (Porcine) (Heparin) 5,000 units SC Q12 [facility] Last Admin: 02/11/19 09:32 Dose: 5,000 units Aztreonam 2 gm/ Sodium (Chloride) 100 mls @ 100 mls/hr IVPB Q8H [facility]; Protocol Last Admin: 02/11/19 10:31 Dose: 100 mls/hr Metronidazole (Flagyl) 500 mg in 100 mls @ 100 mls/hr IVPB Q8H [facility]; Protocol Last Admin: 02/11/19 12:18 Dose: 100 mls/hr Vancomycin HCl 1,000 mg/ (Sodium Chloride) 250 mls @ 166.6 mls/hr IVPB Q12H [facility]; Protocol Last Admin: 02/11/19 10:38 Dose: 166.6 mls/hr Propofol (Diprivan) 1,000 mg in 100 mls @ 1.606 mls/hr IV .Q24H PRN; Protocol PRN Reason: TITRATE PER MD ORDER Last Titration: 02/10/19 09:45 Dose: 0 mcg/kg/min, 0 mls/hr Lactated Ringer's (Lactated Ringer's) 1,000 mls @ 50 mls/hr IV .Q20H [facility] Last Admin: 02/11/19 07:01 Dose: 50 mls/hr Dextrose (Dextrose 5% In Water 1000 Ml) 1,000 mls @ 25 mls/hr IV .Q24H [facility] Last Admin: 02/11/19 07:02 Dose: 25 mls/hr Pantoprazole Sodium (Protonix Inj) 40 mg IVP DAILY [facility] Last Admin: 02/11/19 09:32 Dose: 40 mg Physical Exam - Constitutional Appears: In Acute Distress - Head Exam Head Exam: ATRAUMATIC, NORMAL INSPECTION, NORMOCEPHALIC - Eye Exam Additional comments: Corneal reflex absent. - ENT Exam ENT Exam: Mucous Membranes Dry Additional comments: ETT - Neck Exam Neck exam: Positive for: Normal Inspection - Respiratory Exam Additional comments: Dependent of Mv - Cardiovascular Exam Cardiovascular Exam: Tachycardia, Irregular Rhythm - GI/Abdominal Exam GI & Abdominal Exam: Diminished Bowel Sounds, Soft - Rectal Exam Rectal Exam: Deferred - Exam Additional comments: Riley cath - Extremities Exam Extremities exam: Positive for: normal inspection - Back Exam Back exam: NORMAL INSPECTION - Neurological Exam Neurological exam: Motor Sensory Deficit - Psychiatric Exam Psychiatric exam: Flat Affect - Skin Skin Exam: Dry, Pallor Results - Vital Signs Recent Vital Signs: Last Vital Signs Temp 97.6 F 02/11/19 08:00 Pulse 110 H 02/11/19 12:21 Resp 13 02/11/19 12:21 BP 141/68 02/11/19 12:21 Pulse Ox 100 02/11/19 12:21 - Labs Result Diagrams: 02/11/19 06:15 02/11/19 06:15 Labs: Laboratory Results - last 24 hr 02/09/19 02/10/19 02/10/19 12:23 11:28 16:35 WBC RBC Hgb Hct MCV MCH MCHC RDW Plt Count MPV Neut % (Auto) Lymph % (Auto) [place] % (Auto) Eos % (Auto) Baso % (Auto) Neut # (Auto) Lymph # (Auto) [place] # (Auto) Eos # (Auto) Baso # (Auto) Neutrophils % (Manual) Band Neutrophils % Lymphocytes % (Manual) Monocytes % (Manual) Toxic Granulation Platelet Estimate Large Platelets Poikilocytosis (manual Puncture Site pCO2 pO2 HCO3 ABG pH ABG Total CO2 ABG O2 Saturation ABG Base Excess ABG Hemoglobin ABG Carboxyhemoglobin POC ABG HHb (Measured) ABG Methemoglobin Joseph Test A-a O2 Difference Respiratory Index Hgb O2 Saturation Vent Mode Mechanical Rate FiO2 Tidal Volume PEEP Sodium Potassium Chloride Carbon Dioxide Anion Gap BUN Creatinine Est GFR ( Amer) Est GFR (Non-Af Amer) POC Glucose (mg/dL) 138 H 180 H Random Glucose Calcium Phosphorus Magnesium Total Bilirubin AST ALT Alkaline Phosphatase Total Protein Albumin Globulin Albumin/Globulin Ratio Ur Opiates (GC/MS) Negative Ur Methadone, Qual Negative Urine Propoxyphene Negative Methaqualone Negative Ur Barbiturates, Qual Negative Ur Phencyclidine (PCP) Negative Ur Amphetamines Screen Negative U Benzodiazepines Qual Negative Urine Cocaine Negative U Marijuana (THC) Screen Negative Drugs of Abuse Note See note 02/10/19 02/11/19 02/11/19 20:53 00:03 05:24 WBC RBC Hgb Hct MCV MCH MCHC RDW Plt Count MPV Neut % (Auto) Lymph % (Auto) [place] % (Auto) Eos % (Auto) Baso % (Auto) Neut # (Auto) Lymph # (Auto) [place] # (Auto) Eos # (Auto) Baso # (Auto) Neutrophils % (Manual) Band Neutrophils % Lymphocytes % (Manual) Monocytes % (Manual) Toxic Granulation Platelet Estimate Large Platelets Poikilocytosis (manual Puncture Site Rr pCO2 27 L pO2 122 H HCO3 26.0 ABG pH 7.54 H ABG Total CO2 23.9 ABG O2 Saturation 99.3 H ABG Base Excess 1.3 ABG Hemoglobin 10.7 L ABG Carboxyhemoglobin 1.3 POC ABG HHb (Measured) 0.7 ABG Methemoglobin 0.8 Joseph Test Pos A-a O2 Difference 94.0 Respiratory Index 0.8 Hgb O2 Saturation 97.2 Vent Mode Prvc Mechanical Rate 18 FiO2 35.0 Tidal Volume 500 PEEP 5 Sodium Potassium Chloride Carbon Dioxide Anion Gap BUN Creatinine Est GFR ( Amer) Est GFR (Non-Af Amer) POC Glucose (mg/dL) 158 H 154 H Random Glucose Calcium Phosphorus Magnesium Total Bilirubin AST ALT Alkaline Phosphatase Total Protein Albumin Globulin Albumin/Globulin Ratio Ur Opiates (GC/MS) Ur Methadone, Qual Urine Propoxyphene Methaqualone Ur Barbiturates, Qual Ur Phencyclidine (PCP) Ur Amphetamines Screen U Benzodiazepines Qual Urine Cocaine U Marijuana (THC) Screen Drugs of Abuse Note 02/11/19 02/11/19 06:15 06:15 WBC 11.0 H RBC 3.36 L Hgb 10.6 L Hct 31.9 L MCV 94.9 H MCH 31.5 H MCHC 33.1 RDW 14.7 H Plt Count 189 MPV 10.5 Neut % (Auto) 84.0 H Lymph % (Auto) 7.9 L [place] % (Auto) 8.0 Eos % (Auto) 0.0 Baso % (Auto) 0.1 Neut # (Auto) 9.2 H Lymph # (Auto) 0.9 L [place] # (Auto) 0.9 H Eos # (Auto) 0.0 Baso # (Auto) 0.0 Neutrophils % (Manual) 83 H Band Neutrophils % 5 H Lymphocytes % (Manual) 7 L Monocytes % (Manual) 5 Toxic Granulation Present Platelet Estimate Normal Large Platelets Present Poikilocytosis (manual Slight Puncture Site pCO2 pO2 HCO3 ABG pH ABG Total CO2 ABG O2 Saturation ABG Base Excess ABG Hemoglobin ABG Carboxyhemoglobin POC ABG HHb (Measured) ABG Methemoglobin Joseph Test A-a O2 Difference Respiratory Index Hgb O2 Saturation Vent Mode Mechanical Rate FiO2 Tidal Volume PEEP Sodium 142 Potassium 3.3 L Chloride 114 H Carbon Dioxide 23 Anion Gap 8 L BUN 40 H Creatinine 1.0 Est GFR ( Amer) > 60 Est GFR (Non-Af Amer) > 60 POC Glucose (mg/dL) Random Glucose 127 H Calcium 7.9 L Phosphorus 2.2 L Magnesium 1.7 Total Bilirubin 0.3 AST 192 H D ALT 438 H D Alkaline Phosphatase 64 Total Protein 4.6 L Albumin 2.3 L Globulin 2.3 Albumin/Globulin Ratio 1.0 Ur Opiates (GC/MS) Ur Methadone, Qual Urine Propoxyphene Methaqualone Ur Barbiturates, Qual Ur Phencyclidine (PCP) Ur Amphetamines Screen U Benzodiazepines Qual Urine Cocaine U Marijuana (THC) Screen Drugs of Abuse Note Assessment & Plan - Assessment and Plan (Free Text) Assessment: Palliative consult There was no Advance directive on chart, PPS 10 % I reviewed all Medical records, examined patient in bed and discussed goals of care with and daughter Patient is intubated, unresponsive to tactile/verbal stimuli, with corneal reflex absent and pupils fixed. EEG done this morning, results pending. Brain flow study ordered. FiO2 100%, there is no spontaneous breathing or is very minimally noted. HR 121, irregularly irregular rhythm. Abdomen, soft, NGT feedings, incontinent of bowel. There is no active ROM, pedal pulses present. BP 160/90, HR 121. Sputum C&S and urine C&S positive. Flagyl, Vanco and Azactam IV on board. WBC 14.7, Hb 11.5, afebrile. Goals of care discussed with and daughter at bed side, using official translation. I reviewed patient's clinical condition and offered my concerns regarding its severity. The and daughter agreed that patient's condition has been declining over time and now they feel it is the worst stage ever. They both cried. I reviewed all diagnostic results and also made them aware of medical team suspicious of anoxic brain injury what for EEG was done this morning. I made family aware of pending Brain flow test and its purpose. I made family aware of all measures we have taken since the admission. said they wanted him to go back home ever since he got sick. She feels now is too late for it but if patient dies she would still want to take body home. I agreed that condition was very poor and that if brain flow study shows lack of brain activity, than per [place] law that is considered as a and we will have to remove the life support. cried again but stated understanding. The and daughter admitted to be very buddhist. They share their pain with God and believe that things happen per God's wish and if God " wants to take him , we can not stop it'. We discussed postmortem care. Family still wants to transfer the body back home, if patient dies. I asked SS to help family in steps for this process. Code status discussed. POL introduced using official translation to [employer]. I made sure family understood DNR/DNI. The daughter and the agreed that if patient's heart stops they would not want him to be given CPR. They want him to go peacefully with God. This was shared with ICU team. Impression * GCS 3 * All life functions supported by life support * Prognosis looks grave * Family is beginning to accept poor prognosis * Family is turning to God for help and believes if patient dies it will be God's wish * Family wants patient to be allowed natural if his heart stops, DNR sign ed * Family plans ofn bringing the body back to [place] and is asking for help from SS Suggestion * Continue all life support until Brain flow test results available * Further care will depend of the Brain flow results * If brain confirmed, remove all life support * SS to provide family with more info on transferring the body back home * Pastoral care for spiritual support * Agree with DNR palliative care will remain on board and continue to offer support for the family. goals of care discussion 60 min.
[2019-02-12] MEDS: Albuterol-Ipratrop 3 mg / 0.5 (3 ml) UD INH SCH ×6 (00:58→20:13)
[2019-02-12] MEDS: Lactated Ringer's 1,000 ML IV SCH (02:15)
[2019-02-12] MEDS: Aztreonam 2 GM in Sodium Chloride 0.9% 100 ML IVPB SCH ×3 (03:00→19:09)
[2019-02-12] MEDS: metroNIDAZOLE IV 500 mg/100 ml 500 MG/100 ML BAG IVPB SCH ×3 (03:31→20:00)
[2019-02-12 06:49] LABS: BASO % 0.2 % (0.0-2.0); EOS % 0.4 % (0.0-4.0); LYMPH # 1.7 K/uL (1.0-4.3); LYMPH % 12.4 % (20.0-40.0); MEAN CELL VOLUME 96.5 fL (80.0-94.0); MEAN CORPUSCULAR HEMOGLOBIN 31.7 pg (27.0-31.0); MEAN CORPUSCULAR HGB CONC 32.9 g/dL (33.0-37.0); MEAN PLATELET VOLUME 10.4 fL (7.2-11.7); MONO # 1.2 K/uL (0.0-0.8); MONO % 8.5 % (0.0-10.0); NEUT % 78.5 % (50.0-75.0); NRBC % 0.1 % (0.0-2.0); RBC 3.77 Mil/uL (4.40-5.90); RED CELL DISTRIBUTION WIDTH 14.8 % (11.5-14.5)
[2019-02-12 07:01] LABS: ALBUMIN 2.7 g/dL (3.5-5.0); ALT/SGPT 327 U/L (21-72); AST/SGOT 146 U/L (17-59); BLOOD UREA NITROGEN 33 mg/dL (9-20); CALCIUM 8.5 mg/dl (8.6-10.4); GFR NON-AFRICAN AMERICAN > 60
--- NOTE | 2019-02-12 07:39 | CP.CCUPN ---
<Jonn Palma - Last Filed: 02/12/19 13:29> CCU Subjective - Physician Review Subjective (Free Text): ICU Progress Note for Dr. Christensen Pt seen and examined at bedside this am. Currently on PRVC intubated, s/p hypothermic protocol. Unable to obtain ROS or HPI due to pt's current mental status. Otherwise no acute events reported overnight by staff. MRI today to be done at [facility]. CCU Objective - Vital Signs / Intake & Output Intake and Output (Last 8hrs): Intake & Output 02/11/19 02/12/19 02/12/19 22:59 06:59 14:59 Intake Total 920 940 75 Output Total 265 400 100 Balance 655 540 -25 Intake: Intake, IV Amount 625 850 75 Right Forearm 450 650 50 Right Forearm Y-site 175 200 25 Tube Feeding 295 90 0 Output: Urine 265 400 100 Urethral (Riley) 265 Urine, Voided 0 400 100 Other: # Bowel Movements 0 0 0 - Physical Exam Head: Positive for: Atraumatic, Normocephalic Pupils: Positive for: Pinpoint Mouth: Positive for: Moist Mucous Membranes Respiratory/Chest: Positive for: Clear to Auscultation, Good Air Exchange. Negative for: Respiratory Distress, Accessory Muscle Use, Wheezes, Retracting, Rhonchi, Tachypneic Cardiovascular: Positive for: Normal S1, S2, Rub Abdomen: Positive for: Normal Bowel Sounds. Negative for: Tenderness, Distention, Peritoneal Signs Upper Extremity: Positive for: Normal Inspection Lower Extremity: Positive for: Normal Inspection Neurological: Positive for: Other (Pt intubated and sedated) Skin: Positive for: Warm Psychiatric: Negative for: Alert, Oriented x 3, Normal Insight - Medications Active Medications: Active Medications Generic Name Dose Route Start Last Admin Trade Name Freq PRN Reason Stop Dose Admin Acetaminophen 650 mg 02/11/19 12:32 Tylenol 650mg/20.3ml Solution Ud PO Q6H PRN Temperature Albuterol/Ipratropium 3 ml 02/08/19 18:00 02/12/19 07:35 Duoneb 3 Mg/0.5 Mg (3 Ml) Ud INH Not Given RQ4 JILL Heparin Sodium (Porcine) 5,000 units 02/09/19 22:00 02/11/19 22:00 Heparin SC 5,000 units Q12 JILL Administration Aztreonam 2 gm/ Sodium 100 mls @ 100 mls/hr 02/09/19 11:00 02/12/19 03:00 Chloride IVPB 100 mls/hr Q8H JILL Administration Protocol Metronidazole 500 mg in 100 mls @ 100 mls/hr 02/09/19 12:00 02/12/19 03:31 Flagyl IVPB 100 mls/hr Q8H JILL Administration Protocol Propofol 1,000 mg in 100 mls @ 1.606 mls/hr 02/09/19 11:06 02/10/19 09:45 Diprivan IV 0 mcg/kg/min .Q24H PRN 0 mls/hr TITRATE PER MD ORDER Titration Protocol 5 MCG/KG/MIN Lactated Ringer's 1,000 mls @ 50 mls/hr 02/09/19 14:15 02/12/19 02:15 Lactated Ringer's IV Not Given .Q20H JILL Dextrose 1,000 mls @ 25 mls/hr 02/09/19 14:15 02/11/19 14:27 Dextrose 5% In Water 1000 Ml IV Not Given .Q24H JILL Pantoprazole Sodium 40 mg 02/09/19 10:00 02/11/19 09:32 Protonix Inj IVP 40 mg DAILY JILL Administration - Patient Studies Lab Studies: Microbiology Studies 02/08/19 00:56 Blood Culture - Preliminary Blood-Venous NO GROWTH AFTER 3 DAYS 02/08/19 22:36 Blood Culture - Preliminary Blood-Venous NO GROWTH AFTER 3 DAYS 02/08/19 17:29 Blood Culture - Preliminary Blood NO GROWTH AFTER 3 DAYS 02/08/19 17:29 Blood Culture - Preliminary Blood NO GROWTH AFTER 3 DAYS 02/09/19 13:48 Gram Stain - Final Sputum Sputum Culture - Final Enterobacter Cloacae Ssp Cloac Yeast Species Lab Studies 02/12/19 02/12/19 02/12/19 Range/Units 06:42 06:42 06:38 WBC 14.0 H (4.8-10.8) K/uL RBC 3.77 L (4.40-5.90) Mil/uL Hgb 12.0 (12.0-18.0) g/dL Hct 36.4 (35.0-51.0) % MCV 96.5 H (80.0-94.0) fL MCH 31.7 H (27.0-31.0) pg MCHC 32.9 L (33.0-37.0) g/dL RDW 14.8 H (11.5-14.5) % Plt Count 190 (130-400) K/uL MPV 10.4 (7.2-11.7) fL Neut % (Auto) 78.5 H (50.0-75.0) % Lymph % (Auto) 12.4 L (20.0-40.0) % [place] % (Auto) 8.5 (0.0-10.0) % Eos % (Auto) 0.4 (0.0-4.0) % Baso % (Auto) 0.2 (0.0-2.0) % Neut # (Auto) 11.0 H (1.8-7.0) K/uL Lymph # (Auto) 1.7 (1.0-4.3) K/uL [place] # (Auto) 1.2 H (0.0-0.8) K/uL Eos # (Auto) 0.0 (0.0-0.7) K/uL Baso # (Auto) 0.0 (0.0-0.2) K/uL Neutrophils % (Manual) (50-75) % Band Neutrophils % (0-2) % Lymphocytes % (Manual) (20-40) % Monocytes % (Manual) (0-10) % Toxic Granulation Platelet Estimate (NORMAL) Large Platelets Poikilocytosis (manual Sodium 142 (132-148) mmol/L Potassium 4.2 (3.6-5.2) mmol/L Chloride 112 H (98-107) mmol/L Carbon Dioxide 29 (22-30) mmol/L Anion Gap 6 L (10-20) BUN 33 H (9-20) mg/dL Creatinine 1.0 (0.8-1.5) mg/dL Est GFR ( Amer) > 60 Est GFR (Non-Af Amer) > 60 POC Glucose (mg/dL) 98 (65-110) mg/dL Random Glucose 116 H (75-110) mg/dL Calcium 8.5 L (8.6-10.4) mg/dl Phosphorus 2.7 (2.5-4.5) mg/dL Magnesium 2.0 (1.6-2.3) mg/dL Total Bilirubin 0.3 (0.2-1.3) mg/dL AST 146 H D (17-59) U/L ALT 327 H D (21-72) U/L Alkaline Phosphatase 82 (38-126) U/L Total Protein 5.3 L (6.3-8.3) g/dL Albumin 2.7 L (3.5-5.0) g/dL Globulin 2.6 (2.2-3.9) gm/dL Albumin/Globulin Ratio 1.0 (1.0-2.1) Opiates (GC/MS) Methadone (GC/MS) Propoxyphenes Barbiturates Phencyclidine (PCP) Amphetamines Benzodiazepines Cocaine & Metabolite Marijuana Drugs of Abuse Comment 02/12/19 02/11/19 02/11/19 Range/Units 00:01 06:15 04:35 WBC (4.8-10.8) K/uL RBC (4.40-5.90) Mil/uL Hgb (12.0-18.0) g/dL Hct (35.0-51.0) % MCV (80.0-94.0) fL MCH (27.0-31.0) pg MCHC (33.0-37.0) g/dL RDW (11.5-14.5) % Plt Count (130-400) K/uL MPV (7.2-11.7) fL Neut % (Auto) (50.0-75.0) % Lymph % (Auto) (20.0-40.0) % [place] % (Auto) (0.0-10.0) % Eos % (Auto) (0.0-4.0) % Baso % (Auto) (0.0-2.0) % Neut # (Auto) (1.8-7.0) K/uL Lymph # (Auto) (1.0-4.3) K/uL [place] # (Auto) (0.0-0.8) K/uL Eos # (Auto) (0.0-0.7) K/uL Baso # (Auto) (0.0-0.2) K/uL Neutrophils % (Manual) 83 H (50-75) % Band Neutrophils % 5 H (0-2) % Lymphocytes % (Manual) 7 L (20-40) % Monocytes % (Manual) 5 (0-10) % Toxic Granulation Present Platelet Estimate Normal (NORMAL) Large Platelets Present Poikilocytosis (manual Slight Sodium (132-148) mmol/L Potassium (3.6-5.2) mmol/L Chloride (98-107) mmol/L Carbon Dioxide (22-30) mmol/L Anion Gap (10-20) BUN (9-20) mg/dL Creatinine (0.8-1.5) mg/dL Est GFR ( Amer) Est GFR (Non-Af Amer) POC Glucose (mg/dL) 184 H 144 H (65-110) mg/dL Random Glucose (75-110) mg/dL Calcium (8.6-10.4) mg/dl Phosphorus (2.5-4.5) mg/dL Magnesium (1.6-2.3) mg/dL Total Bilirubin (0.2-1.3) mg/dL AST (17-59) U/L ALT (21-72) U/L Alkaline Phosphatase (38-126) U/L Total Protein (6.3-8.3) g/dL Albumin (3.5-5.0) g/dL Globulin (2.2-3.9) gm/dL Albumin/Globulin Ratio (1.0-2.1) Opiates (GC/MS) Methadone (GC/MS) Propoxyphenes Barbiturates Phencyclidine (PCP) Amphetamines Benzodiazepines Cocaine & Metabolite Marijuana Drugs of Abuse Comment 02/09/19 Range/Units 12:23 WBC (4.8-10.8) K/uL RBC (4.40-5.90) Mil/uL Hgb (12.0-18.0) g/dL Hct (35.0-51.0) % MCV (80.0-94.0) fL MCH (27.0-31.0) pg MCHC (33.0-37.0) g/dL RDW (11.5-14.5) % Plt Count (130-400) K/uL MPV (7.2-11.7) fL Neut % (Auto) (50.0-75.0) % Lymph % (Auto) (20.0-40.0) % [place] % (Auto) (0.0-10.0) % Eos % (Auto) (0.0-4.0) % Baso % (Auto) (0.0-2.0) % Neut # (Auto) (1.8-7.0) K/uL Lymph # (Auto) (1.0-4.3) K/uL [place] # (Auto) (0.0-0.8) K/uL Eos # (Auto) (0.0-0.7) K/uL Baso # (Auto) (0.0-0.2) K/uL Neutrophils % (Manual) (50-75) % Band Neutrophils % (0-2) % Lymphocytes % (Manual) (20-40) % Monocytes % (Manual) (0-10) % Toxic Granulation Platelet Estimate (NORMAL) Large Platelets Poikilocytosis (manual Sodium (132-148) mmol/L Potassium (3.6-5.2) mmol/L Chloride (98-107) mmol/L Carbon Dioxide (22-30) mmol/L Anion Gap (10-20) BUN (9-20) mg/dL Creatinine (0.8-1.5) mg/dL Est GFR ( Amer) Est GFR (Non-Af Amer) POC Glucose (mg/dL) (65-110) mg/dL Random Glucose (75-110) mg/dL Calcium (8.6-10.4) mg/dl Phosphorus (2.5-4.5) mg/dL Magnesium (1.6-2.3) mg/dL Total Bilirubin (0.2-1.3) mg/dL AST (17-59) U/L ALT (21-72) U/L Alkaline Phosphatase (38-126) U/L Total Protein (6.3-8.3) g/dL Albumin (3.5-5.0) g/dL Globulin (2.2-3.9) gm/dL Albumin/Globulin Ratio (1.0-2.1) Opiates (GC/MS) negative Methadone (GC/MS) negative Propoxyphenes negative Barbiturates negative Phencyclidine (PCP) negative Amphetamines negative Benzodiazepines negative Cocaine & Metabolite negative Marijuana negative Drugs of Abuse Comment See note Laboratory Results - last 24 hr 02/09/19 02/11/19 02/11/19 12:23 04:35 06:15 WBC RBC Hgb Hct MCV MCH MCHC RDW Plt Count MPV Neut % (Auto) Lymph % (Auto) [place] % (Auto) Eos % (Auto) Baso % (Auto) Neut # (Auto) Lymph # (Auto) [place] # (Auto) Eos # (Auto) Baso # (Auto) Neutrophils % (Manual) 83 H Band Neutrophils % 5 H Lymphocytes % (Manual) 7 L Monocytes % (Manual) 5 Toxic Granulation Present Platelet Estimate Normal Large Platelets Present Poikilocytosis (manual Slight Sodium Potassium Chloride Carbon Dioxide Anion Gap BUN Creatinine Est GFR ( Amer) Est GFR (Non-Af Amer) POC Glucose (mg/dL) 144 H Random Glucose Calcium Phosphorus Magnesium Total Bilirubin AST ALT Alkaline Phosphatase Total Protein Albumin Globulin Albumin/Globulin Ratio Opiates (GC/MS) negative Methadone (GC/MS) negative Propoxyphenes negative Barbiturates negative Phencyclidine (PCP) negative Amphetamines negative Benzodiazepines negative Cocaine & Metabolite negative Marijuana negative Drugs of Abuse Comment See note 02/12/19 02/12/19 02/12/19 00:01 06:38 06:42 WBC 14.0 H RBC 3.77 L Hgb 12.0 Hct 36.4 MCV 96.5 H MCH 31.7 H MCHC 32.9 L RDW 14.8 H Plt Count 190 MPV 10.4 Neut % (Auto) 78.5 H Lymph % (Auto) 12.4 L [place] % (Auto) 8.5 Eos % (Auto) 0.4 Baso % (Auto) 0.2 Neut # (Auto) 11.0 H Lymph # (Auto) 1.7 [place] # (Auto) 1.2 H Eos # (Auto) 0.0 Baso # (Auto) 0.0 Neutrophils % (Manual) Band Neutrophils % Lymphocytes % (Manual) Monocytes % (Manual) Toxic Granulation Platelet Estimate Large Platelets Poikilocytosis (manual Sodium Potassium Chloride Carbon Dioxide Anion Gap BUN Creatinine Est GFR ( Amer) Est GFR (Non-Af Amer) POC Glucose (mg/dL) 184 H 98 Random Glucose Calcium Phosphorus Magnesium Total Bilirubin AST ALT Alkaline Phosphatase Total Protein Albumin Globulin Albumin/Globulin Ratio Opiates (GC/MS) Methadone (GC/MS) Propoxyphenes Barbiturates Phencyclidine (PCP) Amphetamines Benzodiazepines Cocaine & Metabolite Marijuana Drugs of Abuse Comment 02/12/19 06:42 WBC RBC Hgb Hct MCV MCH MCHC RDW Plt Count MPV Neut % (Auto) Lymph % (Auto) [place] % (Auto) Eos % (Auto) Baso % (Auto) Neut # (Auto) Lymph # (Auto) [place] # (Auto) Eos # (Auto) Baso # (Auto) Neutrophils % (Manual) Band Neutrophils % Lymphocytes % (Manual) Monocytes % (Manual) Toxic Granulation Platelet Estimate Large Platelets Poikilocytosis (manual Sodium 142 Potassium 4.2 Chloride 112 H Carbon Dioxide 29 Anion Gap 6 L BUN 33 H Creatinine 1.0 Est GFR ( Amer) > 60 Est GFR (Non-Af Amer) > 60 POC Glucose (mg/dL) Random Glucose 116 H Calcium 8.5 L Phosphorus 2.7 Magnesium 2.0 Total Bilirubin 0.3 AST 146 H D ALT 327 H D Alkaline Phosphatase 82 Total Protein 5.3 L Albumin 2.7 L Globulin 2.6 Albumin/Globulin Ratio 1.0 Opiates (GC/MS) Methadone (GC/MS) Propoxyphenes Barbiturates Phencyclidine (PCP) Amphetamines Benzodiazepines Cocaine & Metabolite Marijuana Drugs of Abuse Comment EKG/Cardiology Studies: Cardiology / EKG Studies 02/11/19 22:45 ELECTROCARDIOGRAM DAILY Comment: Mode Of Transportation: PORTABLE Reason For Exam: s/p arrest Fingerstick Blood Sugar Results: 184 Review of Systems - Review of Systems Systems not reviewed;Unavailable: Intubated Critical Care Progress Note - Nutrition Nutrition: Nutrition Category Date Time Status NPO Diet [DIET] Diets 02/09/19 Breakfast Active Assessment/Plan - Assessment and Plan (Free Text) Assessment: 73 y o male with PMhx HLD, gastritis, ?COPD, ?MS, and dysphagia who presented to the ED with c/o dysphagia x6 days. Code Blue was called on 02/08/19 for pt unresponsive on floor, initial rhythm asystole, CPR initiated, shock x1 give, epi x2 was given, pt was intubated. ROSC achieved 12 mins later, pt required pre ssor therapy and was transferred to ICU. Rhythm after ROSC was achieved was rapid A-fib which later converted to NSR. Levophed drip d/c;d, s/p therapeutic hypothermic protocol s/p cardiac arrest. Pt currently DNR status. MRI done today, will f/u results. Plan: Neuro: -Intubated on PRVC, Propofol sedation held Pt currently nonverbal and nonresponsive on exam, pupils pinpoint on exam -CT head on admission: no acute intracranial abnormality, chronic microvascular ischemic changes, sinus mucosal disease -Repeat head CT ordered for this am, f/u results -Neurology consulted for anoxia (Dr. 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 ROSC achieved 12 mins later, pt required pressor therapy and was transferred to ICU. Rhythm after ROSC was achieved was rapid A-fib which later converted to NSR -Levophed drip d/c'd, s/p therapeutic hypothermic protocol s/p cardiac arrest -A-line d/c'd -Most recent EKG demonstrates NSR -Troponin trend: 0.03 => 0.06 => 0.04 => 0.01 => 0.03 -CK 878 -TSH wnl -Palliative care consulted re. goals of care Pt's and daughter signed DNR on POLST form at bedside on 02/11/19, updated in chart Pulm: -Currently on PRVC, sedation d/c'd -Most recent ABG this am 7.54/27/122/26 -Lactate trend 9.5 (02/08) => 1.7 (02/10) -C/w pulm toilet -Rapid flu neg -Utox neg -Sputum cx 02/09 positive for Enterobacter Cloacae, yeast species; currently on anbx therapy -Hx COPD Duonebs q4h GI: -Dysphagia, may be neurogenic in etiology 2/2 chronic dx of MS vs. ALS?, unable to assess currently 2/2 intubation status -Failure to thrive Per family pt has lost about 50 lbs since Oct 2018, was on pureed diet at home -Tube feeds restarted after hypothermic protocol is completed, Jevity 1.5 initiate rate at 20 mls/hr titrate to goal rate of 45 mls/hr -IVF -C/w tube feeds as ordered -Protonix IVP daily -Transaminitis likely 2/2 shock liver 2/2 cardiac arrest, cont to trend, trending down currently -GI (Dr. Knight) consulted, recs appreciated -Prior EGD 11/2018 as per pt's daughter demonstrated findings of gastritis Heme: -H/H 12.0/36.4 -Leukocytosis trending up, cont to monitor ID: -Possible aspiration -Recent CXR demonstrates no active disease -Aztreonam/Flagyl -Leukocytosis trending up -Tachycardia resolved, cont to monitor -S/p Hypothermic protocol -Sputum, blood, urine cxs ordered -Sputum cx 02/09 positive for Enterobacter, yeast species -Febrile to Tmax 100.1 yesterday, may be 2/2 rewarming 2/2 hypothermic protocol, cont to trend -Tylenol prn for fevers Renal: -Riley d/c'd yesterday -Trend I's/O's -BUN/Cr 40/1.0, cont to monitor -Urine cx 02/08 pos for gram neg lul PPX: -SCD, Heparin q12h -Protonix Pt seen, examined with, and plan discussed with Dr. Christensen, attending physician. Jonn Palma DO PGY-1, [employer] Pager #[phone] <Spencer Christensen - Last Filed: 02/12/19 17:21> CCU Subjective - Physician Review Critical Care Time Spent (in minutes): 40 CCU Objective - Vital Signs / Intake & Output Vital Signs (Last 4 hours): Vital Signs Temp Pulse Resp BP Pulse Ox 02/12/19 16:51 80 16 115/63 100 02/12/19 16:21 79 16 109/64 100 02/12/19 16:00 97.4 F L 79 16 100 02/12/19 15:51 80 16 112/61 100 02/12/19 15:21 78 16 107/61 100 02/12/19 15:00 77 16 100 02/12/19 14:51 82 16 98/56 L 100 02/12/19 14:21 135 H 16 95/54 L 100 03/20/19 14:00 82 16 100 02/12/19 13:51 81 12 106/57 L 100 02/12/19 13:21 83 12 94/51 L 100 Intake and Output (Last 8hrs): Intake & Output 02/12/19 02/12/19 02/12/19 06:59 14:59 22:59 Intake Total 940 605 560 Output Total 400 350 100 Balance 540 255 460 Weight 120 lb 0.25 oz Intake: Intake, IV Amount 850 500 425 Left Antecubital Y-site 200 200 Right Forearm 650 200 150 Right Forearm Y-site 200 100 75 Tube Feeding 90 105 135 Output: Urine 400 350 100 Urine, Voided 400 350 100 Other: # Bowel Movements 0 0 - Medications Active Medications: Active Medications Generic Name Dose Route Start Last Admin Trade Name Freq PRN Reason Stop Dose Admin Acetaminophen 650 mg 02/11/19 12:32 Tylenol 650mg/20.3ml Solution Ud PO Q6H PRN Temperature Albuterol/Ipratropium 3 ml 02/08/19 18:00 02/12/19 16:29 Duoneb 3 Mg/0.5 Mg (3 Ml) Ud INH 3 ml RQ4 JILL Administration Heparin Sodium (Porcine) 5,000 units 02/09/19 22:00 02/12/19 12:39 Heparin SC 5,000 units Q12 JILL Administration Aztreonam 2 gm/ Sodium 100 mls @ 100 mls/hr 02/09/19 11:00 02/12/19 12:38 Chloride IVPB 100 mls/hr Q8H JILL Administration Protocol Metronidazole 500 mg in 100 mls @ 100 mls/hr 02/09/19 12:00 02/12/19 12:38 Flagyl IVPB 100 mls/hr Q8H JILL Administration Protocol Propofol 1,000 mg in 100 mls @ 1.606 mls/hr 02/09/19 11:06 02/10/19 09:45 Diprivan IV 0 mcg/kg/min .Q24H PRN 0 mls/hr TITRATE PER MD ORDER Titration Protocol 5 MCG/KG/MIN Lactated Ringer's 1,000 mls @ 50 mls/hr 02/09/19 14:15 02/12/19 02:15 Lactated Ringer's IV Not Given .Q20H JILL Dextrose 1,000 mls @ 25 mls/hr 02/09/19 14:15 02/11/19 14:27 Dextrose 5% In Water 1000 Ml IV Not Given .Q24H JILL Vancomycin/Sodium Chloride 1 gm in 200 mls @ 133 mls/hr 02/12/19 14:30 0 02/12/19 16:25 Vancomycin 1 Gm/Ns 200 Ml IVPB 02/17/19 14:31 133 mls/hr Q12H JILL Administration Protocol Pantoprazole Sodium 40 mg 02/09/19 10:00 02/12/19 12:38 Protonix Inj IVP 40 mg DAILY JILL Administration - Patient Studies Lab Studies: Microbiology Studies 02/08/19 00:56 Blood Culture - Preliminary Blood-Venous NO GROWTH AFTER 3 DAYS 02/08/19 22:36 Blood Culture - Preliminary Blood-Venous NO GROWTH AFTER 3 DAYS 02/08/19 17:29 Blood Culture - Preliminary Blood NO GROWTH AFTER 3 DAYS 02/08/19 17:29 Blood Culture - Preliminary Blood NO GROWTH AFTER 3 DAYS Lab Studies 02/12/19 02/12/19 02/12/19 Range/Units 13:11 12:50 06:42 WBC (4.8-10.8) K/uL RBC (4.40-5.90) Mil/uL Hgb (12.0-18.0) g/dL Hct (35.0-51.0) % MCV (80.0-94.0) fL MCH (27.0-31.0) pg MCHC (33.0-37.0) g/dL RDW (11.5-14.5) % Plt Count (130-400) K/uL MPV (7.2-11.7) fL Neut % (Auto) (50.0-75.0) % Lymph % (Auto) (20.0-40.0) % [place] % (Auto) (0.0-10.0) % Eos % (Auto) (0.0-4.0) % Baso % (Auto) (0.0-2.0) % Neut # (Auto) (1.8-7.0) K/uL Lymph # (Auto) (1.0-4.3) K/uL [place] # (Auto) (0.0-0.8) K/uL Eos # (Auto) (0.0-0.7) K/uL Baso # (Auto) (0.0-0.2) K/uL Puncture Site Rr pCO2 47 H (35-45) mm/Hg pO2 224 H (80-100) mm/Hg HCO3 23.9 (21-28) mmol/L ABG pH 7.33 L (7.35-7.45) ABG Total CO2 26.2 (22-28) mmol/L ABG O2 Saturation 99.8 H (95-98) % ABG Base Excess -1.3 (-2.0-3.0) mmol/L ABG Hemoglobin 10.3 L (11.7-17.4) g/dL ABG Carboxyhemoglobin 1.4 (0.5-1.5) % POC ABG HHb (Measured) 0.2 (0.0-5.0) % ABG Methemoglobin 0.9 (0.0-3.0) % Joseph Test Pos A-a O2 Difference 74.0 mm/Hg Respiratory Index 0.3 Hgb O2 Saturation 97.5 (95.0-98.0) % Vent Mode A/c 12/450/50/5 FiO2 50.0 % Sodium 142 (132-148) mmol/L Potassium 4.2 (3.6-5.2) mmol/L Chloride 112 H (98-107) mmol/L Carbon Dioxide 29 (22-30) mmol/L Anion Gap 6 L (10-20) BUN 33 H (9-20) mg/dL Creatinine 1.0 (0.8-1.5) mg/dL Est GFR ( Amer) > 60 Est GFR (Non-Af Amer) > 60 POC Glucose (mg/dL) 144 H (65-110) mg/dL Random Glucose 116 H (75-110) mg/dL Calcium 8.5 L (8.6-10.4) mg/dl Phosphorus 2.7 (2.5-4.5) mg/dL Magnesium 2.0 (1.6-2.3) mg/dL Total Bilirubin 0.3 (0.2-1.3) mg/dL AST 146 H D (17-59) U/L ALT 327 H D (21-72) U/L Alkaline Phosphatase 82 (38-126) U/L Total Protein 5.3 L (6.3-8.3) g/dL Albumin 2.7 L (3.5-5.0) g/dL Globulin 2.6 (2.2-3.9) gm/dL Albumin/Globulin Ratio 1.0 (1.0-2.1) Opiates (GC/MS) Methadone (GC/MS) Propoxyphenes Barbiturates Phencyclidine (PCP) Amphetamines Benzodiazepines Cocaine & Metabolite Marijuana Drugs of Abuse Comment 02/12/19 02/12/19 02/12/19 Range/Units 06:42 06:38 00:01 WBC 14.0 H (4.8-10.8) K/uL RBC 3.77 L (4.40-5.90) Mil/uL Hgb 12.0 (12.0-18.0) g/dL Hct 36.4 (35.0-51.0) % MCV 96.5 H (80.0-94.0) fL MCH 31.7 H (27.0-31.0) pg MCHC 32.9 L (33.0-37.0) g/dL RDW 14.8 H (11.5-14.5) % Plt Count 190 (130-400) K/uL MPV 10.4 (7.2-11.7) fL Neut % (Auto) 78.5 H (50.0-75.0) % Lymph % (Auto) 12.4 L (20.0-40.0) % [place] % (Auto) 8.5 (0.0-10.0) % Eos % (Auto) 0.4 (0.0-4.0) % Baso % (Auto) 0.2 (0.0-2.0) % Neut # (Auto) 11.0 H (1.8-7.0) K/uL Lymph # (Auto) 1.7 (1.0-4.3) K/uL [place] # (Auto) 1.2 H (0.0-0.8) K/uL Eos # (Auto) 0.0 (0.0-0.7) K/uL Baso # (Auto) 0.0 (0.0-0.2) K/uL Puncture Site pCO2 (35-45) mm/Hg pO2 (80-100) mm/Hg HCO3 (21-28) mmol/L ABG pH (7.35-7.45) ABG Total CO2 (22-28) mmol/L ABG O2 Saturation (95-98) % ABG Base Excess (-2.0-3.0) mmol/L ABG Hemoglobin (11.7-17.4) g/dL ABG Carboxyhemoglobin (0.5-1.5) % POC ABG HHb (Measured) (0.0-5.0) % ABG Methemoglobin (0.0-3.0) % Joseph Test A-a O2 Difference mm/Hg Respiratory Index Hgb O2 Saturation (95.0-98.0) % Vent Mode FiO2 % Sodium (132-148) mmol/L Potassium (3.6-5.2) mmol/L Chloride (98-107) mmol/L Carbon Dioxide (22-30) mmol/L Anion Gap (10-20) BUN (9-20) mg/dL Creatinine (0.8-1.5) mg/dL Est GFR ( Amer) Est GFR (Non-Af Amer) POC Glucose (mg/dL) 98 184 H (65-110) mg/dL Random Glucose (75-110) mg/dL Calcium (8.6-10.4) mg/dl Phosphorus (2.5-4.5) mg/dL Magnesium (1.6-2.3) mg/dL Total Bilirubin (0.2-1.3) mg/dL AST (17-59) U/L ALT (21-72) U/L Alkaline Phosphatase (38-126) U/L Total Protein (6.3-8.3) g/dL Albumin (3.5-5.0) g/dL Globulin (2.2-3.9) gm/dL Albumin/Globulin Ratio (1.0-2.1) Opiates (GC/MS) Methadone (GC/MS) Propoxyphenes Barbiturates Phencyclidine (PCP) Amphetamines Benzodiazepines Cocaine & Metabolite Marijuana Drugs of Abuse Comment 02/09/19 Range/Units 12:23 WBC (4.8-10.8) K/uL RBC (4.40-5.90) Mil/uL Hgb (12.0-18.0) g/dL Hct (35.0-51.0) % MCV (80.0-94.0) fL MCH (27.0-31.0) pg MCHC (33.0-37.0) g/dL RDW (11.5-14.5) % Plt Count (130-400) K/uL MPV (7.2-11.7) fL Neut % (Auto) (50.0-75.0) % Lymph % (Auto) (20.0-40.0) % [place] % (Auto) (0.0-10.0) % Eos % (Auto) (0.0-4.0) % Baso % (Auto) (0.0-2.0) % Neut # (Auto) (1.8-7.0) K/uL Lymph # (Auto) (1.0-4.3) K/uL [place] # (Auto) (0.0-0.8) K/uL Eos # (Auto) (0.0-0.7) K/uL Baso # (Auto) (0.0-0.2) K/uL Puncture Site pCO2 (35-45) mm/Hg pO2 (80-100) mm/Hg HCO3 (21-28) mmol/L ABG pH (7.35-7.45) ABG Total CO2 (22-28) mmol/L ABG O2 Saturation (95-98) % ABG Base Excess (-2.0-3.0) mmol/L ABG Hemoglobin (11.7-17.4) g/dL ABG Carboxyhemoglobin (0.5-1.5) % POC ABG HHb (Measured) (0.0-5.0) % ABG Methemoglobin (0.0-3.0) % Joseph Test A-a O2 Difference mm/Hg Respiratory Index Hgb O2 Saturation (95.0-98.0) % Vent Mode FiO2 % Sodium (132-148) mmol/L Potassium (3.6-5.2) mmol/L Chloride (98-107) mmol/L Carbon Dioxide (22-30) mmol/L Anion Gap (10-20) BUN (9-20) mg/dL Creatinine (0.8-1.5) mg/dL Est GFR ( Amer) Est GFR (Non-Af Amer) POC Glucose (mg/dL) (65-110) mg/dL Random Glucose (75-110) mg/dL Calcium (8.6-10.4) mg/dl Phosphorus (2.5-4.5) mg/dL Magnesium (1.6-2.3) mg/dL Total Bilirubin (0.2-1.3) mg/dL AST (17-59) U/L ALT (21-72) U/L Alkaline Phosphatase (38-126) U/L Total Protein (6.3-8.3) g/dL Albumin (3.5-5.0) g/dL Globulin (2.2-3.9) gm/dL Albumin/Globulin Ratio (1.0-2.1) Opiates (GC/MS) negative Methadone (GC/MS) negative Propoxyphenes negative Barbiturates negative Phencyclidine (PCP) negative Amphetamines negative Benzodiazepines negative Cocaine & Metabolite negative Marijuana negative Drugs of Abuse Comment See note Laboratory Results - last 24 hr 02/09/19 02/12/19 02/12/19 12:23 00:01 06:38 WBC RBC Hgb Hct MCV MCH MCHC RDW Plt Count MPV Neut % (Auto) Lymph % (Auto) [place] % (Auto) Eos % (Auto) Baso % (Auto) Neut # (Auto) Lymph # (Auto) [place] # (Auto) Eos # (Auto) Baso # (Auto) Puncture Site pCO2 pO2 HCO3 ABG pH ABG Total CO2 ABG O2 Saturation ABG Base Excess ABG Hemoglobin ABG Carboxyhemoglobin POC ABG HHb (Measured) ABG Methemoglobin Joseph Test A-a O2 Difference Respiratory Index Hgb O2 Saturation Vent Mode FiO2 Sodium Potassium Chloride Carbon Dioxide Anion Gap BUN Creatinine Est GFR ( Amer) Est GFR (Non-Af Amer) POC Glucose (mg/dL) 184 H 98 Random Glucose Calcium Phosphorus Magnesium Total Bilirubin AST ALT Alkaline Phosphatase Total Protein Albumin Globulin Albumin/Globulin Ratio Opiates (GC/MS) negative Methadone (GC/MS) negative Propoxyphenes negative Barbiturates negative Phencyclidine (PCP) negative Amphetamines negative Benzodiazepines negative Cocaine & Metabolite negative Marijuana negative Drugs of Abuse Comment See note 02/12/19 02/12/19 02/12/19 06:42 06:42 12:50 WBC 14.0 H RBC 3.77 L Hgb 12.0 Hct 36.4 MCV 96.5 H MCH 31.7 H MCHC 32.9 L RDW 14.8 H Plt Count 190 MPV 10.4 Neut % (Auto) 78.5 H Lymph % (Auto) 12.4 L Huron % (Auto) 8.5 Eos % (Auto) 0.4 Baso % (Auto) 0.2 Neut # (Auto) 11.0 H Lymph # (Auto) 1.7 Huron # (Auto) 1.2 H Eos # (Auto) 0.0 Baso # (Auto) 0.0 Puncture Site Rr pCO2 47 H pO2 224 H HCO3 23.9 ABG pH 7.33 L ABG Total CO2 26.2 ABG O2 Saturation 99.8 H ABG Base Excess -1.3 ABG Hemoglobin 10.3 L ABG Carboxyhemoglobin 1.4 POC ABG HHb (Measured) 0.2 ABG Methemoglobin 0.9 Joseph Test Pos A-a O2 Difference 74.0 Respiratory Index 0.3 Hgb O2 Saturation 97.5 Vent Mode A/c 12/450/50/5 FiO2 50.0 Sodium 142 Potassium 4.2 Chloride 112 H Carbon Dioxide 29 Anion Gap 6 L BUN 33 H Creatinine 1.0 Est GFR ( Amer) > 60 Est GFR (Non-Af Amer) > 60 POC Glucose (mg/dL) Random Glucose 116 H Calcium 8.5 L Phosphorus 2.7 Magnesium 2.0 Total Bilirubin 0.3 AST 146 H D ALT 327 H D Alkaline Phosphatase 82 Total Protein 5.3 L Albumin 2.7 L Globulin 2.6 Albumin/Globulin Ratio 1.0 Opiates (GC/MS) Methadone (GC/MS) Propoxyphenes Barbiturates Phencyclidine (PCP) Amphetamines Benzodiazepines Cocaine & Metabolite Marijuana Drugs of Abuse Comment 02/12/19 13:11 WBC RBC Hgb Hct MCV MCH MCHC RDW Plt Count MPV Neut % (Auto) Lymph % (Auto) Huron % (Auto) Eos % (Auto) Baso % (Auto) Neut # (Auto) Lymph # (Auto) Hur[place] # (Auto) Eos # (Auto) Baso # (Auto) Puncture Site pCO2 pO2 HCO3 ABG pH ABG Total CO2 ABG O2 Saturation ABG Base Excess ABG Hemoglobin ABG Carboxyhemoglobin POC ABG HHb (Measured) ABG Methemoglobin Joseph Test A-a O2 Difference Respiratory Index Hgb O2 Saturation Vent Mode FiO2 Sodium Potassium Chloride Carbon Dioxide Anion Gap BUN Creatinine Est GFR ( Amer) Est GFR (Non-Af Amer) POC Glucose (mg/dL) 144 H Random Glucose Calcium Phosphorus Magnesium Total Bilirubin AST ALT Alkaline Phosphatase Total Protein Albumin Globulin Albumin/Globulin Ratio Opiates (GC/MS) Methadone (GC/MS) Propoxyphenes Barbiturates Phencyclidine (PCP) Amphetamines Benzodiazepines Cocaine & Metabolite Marijuana Drugs of Abuse Comment EKG/Cardiology Studies: Cardiology / EKG Studies 02/11/19 22:45 ELECTROCARDIOGRAM DAILY Comment: Mode Of Transportation: PORTABLE Reason For Exam: s/p arrest Critical Care Progress Note - Nutrition Nutrition: Nutrition Category Date Time Status NPO Diet [DIET] Diets 02/09/19 Breakfast Active Attending/Attestation - Attestation I have personally seen and examined this patient.: Yes I have fully participated in the care of the patient.: Yes I have reviewed all pertinent clinical information: Yes Notes (Text): 02/12/19 17:20 Patient seen and examined the intensive care unit. Case discussed with housestaff in the morning rounds. Remained intubated on ventilatory support with no response to stimuli MRI of the brain consistent with meningitis as per neurology Continue antibiotics Prognosis poor
--- NOTE | 2019-02-12 08:05 | CP.PCM.PN ---
Subjective - Date & Time of Evaluation Date of Evaluation: 02/12/19 Time of Evaluation: 07:50 - Subjective Subjective: Patient remains intubated on PRVC settings The patient is now DNR, appreciate palliative care consult The patient is being moved this morning for the MRI/MRA of the brain. As mentioned previously he had an MOVER HELPER on 02/08 that immediately became a CODE BLUE due to developing asystole. He required epnephrine x 2 and IVF and required at least one shock. He had atrial fibrillation that later became sinus and was brought to the ICU on pressor medications. He came with severe dysphagia that had been going on for 6 days. There is concern he has multiple sclerosis and he was observed by family to have a slowly have more trouble eating and required a pureed diet. This recent week he was noticed by family to have inability to swallow, coughing, and respiratory distress. Per notes, the patient was supposed to go back to his country but due to weakness came here. Objective - Vital Signs/Intake and Output Vital Signs (last 24 hours): Temp Pulse Resp BP Pulse Ox 97.8 F 89 12 127/71 100 02/12/19 00:00 02/12/19 03:21 02/12/19 03:21 02/12/19 03:21 02/12/19 03:21 Intake and Output: 02/12/19 02/12/19 06:59 18:59 Intake Total 1400 75 Output Total 400 100 Balance 1000 -25 - Medications Medications: Current Medications Acetaminophen (Tylenol 650mg/20.3ml Solution Ud) 650 mg PO Q6H PRN PRN Reason: Temperature Albuterol/Ipratropium (Duoneb 3 Mg/0.5 Mg (3 Ml) Ud) 3 ml INH RQ4 JILL Last Admin: 02/12/19 07:35 Dose: Not Given Heparin Sodium (Porcine) (Heparin) 5,000 units SC Q12 JILL Last Admin: 02/11/19 22:00 Dose: 5,000 units Aztreonam 2 gm/ Sodium (Chloride) 100 mls @ 100 mls/hr IVPB Q8H JILL; Protocol Last Admin: 02/12/19 03:00 Dose: 100 mls/hr Metronidazole (Flagyl) 500 mg in 100 mls @ 100 mls/hr IVPB Q8H JILL; Protocol Last Admin: 02/12/19 03:31 Dose: 100 mls/hr Propofol (Diprivan) 1,000 mg in 100 mls @ 1.606 mls/hr IV .Q24H PRN; Protocol PRN Reason: TITRATE PER MD ORDER Last Titration: 02/10/19 09:45 Dose: 0 mcg/kg/min, 0 mls/hr Lactated Ringer's (Lactated Ringer's) 1,000 mls @ 50 mls/hr IV .Q20H JILL Last Admin: 02/12/19 02:15 Dose: Not Given Dextrose (Dextrose 5% In Water 1000 Ml) 1,000 mls @ 25 mls/hr IV .Q24H JILL Last Admin: 02/11/19 14:27 Dose: Not Given Pantoprazole Sodium (Protonix Inj) 40 mg IVP DAILY [facility] Last Admin: 02/11/19 09:32 Dose: 40 mg - Labs Labs: 02/12/19 06:42 02/12/19 06:42 PT 13.2 SECONDS (9.7-12.2) H 02/09/19 05:45 INR 1.2 02/09/19 05:45 APTT 30 SECONDS (21-34) 02/09/19 05:45 - Constitutional Appears: Unkempt, Cachectic, Chronically Ill - Eye Exam Pupil Exam: Fixed Additional comments: No reaction to light - ENT Exam ENT Exam: Mucous Membranes Moist - Respiratory Exam Respiratory Exam: Decreased Breath Sounds Additional comments: Mechanical ventilation - GI/Abdominal Exam GI & Abdominal Exam: Soft. absent: Firm, Guarding, Rigid, Tenderness - Neurological Exam Neurological Exam: Altered Neuro motor strength exam: Left Upper Extremity: 0, Right Upper Extremity: 0, Left Lower Extremity: 0, Right Lower Extremity: 0 - Skin Skin Exam: Normal Color, Warm Assessment and Plan - Assessment and Plan (Free Text) Assessment: from before: This is a 73 year old Male with recently diagnosed multiple sclerosis who presents to the ED with dysphagia for 6 days. Patient was admitted on our service for similar symptoms in October 2018. 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 He was discharged and instructed to follow up in [facility]. As per patient's daughter, he was worked up, seen by Neurology, Gastro enterology had an EGD performed which showed gastritis.As per and his daughter he has difficulty in talking last 6 months.His dysphagia got worse since Sunday. Plan: 1. Cardiopulmonary arrest and Intubated on vent support 02/12: Going to [facility] today for the MRI and MRA. He is now DNR 02/11: Has been off of propofol for 24 hrs now. Still no response. Probable anoxic brain injury. There is a brain flow study pending 02/10: Pending palliative care consult. The patient remains non verbal and non responsive. No pupillary response to light 02/09: Initial rhythm asystole. Pt received CPR, Epi x 2 then shock x 1. Intubated. ROSC ~ 12 min. Initially rapid A-fib then converted to sinus. Levo started in ICU.Off pressors.On vent support,On therapeutic hypothermic protocol Dr Bridges spring production supervisor spoke to his family ,daughters and son in law with service dispatcher service. They are requesting to resuscitate if goes into arrest. Family was asked to bring records from [facility] which was give to them on discharge CT head done -no hemorrhage,chronic microvscular ischemic changes 2.Dysphagia and Failure to Thrive secondary to MS or ALS 02/11: There is some paper work [facility] however it does not say if possible ALS or MS 02/10: Per reports there is concern for multiple scleroris. Family is brining in records from [facility] GI consulted - Dr. Knight Prior EGD 11/2018 - finding of gastritis as per daughter (records will be brought in) 3. Multiple Sclerosis vs ALS ? 02/11: There is some paper work [facility] however it does not say if possible ALS or MS 02/09: Seen by Neurology on previous admission, working diagnosis was ALS. Patient was recommended to follow up with [facility] where he was diagnosed with MS. Daughter will bring medical records. 4. UTI - pending gram negative lul growth 02/11 On Aztreonam IV at this time 5. Possible aspiration, r/o infection/lacticacidosis 02/12: Positive growth for enterococus. Patient has been on IV Vancomycin. 02/10: At this time cultures are negative He remains on the Atreonam, Flagyl, and Vancomycin IV 6. COPD - Duonebs PRN 7. Transaminitis 02/10: Elevated from the CODE BLUE/shock liver
--- NOTE | 2019-02-12 11:50 | CP.PCM.PN ---
Subjective - Date & Time of Evaluation Date of Evaluation: 02/12/19 Time of Evaluation: 11:00 - Subjective Subjective: Progress note for Dr. Villafuerte. Patient seen and examined at bedside. Patient went for MRI this morning. Remains intubated and off sedation. Unable to obtain ROS. Objective - Vital Signs/Intake and Output Vital Signs (last 24 hours): Temp Pulse Resp BP Pulse Ox 98 F 91 H 12 139/85 100 02/12/19 04:00 02/12/19 07:51 02/12/19 07:51 02/12/19 07:51 02/12/19 07:51 Intake and Output: 02/12/19 02/12/19 06:59 18:59 Intake Total 1400 75 Output Total 400 100 Balance 1000 -25 - Medications Medications: Current Medications Acetaminophen (Tylenol 650mg/20.3ml Solution Ud) 650 mg PO Q6H PRN PRN Reason: Temperature Albuterol/Ipratropium (Duoneb 3 Mg/0.5 Mg (3 Ml) Ud) 3 ml INH RQ4 JILL Last Admin: 02/12/19 07:35 Dose: Not Given Heparin Sodium (Porcine) (Heparin) 5,000 units SC Q12 JILL Last Admin: 02/11/19 22:00 Dose: 5,000 units Aztreonam 2 gm/ Sodium (Chloride) 100 mls @ 100 mls/hr IVPB Q8H JILL; Protocol Last Admin: 02/12/19 03:00 Dose: 100 mls/hr Metronidazole (Flagyl) 500 mg in 100 mls @ 100 mls/hr IVPB Q8H JILL; Protocol Last Admin: 02/12/19 03:31 Dose: 100 mls/hr Propofol (Diprivan) 1,000 mg in 100 mls @ 1.606 mls/hr IV .Q24H PRN; Protocol PRN Reason: TITRATE PER MD ORDER Last Titration: 02/10/19 09:45 Dose: 0 mcg/kg/min, 0 mls/hr Lactated Ringer's (Lactated Ringer's) 1,000 mls @ 50 mls/hr IV .Q20H JILL Last Admin: 02/12/19 02:15 Dose: Not Given Dextrose (Dextrose 5% In Water 1000 Ml) 1,000 mls @ 25 mls/hr IV .Q24H JILL Last Admin: 02/11/19 14:27 Dose: Not Given Pantoprazole Sodium (Protonix Inj) 40 mg IVP DAILY [facility]PLACED [facility] Last Admin: 02/11/19 09:32 Dose: 40 mg - Labs Labs: 02/12/19 06:42 02/12/19 06:42 PT 13.2 SECONDS (9.7-12.2) H 02/09/19 05:45 INR 1.2 02/09/19 05:45 APTT 30 SECONDS (21-34) 02/09/19 05:45 - Head Exam Head Exam: ATRAUMATIC, NORMOCEPHALIC - Eye Exam Additional comments: pupils are fixed, unresponsive to light. - ENT Exam Additional comments: ET tube in place - Neck Exam Neck Exam: Normal Inspection - Respiratory Exam Additional comments: Intubated - Neurological Exam Additional comments: Pupils are fixed, unresponsive to light. No corneals, No dolls eyes. No gag reflex. No withdrawal to pain - Skin Skin Exam: Dry, Intact, Normal Color Assessment and Plan - Assessment and Plan (Free Text) Assessment: 73 year old male with progressive neurological disease who presented to the ED for 1 week of worsening dysphagia and generalized weakness. Patient later found unresponsive, in asystole and a CODE BLUE was called. Patient was intubated. ROSC was achieved after 12 min of ACLS. Plan: -f/u MRI official read -Repeat head CT 02/10/19: No acute abnormalities. No interval change. -EEG: diffusely slow, however normal posterior dominant rhythm -Video EEG ordered Discussed with Dr. Christo Lucio, PGY-1
[2019-02-12 13:00] LABS: ABG ALLEN TEST POS; ARTERIAL BLOOD GAS HCO3 23.9 mmol/L (21-28); ARTERIAL BLOOD GAS HEMOGLOBIN 10.3 g/dL (11.7-17.4); ARTERIAL BLOOD GAS O2 SAT 99.8 % (95-98); ARTERIAL BLOOD GAS PCO2 47 mm/Hg (35-45); ARTERIAL BLOOD GAS PH 7.33 (7.35-7.45); ARTERIAL BLOOD GAS PO2 224 mm/Hg (80-100); ARTERIAL BLOOD GAS TCO2 26.2 mmol/L (22-28)
[2019-02-12] MEDS: Vancomycin 1 gm/NS 200 ml 1 GM/200 ML BAG IVPB SCH (16:25)
--- NOTE | 2019-02-12 19:03 | CARD ---
APPROVED REPORT Date of service: 02/11/2019 EKG Measurement Heart [id number] <Conclusion> Probably sinus tachycardia (tremor artifact) Low voltage QRS Inferior infarct, age undetermined Abnormal ECG
--- NOTE | 2019-02-12 22:56 | CARD ---
APPROVED REPORT Date of service: 02/10/2019 EKG Measurement Heart [id number] <Conclusion> Normal sinus rhythm Low voltage QRS Inferior infarct, age undetermined Abnormal ECG
[2019-02-13] MEDS: Albuterol-Ipratrop 3 mg / 0.5 (3 ml) UD INH SCH ×4 (00:08→11:43)
[2019-02-13] MEDS: Dexamethasone 4 mg/1 ml IV SCH ×3 (01:19→11:53)
[2019-02-13] MEDS: Lactated Ringer's 1,000 ML IV SCH (01:47)
[2019-02-13] MEDS: Vancomycin 1 gm/NS 200 ml 1 GM/200 ML BAG IVPB SCH ×2 (01:50→13:49)
[2019-02-13] MEDS: Aztreonam 2 GM in Sodium Chloride 0.9% 100 ML IVPB SCH ×2 (03:25→10:17)
[2019-02-13] MEDS: metroNIDAZOLE IV 500 mg/100 ml 500 MG/100 ML BAG IVPB SCH ×2 (04:45→11:54)
[2019-02-13 05:44] LABS: BASO % 0.2 % (0.0-2.0); EOS % 0.3 % (0.0-4.0); HEMOGLOBIN 11.2 g/dL (12.0-18.0); LYMPH # 0.5 K/uL (1.0-4.3); LYMPH % 4.3 % (20.0-40.0); MEAN CELL VOLUME 95.3 fL (80.0-94.0); MEAN CORPUSCULAR HEMOGLOBIN 31.3 pg (27.0-31.0); MEAN CORPUSCULAR HGB CONC 32.8 g/dL (33.0-37.0); MEAN PLATELET VOLUME 10.6 fL (7.2-11.7); MONO # 0.2 K/uL (0.0-0.8); MONO % 1.7 % (0.0-10.0); NEUT # 11.8 K/uL (1.8-7.0); NEUT % 93.5 % (50.0-75.0); PLATELET COUNT 201 K/uL (130-400); RBC 3.59 Mil/uL (4.40-5.90); RED CELL DISTRIBUTION WIDTH 15.2 % (11.5-14.5); WHITE BLOOD COUNT 12.6 K/uL (4.8-10.8)
[2019-02-13 06:07] LABS: ALBUMIN 2.7 g/dL (3.5-5.0); ALT/SGPT 230 U/L (21-72); AST/SGOT 94 U/L (17-59); BLOOD UREA NITROGEN 33 mg/dL (9-20); CALCIUM 8.7 mg/dl (8.6-10.4); GFR NON-AFRICAN AMERICAN > 60
[2019-02-13 08:50] LABS: BANDS 1 % (0-2); LYMPHOCYTE 4 % (20-40); MONOCYTE 2 % (0-10); NEUTROPHIL 93 % (50-75); PLATELET ESTIMATE NORMAL (NORMAL); TOTAL CELLS COUNTED 100
[2019-02-13 08:51] LABS: ANISOCYTOSIS SLIGHT; HYPOCHROMIC SLIGHT; POIKILOCYTOSIS SLIGHT; TARGET CELLS SLIGHT
--- NOTE | 2019-02-13 09:06 | CP.PCM.PN ---
Subjective - Date & Time of Evaluation Date of Evaluation: 02/13/19 Time of Evaluation: 08:50 - Subjective Subjective: Remains intubated at this time on PRVC settings Currently getting a video EEG monitoring at this time Yesterday he went for MRI/MRA at [place] and it was reported that no infarct seen, there was chronic changes, and that they could not rule out meningitis. He is on IV abx, however no fevers and no WBC counts. Possible these findings are related to anoxic brain injury He is now DNR status As mentioned previously he had an DIAGNOSTIC RADIOLOGIST on 02/08 that immediately became a CODE BLUE due to developing asystole. He required epnephrine x 2 and IVF and required at least one shock. He had atrial fibrillation that later became sinus and was brought to the ICU on pressor medications. He came with severe dysphagia that had been going on for 6 days. There is concern he has ALS and he was observed by family to have a slowly have more trouble eating and required a pureed diet. This recent week he was noticed by family to have inability to swallow, coughing, and respiratory distress. Per notes, the patient was supposed to go back to his country but due to weakness came here. Objective - Vital Signs/Intake and Output Vital Signs (last 24 hours): Temp Pulse Resp BP Pulse Ox 97.1 F L 78 16 129/75 100 02/13/19 08:00 02/13/19 08:01 02/13/19 08:01 02/13/19 08:01 02/13/19 08:01 Intake and Output: 02/13/19 02/13/19 06:59 18:59 Intake Total 1752.5 240 Output Total 1000 Balance 752.5 240 - Medications Medications: Current Medications Acetaminophen (Tylenol 650mg/20.3ml Solution Ud) 650 mg PO Q6H PRN PRN Reason: Temperature Albuterol/Ipratropium (Duoneb 3 Mg/0.5 Mg (3 Ml) Ud) 3 ml INH RQ4 JILL Last Admin: 02/13/19 08:19 Dose: 3 ml Dexamethasone (Decadron Inj) 10 mg IV Q6 JILL Last Admin: 02/13/19 05:38 Dose: 10 mg Heparin Sodium (Porcine) (Heparin) 5,000 units SC Q12 JILL Last Admin: 02/12/19 21:36 Dose: 5,000 units Aztreonam 2 gm/ Sodium (Chloride) 100 mls @ 100 mls/hr IVPB Q8H JILL; Protocol Last Admin: 02/13/19 03:25 Dose: 100 mls/hr Metronidazole (Flagyl) 500 mg in 100 mls @ 100 mls/hr IVPB Q8H JILL; Protocol Last Admin: 02/13/19 04:45 Dose: 100 mls/hr Propofol (Diprivan) 1,000 mg in 100 mls @ 1.606 mls/hr IV .Q24H PRN; Protocol PRN Reason: TITRATE PER MD ORDER Last Titration: 02/10/19 09:45 Dose: 0 mcg/kg/min, 0 mls/hr Lactated Ringer's (Lactated Ringer's) 1,000 mls @ 50 mls/hr IV .Q20H JILL Last Admin: 02/13/19 01:47 Dose: 50 mls/hr Dextrose (Dextrose 5% In Water 1000 Ml) 1,000 mls @ 25 mls/hr IV .Q24H JILL Last Admin: 02/13/19 01:47 Dose: 25 mls/hr Vancomycin/Sodium Chloride (Vancomycin 1 Gm/Ns 200 Ml) 1 gm in 200 mls @ 133 mls/hr IVPB Q12H JILL; Protocol Stop: 02/17/19 14:31 Last Admin: 02/13/19 01:50 Dose: 133 mls/hr Pantoprazole Sodium (Protonix Inj) 40 mg IVP DAILY [facility] Last Admin: 02/12/19 12:38 Dose: 40 mg - Labs Labs: 02/13/19 05:37 02/13/19 05:37 PT 13.2 SECONDS (9.7-12.2) H 02/09/19 05:45 INR 1.2 02/09/19 05:45 APTT 30 SECONDS (21-34) 02/09/19 05:45 - Constitutional Appears: Toxic, Chronically Ill - Eye Exam Additional comments: Fixed, non response to light - ENT Exam ENT Exam: Mucous Membranes Moist - Respiratory Exam Respiratory Exam: Decreased Breath Sounds - Cardiovascular Exam Cardiovascular Exam: REGULAR RHYTHM - GI/Abdominal Exam GI & Abdominal Exam: absent: Firm, Guarding, Rigid, Tenderness - Neurological Exam Neurological Exam: Altered Neuro motor strength exam: Left Upper Extremity: 0, Right Upper Extremity: 0, Left Lower Extremity: 0, Right Lower Extremity: 0 Assessment and Plan - Assessment and Plan (Free Text) Assessment: from before: This is a 73 year old Male with recently diagnosed multiple sclerosis who presents to the ED with dysphagia for 6 days. Patient was admitted on our service for similar symptoms in October 2018. 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 He was discharged and instructed to follow up in [facility]. As per patient's daughter, he was worked up, seen by Neurology, Gastro enterology had an EGD performed which showed gastritis.As per and his daughter he has difficulty in talking last 6 months.His dysphagia got worse since Sunday. Plan: 1. Cardiopulmonary arrest and Intubated on vent support 02/13: Remains intubated, getting video EEG, yesterday MRI 02/12: Going to [facility] today for the MRI and MRA. He is now DNR 02/11: Has been off of propofol for 24 hrs now. Still no response. Probable anoxic brain injury. There is a brain flow study pending 02/10: Pending palliative care consult. The patient remains non verbal and non responsive. No pupillary response to light 02/09: Initial rhythm asystole. Pt received CPR, Epi x 2 then shock x 1. Intubated. ROSC ~ 12 min. Initially rapid A-fib then converted to sinus. Levo started in ICU.Off pressors.On vent support,On therapeutic hypothermic protocol Dr Bridges brass bobbin winder spoke to his family ,daughters and son in law with public health specialist service. They are requesting to resuscitate if goes into arrest. Family was asked to bring records from [facility] which was give to them on discharge CT head done -no hemorrhage,chronic microvscular ischemic changes 2.Dysphagia and Failure to Thrive secondary to MS or ALS 02/11: There is some paper work [facility] however it does not say if possible ALS or MS 02/10: Per reports there is concern for multiple scleroris. Family is brining in records from [facility] GI consulted - Dr. Knight Prior EGD 11/2018 - finding of gastritis as per daughter (records will be brought in) 3. ALS 02/13: Per discussion with neurology the patient and family did not actually followup at [facility] but simply went to their ER. 02/11: There is some paper work [facility] however it does not say if possible ALS or MS 02/09: Seen by Neurology on previous admission, working diagnosis was ALS. Patient was recommended to follow up with [facility] in [place] where he was diagnosed with MS. Daughter will bring medical records. 4. UTI - pending gram negative lul growth 02/11 On Aztreonam IV at this time 5. Possible aspiration, r/o infection/lacticacidosis 02/12: Positive growth for enterococus. Patient has been on IV Vancomycin. 02/10: At this time cultures are negative He remains on the Atreonam, Flagyl, and Vancomycin IV 6. COPD - Duonebs PRN 7. Transaminitis 02/10: Elevated from the CODE BLUE/shock liver
--- NOTE | 2019-02-13 09:20 | CP.CCUPN ---
<Jonn Palma - Last Filed: 02/13/19 15:02> CCU Subjective - Physician Review Subjective (Free Text): ICU Progress Note for Dr. Aiken Pt seen and examined at bedside this am. Currently on PRVC intubated, s/p hypothermic protocol. Unable to obtain ROS or HPI due to pt's current mental st atus. Otherwise no acute events reported overnight by staff. CCU Objective - Vital Signs / Intake & Output Vital Signs (Last 4 hours): Vital Signs Temp Pulse Resp BP Pulse Ox 02/13/19 08:01 78 16 129/75 100 02/13/19 08:00 97.1 F L 78 16 100 02/13/19 07:51 77 16 121/73 100 02/13/19 07:21 82 16 116/63 100 02/13/19 07:00 84 16 100 02/13/19 06:51 83 16 111/62 100 02/13/19 06:21 86 16 110/57 L 97 02/13/19 06:00 89 16 100 02/13/19 05:51 89 139/83 100 02/13/19 05:21 86 16 133/75 100 Intake and Output (Last 8hrs): Intake & Output 02/12/19 02/13/19 02/13/19 22:59 06:59 14:59 Intake Total 1210 1272.5 240 Output Total 100 1000 Balance 1110 272.5 240 Weight 128 lb 14.4 oz Intake: Intake, IV Amount 800 912.5 150 Left Antecubital Y-site 200 Right Forearm 400 400 100 Right Forearm Y-site 200 512.5 50 Tube Feeding 360 360 90 Other 50 Output: Urine 100 1000 Urine, Voided 100 1000 - Physical Exam Head: Positive for: Atraumatic, Normocephalic Pupils: Positive for: Pinpoint Mouth: Positive for: Moist Mucous Membranes Respiratory/Chest: Positive for: Clear to Auscultation, Good Air Exchange. Negative for: Respiratory Distress, Accessory Muscle Use, Wheezes, Retracting, Rhonchi, Tachypneic Cardiovascular: Positive for: Normal S1, S2, Rub Abdomen: Positive for: Normal Bowel Sounds. Negative for: Tenderness, Distention, Peritoneal Signs Upper Extremity: Positive for: Normal Inspection Lower Extremity: Positive for: Normal Inspection Neurological: Positive for: Other (Pt intubated and sedated) Skin: Positive for: Warm Psychiatric: Negative for: Alert, Oriented x 3, Normal Insight - Medications Active Medications: Active Medications Generic Name Dose Route Start Last Admin Trade Name Warrenq PRN Reason Stop Dose Admin Acetaminophen 650 mg 02/11/19 12:32 Tylenol 650mg/20.3ml Solution Ud PO Q6H PRN Temperature Albuterol/Ipratropium 3 ml 02/08/19 18:00 02/13/19 08:19 Duoneb 3 Mg/0.5 Mg (3 Ml) Ud INH 3 ml RQ4 JILL Administration Dexamethasone 10 mg 02/13/19 00:00 02/13/19 05:38 Decadron Inj IV 10 mg Q6 JILL Administration Heparin Sodium (Porcine) 5,000 units 02/09/19 22:00 02/12/19 21:36 Heparin SC 5,000 units Q12 JILL Administration Aztreonam 2 gm/ Sodium 100 mls @ 100 mls/hr 02/09/19 11:00 02/13/19 03:25 Chloride IVPB 100 mls/hr Q8H JILL Administration Protocol Metronidazole 500 mg in 100 mls @ 100 mls/hr 02/09/19 12:00 02/13/19 04:45 Flagyl IVPB 100 mls/hr Q8H JILL Administration Protocol Propofol 1,000 mg in 100 mls @ 1.606 mls/hr 02/09/19 11:06 02/10/19 09:45 Diprivan IV 0 mcg/kg/min .Q24H PRN 0 mls/hr TITRATE PER MD ORDER Titration Protocol 5 MCG/KG/MIN Lactated Ringer's 1,000 mls @ 50 mls/hr 02/09/19 14:15 02/13/19 01:47 Lactated Ringer's IV 50 mls/hr .Q20H JILL Administration Dextrose 1,000 mls @ 25 mls/hr 02/09/19 14:15 02/13/19 01:47 Dextrose 5% In Water 1000 Ml IV 25 mls/hr .Q24H JILL Administration Vancomycin/Sodium Chloride 1 gm in 200 mls @ 133 mls/hr 02/12/19 14:30 02/13/19 01:50 Vancomycin 1 Gm/Ns 200 Ml IVPB 02/17/19 14:31 133 mls/hr Q12H JILL Administration Protocol Pantoprazole Sodium 40 mg 02/09/19 10:00 02/12/19 12:38 Protonix Inj IVP 40 mg DAILY JILL Administration - Patient Studies Lab Studies: Microbiology Studies 02/08/19 00:56 Blood Culture - Preliminary Blood-Venous NO GROWTH AFTER 4 DAYS 02/08/19 22:36 Blood Culture - Preliminary Blood-Venous NO GROWTH AFTER 4 DAYS 02/08/19 17:29 Blood Culture - Preliminary Blood NO GROWTH AFTER 4 DAYS 02/08/19 17:29 Blood Culture - Preliminary Blood NO GROWTH AFTER 4 DAYS Lab Studies 02/13/19 02/13/19 02/13/19 Range/Units 05:37 05:37 05:18 WBC 12.6 H (4.8-10.8) K/uL RBC 3.59 L (4.40-5.90) Mil/uL Hgb 11.2 L (12.0-18.0) g/dL Hct 34.2 L (35.0-51.0) % MCV 95.3 H (80.0-94.0) fL MCH 31.3 H (27.0-31.0) pg MCHC 32.8 L (33.0-37.0) g/dL RDW 15.2 H (11.5-14.5) % Plt Count 201 (130-400) K/uL MPV 10.6 (7.2-11.7) fL Neut % (Auto) 93.5 H (50.0-75.0) % Lymph % (Auto) 4.3 L (20.0-40.0) % Sanborn % (Auto) 1.7 (0.0-10.0) % Eos % (Auto) 0.3 (0.0-4.0) % Baso % (Auto) 0.2 (0.0-2.0) % Neut # (Auto) 11.8 H (1.8-7.0) K/uL Lymph # (Auto) 0.5 L (1.0-4.3) K/uL Sanborn # (Auto) 0.2 (0.0-0.8) K/uL Eos # (Auto) 0.0 (0.0-0.7) K/uL Baso # (Auto) 0.0 (0.0-0.2) K/uL Neutrophils % (Manual) 93 H (50-75) % Band Neutrophils % 1 (0-2) % Lymphocytes % (Manual) 4 L (20-40) % Monocytes % (Manual) 2 (0-10) % Platelet Estimate Normal (NORMAL) Hypochromasia (manual) Slight Poikilocytosis (manual Slight Anisocytosis (manual) Slight Target Cells Slight Puncture Site pCO2 (35-45) mm/Hg pO2 (80-100) mm/Hg HCO3 (21-28) mmol/L ABG pH (7.35-7.45) ABG Total CO2 (22-28) mmol/L ABG O2 Saturation (95-98) % ABG Base Excess (-2.0-3.0) mmol/L ABG Hemoglobin (11.7-17.4) g/dL ABG Carboxyhemoglobin (0.5-1.5) % POC ABG HHb (Measured) (0.0-5.0) % ABG Methemoglobin (0.0-3.0) % Joseph Test A-a O2 Difference mm/Hg Respiratory Index Hgb O2 Saturation (95.0-98.0) % Vent Mode FiO2 % Sodium 140 (132-148) mmol/L Potassium 4.0 (3.6-5.2) mmol/L Chloride 110 H (98-107) mmol/L Carbon Dioxide 25 (22-30) mmol/L Anion Gap 9 L (10-20) BUN 33 H (9-20) mg/dL Creatinine 1.0 (0.8-1.5) mg/dL Est GFR ( Amer) > 60 Est GFR (Non-Af Amer) > 60 POC Glucose (mg/dL) 184 H (65-110) mg/dL Random Glucose 196 H D (75-110) mg/dL Calcium 8.7 (8.6-10.4) mg/dl Phosphorus 2.3 L (2.5-4.5) mg/dL Magnesium 1.8 (1.6-2.3) mg/dL Total Bilirubin 0.2 (0.2-1.3) mg/dL AST 94 H D (17-59) U/L ALT 230 H D (21-72) U/L Alkaline Phosphatase 79 (38-126) U/L Total Protein 5.4 L (6.3-8.3) g/dL Albumin 2.7 L (3.5-5.0) g/dL Globulin 2.7 (2.2-3.9) gm/dL Albumin/Globulin Ratio 1.0 (1.0-2.1) 02/12/19 02/12/19 02/12/19 Range/Units 23:28 18:15 13:11 WBC (4.8-10.8) K/uL RBC (4.40-5.90) Mil/uL Hgb (12.0-18.0) g/dL Hct (35.0-51.0) % MCV (80.0-94.0) fL MCH (27.0-31.0) pg MCHC (33.0-37.0) g/dL RDW (11.5-14.5) % Plt Count (130-400) K/uL MPV (7.2-11.7) fL Neut % (Auto) (50.0-75.0) % Lymph % (Auto) (20.0-40.0) % Sanborn % (Auto) (0.0-10.0) % Eos % (Auto) (0.0-4.0) % Baso % (Auto) (0.0-2.0) % Neut # (Auto) (1.8-7.0) K/uL Lymph # (Auto) (1.0-4.3) K/uL Sanborn # (Auto) (0.0-0.8) K/uL Eos # (Auto) (0.0-0.7) K/uL Baso # (Auto) (0.0-0.2) K/uL Neutrophils % (Manual) (50-75) % Band Neutrophils % (0-2) % Lymphocytes % (Manual) (20-40) % Monocytes % (Manual) (0-10) % Platelet Estimate (NORMAL) Hypochromasia (manual) Poikilocytosis (manual Anisocytosis (manual) Target Cells Puncture Site pCO2 (35-45) mm/Hg pO2 (80-100) mm/Hg HCO3 (21-28) mmol/L ABG pH (7.35-7.45) ABG Total CO2 (22-28) mmol/L ABG O2 Saturation (95-98) % ABG Base Excess (-2.0-3.0) mmol/L ABG Hemoglobin (11.7-17.4) g/dL ABG Carboxyhemoglobin (0.5-1.5) % POC ABG HHb (Measured) (0.0-5.0) % ABG Methemoglobin (0.0-3.0) % Joseph Test A-a O2 Difference mm/Hg Respiratory Index Hgb O2 Saturation (95.0-98.0) % Vent Mode FiO2 % Sodium (132-148) mmol/L Potassium (3.6-5.2) mmol/L Chloride (98-107) mmol/L Carbon Dioxide (22-30) mmol/L Anion Gap (10-20) BUN (9-20) mg/dL Creatinine (0.8-1.5) mg/dL Est GFR ( Amer) Est GFR (Non-Af Amer) POC Glucose (mg/dL) 188 H 170 H 144 H (65-110) mg/dL Random Glucose (75-110) mg/dL Calcium (8.6-10.4) mg/dl Phosphorus (2.5-4.5) mg/dL Magnesium (1.6-2.3) mg/dL Total Bilirubin (0.2-1.3) mg/dL AST (17-59) U/L ALT (21-72) U/L Alkaline Phosphatase (38-126) U/L Total Protein (6.3-8.3) g/dL Albumin (3.5-5.0) g/dL Globulin (2.2-3.9) gm/dL Albumin/Globulin Ratio (1.0-2.1) 02/12/19 Range/Units 12:50 WBC (4.8-10.8) K/uL RBC (4.40-5.90) Mil/uL Hgb (12.0-18.0) g/dL Hct (35.0-51.0) % MCV (80.0-94.0) fL MCH (27.0-31.0) pg MCHC (33.0-37.0) g/dL RDW (11.5-14.5) % Plt Count (130-400) K/uL MPV (7.2-11.7) fL Neut % (Auto) (50.0-75.0) % Lymph % (Auto) (20.0-40.0) % Sanborn % (Auto) (0.0-10.0) % Eos % (Auto) (0.0-4.0) % Baso % (Auto) (0.0-2.0) % Neut # (Auto) (1.8-7.0) K/uL Lymph # (Auto) (1.0-4.3) K/uL Sanborn # (Auto) (0.0-0.8) K/uL Eos # (Auto) (0.0-0.7) K/uL Baso # (Auto) (0.0-0.2) K/uL Neutrophils % (Manual) (50-75) % Band Neutrophils % (0-2) % Lymphocytes % (Manual) (20-40) % Monocytes % (Manual) (0-10) % Platelet Estimate (NORMAL) Hypochromasia (manual) Poikilocytosis (manual Anisocytosis (manual) Target Cells Puncture Site Rr pCO2 47 H (35-45) mm/Hg pO2 224 H (80-100) mm/Hg HCO3 23.9 (21-28) mmol/L ABG pH 7.33 L (7.35-7.45) ABG Total CO2 26.2 (22-28) mmol/L ABG O2 Saturation 99.8 H (95-98) % ABG Base Excess -1.3 (-2.0-3.0) mmol/L ABG Hemoglobin 10.3 L (11.7-17.4) g/dL ABG Carboxyhemoglobin 1.4 (0.5-1.5) % POC ABG HHb (Measured) 0.2 (0.0-5.0) % ABG Methemoglobin 0.9 (0.0-3.0) % Joseph Test Pos A-a O2 Difference 74.0 mm/Hg Respiratory Index 0.3 Hgb O2 Saturation 97.5 (95.0-98.0) % Vent Mode A/c 12/450/50/5 FiO2 50.0 % Sodium (132-148) mmol/L Potassium (3.6-5.2) mmol/L Chloride (98-107) mmol/L Carbon Dioxide (22-30) mmol/L Anion Gap (10-20) BUN (9-20) mg/dL Creatinine (0.8-1.5) mg/dL Est GFR ( Amer) Est GFR (Non-Af Amer) POC Glucose (mg/dL) (65-110) mg/dL Random Glucose (75-110) mg/dL Calcium (8.6-10.4) mg/dl Phosphorus (2.5-4.5) mg/dL Magnesium (1.6-2.3) mg/dL Total Bilirubin (0.2-1.3) mg/dL AST (17-59) U/L ALT (21-72) U/L Alkaline Phosphatase (38-126) U/L Total Protein (6.3-8.3) g/dL Albumin (3.5-5.0) g/dL Globulin (2.2-3.9) gm/dL Albumin/Globulin Ratio (1.0-2.1) Laboratory Results - last 24 hr 02/12/19 02/12/19 02/12/19 12:50 13:11 18:15 WBC RBC Hgb Hct MCV MCH MCHC RDW Plt Count MPV Neut % (Auto) Lymph % (Auto) Sanborn % (Auto) Eos % (Auto) Baso % (Auto) Neut # (Auto) Lymph # (Auto) Sanborn # (Auto) Eos # (Auto) Baso # (Auto) Neutrophils % (Manual) Band Neutrophils % Lymphocytes % (Manual) Monocytes % (Manual) Platelet Estimate Hypochromasia (manual) Poikilocytosis (manual Anisocytosis (manual) Target Cells Puncture Site Rr pCO2 47 H pO2 224 H HCO3 23.9 ABG pH 7.33 L ABG Total CO2 26.2 ABG O2 Saturation 99.8 H ABG Base Excess -1.3 ABG Hemoglobin 10.3 L ABG Carboxyhemoglobin 1.4 POC ABG HHb (Measured) 0.2 ABG Methemoglobin 0.9 Joseph Test Pos A-a O2 Difference 74.0 Respiratory Index 0.3 Hgb O2 Saturation 97.5 Vent Mode A/c 12/450/50/5 FiO2 50.0 Sodium Potassium Chloride Carbon Dioxide Anion Gap BUN Creatinine Est GFR ( Amer) Est GFR (Non-Af Amer) POC Glucose (mg/dL) 144 H 170 H Random Glucose Calcium Phosphorus Magnesium Total Bilirubin AST ALT Alkaline Phosphatase Total Protein Albumin Globulin Albumin/Globulin Ratio 02/12/19 02/13/19 02/13/19 23:28 05:18 05:37 WBC 12.6 H RBC 3.59 L Hgb 11.2 L Hct 34.2 L MCV 95.3 H MCH 31.3 H MCHC 32.8 L RDW 15.2 H Plt Count 201 MPV 10.6 Neut % (Auto) 93.5 H Lymph % (Auto) 4.3 L Sanborn % (Auto) 1.7 Eos % (Auto) 0.3 Baso % (Auto) 0.2 Neut # (Auto) 11.8 H Lymph # (Auto) 0.5 L Sanborn # (Auto) 0.2 Eos # (Auto) 0.0 Baso # (Auto) 0.0 Neutrophils % (Manual) 93 H Band Neutrophils % 1 Lymphocytes % (Manual) 4 L Monocytes % (Manual) 2 Platelet Estimate Normal Hypochromasia (manual) Slight Poikilocytosis (manual Slight Anisocytosis (manual) Slight Target Cells Slight Puncture Site pCO2 pO2 HCO3 ABG pH ABG Total CO2 ABG O2 Saturation ABG Base Excess ABG Hemoglobin ABG Carboxyhemoglobin POC ABG HHb (Measured) ABG Methemoglobin Joseph Test A-a O2 Difference Respiratory Index Hgb O2 Saturation Vent Mode FiO2 Sodium Potassium Chloride Carbon Dioxide Anion Gap BUN Creatinine Est GFR ( Amer) Est GFR (Non-Af Amer) POC Glucose (mg/dL) 188 H 184 H Random Glucose Calcium Phosphorus Magnesium Total Bilirubin AST ALT Alkaline Phosphatase Total Protein Albumin Globulin Albumin/Globulin Ratio 02/13/19 05:37 WBC RBC Hgb Hct MCV MCH MCHC RDW Plt Count MPV Neut % (Auto) Lymph % (Auto) Sanborn % (Auto) Eos % (Auto) Baso % (Auto) Neut # (Auto) Lymph # (Auto) Sanborn # (Auto) Eos # (Auto) Baso # (Auto) Neutrophils % (Manual) Band Neutrophils % Lymphocytes % (Manual) Monocytes % (Manual) Platelet Estimate Hypochromasia (manual) Poikilocytosis (manual Anisocytosis (manual) Target Cells Puncture Site pCO2 pO2 HCO3 ABG pH ABG Total CO2 ABG O2 Saturation ABG Base Excess ABG Hemoglobin ABG Carboxyhemoglobin POC ABG HHb (Measured) ABG Methemoglobin Joseph Test A-a O2 Difference Respiratory Index Hgb O2 Saturation Vent Mode FiO2 Sodium 140 Potassium 4.0 Chloride 110 H Carbon Dioxide 25 Anion Gap 9 L BUN 33 H Creatinine 1.0 Est GFR ( Amer) > 60 Est GFR (Non-Af Amer) > 60 POC Glucose (mg/dL) Random Glucose 196 H D Calcium 8.7 Phosphorus 2.3 L Magnesium 1.8 Total Bilirubin 0.2 AST 94 H D ALT 230 H D Alkaline Phosphatase 79 Total Protein 5.4 L Albumin 2.7 L Globulin 2.7 Albumin/Globulin Ratio 1.0 Fingerstick Blood Sugar Results: 184 Review of Systems - Review of Systems Systems not reviewed;Unavailable: Intubated Critical Care Progress Note - Nutrition Nutrition: Nutrition Category Date Time Status NPO Diet [DIET] Diets 02/09/19 Breakfast Active Assessment/Plan - Assessment and Plan (Free Text) Assessment: 73 y o male with PMhx HLD, gastritis, ?COPD, ?MS, and dysphagia who presented to the ED with c/o dysphagia x6 days. Code Venkat was called on 02/08/19 for pt unresponsive on floor, initial rhythm asystole, CPR initiated, shock x1 give, epi x2 was given, pt was intubated. ROSC achieved 12 mins later, pt required pressor therapy and was transferred to ICU. Rhythm after ROSC was achieved was rapid A-fib which later converted to NSR. Levophed drip d/c'd, s/p therapeutic hypothermic protocol s/p cardiac arrest. Pt currently DNR status. Plan to start brain protocol. Plan: Neuro: -Intubated on PRVC, Propofol sedation d/c'd Pt currently nonverbal and nonresponsive on exam, pupils pinpoint on exam -CT head on admission: no acute intracranial abnormality, chronic microvascular ischemic changes, sinus mucosal disease -Repeat head CT 02/10: no acute intracranial abnormalities. No significant findings to accound for the clinical presentation. No sig interval changes compared to prior exams. -Neurology consulted for anoxia (Dr. 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 Mild chronic white matter and basal nuclei ischemic changes. Diffuse pial enhancement changes which are of uncertain etiology and could be 2/2 to scanning during early phase injection however possibility of meningitis not excluded. Mild generalized vol loss. -MRI C-spine: Mild multilevel degenerative spondylolysis most notably affecting C5-C6 level. No abnormal enhancement identified. -LP of low yield at this point as per Neuro due to being on anbx for several days -EEG 02/11: diffusey slow, however normal posterior dominant rhythm. No seizures. -Video EEG 02/04: flat EEG, no posterior dominant rhythm. No brain stem activity. -Start brain protocol Cardio: -Code Blue called 02/08/19 for pt unresponsive on floor, initial rhythm asystole, CPR initiated, shock x1 give, epi x2 was given, pt was intubated. ROSC achieved 12 mins later, pt required pressor therapy and was transferred to ICU. Rhythm after ROSC was achieved was rapid A-fib which later converted to NSR -Levophed drip d/c'd, s/p therapeutic hypothermic protocol s/p cardiac arrest -A-line d/c'd -Most recent EKG demonstrates NSR -Troponin trend: 0.03 => 0.06 => 0.04 => 0.01 => 0.03 -CK 878 -TSH wnl -Palliative care consulted re. goals of care Pt's and daughter signed DNR on POLST form at bedside on 02/11/19, updated in chart Pulm: -Currently on PRVC, sedation d/c'd -Most recent ABG 02/12: 7.54/27/122/26 -Lactate trend 9.5 (02/08) => 1.7 (02/10) -C/w pulm toilet -Rapid flu neg -Utox neg -Sputum cx 02/09 positive for Enterobacter Cloacae, yeast species; currently on anbx therapy -Hx COPD Duonebs q4h GI: -Dysphagia, may be neurogenic in etiology 2/2 chronic dx of MS vs. ALS?, unable to assess currently 2/2 intubation status -Failure to thrive Per family pt has lost about 50 lbs since Oct 2018, was on pureed diet at home -Tube feeds, Jevity 1.5 initiate rate at 20 mls/hr titrate to goal rate of 45 mls/hr -IVF -C/w tube feeds as ordered -Protonix IVP daily -Transaminitis likely 2/2 shock liver 2/2 cardiac arrest, cont to trend, trending down currently -GI (Dr. Knight) consulted, recs appreciated -Prior EGD 11/2018 as per pt's daughter demonstrated findings of gastritis Heme: -H/H 11.2/34.2 -Leukocytosis trending down, cont to monitor ID: -Possible aspiration -Recent CXR demonstrates no active disease -Aztreonam/Flagyl -Leukocytosis trending down -Tachycardia resolved, cont to monitor -S/p Hypothermic protocol -Sputum, blood, urine cxs ordered -Sputum cx 02/09 positive for Enterobacter, yeast species -Afebrile > 24 hrs, cont to trend -Tylenol prn for fevers Renal: -Riley d/c'd -Trend I's/O's -BUN/Cr 33/1.0, cont to monitor -Urine cx 02/08 pos for gram neg lul PPX: -SCD, Heparin q12h -Protonix Pt seen, examined with, and plan discussed with Dr. Aiken, attending physician. Jonn Palma DO PGY-1, [employer] Pager #[phone] <Lencho Aiken - Last Filed: 02/13/19 17:07> CCU Objective - Vital Signs / Intake & Output Vital Signs (Last 4 hours): Vital Signs Pulse Resp BP Pulse Ox 02/13/19 14:01 93 H 16 154/79 H 99 02/13/19 14:00 93 H 16 99 02/13/19 13:01 93 H 16 152/79 H 99 02/13/19 13:00 93 H 16 99 Intake and Output (Last 8hrs): Intake & Output 02/13/19 02/13/19 02/13/19 06:59 14:59 22:59 Intake Total 1272.5 1268 Output Total 1000 Balance 272.5 1268 Weight 128 lb 14.4 oz Intake: Intake, IV Amount 912.5 908 Right Forearm 400 450 Right Forearm Y-site 512.5 458 Tube Feeding 360 360 Output: Urine 1000 Urine, Voided 1000 - Medications Active Medications: Active Medications Generic Name Dose Route Start Last Admin Trade Name Freq PRN Reason Stop Dose Admin Acetaminophen 650 mg 02/11/19 12:32 Tylenol 650mg/20.3ml Solution Ud PO Q6H PRN Temperature Albuterol/Ipratropium 3 ml 02/08/19 18:00 02/13/19 11:43 Duoneb 3 Mg/0.5 Mg (3 Ml) Ud INH Not Given RQ4 JILL Dexamethasone 10 mg 02/13/19 00:00 02/13/19 11:53 Decadron Inj IV 10 mg Q6 JILL Administration Heparin Sodium (Porcine) 5,000 units 02/09/19 22:00 02/13/19 10:12 Heparin SC 5,000 units Q12 JILL Administration Aztreonam 2 gm/ Sodium 100 mls @ 100 mls/hr 02/09/19 11:00 02/13/19 10:17 Chloride IVPB 100 mls/hr Q8H JILL Administration Protocol Metronidazole 500 mg in 100 mls @ 100 mls/hr 02/09/19 12:00 02/13/19 11:54 Flagyl IVPB 100 mls/hr Q8H JILL Administration Protocol Propofol 1,000 mg in 100 mls @ 1.606 mls/hr 02/09/19 11:06 02/10/19 09:45 Diprivan IV 0 mcg/kg/min .Q24H PRN 0 mls/hr TITRATE PER MD ORDER Titration Protocol 5 MCG/KG/MIN Lactated Ringer's 1,000 mls @ 50 mls/hr 02/09/19 14:15 02/13/19 01:47 Lactated Ringer's IV 50 mls/hr .Q20H JILL Administration Dextrose 1,000 mls @ 25 mls/hr 02/09/19 14:15 02/13/19 01:47 Dextrose 5% In Water 1000 Ml IV 25 mls/hr .Q24H JILL Administration Vancomycin/Sodium Chloride 1 gm in 200 mls @ 133 mls/hr 02/12/19 14:30 02/13/19 13:49 Vancomycin 1 Gm/Ns 200 Ml IVPB 02/17/19 14:31 133 mls/hr Q12H JILL Administration Protocol Pantoprazole Sodium 40 mg 02/09/19 10:00 02/13/19 10:12 Protonix Inj IVP 40 mg DAILY JILL Administration - Patient Studies Lab Studies: Microbiology Studies 02/08/19 00:56 Blood Culture - Preliminary Blood-Venous NO GROWTH AFTER 4 DAYS 02/08/19 22:36 Blood Culture - Preliminary Blood-Venous NO GROWTH AFTER 4 DAYS 02/08/19 17:29 Blood Culture - Preliminary Blood NO GROWTH AFTER 4 DAYS 02/08/19 17:29 Blood Culture - Preliminary Blood NO GROWTH AFTER 4 DAYS Lab Studies 02/13/19 02/13/19 02/13/19 Range/Units 15:30 11:28 05:37 WBC (4.8-10.8) K/uL RBC (4.40-5.90) Mil/uL Hgb (12.0-18.0) g/dL Hct (35.0-51.0) % MCV (80.0-94.0) fL MCH (27.0-31.0) pg MCHC (33.0-37.0) g/dL RDW (11.5-14.5) % Plt Count (130-400) K/uL MPV (7.2-11.7) fL Neut % (Auto) (50.0-75.0) % Lymph % (Auto) (20.0-40.0) % Sanborn % (Auto) (0.0-10.0) % Eos % (Auto) (0.0-4.0) % Baso % (Auto) (0.0-2.0) % Neut # (Auto) (1.8-7.0) K/uL Lymph # (Auto) (1.0-4.3) K/uL Sanborn # (Auto) (0.0-0.8) K/uL Eos # (Auto) (0.0-0.7) K/uL Baso # (Auto) (0.0-0.2) K/uL Neutrophils % (Manual) (50-75) % Band Neutrophils % (0-2) % Lymphocytes % (Manual) (20-40) % Monocytes % (Manual) (0-10) % Platelet Estimate (NORMAL) Hypochromasia (manual) Poikilocytosis (manual Anisocytosis (manual) Target Cells Puncture Site Rra pCO2 42 (35-45) mm/Hg pO2 145 H (80-100) mm/Hg HCO3 25.8 (21-28) mmol/L ABG pH 7.40 (7.35-7.45) ABG Total CO2 27.3 (22-28) mmol/L ABG O2 Saturation 99.5 H (95-98) % ABG Base Excess 1.0 (-2.0-3.0) mmol/L Joseph Test Pos A-a O2 Difference 52.0 mm/Hg Respiratory Index 0.4 Vent Mode Prvc Mechanical Rate 16 FiO2 35.0 % Tidal Volume 450 PEEP 5 Sodium 140 (132-148) mmol/L Potassium 4.0 (3.6-5.2) mmol/L Chloride 110 H (98-107) mmol/L Carbon Dioxide 25 (22-30) mmol/L Anion Gap 9 L (10-20) BUN 33 H (9-20) mg/dL Creatinine 1.0 (0.8-1.5) mg/dL Est GFR ( Amer) > 60 Est GFR (Non-Af Amer) > 60 POC Glucose (mg/dL) 258 H (65-110) mg/dL Random Glucose 196 H D (75-110) mg/dL Calcium 8.7 (8.6-10.4) mg/dl Phosphorus 2.3 L (2.5-4.5) mg/dL Magnesium 1.8 (1.6-2.3) mg/dL Total Bilirubin 0.2 (0.2-1.3) mg/dL AST 94 H D (17-59) U/L ALT 230 H D (21-72) U/L Alkaline Phosphatase 79 (38-126) U/L Total Protein 5.4 L (6.3-8.3) g/dL Albumin 2.7 L (3.5-5.0) g/dL Globulin 2.7 (2.2-3.9) gm/dL Albumin/Globulin Ratio 1.0 (1.0-2.1) 02/13/19 02/13/19 02/12/19 Range/Units 05:37 05:18 23:28 WBC 12.6 H (4.8-10.8) K/uL RBC 3.59 L (4.40-5.90) Mil/uL Hgb 11.2 L (12.0-18.0) g/dL Hct 34.2 L (35.0-51.0) % MCV 95.3 H (80.0-94.0) fL MCH 31.3 H (27.0-31.0) pg MCHC 32.8 L (33.0-37.0) g/dL RDW 15.2 H (11.5-14.5) % Plt Count 201 (130-400) K/uL MPV 10.6 (7.2-11.7) fL Neut % (Auto) 93.5 H (50.0-75.0) % Lymph % (Auto) 4.3 L (20.0-40.0) % [place] % (Auto) 1.7 (0.0-10.0) % Eos % (Auto) 0.3 (0.0-4.0) % Baso % (Auto) 0.2 (0.0-2.0) % Neut # (Auto) 11.8 H (1.8-7.0) K/uL Lymph # (Auto) 0.5 L (1.0-4.3) K/uL [place] # (Auto) 0.2 (0.0-0.8) K/uL Eos # (Auto) 0.0 (0.0-0.7) K/uL Baso # (Auto) 0.0 (0.0-0.2) K/uL Neutrophils % (Manual) 93 H (50-75) % Band Neutrophils % 1 (0-2) % Lymphocytes % (Manual) 4 L (20-40) % Monocytes % (Manual) 2 (0-10) % Platelet Estimate Normal (NORMAL) Hypochromasia (manual) Slight Poikilocytosis (manual Slight Anisocytosis (manual) Slight Target Cells Slight Puncture Site pCO2 (35-45) mm/Hg pO2 (80-100) mm/Hg HCO3 (21-28) mmol/L ABG pH (7.35-7.45) ABG Total CO2 (22-28) mmol/L ABG O2 Saturation (95-98) % ABG Base Excess (-2.0-3.0) mmol/L Joseph Test A-a O2 Difference mm/Hg Respiratory Index Vent Mode Mechanical Rate FiO2 % Tidal Volume PEEP Sodium (132-148) mmol/L Potassium (3.6-5.2) mmol/L Chloride (98-107) mmol/L Carbon Dioxide (22-30) mmol/L Anion Gap (10-20) BUN (9-20) mg/dL Creatinine (0.8-1.5) mg/dL Est GFR ( Amer) Est GFR (Non-Af Amer) POC Glucose (mg/dL) 184 H 188 H (65-110) mg/dL Random Glucose (75-110) mg/dL Calcium (8.6-10.4) mg/dl Phosphorus (2.5-4.5) mg/dL Magnesium (1.6-2.3) mg/dL Total Bilirubin (0.2-1.3) mg/dL AST (17-59) U/L ALT (21-72) U/L Alkaline Phosphatase (38-126) U/L Total Protein (6.3-8.3) g/dL Albumin (3.5-5.0) g/dL Globulin (2.2-3.9) gm/dL Albumin/Globulin Ratio (1.0-2.1) 02/12/19 Range/Units 18:15 WBC (4.8-10.8) K/uL RBC (4.40-5.90) Mil/uL Hgb (12.0-18.0) g/dL Hct (35.0-51.0) % MCV (80.0-94.0) fL MCH (27.0-31.0) pg MCHC (33.0-37.0) g/dL RDW (11.5-14.5) % Plt Count (130-400) K/uL MPV (7.2-11.7) fL Neut % (Auto) (50.0-75.0) % Lymph % (Auto) (20.0-40.0) % [place] % (Auto) (0.0-10.0) % Eos % (Auto) (0.0-4.0) % Baso % (Auto) (0.0-2.0) % Neut # (Auto) (1.8-7.0) K/uL Lymph # (Auto) (1.0-4.3) K/uL [place] # (Auto) (0.0-0.8) K/uL Eos # (Auto) (0.0-0.7) K/uL Baso # (Auto) (0.0-0.2) K/uL Neutrophils % (Manual) (50-75) % Band Neutrophils % (0-2) % Lymphocytes % (Manual) (20-40) % Monocytes % (Manual) (0-10) % Platelet Estimate (NORMAL) Hypochromasia (manual) Poikilocytosis (manual Anisocytosis (manual) Target Cells Puncture Site pCO2 (35-45) mm/Hg pO2 (80-100) mm/Hg HCO3 (21-28) mmol/L ABG pH (7.35-7.45) ABG Total CO2 (22-28) mmol/L ABG O2 Saturation (95-98) % ABG Base Excess (-2.0-3.0) mmol/L Joseph Test A-a O2 Difference mm/Hg Respiratory Index Vent Mode Mechanical Rate FiO2 % Tidal Volume PEEP Sodium (132-148) mmol/L Potassium (3.6-5.2) mmol/L Chloride (98-107) mmol/L Carbon Dioxide (22-30) mmol/L Anion Gap (10-20) BUN (9-20) mg/dL Creatinine (0.8-1.5) mg/dL Est GFR ( Amer) Est GFR (Non-Af Amer) POC Glucose (mg/dL) 170 H (65-110) mg/dL Random Glucose (75-110) mg/dL Calcium (8.6-10.4) mg/dl Phosphorus (2.5-4.5) mg/dL Magnesium (1.6-2.3) mg/dL Total Bilirubin (0.2-1.3) mg/dL AST (17-59) U/L ALT (21-72) U/L Alkaline Phosphatase (38-126) U/L Total Protein (6.3-8.3) g/dL Albumin (3.5-5.0) g/dL Globulin (2.2-3.9) gm/dL Albumin/Globulin Ratio (1.0-2.1) Laboratory Results - last 24 hr 02/12/19 02/12/19 02/13/19 18:15 23:28 05:18 WBC RBC Hgb Hct MCV MCH MCHC RDW Plt Count MPV Neut % (Auto) Lymph % (Auto) [place] % (Auto) Eos % (Auto) Baso % (Auto) Neut # (Auto) Lymph # (Auto) [place] # (Auto) Eos # (Auto) Baso # (Auto) Neutrophils % (Manual) Band Neutrophils % Lymphocytes % (Manual) Monocytes % (Manual) Platelet Estimate Hypochromasia (manual) Poikilocytosis (manual Anisocytosis (manual) Target Cells Puncture Site pCO2 pO2 HCO3 ABG pH ABG Total CO2 ABG O2 Saturation ABG Base Excess Joseph Test A-a O2 Difference Respiratory Index Vent Mode Mechanical Rate FiO2 Tidal Volume PEEP Sodium Potassium Chloride Carbon Dioxide Anion Gap BUN Creatinine Est GFR ( Amer) Est GFR (Non-Af Amer) POC Glucose (mg/dL) 170 H 188 H 184 H Random Glucose Calcium Phosphorus Magnesium Total Bilirubin AST ALT Alkaline Phosphatase Total Protein Albumin Globulin Albumin/Globulin Ratio 02/13/19 02/13/19 02/13/19 05:37 05:37 11:28 WBC 12.6 H RBC 3.59 L Hgb 11.2 L Hct 34.2 L MCV 95.3 H MCH 31.3 H MCHC 32.8 L RDW 15.2 H Plt Count 201 MPV 10.6 Neut % (Auto) 93.5 H Lymph % (Auto) 4.3 L Sanborn % (Auto) 1.7 Eos % (Auto) 0.3 Baso % (Auto) 0.2 Neut # (Auto) 11.8 H Lymph # (Auto) 0.5 L [place] # (Auto) 0.2 Eos # (Auto) 0.0 Baso # (Auto) 0.0 Neutrophils % (Manual) 93 H Band Neutrophils % 1 Lymphocytes % (Manual) 4 L Monocytes % (Manual) 2 Platelet Estimate Normal Hypochromasia (manual) Slight Poikilocytosis (manual Slight Anisocytosis (manual) Slight Target Cells Slight Puncture Site pCO2 pO2 HCO3 ABG pH ABG Total CO2 ABG O2 Saturation ABG Base Excess Joseph Test A-a O2 Difference Respiratory Index Vent Mode Mechanical Rate FiO2 Tidal Volume PEEP Sodium 140 Potassium 4.0 Chloride 110 H Carbon Dioxide 25 Anion Gap 9 L BUN 33 H Creatinine 1.0 Est GFR ( Amer) > 60 Est GFR (Non-Af Amer) > 60 POC Glucose (mg/dL) 258 H Random Glucose 196 H D Calcium 8.7 Phosphorus 2.3 L Magnesium 1.8 Total Bilirubin 0.2 AST 94 H D ALT 230 H D Alkaline Phosphatase 79 Total Protein 5.4 L Albumin 2.7 L Globulin 2.7 Albumin/Globulin Ratio 1.0 02/13/19 15:30 WBC RBC Hgb Hct MCV MCH MCHC RDW Plt Count MPV Neut % (Auto) Lymph % (Auto) Sanborn % (Auto) Eos % (Auto) Baso % (Auto) Neut # (Auto) Lymph # (Auto) [place] # (Auto) Eos # (Auto) Baso # (Auto) Neutrophils % (Manual) Band Neutrophils % Lymphocytes % (Manual) Monocytes % (Manual) Platelet Estimate Hypochromasia (manual) Poikilocytosis (manual Anisocytosis (manual) Target Cells Puncture Site Rra pCO2 42 pO2 145 H HCO3 25.8 ABG pH 7.40 ABG Total CO2 27.3 ABG O2 Saturation 99.5 H ABG Base Excess 1.0 Joseph Test Pos A-a O2 Difference 52.0 Respiratory Index 0.4 Vent Mode Prvc Mechanical Rate 16 FiO2 35.0 Tidal Volume 450 PEEP 5 Sodium Potassium Chloride Carbon Dioxide Anion Gap BUN Creatinine Est GFR ( Amer) Est GFR (Non-Af Amer) POC Glucose (mg/dL) Random Glucose Calcium Phosphorus Magnesium Total Bilirubin AST ALT Alkaline Phosphatase Total Protein Albumin Globulin Albumin/Globulin Ratio Critical Care Progress Note - Nutrition Nutrition: Nutrition Category Date Time Status NPO Diet [DIET] Diets 02/09/19 Breakfast Active Attending/Attestation - Attestation I have personally seen and examined this patient.: Yes I have fully participated in the care of the patient.: Yes I have reviewed all pertinent clinical information: Yes Notes (Text): 02/13/19 16:49 I have seen and examined the patient. Medical records, lab studies, and imaging were reviewed by me and a management plan was formulated on multidisciplinary rounds with resident Dr. Palma. I agree with their documented assessment and plan. Patient's EEG now shows signs of brain , with completely flattened brain architecture, discussed with neurology. Will attempt to do a brain apnea test. Critical Care Time 35 minutes. Multi-disciplinary rounds were performed with house staff, nursing, speech therapy, respiratory therapy, pharmacy and nutrition with integrated input from the primary team/attending and other consulting services. The documented time is cumulative and includes review of patient data/exams/labs/chart review and examination of the patient on rounds and throughout the day; time is exclusive of any procedures or teaching time.
--- NOTE | 2019-02-13 10:03 | CP.PCM.PN ---
Subjective - Date & Time of Evaluation Date of Evaluation: 02/13/19 Time of Evaluation: 09:56 - Subjective Subjective: Progress note for Dr. Villafuerte. Patient seen and examined at bedside. Patient undergoing video EEG. Remains intubated and off sedation. Unable to obtain ROS. Objective - Vital Signs/Intake and Output Vital Signs (last 24 hours): Temp Pulse Resp BP Pulse Ox 97.1 F L 78 16 129/75 100 02/13/19 08:00 02/13/19 08:01 02/13/19 08:01 02/13/19 08:01 02/13/19 08:01 Intake and Output: 02/13/19 02/13/19 06:59 18:59 Intake Total 1752.5 240 Output Total 1000 Balance 752.5 240 - Medications Medications: Current Medications Acetaminophen (Tylenol 650mg/20.3ml Solution Ud) 650 mg PO Q6H PRN PRN Reason: Temperature Albuterol/Ipratropium (Duoneb 3 Mg/0.5 Mg (3 Ml) Ud) 3 ml INH RQ4 JILL Last Admin: 02/13/19 08:19 Dose: 3 ml Dexamethasone (Decadron Inj) 10 mg IV Q6 JILL Last Admin: 02/13/19 05:38 Dose: 10 mg Heparin Sodium (Porcine) (Heparin) 5,000 units SC Q12 J[facility] Last Admin: 02/12/19 21:36 Dose: 5,000 units Aztreonam 2 gm/ Sodium (Chloride) 100 mls @ 100 mls/hr IVPB Q8H [facility]; Protocol Last Admin: 02/13/19 03:25 Dose: 100 mls/hr Metronidazole (Flagyl) 500 mg in 100 mls @ 100 mls/hr IVPB Q8H [facility]; Protocol Last Admin: 02/13/19 04:45 Dose: 100 mls/hr Propofol (Diprivan) 1,000 mg in 100 mls @ 1.606 mls/hr IV .Q24H PRN; Protocol PRN Reason: TITRATE PER MD ORDER Last Titration: 02/10/19 09:45 Dose: 0 mcg/kg/min, 0 mls/hr Lactated Ringer's (Lactated Ringer's) 1,000 mls @ 50 mls/hr IV .Q20H [facility] Last Admin: 03/21/19 01:47 Dose: 50 mls/hr Dextrose (Dextrose 5% In Water 1000 Ml) 1,000 mls @ 25 mls/hr IV .Q24H [facility] Last Admin: 02/13/19 01:47 Dose: 25 mls/hr Vancomycin/Sodium Chloride (Vancomycin 1 Gm/Ns 200 Ml) 1 gm in 200 mls @ 133 mls/hr IVPB Q12H [facility]; Protocol Stop: 02/17/19 14:31 Last Admin: 02/13/19 01:50 Dose: 133 mls/hr Pantoprazole Sodium (Protonix Inj) 40 mg IVP DAILY [facility] Last Admin: 02/12/19 12:38 Dose: 40 mg - Labs Labs: 02/13/19 05:37 02/13/19 05:37 PT 13.2 SECONDS (9.7-12.2) H 02/09/19 05:45 INR 1.2 02/09/19 05:45 APTT 30 SECONDS (21-34) 02/09/19 05:45 - Additional Findings Additional findings: - Head Exam Head Exam: ATRAUMATIC, NORMOCEPHALIC - Eye Exam Additional comments: pupils are fixed, unresponsive to light. - ENT Exam Additional comments: ET tube in place - Neck Exam Neck Exam: Normal Inspection - Respiratory Exam Additional comments: Intubated. Rate 16/0.45 vol/PEEP 5/FiO2 35% - Neurological Exam Additional comments: Pupils are fixed, unresponsive to light. No corneals, No dolls eyes. No gag reflex. Does not withdraw to pain Assessment and Plan - Assessment and Plan (Free Text) Assessment: 73 year old male with progressive neurological disease who presented to the ED for 1 week of worsening dysphagia and generalized weakness. Patient later found unresponsive, in asystole and a CODE BLUE was called. Patient was intubated. ROSC was achieved after 12 min of ACLS. Plan: -MRI brain: No evidence of acute intracranial hemorrhage or infarct. Mild chronic white matter and basal nuclei ischemic changes. There are diffuse pial enhancement changes which are of uncertain etiology and could be secondary to scanning during early phase injection however the possibility of a meningitis not excluded. Clinical correlation recommended. CSF evaluation may ultimately be required for definitive diagnosis. Mild generalized volume loss. -Patient treated with Aztreonam, vanco and flagyl for several days, LP at this point would be of low yield -MRI C-spine: Mild multilevel degenerative spondylosis most notably affecting the C5-C6 level as described. No abnormal enhancement is identified. -Repeat head CT 02/10/19: No acute abnormalities. No interval change. -EEG 02/11/19: diffusely slow, however normal posterior dominant rhythm. No seizures -Video EEG 02/13/19: Flat EEG, no posterior dominant rhythm. No brain stem activity -Start brain protocol -Brain flow study ordered Discussed with Dr. Christo Lucio, PGY-1
[2019-02-13 12:11] VITALS: O2SAT 99
--- NOTE | 2019-02-13 12:25 | PCM.VEEG ---
Video EEG - Procedure Start Date: 02/12/19 Start Time: 17:15 End Date: 02/13/19 End Time: 12:10 Technical Summary: DATA ACQUISITION: This was a multichannel inpatient video-EEG, a minimum of 22 channels were uti lized, performed in accordance with recommendations specified by the [place] [employer] (Nithya Phipps et al. ACNS Guideline 1: Minimum Technical Requirements for Performing Clinical Electroencephalography. Journal of Clinical Neurophysiology 2016;33:303-7). The 10-20 electrode placement system was utilized in accordance with guidelines detailed by the International Federation of Clinical Neurophysiology (Neisha Cano et al. The Ten-Twenty Electrode System of the International Federation. Recommendations for the Practice of Clinical Neurophysiology: Guidelines of the International Federation of Clinical Physiology 1999; EEG Suppl. 52.). DATA REVIEW / SPIKE DETECTION / DIGITAL ANALYSIS: The entire EEG was scanned and reviewed. Synchronized audio and video recording were reviewed at the time of each alarm and whenever an abnormality or suspicious activity was noted. The entire recording was analyzed utilizing an automated digital spike and seizure analysis program and all automatic spike and seizure detections were manually reviewed. A compressed spectral array was displayed and reviewed alongside the raw EEG tracings. In addition, further analysis of the EEG was performed when abnormalities were identified, including montage changes, dipole source localization, and frequency band identification. Video portion of the study is necessary to correlate abnormal EEG activity with clinical behavior. This study was attended 24 hours per day. - Interpretation Description of the study: Indication; Status Epilepticus EEG Finding during wakefulness: There was no evidence of a discernible posterior dominant rhythm. Clinically the patient was in coma, the EEG showed marked bilateral attenuated slowing at 5 to 6 Hz, there was muscle artifact seen bi frontally. EEG activity was markedly attenuated and non reactive. Hyperventilation and photic stimulation were not performed. EEG Finding during sleep: Normal sleep architecture was absent. Interictal non-epileptiform abnormalities: None Interictal epileptiform abnormalities: None Ictal epileptiform abnormalities: None - Impression Impression: This is an abnormal video-EEG monitoring study due to the presence of; 1-Sever diffuse attenuated slowing. No seizures seen Not in status epilepticus. INTERPRETATION: These findings support the diagnosis of severe, bihemispheric cerebral dysfunction, these findings are non specific.
[2019-02-13 14:49] VITALS: TEMP 98.1
[2019-02-13 14:50] VITALS: RESP 16
[2019-02-13 15:41] LABS: ABG ALLEN TEST POS; ARTERIAL BLOOD GAS HCO3 25.8 mmol/L (21-28); ARTERIAL BLOOD GAS O2 SAT 99.5 % (95-98); ARTERIAL BLOOD GAS PCO2 42 mm/Hg (35-45); ARTERIAL BLOOD GAS PO2 145 mm/Hg (80-100); ARTERIAL BLOOD GAS TCO2 27.3 mmol/L (22-28)
--- NOTE | 2019-02-13 16:34 | CP.PCM.PN ---
<Jonn Palma - Last Filed: 02/13/19 16:48> Subjective - Date & Time of Evaluation Date of Evaluation: 02/13/19 Time of Evaluation: 16:20 - Subjective Subjective: Was at bedside evaluating pt with attending Dr. Aiken performing brain protocol test. Test was aborted after 3 mins after ventricular fibrillation appeared on child support investigator and pt was placed back on vent. Rhythm changed from ventricular fibrillation to bradycardia. Pt given 1 mg IV x1 of atropine at 16:03 with no improvement in HR. Cardiac Rhythm changed from bradycardia to PEA to asystole. Pt DNR status. Time of 16:20. Family present, notified of , given comfort care. Notified PMD Dr. Matos of pronouncement of . Objective - Vital Signs/Intake and Output Vital Signs (last 24 hours): Temp Pulse Resp BP Pulse Ox 98.1 F 93 H 16 154/79 H 99 02/13/19 12:00 02/13/19 14:01 02/13/19 14:01 02/13/19 14:01 02/13/19 14:01 Intake and Output: 02/13/19 02/13/19 06:59 18:59 Intake Total 1752.5 1268 Output Total 1000 Balance 752.5 1268 - Medications Medications: Current Medications Acetaminophen (Tylenol 650mg/20.3ml Solution Ud) 650 mg PO Q6H PRN PRN Reason: Temperature Albuterol/Ipratropium (Duoneb 3 Mg/0.5 Mg (3 Ml) Ud) 3 ml INH RQ4 JILL Last Admin: 02/13/19 11:43 Dose: Not Given Dexamethasone (Decadron Inj) 10 mg IV Q6 JILL Last Admin: 02/13/19 11:53 Dose: 10 mg Heparin Sodium (Porcine) (Heparin) 5,000 units SC Q12 JILL Last Admin: 02/13/19 10:12 Dose: 5,000 units Aztreonam 2 gm/ Sodium (Chloride) 100 mls @ 100 mls/hr IVPB Q8H [facility]; Protocol Last Admin: 02/13/19 10:17 Dose: 100 mls/hr Metronidazole (Flagyl) 500 mg in 100 mls @ 100 mls/hr IVPB Q8H [facility]; Protocol Last Admin: 02/13/19 11:54 Dose: 100 mls/hr Propofol (Diprivan) 1,000 mg in 100 mls @ 1.606 mls/hr IV .Q24H PRN; Protocol PRN Reason: TITRATE PER MD ORDER Last Titration: 02/10/19 09:45 Dose: 0 mcg/kg/min, 0 mls/hr Lactated Ringer's (Lactated Ringer's) 1,000 mls @ 50 mls/hr IV .Q20H [facility] Last Admin: 02/13/19 01:47 Dose: 50 mls/hr Dextrose (Dextrose 5% In Water 1000 Ml) 1,000 mls @ 25 mls/hr IV .Q24H [facility] Last Admin: 02/13/19 01:47 Dose: 25 mls/hr Vancomycin/Sodium Chloride (Vancomycin 1 Gm/Ns 200 Ml) 1 gm in 200 mls @ 133 mls/hr IVPB Q12H [facility]; Protocol Stop: 02/17/19 14:31 Last Admin: 02/13/19 13:49 Dose: 133 mls/hr Pantoprazole Sodium (Protonix Inj) 40 mg IVP DAILY JILL Last Admin: 02/13/19 10:12 Dose: 40 mg - Labs Labs: 02/13/19 05:37 02/13/19 05:37 PT 13.2 SECONDS (9.7-12.2) H 02/09/19 05:45 INR 1.2 02/09/19 05:45 APTT 30 SECONDS (21-34) 02/09/19 05:45 <Lencho Aiken - Last Filed: 02/13/19 17:16> Objective - Vital Signs/Intake and Output Vital Signs (last 24 hours): Temp Pulse Resp BP Pulse Ox 98.1 F 33 L 16 158/74 H 99 02/13/19 12:00 02/13/19 16:00 02/13/19 16:00 02/13/19 15:01 02/13/19 15:01 Intake and Output: 02/13/19 02/13/19 06:59 18:59 Intake Total 1752.5 1675 Output Total 1000 1000 Balance 752.5 675 - Medications Medications: Current Medications Acetaminophen (Tylenol 650mg/20.3ml Solution Ud) 650 mg PO Q6H PRN PRN Reason: Temperature Albuterol/Ipratropium (Duoneb 3 Mg/0.5 Mg (3 Ml) Ud) 3 ml INH RQ4 JILL Last Admin: 02/13/19 11:43 Dose: Not Given Dexamethasone (Decadron Inj) 10 mg IV Q6 [facility] Last Admin: 02/13/19 11:53 Dose: 10 mg Heparin Sodium (Porcine) (Heparin) 5,000 units SC Q12 JILL Last Admin: 02/13/19 10:12 Dose: 5,000 units Aztreonam 2 gm/ Sodium (Chloride) 100 mls @ 100 mls/hr IVPB Q8H [facility]; Protocol Last Admin: 02/13/19 10:17 Dose: 100 mls/hr Metronidazole (Flagyl) 500 mg in 100 mls @ 100 mls/hr IVPB Q8H [facility]; Protocol Last Admin: 02/13/19 11:54 Dose: 100 mls/hr Propofol (Diprivan) 1,000 mg in 100 mls @ 1.606 mls/hr IV .Q24H PRN; Protocol PRN Reason: TITRATE PER MD ORDER Last Titration: 02/10/19 09:45 Dose: 0 mcg/kg/min, 0 mls/hr Lactated Ringer's (Lactated Ringer's) 1,000 mls @ 50 mls/hr IV .Q20H [facility] Last Admin: 02/13/19 01:47 Dose: 50 mls/hr Dextrose (Dextrose 5% In Water 1000 Ml) 1,000 mls @ 25 mls/hr IV .Q24H [facility] Last Admin: 02/13/19 17:02 Dose: Not Given Vancomycin/Sodium Chloride (Vancomycin 1 Gm/Ns 200 Ml) 1 gm in 200 mls @ 133 mls/hr IVPB Q12H [facility]; Protocol Stop: 02/17/19 14:31 Last Admin: 02/13/19 13:49 Dose: 133 mls/hr Pantoprazole Sodium (Protonix Inj) 40 mg IVP DAILY [facility] Last Admin: 02/13/19 10:12 Dose: 40 mg - Labs Labs: 02/13/19 05:37 02/13/19 05:37 PT 13.2 SECONDS (9.7-12.2) H 02/09/19 05:45 INR 1.2 02/09/19 05:45 APTT 30 SECONDS (21-34) 02/09/19 05:45 Attending/Attestation - Attestation I have personally seen and examined this patient.: Yes I have fully participated in the care of the patient.: Yes I have reviewed all pertinent clinical information, including history, physical exam and plan: Yes Notes (Text): 02/13/19 17:08 While attempting apnea test, approximately 3 minutes into the procedure with 100% oxygen being administered and a good pulse oximetry, the patient suddenly became hemodynamically unstable, with a polymorphic vtach type of rhythm. We immediately aborted the procedure. He then became bradycardic. I pushed atropine, to resolve bradycardia, with no further reususcitative efforts, since the patient's family had agreed to make him DNR. His bradycardia improved but was not a perfusing rhythm at this point. We then allowed the patient to elena down to PEA and eventually asystole. I explained to the family that we already had EEG evidence of brain and were further trying to confirm brain with the apnea testing, but the patient did not tolerate this testing and became unstable and went into cardiac arrest. The and daughter were explained this via online translation services. They seemed to understand the situation. He was pronounced at 1620 hours. PMD, Dr. Matos notified. Critical care time 30 minutes. 02/13/19 17:14
--- NOTE | 2019-02-13 16:35 | CP.PCM.PRO ---
<Jonn Palma - Last Filed: 02/13/19 16:45> Pronouncement of Note - Clinical Findings Physical Exam: No Response Verbal/Painful Stimuli, Absent Peripheral Pulses{Carotid & Femoral}, Absent Heart & Breath Sounds, No Pupillary Light Reflex, No Corneal Reflex, Pupils Fixed & Dilated, Absence of Vital Signs - Pronouncement Time Time of Pronouncement of : 16:20 - Notifications Pronouncement Notifications: Family Notified, Atending Notified - [place] [id number] <BryonSylvia wyatthi - Last Filed: 02/13/19 16:48> Attending/Attestation - Attestation I have personally seen and examined this patient.: Yes I have fully participated in the care of the patient.: Yes I have reviewed all pertinent clinical information: Yes
--- NOTE | 2019-02-13 16:49 | CP.PCM.DIS ---
<Jonn Palma - Last Filed: 02/14/19 09:09> Provider - Provider Date of Admission: 02/08/19 21:47 Attending physician: Allegra Rivas MD Consults: 02/08/19 14:58 Palliative Care Consult Stat Comment: Consulting Provider: Anay Vázquez Physician Instructions: Reason For Exam: code status 02/08/19 21:46 Critical Care Consult Routine Comment: Consulting Provider: Markell Briggs Consulting Physician: Markell Briggs Reason for Consult: code blue 02/10/19 09:43 Neurology Consult Routine Comment: Consulting Provider: Dixie Villafuerte Consulting Physician: Dixie Villafuerte Reason for Consult: anoxia 02/11/19 15:32 Pastoral Care Referral Routine Comment: Physician Instructions: Reason For Exam: Spiritual distress among family members due to pro Time Spent in preparation of Discharge (in minutes): 30 Diagnosis - Discharge Diagnosis (1) Cardiac arrest Status: Acute (2) Anoxia Status: Acute (3) Ventilator dependent Status: Acute (4) Dysphagia Status: Acute (5) Failure to thrive Status: Acute Hospital Course - Lab Results Lab Results: Micro Results 02/08/19 00:56 Blood-Venous Blood Culture - Preliminary NO GROWTH AFTER 4 DAYS 02/08/19 22:36 Blood-Venous Blood Culture - Preliminary NO GROWTH AFTER 4 DAYS 02/08/19 17:29 Blood Blood Culture - Preliminary NO GROWTH AFTER 4 DAYS 02/08/19 17:29 Blood Blood Culture - Preliminary NO GROWTH AFTER 4 DAYS 02/09/19 13:48 Sputum Gram Stain - Final 02/09/19 13:48 Sputum Sputum Culture - Final Enterobacter Cloacae Ssp Cloac Yeast Species 02/08/19 16:12 Urine,Clean Catch Urine Culture - Final Gram Negative Дмитрий 02/09/19 05:47 Urine,Riley Urine Culture - Final No Growth (<1,000 CFU/ML) Most Recent Lab Values WBC 12.6 K/uL (4.8-10.8) H 02/13/19 05:37 RBC 3.59 Mil/uL (4.40-5.90) L 02/13/19 05:37 Hgb 11.2 g/dL (12.0-18.0) L 02/13/19 05:37 Hct 34.2 % (35.0-51.0) L 02/13/19 05:37 MCV 95.3 fL (80.0-94.0) H 02/13/19 05:37 MCH 31.3 pg (27.0-31.0) H 02/13/19 05:37 MCHC 32.8 g/dL (33.0-37.0) L 02/13/19 05:37 RDW 15.2 % (11.5-14.5) H 02/13/19 05:37 Plt Count 201 K/uL (130-400) 02/13/19 05:37 MPV 10.6 fL (7.2-11.7) 02/13/19 05:37 Neut % (Auto) 93.5 % (50.0-75.0) H 02/13/19 05:37 Lymph % (Auto) 4.3 % (20.0-40.0) L 02/13/19 05:37 [place] % (Auto) 1.7 % (0.0-10.0) 02/13/19 05:37 Eos % (Auto) 0.3 % (0.0-4.0) 02/13/19 05:37 Baso % (Auto) 0.2 % (0.0-2.0) 02/13/19 05:37 Neut # (Auto) 11.8 K/uL (1.8-7.0) H 02/13/19 05:37 Lymph # (Auto) 0.5 K/uL (1.0-4.3) L 02/13/19 05:37 [place] # (Auto) 0.2 K/uL (0.0-0.8) 02/13/19 05:37 Eos # (Auto) 0.0 K/uL (0.0-0.7) 02/13/19 05:37 Baso # (Auto) 0.0 K/uL (0.0-0.2) 02/13/19 05:37 Neutrophils % (Manual) 93 % (50-75) H 02/13/19 05:37 Band Neutrophils % 1 % (0-2) 02/13/19 05:37 Lymphocytes % (Manual) 4 % (20-40) L 02/13/19 05:37 Reactive Lymphs % 1 % (0-0) H 02/09/19 05:45 Monocytes % (Manual) 2 % (0-10) 02/13/19 05:37 Myelocytes % 1 % (0-0) H 02/10/19 04:43 Nucleated RBC % 1 % (0-0) H 02/10/19 04:43 Toxic Granulation Present 02/11/19 06:15 Platelet Estimate Normal (NORMAL) 02/13/19 05:37 Large Platelets Present 02/11/19 06:15 Giant Platelets Present 02/09/19 05:45 Polychromasia Slight 02/09/19 05:45 Hypochromasia (manual) Slight 02/13/19 05:37 Poikilocytosis (manual Slight 02/13/19 05:37 Anisocytosis (manual) Slight 02/13/19 05:37 Macrocytosis (manual) Slight 02/08/19 11:03 Target Cells Slight 02/13/19 05:37 PT 13.2 SECONDS (9.7-12.2) H 02/09/19 05:45 INR 1.2 02/09/19 05:45 APTT 30 SECONDS (21-34) 02/09/19 05:45 Puncture Site Rra 02/13/19 15:30 pCO2 42 mm/Hg (35-45) 02/13/19 15:30 pO2 145 mm/Hg (80-100) H 02/13/19 15:30 HCO3 25.8 mmol/L (21-28) 02/13/19 15:30 ABG pH 7.40 (7.35-7.45) 02/13/19 15:30 ABG Total CO2 27.3 mmol/L (22-28) 02/13/19 15:30 ABG O2 Saturation 99.5 % (95-98) H 02/13/19 15:30 ABG Base Excess 1.0 mmol/L (-2.0-3.0) 02/13/19 15:30 ABG Hemoglobin 10.3 g/dL (11.7-17.4) L 02/12/19 12:50 ABG Carboxyhemoglobin 1.4 % (0.5-1.5) 02/12/19 12:50 POC ABG HHb (Measured) 0.2 % (0.0-5.0) 02/12/19 12:50 ABG Methemoglobin 0.9 % (0.0-3.0) 02/12/19 12:50 Joseph Test Pos 02/13/19 15:30 ABG Potassium 3.7 mmol/L (3.6-5.2) 02/10/19 05:24 A-a O2 Difference 52.0 mm/Hg 02/13/19 15:30 Respiratory Index 0.4 02/13/19 15:30 Hgb O2 Saturation 97.5 % (95.0-98.0) 02/12/19 12:50 Sodium 146.0 mmol/l (132-148) 02/10/19 05:24 Chloride 117.0 mmol/L (98-107) H 02/10/19 05:24 Glucose 106 mg/dl (75-110) 02/10/19 05:24 Lactate 1.7 mmol/L (0.7-2.1) 02/10/19 05:24 Vent Mode Prvc 02/13/19 15:30 Mechanical Rate 16 02/13/19 15:30 FiO2 35.0 % 02/13/19 15:30 Tidal Volume 450 02/13/19 15:30 PEEP 5 02/13/19 15:30 Crit Value Called To Dr briggs 02/08/19 22:12 Crit Value Called By Yana rt 02/08/19 22:12 Crit Value Read Back Y 02/08/19 22:12 Blood Gas Notified Time 221702/08/19 22:12 Sodium 140 mmol/L (132-148) 02/13/19 05:37 Potassium 4.0 mmol/L (3.6-5.2) 02/13/19 05:37 Chloride 110 mmol/L (98-107) H 02/13/19 05:37 Carbon Dioxide 25 mmol/L (22-30) 02/13/19 05:37 Anion Gap 9 (10-20) L 02/13/19 05:37 BUN 33 mg/dL (9-20) H 02/13/19 05:37 Creatinine 1.0 mg/dL (0.8-1.5) 02/13/19 05:37 Est GFR ( Amer) > 60 02/13/19 05:37 Est GFR (Non-Af Amer) > 60 02/13/19 05:37 POC Glucose (mg/dL) 258 mg/dL (65-110) H 02/13/19 11:28 Random Glucose 196 mg/dL (75-110) H D 02/13/19 05:37 Lactic Acid 1.6 mmol/L (0.7-2.1) 02/09/19 19:06 Calcium 8.7 mg/dl (8.6-10.4) 02/13/19 05:37 Phosphorus 2.3 mg/dL (2.5-4.5) L 02/13/19 05:37 Magnesium 1.8 mg/dL (1.6-2.3) 02/13/19 05:37 Total Bilirubin 0.2 mg/dL (0.2-1.3) 02/13/19 05:37 AST 94 U/L (17-59) H D 02/13/19 05:37 ALT 230 U/L (21-72) H D 02/13/19 05:37 Alkaline Phosphatase 79 U/L (38-126) 02/13/19 05:37 Total Creatine Kinase 878 U/L (55-170) H 02/10/19 04:43 CK-MB (Mass) 5.38 ng/mL (0.0-3.38) H 02/08/19 22:45 Troponin I 0.0310 ng/mL (0.00-0.120) 02/10/19 04:43 Total Protein 5.4 g/dL (6.3-8.3) L 02/13/19 05:37 Albumin 2.7 g/dL (3.5-5.0) L 02/13/19 05:37 Globulin 2.7 gm/dL (2.2-3.9) 02/13/19 05:37 Albumin/Globulin Ratio 1.0 (1.0-2.1) 02/13/19 05:37 TSH 3rd Generation 3.46 mIU/L (0.46-4.68) 02/10/19 04:43 Arterial Blood Potassium 3.7 mmol/L (3.6-5.2) 02/10/19 05:24 Urine Color Straw (YELLOW) 02/09/19 05:47 Urine Clarity Hazy (Clear) 02/09/19 05:47 Urine pH 8.0 (5.0-8.0) 02/09/19 05:47 Ur Specific B[place] 1.008 (1.003-1.030) 02/09/19 05:47 Urine Protein 1+ mg/dL (NEGATIVE) H 02/09/19 05:47 Urine Glucose (UA) 1+ mg/dL (Normal) H 02/09/19 05:47 Urine Ketones Trace mg/dL (NEGATIVE) 02/09/19 05:47 Urine Blood 1+ (NEGATIVE) H 02/09/19 05:47 Urine Nitrate Negative (NEGATIVE) 02/09/19 05:47 Urine Bilirubin Negative (NEGATIVE) 02/09/19 05:47 Urine Urobilinogen Normal mg/dL (0.2-1.0) 02/09/19 05:47 Ur Leukocyte Esterase Neg Kellie/uL (Negative) 02/09/19 05:47 Urine WBC (Auto) 4 /hpf (0-5) 02/08/19 13:26 Urine RBC (Auto) 17 /hpf (0-3) H 02/09/19 05:47 Ur Squamous Epith Cells < 1 /hpf (0-5) 02/09/19 05:47 Urine Bacteria Few (<OCC) H 02/09/19 05:47 Hyaline Casts 3-5 /lpf (0-2) H 02/08/19 13:26 Urine Sperm (Auto) Few /hpf (NONE) H 02/09/19 05:47 Opiates (GC/MS) negative 02/09/19 12:23 Urine Opiates Screen Negative (NEGATIVE) 02/09/19 12:09 Ur Opiates (GC/MS) Negative 300 (Negative) 02/09/19 12:23 Methadone (GC/MS) negative 02/09/19 12:23 Urine Methadone Screen Negative (NEGATIVE) 02/09/19 12:09 Ur Methadone, Qual Negative 300 (Negative) 02/09/19 12:23 Propoxyphenes negative 02/09/19 12:23 Urine Propoxyphene Negative 300 (Negative) 02/09/19 12:23 Methaqualone Negative 300 (Negative) 02/09/19 12:23 Barbiturates negative 02/09/19 12:23 Ur Barbiturates Screen Negative (NEGATIVE) 02/09/19 12:09 Ur Barbiturates, Qual Negative 300 (Negative) 02/09/19 12:23 Phencyclidine (PCP) negative 02/09/19 12:23 Ur Phencyclidine Scrn Negative (NEGATIVE) 02/09/19 12:09 Ur Phencyclidine (PCP) Negative 25 (Negative) 02/09/19 12:23 Amphetamines negative 02/09/19 12:23 Ur Amphetamines Screen Negative 1000 (Negative) 02/09/19 12:23 Benzodiazepines negative 02/09/19 12:23 U Benzodiazepines Scrn Negative (NEGATIVE) 02/09/19 12:09 U Benzodiazepines Qual Negative 300 (Negative) 02/09/19 12:23 Cocaine & Metabolite negative 02/09/19 12:23 Urine Cocaine Negative 300 (Negative) 02/09/19 12:23 U Oth Cocaine Metabols Negative (NEGATIVE) 02/09/19 12:09 U Cannabinoids Screen Negative (NEGATIVE) 02/09/19 12:09 Marijuana negative 02/09/19 12:23 U Marijuana (THC) Screen Negative 50 (Negative) 02/09/19 12:23 Drugs of Abuse Note See note 02/09/19 12:23 Drugs of Abuse Comment See note 02/09/19 12:23 Influenza Typ A,B (EIA) Negative for flu a/b (NEGATIVE) 02/09/19 00:51 - Hospital Course Hospital Course: HPI at time of admission: "73 year old Male with recently diagnosed multiple sclerosis who presents to the ED with dysphagia for 6 days. Patient was admitted on our service for similar symptoms in October 2018. 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 He was discharged and instructed to follow up in [facility]. As per patient's daughter, he was worked up, seen by Neurology, Gastroenterology had an EGD performed which showed gastritis. Patient was instructed to stay on a puree diet with supplementation, no further medications were provided. For the past 6 months patient was somewhat verbal, able to perform all ADLs, and ambulated without assistance. All this changed about 1 week ago. Last Sunday he started to develop a nonproductive cough and chest congestion. Each time he ate he would vomit the food. Daughter noted that the patient felt weaker and weaker, and ultimately has not been able to swallow solids or liquids (thick or thin). Daughter denied any sick contacts, recent travel, any fever. He was brought in today due to continued inability to swallow, profound weakness, and now noticed respiratory distress. Originally patient was going to fly back to [place] this Sunday permanently and seek treatment out there, however due to his current state, it was advised that he stay admitted and made more stable." Hospital Course: Maryam Robledo was called on 02/08/19 for pt unresponsive on floor, initial rhythm asystole, CPR initiated, shock x1 give, epi x2 was given, pt was intubated. ROSC achieved 12 mins later, pt required pressor therapy and was transferred to ICU. Rhythm after ROSC was achieved was rapid A-fib which later converted to NSR. Pt was placed on Levophed drip, which was then tapered down and d/c'd, had therapeutic hypothermic protocol s/p cardiac arrest. Pt was transferred from medical floor to ICU for further monitoring. CTs of head demonstrated no acute changes. Neurology (Dr. Villafuerte) was consulted for anoxia, who recommended MRI and EEG studies. -MRI brain 02/12: No evidence of acute ICH or infarct. Mild chronic white matter and basal nuclei ischemic changes. Diffuse pial enhancement changes which are of uncertain etiology and could be 2/2 to scanning during early phase injection however possibility of meningitis not excluded. Mild generalized vol loss. -MRI C-spine: Mild multilevel degenerative spondylolysis most notably affecting C5-C6 level. No abnormal enhancement identified. -LP of low yield at this point as per Neuro due to being on anbx (Vanco/Aztreonam/Flagyl) for several days -EEG 02/11: diffusley slow, however normal posterior dominant rhythm. No seizures. -Video EEG 02/04: flat EEG, no posterior dominant rhythm. No brain stem activity. Palliative care was consulted for re. goals of care, discussion was made with pt's and daughter at bedside, consented to DNR status for patient. Brain protocol was initiated on 02/13/19. 02/13/19: Was at bedside evaluating pt with attending Dr. Aiken performing brain protocol test. Test was aborted after 3 mins after ventricular fibrillation appeared on bit bender and pt was placed back on vent. Rhythm changed from ventricular fibrillation to bradycardia. Pt given 1 mg IV x1 of atropine at 16:03 with no improvement in HR. Cardiac Rhythm changed from bradycardia to PEA to asystole. Pt DNR status. Time of 16:20. Family present, notified of , given comfort care. Notified PMD Dr. Matos of pronouncement of . For further details of hospital course, please refer to EMR. Discharge Exam - Head Exam Head Exam: ATRAUMATIC, NORMOCEPHALIC Additional comments: Pt , please see pronouncement of note for further details of physical exam Discharge Plan - Follow Up Plan Condition: SERIOUS Disposition: WITH WITHOUT AUTOPSY <Caden Matos H - Last Filed: 02/14/19 14:39> Provider - Provider Date of Admission: 02/08/19 21:47 Attending physician: Allegra Rivas MD Consults: 02/08/19 14:58 Palliative Care Consult Stat Comment: Consulting Provider: Anay Vázquez Physician Instructions: Reason For Exam: code status 02/08/19 21:46 Critical Care Consult Routine Comment: Consulting Provider: Markell Briggs Consulting Physician: Markell Briggs Reason for Consult: code blue 02/10/19 09:43 Neurology Consult Routine Comment: Consulting Provider: Dixie Villafuerte Consulting Physician: Dixie Villafuerte Reason for Consult: anoxia 02/11/19 15:32 Pastoral Care Referral Routine Comment: Physician Instructions: Reason For Exam: Spiritual distress among family members due to pro Hospital Course - Lab Results Lab Results: Micro Results 02/08/19 00:56 Blood-Venous Blood Culture - Final NO GROWTH AFTER 5 DAYS 02/08/19 00:56 Blood-Venous Gram Stain - Final TEST NOT PERFORMED 02/08/19 22:36 Blood-Venous Blood Culture - Final NO GROWTH AFTER 5 DAYS 02/08/19 22:36 Blood-Venous Gram Stain - Final TEST NOT PERFORMED 02/08/19 17:29 Blood Blood Culture - Final NO GROWTH AFTER 5 DAYS 02/08/19 17:29 Blood Gram Stain - Final TEST NOT PERFORMED 02/08/19 17:29 Blood Blood Culture - Final NO GROWTH AFTER 5 DAYS 02/08/19 17:29 Blood Gram Stain - Final TEST NOT PERFORMED 02/09/19 13:48 Sputum Gram Stain - Final 02/09/19 13:48 Sputum Sputum Culture - Final Enterobacter Cloacae Ssp Cloac Yeast Species 02/08/19 16:12 Urine,Clean Catch Urine Culture - Final Gram Negative Дмитрий 02/09/19 05:47 Urine,Riley Urine Culture - Final No Growth (<1,000 CFU/ML) Most Recent Lab Values WBC 12.6 K/uL (4.8-10.8) H 02/13/19 05:37 RBC 3.59 Mil/uL (4.40-5.90) L 02/13/19 05:37 Hgb 11.2 g/dL (12.0-18.0) L 02/13/19 05:37 Hct 34.2 % (35.0-51.0) L 02/13/19 05:37 MCV 95.3 fL (80.0-94.0) H 02/13/19 05:37 MCH 31.3 pg (27.0-31.0) H 02/13/19 05:37 MCHC 32.8 g/dL (33.0-37.0) L 02/13/19 05:37 RDW 15.2 % (11.5-14.5) H 02/13/19 05:37 Plt Count 201 K/uL (130-400) 02/13/19 05:37 MPV 10.6 fL (7.2-11.7) 02/13/19 05:37 Neut % (Auto) 93.5 % (50.0-75.0) H 02/13/19 05:37 Lymph % (Auto) 4.3 % (20.0-40.0) L 02/13/19 05:37 [place] % (Auto) 1.7 % (0.0-10.0) 02/13/19 05:37 Eos % (Auto) 0.3 % (0.0-4.0) 02/13/19 05:37 Baso % (Auto) 0.2 % (0.0-2.0) 02/13/19 05:37 Neut # (Auto) 11.8 K/uL (1.8-7.0) H 02/13/19 05:37 Lymph # (Auto) 0.5 K/uL (1.0-4.3) L 02/13/19 05:37 [place] # (Auto) 0.2 K/uL (0.0-0.8) 02/13/19 05:37 Eos # (Auto) 0.0 K/uL (0.0-0.7) 02/13/19 05:37 Baso # (Auto) 0.0 K/uL (0.0-0.2) 02/13/19 05:37 Neutrophils % (Manual) 93 % (50-75) H 02/13/19 05:37 Band Neutrophils % 1 % (0-2) 02/13/19 05:37 Lymphocytes % (Manual) 4 % (20-40) L 02/13/19 05:37 Reactive Lymphs % 1 % (0-0) H 02/09/19 05:45 Monocytes % (Manual) 2 % (0-10) 02/13/19 05:37 Myelocytes % 1 % (0-0) H 02/10/19 04:43 Nucleated RBC % 1 % (0-0) H 02/10/19 04:43 Toxic Granulation Present 02/11/19 06:15 Platelet Estimate Normal (NORMAL) 02/13/19 05:37 Large Platelets Present 02/11/19 06:15 Giant Platelets Present 02/09/19 05:45 Polychromasia Slight 02/09/19 05:45 Hypochromasia (manual) Slight 02/13/19 05:37 Poikilocytosis (manual Slight 02/13/19 05:37 Anisocytosis (manual) Slight 02/13/19 05:37 Macrocytosis (manual) Slight 02/08/19 11:03 Target Cells Slight 02/13/19 05:37 PT 13.2 SECONDS (9.7-12.2) H 02/09/19 05:45 INR 1.2 02/09/19 05:45 APTT 30 SECONDS (21-34) 02/09/19 05:45 Puncture Site Rra 02/13/19 15:30 pCO2 42 mm/Hg (35-45) 02/13/19 15:30 pO2 145 mm/Hg (80-100) H 02/13/19 15:30 HCO3 25.8 mmol/L (21-28) 02/13/19 15:30 ABG pH 7.40 (7.35-7.45) 02/13/19 15:30 ABG Total CO2 27.3 mmol/L (22-28) 02/13/19 15:30 ABG O2 Saturation 99.5 % (95-98) H 02/13/19 15:30 ABG Base Excess 1.0 mmol/L (-2.0-3.0) 02/13/19 15:30 ABG Hemoglobin 10.3 g/dL (11.7-17.4) L 02/12/19 12:50 ABG Carboxyhemoglobin 1.4 % (0.5-1.5) 02/12/19 12:50 POC ABG HHb (Measured) 0.2 % (0.0-5.0) 02/12/19 12:50 ABG Methemoglobin 0.9 % (0.0-3.0) 02/12/19 12:50 Joseph Test Pos 02/13/19 15:30 ABG Potassium 3.7 mmol/L (3.6-5.2) 02/10/19 05:24 A-a O2 Difference 52.0 mm/Hg 02/13/19 15:30 Respiratory Index 0.4 02/13/19 15:30 Hgb O2 Saturation 97.5 % (95.0-98.0) 02/12/19 12:50 Sodium 146.0 mmol/l (132-148) 02/10/19 05:24 Chloride 117.0 mmol/L (98-107) H 02/10/19 05:24 Glucose 106 mg/dl (75-110) 02/10/19 05:24 Lactate 1.7 mmol/L (0.7-2.1) 02/10/19 05:24 Vent Mode Prvc 02/13/19 15:30 Mechanical Rate 16 02/13/19 15:30 FiO2 35.0 % 02/13/19 15:30 Tidal Volume 450 02/13/19 15:30 PEEP 5 02/13/19 15:30 Crit Value Called To Dr briggs 02/08/19 22:12 Crit Value Called By Yana fierro 02/08/19 22:12 Crit Value Read Back Y 02/08/19 22:12 Blood Gas Notified Time 221702/08/19 22:12 Sodium 140 mmol/L (132-148) 02/13/19 05:37 Potassium 4.0 mmol/L (3.6-5.2) 02/13/19 05:37 Chloride 110 mmol/L (98-107) H 02/13/19 05:37 Carbon Dioxide 25 mmol/L (22-30) 02/13/19 05:37 Anion Gap 9 (10-20) L 02/13/19 05:37 BUN 33 mg/dL (9-20) H 02/13/19 05:37 Creatinine 1.0 mg/dL (0.8-1.5) 02/13/19 05:37 Est GFR ( Amer) > 60 02/13/19 05:37 Est GFR (Non-Af Amer) > 60 02/13/19 05:37 POC Glucose (mg/dL) 258 mg/dL (65-110) H 02/13/19 11:28 Random Glucose 196 mg/dL (75-110) H D 02/13/19 05:37 Lactic Acid 1.6 mmol/L (0.7-2.1) 02/09/19 19:06 Calcium 8.7 mg/dl (8.6-10.4) 02/13/19 05:37 Phosphorus 2.3 mg/dL (2.5-4.5) L 02/13/19 05:37 Magnesium 1.8 mg/dL (1.6-2.3) 02/13/19 05:37 Total Bilirubin 0.2 mg/dL (0.2-1.3) 02/13/19 05:37 AST 94 U/L (17-59) H D 02/13/19 05:37 ALT 230 U/L (21-72) H D 02/13/19 05:37 Alkaline Phosphatase 79 U/L (38-126) 02/13/19 05:37 Total Creatine Kinase 878 U/L (55-170) H 02/10/19 04:43 CK-MB (Mass) 5.38 ng/mL (0.0-3.38) H 02/08/19 22:45 Troponin I 0.0310 ng/mL (0.00-0.120) 02/10/19 04:43 Total Protein 5.4 g/dL (6.3-8.3) L 02/13/19 05:37 Albumin 2.7 g/dL (3.5-5.0) L 02/13/19 05:37 Globulin 2.7 gm/dL (2.2-3.9) 02/13/19 05:37 Albumin/Globulin Ratio 1.0 (1.0-2.1) 02/13/19 05:37 Ethanolamine None detected 02/09/19 12:23 TSH 3rd Generation 3.46 mIU/L (0.46-4.68) 02/10/19 04:43 Arterial Blood Potassium 3.7 mmol/L (3.6-5.2) 02/10/19 05:24 Urine Color Straw (YELLOW) 02/09/19 05:47 Urine Clarity Hazy (Clear) 02/09/19 05:47 Urine pH 8.0 (5.0-8.0) 02/09/19 05:47 Ur Specific [place] 1.008 (1.003-1.030) 02/09/19 05:47 Urine Protein 1+ mg/dL (NEGATIVE) H 02/09/19 05:47 Urine Glucose (UA) 1+ mg/dL (Normal) H 02/09/19 05:47 Urine Ketones Trace mg/dL (NEGATIVE) 02/09/19 05:47 Urine Blood 1+ (NEGATIVE) H 02/09/19 05:47 Urine Nitrate Negative (NEGATIVE) 02/09/19 05:47 Urine Bilirubin Negative (NEGATIVE) 02/09/19 05:47 Urine Urobilinogen Normal mg/dL (0.2-1.0) 02/09/19 05:47 Ur Leukocyte Esterase Neg Kellie/uL (Negative) 02/09/19 05:47 Urine WBC (Auto) 4 /hpf (0-5) 02/08/19 13:26 Urine RBC (Auto) 17 /hpf (0-3) H 02/09/19 05:47 Ur Squamous Epith Cells < 1 /hpf (0-5) 02/09/19 05:47 Urine Bacteria Few (<OCC) H 02/09/19 05:47 Hyaline Casts 3-5 /lpf (0-2) H 02/08/19 13:26 Urine Sperm (Auto) Few /hpf (NONE) H 02/09/19 05:47 Opiates (GC/MS) negative 02/09/19 12:23 Urine Opiates Screen Negative (NEGATIVE) 02/09/19 12:09 Ur Opiates (GC/MS) Negative 300 (Negative) 02/09/19 12:23 Methadone (GC/MS) negative 02/09/19 12:23 Urine Methadone Screen Negative (NEGATIVE) 02/09/19 12:09 Ur Methadone, Qual Negative 300 (Negative) 02/09/19 12:23 Propoxyphenes negative 02/09/19 12:23 Urine Propoxyphene Negative 300 (Negative) 02/09/19 12:23 Methaqualone Negative 300 (Negative) 02/09/19 12:23 Barbiturates negative 02/09/19 12:23 Ur Barbiturates Screen Negative (NEGATIVE) 02/09/19 12:09 Ur Barbiturates, Qual Negative 300 (Negative) 02/09/19 12:23 Phencyclidine (PCP) negative 02/09/19 12:23 Ur Phencyclidine Scrn Negative (NEGATIVE) 02/09/19 12:09 Ur Phencyclidine (PCP) Negative 25 (Negative) 02/09/19 12:23 Amphetamines negative 02/09/19 12:23 Ur Amphetamines Screen Negative 1000 (Negative) 02/09/19 12:23 Benzodiazepines negative 02/09/19 12:23 U Benzodiazepines Scrn Negative (NEGATIVE) 02/09/19 12:09 U Benzodiazepines Qual Negative 300 (Negative) 02/09/19 12:23 Cocaine & Metabolite negative 02/09/19 12:23 Urine Cocaine Negative 300 (Negative) 02/09/19 12:23 U Oth Cocaine Metabols Negative (NEGATIVE) 02/09/19 12:09 U Cannabinoids Screen Negative (NEGATIVE) 02/09/19 12:09 Marijuana negative 02/09/19 12:23 U Marijuana (THC) Screen Negative 50 (Negative) 02/09/19 12:23 Drugs of Abuse Note See note 02/09/19 12:23 Drugs of Abuse Comment See note 02/09/19 12:23 Toxicology Panel see note 02/09/19 12:23 Methyl Alcohol Level None detected 02/09/19 12:23 Isopropanol None detected 02/09/19 12:23 Acetone Level None detected 02/09/19 12:23 Influenza Typ A,B (EIA) Negative for flu a/b (NEGATIVE) 02/09/19 00:51 Clinical Quality Measures - CQM - Stroke Antithrombotic Prescribed: Yes Attending/Attestation - Attestation I have personally seen and examined this patient.: Yes I have fully participated in the care of the patient.: Yes I have reviewed all pertinent clinical information, including history, physical exam and plan: Yes Notes (Text): 02/14/19 14:27 Medical attending: Patient was seen and examined by me earlier that day and later she . Reviewed the note by the vice president medical affairs and agree with this ID [id number] Case ID created Caden Matos
[2019-02-13 17:00] VITALS: BP 158/74; PULSE 33
== END 2019-02-13 16:20 | DRG 130 ==
LOC: C.ER 09:24 → C.9E 14:44 → C.3T 18:12 → OBSVTOIN 21:47 → C.9I 21:55
PROVIDERS: ADMIT Internal Medicine; ATTEND Internal Medicine
PROC: 5A1955Z Respiratory Ventilation, Greater than 96 Consecutive Hours (ICD-10-PCS; principal; 2019-02-08)
PROC: 3E033XZ Introduction of Vasopressor into Peripheral Vein, Percutaneous Approach (ICD-10-PCS; 2019-02-08)
PROC: 0BH17EZ Insertion of Endotracheal Airway into Trachea, Via Natural or Artificial Opening (ICD-10-PCS; 2019-02-08)
PROC: 02HV33Z Insertion of Infusion Device into Superior Vena Cava, Percutaneous Approach (ICD-10-PCS; 2019-02-08)
DX: J96.01 Acute respiratory failure with hypoxia (principal); I49.01 Ventricular fibrillation; E43 Unspecified severe protein-calorie malnutrition; J18.9 Pneumonia, unspecified organism; N17.9 Acute kidney failure, unspecified; G93.40 Encephalopathy, unspecified; G93.1 Anoxic brain damage, not elsewhere classified; G12.21 Amyotrophic lateral sclerosis; K74.60 Unspecified cirrhosis of liver; J44.0 Chronic obstructive pulmonary disease with (acute) lower respiratory infection; R64 Cachexia; E86.0 Dehydration; E78.00 Pure hypercholesterolemia, unspecified; R62.7 Adult failure to thrive; Z51.5 Encounter for palliative care; Z66 Do not resuscitate; K76.0 Fatty (change of) liver, not elsewhere classified; I46.9 Cardiac arrest, cause unspecified; Z88.0 Allergy status to penicillin